=== PATIENT | female | born 1995 | race Caucasian/White ===

== ENCOUNTER 2019-06-22 11:53 | Emergency (ER) | payer SELFPAY ==
[2019-06-22 12:26] VITALS: BP 117/68; PULSE 111; RESP 16; TEMP 37.2; O2SAT 98
--- NOTE | 2019-06-22 12:37 | ED.URI ---
HPI - URI/Sore Throat General Chief Complaint: Upper Respiratory Infection Stated Complaint: Cough/Chills/Sore Throat/Headache Time Seen by Provider: 06/22/19 12:27 Source: patient and RN notes reviewed Mode of arrival: ambulatory Limitations: no limitations History of Present Illness HPI Narrative: 24-year-old female presents with concern for body aches, sore throat, chills, sweats, headache for 3 days. Reports she has been taking NyQuil and DayQuil with little relief MD elicited complaint: sore throat Related Data Allergies Allergy/AdvReac Type Severity Reaction Status Date / Time No Known Allergies Allergy Verified 06/22/19 12:17 Review of Systems Review of Systems: Narrative: CONSTITUTIONAL: Reports malaise, chills, sweats, fever. EYES: Denies visual changes, redness, or discharge. ENT: Reports rhinorrhea, congestion, sore throat. Denies sinus pain, otalgia. CARDIOVASCULAR: Denies chest pain, palpitations, or edema. RESPIRATORY: Reports cough. Denies dyspnea. GASTROINTESTINAL: Denies abdominal pain, nausea, vomiting, diarrhea SKIN: Denies rash or itching. MUSCULOSKELETAL: Reports myalgia. NEUROLOGIC: Reports headache. All systems reviewed & are unremarkable except as noted in HPI and below PMFSH Family History Family History (Updated 03/10/18 @ 15:32 by DOCTOR UNKNOWN) Mother Hypertension Family history of chronic obstructive pulmonary disease Sibling Hypertension Grandparent Family history of coronary artery disease Diabetes mellitus Social History Social History Smoking status: Never smoker Second hand tobacco smoke exposure: Yes Alcohol intake: never Gender identity (if verbalized by the patient): Female Comments At time of signature, agree with nursing past medical, surgical, social and family history. There is no relevant family history pertinent to the presenting complaint Exam Narrative: Exam Narrative: GENERAL: Well-appearing, well-nourished, and in no acute distress. HEAD: Normocephalic EYES: PERRLA, conjunctivae clear ENT: Nares clear, turbinates edematous and erythematous, clear discharge. Mucous membranes moist. TM pearly [place] with dull light reflex bilaterally; no tragal tenderness. Oropharynx erythematous without lesions. Tonsils enlarged and without exudate, no drooling, no hoarseness, no trismus. NECK: Supple. No lymphadenopathy CHEST: Clear to auscultation, breath sounds equal. No wheezing, rhonchi, rales, or stridor. No respiratory distress, speaks in full sentences. Cough noted HEART: Regular rate and rhythm. No murmur heard. Normal peripheral pulses. SKIN: Warm, dry, no rash. NEURO: Alert and oriented x3. PSYCH: Normal mood and affect Course Course Emergency Course: Patient is aware of diagnosis, understands and agrees to treatment plan. Anticipatory guidance given. Patient agrees to follow-up as directed and is aware of reasons to seek care at the emergency department. Portions of this record may have been created with voice recognition software Vital Signs Vital signs: Vital Signs Temperature 99.0 F 06/22/19 12:26 Pulse Rate 111 H 06/22/19 12:26 Respiratory Rate 16 06/22/19 12:26 Blood Pressure 117/68 06/22/19 12:26 Pulse Oximetry 98 06/22/19 12:26 Temperature 99.0 F 06/22/19 12:26 Pulse Rate 111 H 06/22/19 12:26 Respiratory Rate 16 06/22/19 12:26 Blood Pressure 117/68 06/22/19 12:26 Pulse Oximetry 98 06/22/19 12:26 Reviewed. MDM - URI/Sore Throat Lab Data Attestation: I reviewed the patient's lab results. Labs: Influenza A Screen Positive Reference Range: Negative Influenza B Screen Negative Reference Range: Negative Strep Screen Presumptive Negative *(Reference Range: Negative)* Critical Care Time Critical Care Time Critical Care Time: No Discharge Plan Discharge Clinical Impression: Influenza A, Medication refill Patient Disposition: [facility]
== END 2019-06-22 12:44 | disposition home or self-care (01) ==
PROVIDERS: Emergency Provider Nurse Practitioner; PCP Family Medicine
DX: J10.1 Influenza due to other identified influenza virus with other respiratory manifestations (principal); Z76.0 Encounter for issue of repeat prescription; J45.909 Unspecified asthma, uncomplicated
CPT/HCPCS: 87081; 87804; 87880; 99213; G0463

== ENCOUNTER 2020-03-20 10:11 | Outpatient (NON) | payer OTHER, SELFPAY ==
[2020-03-21 21:14] LABS: SARS-CoV-2 RNA PCR Negative
== END 2020-03-20 10:12 ==
LOC: ANHCOVIDDT 10:12
PROVIDERS: Visit Provider Nurse Practitioner Family
DX: Z20.828 Contact with and (suspected) exposure to other viral communicable diseases (principal)
CPT/HCPCS: 87635; C9803; U0003

== ENCOUNTER 2020-04-28 11:14 | Outpatient (CLI) | payer OTHER, SELFPAY ==
[2020-04-28 12:44] LABS: HIV 1/2 Ab P24 Ag Result Negative (Negative)
== END 2020-04-28 11:15 | disposition home or self-care (01) ==
PROVIDERS: PCP Family Medicine; Visit Provider Nurse Practitioner Family
DX: Z11.3 Encounter for screening for infections with a predominantly sexual mode of transmission (principal)
CPT/HCPCS: 36415; 86703; 87491; 87591; G0432

== ENCOUNTER 2020-04-29 12:08 | Emergency (ER) | payer OTHER, SELFPAY ==
[2020-04-29 12:15] VITALS: BP 135/56; PULSE 90; RESP 20; TEMP 36.6; O2SAT 100
--- NOTE | 2020-04-29 12:26 | ED.ABDPAIN ---
HPI - Abdominal Pain General Chief Complaint: Urogenital-Female Stated Complaint: abd pain Time Seen by Provider: 04/29/20 12:36 Source: patient and RN notes reviewed Mode of arrival: ambulatory Limitations: no limitations History of Present Illness HPI narrative: 25-year-old female presents with concern for right lower abdominal pain. Patient reports last menstrual period was in the middle of February, she has had a positive test. She denies any abnormal vaginal bleeding, discharge. Denies nausea, vomiting, diarrhea, constipation. Reports pain is waking her up out of her sleep. Denies any intervention. MD elicited complaint: abdominal pain Related Data Allergies Allergy/AdvReac Type Severity Reaction Status Date / Time No Known Allergies Allergy Verified 04/29/20 12:24 Review of Systems Review of Systems: Narrative: CONSTITUTIONAL: Denies malaise, chills, sweats, or fever. CARDIOVASCULAR: Denies chest pain, palpitations, or edema. RESPIRATORY: Denies cough or dyspnea. GASTROINTESTINAL: Reports right lower abdominal pain. Denies nausea, vomiting, diarrhea, bloody, or mucous stools. GENITOURINARY: Denies frequency, urgency, dysuria or hematuria. MUSCULOSKELETAL: Denies back pain or myalgia. All systems reviewed & are unremarkable except as noted in HPI and below PMFSH Family History Family History (Updated 03/10/18 @ 15:32 by DOCTOR UNKNOWN) Mother Hypertension Family history of chronic obstructive pulmonary disease Sibling Hypertension Grandparent Family history of coronary artery disease Diabetes mellitus Social History Social History Smoking status: Never smoker Second hand tobacco smoke exposure: Yes Alcohol intake: never Gender identity (if verbalized by the patient): Female Comments At time of signature, agree with nursing past medical, surgical, social and family history. There is no relevant family history pertinent to the presenting complaint Exam Narrative: Exam Narrative: GENERAL: Well-appearing, well-nourished, and in no acute distress. HEAD: Normocephalic, atraumatic. EYES: PERRLA, conjunctivae clear ENT: Mucous membranes moist. NECK: Supple. No lymphadenopathy CHEST: Speaks in full sentences. Clear to auscultation, breath sounds equal. No respiratory distress. HEART: Regular rate and rhythm. ABDOMEN: Soft, flat, nondistended. No guarding, rebound tenderness, or rigid. No pulsatilla masses. Bowel sounds present in all four quadrants. No organomegaly. Negative Crane?s sign. No periumbilical tenderness. No Supra public tenderness or distension. SKIN: Warm, dry, no rash. NEURO: Alert and oriented x3. PSYCH: Normal mood and affect Course Course Emergency Course: Patient is aware of, understands and agrees to be seen in the emergency department. Patient agrees to proceed directly to the emergency department. Portions of this record may have been created with voice recognition software Vital Signs Vital signs: Vital Signs Temperature 97.8 F 04/29/20 12:15 Pulse Rate 90 04/29/20 12:15 Respiratory Rate 20 04/29/20 12:15 Blood Pressure 135/56 L 04/29/20 12:15 Pulse Oximetry 100 04/29/20 12:15 Temperature 97.8 F 04/29/20 12:15 Pulse Rate 90 04/29/20 12:15 Respiratory Rate 20 04/29/20 12:15 Blood Pressure 135/56 L 04/29/20 12:15 Pulse Oximetry 100 04/29/20 12:15 Reviewed. Transfer Transfered to: [facility]: Other Transfer rationale: Abdominal pain during Accepting physician: Dale Hughes Transfer comments: Patient stable for transfer via private vehicle MDM - Abdominal Pain MDM Narrative Medical decision making narrative: Patient's history and exam warrant further evaluation in the emergency department. Patient is stable for transfer via private vehicle Lab Data Attestation: I reviewed the patient's lab results. Critical Care Time Critical Care Time Critical Care Time: No Discharge Plan Disch
== END 2020-04-29 12:51 | disposition short-term general hospital (02) ==
PROVIDERS: Emergency Provider Nurse Practitioner; PCP Family Medicine
DX: O26.891 Other specified pregnancy related conditions, first trimester (principal); Z3A.00 Weeks of gestation of pregnancy not specified
CPT/HCPCS: 81003; 81025; 99213; G0463

== ENCOUNTER 2020-04-29 13:07 | Emergency (ER) | payer OTHER, SELFPAY ==
--- NOTE | ~2020-04-29 | US_ITS ---
EXAMINATION: US OB <=14 wk fetus w TV DATE: 04/29/2020 14:19 INDICATION: Pelvic pain during first trimester TECHNIQUE: Real-time pelvic ultrasound utilizing both a transvaginal and transabdominal probe was pe rformed. The interpreting radiologist was not present for the study. COMPARISON: None. FINDINGS: The anteverted uterus measures 7.2 x 3.8 x 4.7 cm. There is an intrauterine gestational sac. A yolk sac and pole are identified. The crown rump length measures 3 mm, which correlates with an amadou mated gestational age of 5 weeks and 5 days. heart motion is identified measuring 85 beats per minute (bpm) by M-mode Doppler. The right ovary measures 3.6 x 2.6 x 2.2 cm. The left ovary measures 3.5 x 2.5 x 2.4 cm. 9 mm anechoi c cyst at the left ovary. Vascular flow is seen at both ovaries on color Doppler. The left ovary ther e is prominent vascular flow at the periphery of a 1.9 cm hypoechoic likely corpus luteum cyst. There is no free fluid in the pelvis. IMPRESSION: 1. Single living fetus with heart rate of 85 bpm. 2. Gestational age by ultrasound of 5 weeks 5 day(s) +/- 4 day(s) with ultrasound estimated date of delivery (SHARRI) of 12/24/2020. Reviewed, dictated and finalized at location A. [facility] IMPRESSION: 1. Single living fetus with heart rate of 85 bpm. 2. Gestational age by ultrasound of 5 weeks 5 day(s) +/- 4 day(s) with ultraso und estimated date of delivery (SHARRI) of 12/24/2020.
[2020-04-29 13:09] VITALS: BP 144/75; PULSE 97; RESP 14; TEMP 36.1; O2SAT 99
--- NOTE | 2020-04-29 13:49 | ED.ABDPAIN ---
HPI - Abdominal Pain General Chief Complaint: Abdominal Pain Stated Complaint: abdominal pain/ sent from urgent care Time Seen by Provider: 04/29/20 13:41 History of Present Illness HPI narrative: 25 yo female presents to the ED for abdominal pain. Intermittent RLQ pain for about the past week. worse with movment. No associated symptoms. Recent positive test. LMP 03/09/2020. She has not had any OB care yet this . Related Data Allergies Allergy/AdvReac Type Severity Reaction Status Date / Time No Known Allergies Allergy Verified 04/29/20 12:24 Review of Systems Review of Systems: All systems reviewed & are unremarkable except as noted in HPI and below Constitutional: Constitutional: Denies chills and Denies fever(s) Cardiovascular: Cardiovascular: Denies chest pain Respiratory: Respiratory: Denies dyspnea Gastrointestinal: Gastrointestinal: Reports abdominal pain, Denies constipation, Denies diarrhea, Denies nausea and Denies vomiting Genitourinary: Genitourinary: Denies abnormal vaginal bleeding, Denies hematuria, Denies dysuria, Denies flank pain and Denies vaginal discharge Neurologic: Denies weakness [facility] Past Medical History Medical History Healthy female adult Family History Family History Mother Hypertension Family history of chronic obstructive pulmonary disease Sibling Hypertension Grandparent Family history of coronary artery disease Diabetes mellitus Social History Social History Smoking status: Never smoker Second hand tobacco smoke exposure: Yes Alcohol intake: never Gender identity (if verbalized by the patient): Female Exam Const: General: healthy appearing, no acute distress and alert Orientation/consciousness: patient oriented x3 HENMT: Head: normal to inspection Neck: Neck: normal visual inspection Resp: Effort & Inspection: normal respiratory effort Auscultation: clear to auscultation bilaterally, no rales, no rhonchi and no wheezes Cardio: Jugular venous distension: no JVD Rate: regular rate Rhythm: regular rhythm Heart sounds: no murmurs GI: Inspection: non-distended GI Palp: Yes Soft to palpation and Yes Tenderness to palpation present (GI) (suprapubic) Skin: General skin exam: normal color Neuro: General: patient oriented x3 and moves all extremities Speech: normal speech Gait exam (Neuro): Normal gait present Extrem: General: normal to inspection and no edema Psych: Appearance: well kempt Affect: normal affect Course Vital Signs Vital signs: Vital Signs Temperature 36.1 C L 04/29/20 13:09 Pulse Rate 97 04/29/20 13:09 Respiratory Rate 14 04/29/20 13:09 Blood Pressure 144/75 H 04/29/20 13:09 Pulse Oximetry 99 04/29/20 13:09 Temperature 36.1 C L 04/29/20 13:09 Pulse Rate 97 04/29/20 13:09 Respiratory Rate 14 04/29/20 13:09 Blood Pressure 144/75 H 04/29/20 13:09 Pulse Oximetry 99 04/29/20 13:09 MDM - Abdominal Pain MDM Narrative Medical decision making narrative: US show IUP. Appendicitis ulikely based on H&P. I explained that I felt it was unlikely, but not entirely excluded. She will return if symptoms worsen. Differential Diagnosis Differential diagnosis: Likely acute appendicitis and other (UTI, ectopic , kidney ston) Medical Records Attestation: I reviewed the patient's medical records. Lab Data Attestation: I reviewed the patient's lab results. Result diagrams: 04/29/20 13:45 04/29/20 13:45 Labs: Lab Results 04/29/20 04/29/20 04/29/20 Range/Units 13:45 13:45 13:45 WBC 6.8 (4.5-10.0) K/mm3 RBC 4.50 (4.2-5.4) M/mm3 Hgb 13.2 (12.0-15.0) g/dL Hct 39.8 (37.0-47.0) % MCV 88.4 (80-100) fl MCH 29.3 (26-34) pg MCHC 33.2 (32-36) g/dl R
[2020-04-29 14:11] LABS: Basophils Percent Auto 0.3 % (0.2-1.2); Eosinophils Percent Auto 0.3 % (0-4.4); Hematocrit 39.8 % (37.0-47.0); Hemoglobin 13.2 g/dL (12.0-15.0); Immature Granulocyte Absolute 0.01 K/mm3 (0.00-0.031); Immature Granulocyte Percent A 0.1 % (0-0.5); Lymphocytes Absolute Auto 1.36 K/mm3 (0.9-3.2); Lymphocytes Percent Auto 19.9 % (18.3-44.2); Mean Corpuscular HGB Conc 33.2 g/dl (32-36); Mean Corpuscular Hemoglobin 29.3 pg (26-34); Mean Corpuscular Volume 88.4 fl (80-100); Mean Platelet Volume 10.1 fl (7.4-10.4); Monocytes Absolute Auto 0.3 K/mm3 (0.1-0.6); Monocytes Percent Auto 4.5 % (2.6-8.5); Neutrophils Absolute Auto 5.1 K/mm3 (1.3-6.7); Neutrophils Percent Auto 74.9 % (45.5-73.1); Platelet Count Result 245 k/mm3 (150-375); Red Cell Distribution Width 12.5 % (11.5-14.5); White Blood Count 6.8 K/mm3 (4.5-10.0)
[2020-04-29 14:23] LABS: Add Urine Microscopic? YES; Appearance Urine Clear (Clear); Bilirubin Urine Negative (Negative); Blood Urine Negative (Negative); Color Urine Straw (Yellow); Glucose Urine UA Negative (Negative); Ketones Urine Trace mg/dL (Negative); Leukocyte Esterase Ur 2+ LEU/UL (Negative); Mucus Urine Rare /lpf; Nitrate Urine Negative (Negative); Protein Urine Negative (Negative); RBC Urine 0-2 /hpf (0-2); Specific Grav Ur 1.012 (1.001-1.035); Squamous Epithelial Cell Urine Many /hpf (Few); Urobilinogen Urine Negative mg/dL (<2.0); WBC Urine 0-3 /hpf
[2020-04-29 14:24] LABS: Alanine Aminotransferase 13 U/L (4-35); Albumin Level 4.7 g/dL (3.5-5.1); Alkaline Phosphatase 56 U/L (38-126); Anion Gap 10 mmol/L (8-16); Aspartate Amino Transferase 25 U/L (14-36); Bilirubin,Total 0.5 mg/dL (0.2-1.3); Blood Urea Nitrogen 10 mg/dL (7-17); Calcium 9.3 mg/dL (8.4-10.2); Carbon Dioxide 24 mmol/L (22-30); Chloride 102 mmol/L (98-107); Estimated CRCL calculation 94 ml/min; Estimated Glomerular Filt Rate > 60; Glucose 94 mg/dL (65-105); Lipase 106 U/L (23-300); Potassium 3.7 mmol/L (3.4-5.0); Sodium 136 mmol/L (137-145)
== END 2020-04-29 15:00 | disposition home or self-care (01) ==
PROVIDERS: Emergency Provider Emergency Medicine; PCP Family Medicine
DX: O26.891 Other specified pregnancy related conditions, first trimester (principal); R10.31 Right lower quadrant pain; Z3A.01 Less than 8 weeks gestation of pregnancy
CPT/HCPCS: 36415; 76801; 76817; 80053; 81001; 81003; 81025; 83690; 84702; 85025; 99283

== ENCOUNTER 2020-09-27 10:43 | Observation (INO) | payer OTHER, SELFPAY ==
--- NOTE | ~2020-09-27 | US_ITS ---
EXAMINATION: US OB limited EXAM DATE: 09/27/2020 12:23 INDICATION: Lower abd pain rt side/ check placenta and ovaries. 3rd trimester. TECHNIQUE: Pelvic obstetrical transabdominal sonogram was performed by a technologist. There are mu ltiple grayscale and Doppler images available for interpretation. Comparison is made to prior examina tion from 04/29/2020. FINDINGS: There is a single fetus identified in vertex presentation with a heart rate of 154 beats pe r minute. The placenta is located in the posterior position. There is no sonographic evidence of ret roplacental hemorrhage identified. Both ovaries were identified and are morphologically normal with low resistance flow confirmed. IMPRESSION: 1. Single fetus in vertex presentation with heart rate 154 beats per minute. 2. Morphologically normal ovaries and placenta. Reviewed, dictated and finalized at location B.
[2020-09-27 11:06] VITALS: BP 128/86; PULSE 107
[2020-09-27 11:15] VITALS: BP 112/73; PULSE 101
[2020-09-27 11:30] VITALS: BP 118/74; PULSE 103
[2020-09-27 11:45] VITALS: BP 123/73; PULSE 101
[2020-09-27 12:00] VITALS: BP 114/66; PULSE 97
[2020-09-27 12:01] VITALS: TEMP 36.2
[2020-09-27 12:39] LABS: Add Urine Microscopic? YES; Appearance Urine Clear (Clear); Bilirubin Urine Negative (Negative); Blood Urine Negative (Negative); Color Urine Yellow (Yellow); Glucose Urine UA Negative (Negative); Ketones Urine Negative (Negative); Leukocyte Esterase Ur Trace LEU/UL (Negative); Nitrate Urine Negative (Negative); Protein Urine Negative (Negative); Specific Grav Ur 1.006 (1.001-1.035); Urobilinogen Urine Negative mg/dL (<2.0)
[2020-09-27 12:47] LABS: Bacteria Urine 1+ /hpf; Squamous Epithelial Cell Urine Occasional /hpf (Few)
[2020-09-27 13:14] VITALS: BMI 26.4
--- NOTE | 2020-09-27 13:14 | OBADM ---
This patient, Michelle Marrero, admitted to the OB room OB Post 116 for observation. Patient/family oriented to hospital policies and general routines including ID bracelet, bed and alarms, visiting hours, pain management, procedures, bathroom and other care routines, personal items, smoking policy, room service/diet, and visiting hours. Patient/Family are encouraged to report perceived risks to care and to ask questions if they do not understand what they are told or what they should do.
--- NOTE | 2020-09-27 13:35 | PC.NURSE ---
1205-Pt taken to US per wheelchair.
--- NOTE | 2020-09-27 13:36 | PC.NURSE ---
5360- called, informed that patient came in stating she was seen in the office yesterday and prescribed an antibiotic for an UTI and given flexeril for lower right sided abdominal pain. Pt states when she got up this morning walking the dog she had the same pain but it was 9/10. Pt states she has zero pain when she is sitting, and pain decreased to 3/10 when she walked into the office. Order received for U/A and US of placenta and ovaries.
--- NOTE | 2020-09-27 13:40 | PC.NURSE ---
1257- called with U/A results and US report. Order received to discharge pt home and have her f/u within the next week in the office.
--- NOTE | 2020-10-21 11:11 | P.PNOB_ITS ---
OB - Triage/Final Diagnosis Visit Information Comments/Additional reasons for admission: I have assessed the risk for this patient, Michelle Marrero, and determined that she would benefit from observation care. Evaluation Laboratory results: Laboratory Tests 09/27/20 12:04 Urine Color Yellow Urine Appearance Clear Urine pH 7.0 Ur Specific [place] 1.006 Urine Protein Negative Urine Glucose (UA) Negative Urine Ketones Negative Ur Blood (Man) Negative Urine Nitrate Negative Urine Bilirubin Negative Urine Urobilinogen Negative Leukocyte Esterase Rfl Trace H Ur Squamous Epith Cells Occasional Urine Bacteria 1+ H Final Diagnosis (1) Abdominal pain: Code(s): R10.9 - Unspecified abdominal pain Status: Acute
== END 2020-09-27 13:10 | disposition home or self-care (01) ==
PROVIDERS: Admitting Provider Obstetrics & Gynecology; PCP Family Medicine; Visit Provider Obstetrics & Gynecology
DX: O26.892 Other specified pregnancy related conditions, second trimester (principal); R10.9 Unspecified abdominal pain; Z3A.27 27 weeks gestation of pregnancy
CPT/HCPCS: 76815; 81001; G0378; G0379

== ENCOUNTER 2020-10-12 07:01 | Outpatient (RCR) | payer OTHER, SELFPAY ==
[2020-10-12] MEDS: RHO(D) IMMUNE GLOBULIN 300 MCG/2 ML SYRINGE IM (13:36)
== END 2021-01-09 23:59 | disposition home or self-care (01) ==
LOC: ANHLAB 07:01
PROVIDERS: PCP Family Medicine; Visit Provider Obstetrics & Gynecology
DX: Z29.13 Encounter for prophylactic Rho(D) immune globulin (principal); O36.0130 Maternal care for anti-D [Rh] antibodies, third trimester, not applicable or unspecified; Z3A.00 Weeks of gestation of pregnancy not specified
CPT/HCPCS: 36415; 85461; 90384; 96372; J2790

== ENCOUNTER 2020-11-22 15:32 | Observation (INO) | payer OTHER, SELFPAY ==
[2020-11-22 16:02] VITALS: BP 125/71; PULSE 101
[2020-11-22 16:21] VITALS: BMI 27.1
--- NOTE | 2020-11-22 16:22 | OBADM ---
This patient, Michelle Marrero, admitted to the OB room OB Post 117 for observation. Patient/family oriented to hospital policies and general routines including ID bracelet, bed and alarms, visiting hours, pain management, procedures, bathroom and other care routines, personal items, smoking policy, room service/diet, call light and visiting hours. Patient/Family are encouraged to report perceived risks to care and to ask questions if they do not understand what they are told or what they should do.
[2020-11-22 16:43] LABS: Add Urine Microscopic? YES; Appearance Urine Cloudy (Clear); Bacteria Urine Trace /hpf; Bilirubin Urine Negative (Negative); Blood Urine Negative (Negative); Color Urine Yellow (Yellow); Glucose Urine UA Negative (Negative); Ketones Urine Negative (Negative); Leukocyte Esterase Ur 1+ LEU/UL (Negative); Mucus Urine Rare /lpf; Nitrate Urine Negative (Negative); Protein Urine Negative (Negative); RBC Urine 0-2 /hpf (0-2); Specific Grav Ur 1.014 (1.001-1.035); Squamous Epithelial Cell Urine Few /hpf (Few); Urobilinogen Urine Negative mg/dL (<2.0); WBC Urine 0-3 /hpf
--- NOTE | 2020-12-15 10:01 | PM.OBTRLD ---
OB - Triage/Final Diagnosis Visit Information Comments/Additional reasons for admission: I have assessed the risk for this patient, Michelle Marrero, and determined that she would benefit from observation care. Evaluation Laboratory results: Laboratory Tests 11/22/20 16:32 Urine Color Yellow Urine Appearance Cloudy H Urine pH 6.0 Ur Specific [place] 1.014 Urine Protein Negative Urine Glucose (UA) Negative Urine Ketones Negative Ur Blood (Man) Negative Urine Nitrate Negative Urine Bilirubin Negative Urine Urobilinogen Negative Leukocyte Esterase Rfl 1+ H Urine RBC 0-2 Urine WBC 0-3 Ur Squamous Epith Cells Few Urine Bacteria Trace Urine Mucus Rare Final Diagnosis (1) False labor: Code(s): O47.9 - False labor, unspecified Status: Acute
== END 2020-11-22 18:07 | disposition home or self-care (01) ==
PROVIDERS: Admitting Provider Obstetrics & Gynecology; PCP Family Medicine; Visit Provider Obstetrics & Gynecology
DX: O47.03 False labor before 37 completed weeks of gestation, third trimester (principal); Z3A.35 35 weeks gestation of pregnancy
CPT/HCPCS: 81001; G0378; G0379

== ENCOUNTER 2020-11-30 22:23 | Outpatient (CLI) | payer OTHER, SELFPAY ==
[2020-11-30 23:00] VITALS: BP 119/69; PULSE 95; RESP 16; TEMP 36.8
== END 2020-11-30 23:35 | disposition home or self-care (01) ==
LOC: ANHOBOP 22:28
PROVIDERS: PCP Family Medicine; Visit Provider Obstetrics & Gynecology
DX: O41.8X90 Other specified disorders of amniotic fluid and membranes, unspecified trimester, not applicable or unspecified (principal); Z3A.00 Weeks of gestation of pregnancy not specified
CPT/HCPCS: 59025

== ENCOUNTER 2020-12-09 23:02 | Observation (INO) | payer OTHER, SELFPAY ==
[2020-12-09 23:20] VITALS: BP 105/64; PULSE 88; BMI 27.8
[2020-12-09 23:31] VITALS: BP 112/69; PULSE 94
[2020-12-09 23:46] VITALS: BP 111/62; PULSE 92
[2020-12-10 00:01] VITALS: BP 114/71; PULSE 95
[2020-12-10 00:16] VITALS: BP 111/68; PULSE 86
--- NOTE | 2020-12-10 00:55 | PC.NURSE ---
Pt here for contractions, cramping. No cervical change since arrival and pt states contractions have decreased. Pt comfortable with discharge to home and will return if contractions become regular or more intense.
--- NOTE | 2020-12-17 07:53 | PM.OBTRLD ---
OB - Triage/Final Diagnosis Visit Information Comments/Additional reasons for admission: I have assessed the risk for this patient, Michelle Marrero, and determined that she would benefit from observation care. Final Diagnosis (1) False labor: Code(s): O47.9 - False labor, unspecified Status: Acute (2) Abdominal pain: Code(s): R10.9 - Unspecified abdominal pain Status: Acute
== END 2020-12-10 00:55 | disposition home or self-care (01) ==
PROVIDERS: Admitting Provider Obstetrics & Gynecology; PCP Family Medicine; Visit Provider Obstetrics & Gynecology
DX: O47.9 False labor, unspecified (principal); R10.9 Unspecified abdominal pain; Z3A.00 Weeks of gestation of pregnancy not specified
CPT/HCPCS: G0378; G0379

== ENCOUNTER 2020-12-16 16:48 | Observation (INO) | payer OTHER, SELFPAY ==
[2020-12-16 17:16] VITALS: BP 130/83; PULSE 100
[2020-12-16 17:31] VITALS: BP 116/89; PULSE 105
[2020-12-16 17:46] VITALS: BP 132/88
[2020-12-16 18:01] VITALS: BP 123/64; PULSE 93
[2020-12-16 19:09] VITALS: BMI 28.3
--- NOTE | 2020-12-16 19:10 | OBADM ---
This patient, Michelle Marrero, admitted to the OB room Labor/Delivery/Recovery 106 for observation. Patient/family oriented to hospital policies and general routines including ID bracelet, bed and alarms, visiting hours, pain management, procedures, bathroom and other care routines, personal items, smoking policy, room service/diet, and visiting hours. Patient/Family are encouraged to report perceived risks to care and to ask questions if they do not understand what they are told or what they should do.
== END 2020-12-16 19:22 | disposition home or self-care (01) ==
PROVIDERS: Admitting Provider Obstetrics & Gynecology; PCP Family Medicine; Visit Provider Obstetrics & Gynecology
DX: O47.1 False labor at or after 37 completed weeks of gestation (principal); Z3A.38 38 weeks gestation of pregnancy
CPT/HCPCS: G0378; G0379

== ENCOUNTER 2020-12-18 15:28 | Observation (INO) | payer OTHER, SELFPAY ==
--- NOTE | 2020-12-21 07:52 | PM.OBTRLD ---
OB - Triage/Final Diagnosis Visit Information Comments/Additional reasons for admission: I have assessed the risk for this patient, Michelle Parvez Elida, and determined that she would benefit from observation care. Final Diagnosis (1) False labor: Code(s): O47.9 - False labor, unspecified Status: Acute
== END 2020-12-18 17:35 | disposition home or self-care (01) ==
PROVIDERS: Admitting Provider Obstetrics & Gynecology; PCP Family Medicine; Visit Provider Obstetrics & Gynecology
DX: O47.1 False labor at or after 37 completed weeks of gestation (principal); Z3A.39 39 weeks gestation of pregnancy
CPT/HCPCS: G0378; G0379

== ENCOUNTER 2020-12-20 14:27 | Observation (INO) | payer OTHER, SELFPAY ==
--- NOTE | 2020-12-20 14:27 | OBADM ---
This patient, Michelle Marrero, admitted to the OB room Labor/Delivery/Recovery 105 for observation. Patient/family oriented to hospital policies and general routines including ID bracelet, bed and alarms, visiting hours, pain management, procedures, bathroom and other care routines, personal items, smoking policy, room service/diet, and visiting hours. Patient/Family are encouraged to report perceived risks to care and to ask questions if they do not understand what they are told or what they should do.
[2020-12-20 14:45] VITALS: BMI 28.2
== END 2020-12-20 16:36 | disposition home or self-care (01) ==
PROVIDERS: Admitting Provider Obstetrics & Gynecology; PCP Family Medicine; Visit Provider Obstetrics & Gynecology
DX: O47.1 False labor at or after 37 completed weeks of gestation (principal); Z3A.39 39 weeks gestation of pregnancy
CPT/HCPCS: G0378; G0379

== ENCOUNTER 2020-12-21 20:21 | Observation (INO) | payer OTHER, SELFPAY ==
[2020-12-21 22:31] VITALS: RESP 18; TEMP 37
[2020-12-21 23:27] VITALS: BMI 28.3
== END 2020-12-21 23:34 | disposition home or self-care (01) ==
PROVIDERS: Admitting Provider Obstetrics & Gynecology; PCP Family Medicine; Visit Provider Obstetrics & Gynecology
DX: O47.1 False labor at or after 37 completed weeks of gestation (principal); Z3A.39 39 weeks gestation of pregnancy
CPT/HCPCS: 84112; G0378; G0379

== ENCOUNTER 2020-12-25 06:26 | Inpatient (IN) | payer OTHER, SELFPAY ==
[2020-12-25] VITALS (160 sets, daily range): BP systolic 79–217; BP diastolic 24–148; PULSE 39–192; RESP 16–20; TEMP 36.2–36.9; O2SAT 81–100; BMI 28.7
--- NOTE | 2020-12-25 06:26 | LDADM ---
This patient, Michelle Marrero, was admitted to Labor/Delivery/Recovery 105 on 12/25/20 at 06:26. Plans for labor, pain management and were discussed with patient. Patient/family oriented to hospital policies and general routines including ID bracelet, bed and alarms, visiting hours, pain management, procedures, bathroom and other care routines, personal items, smoking policy, room service/diet and guest tray routines, security routines, and visiting hours. Patient/Family are encouraged to report perceived risks to care and to ask questions if they do not understand what they are told or what they should do. See OBIX for further documentation.
[2020-12-25 07:21] LABS: Basophils Percent Auto 0.3 % (0.2-1.2); Eosinophils Absolute Auto 0.1 K/mm3 (0-0.3); Eosinophils Percent Auto 1.1 % (0-4.4); Hematocrit 36.7 % (37.0-47.0); Hemoglobin 12.2 g/dL (12.0-15.0); Immature Granulocyte Absolute 0.03 K/mm3 (0.00-0.031); Immature Granulocyte Percent A 0.4 % (0-0.5); Lymphocytes Absolute Auto 2.06 K/mm3 (0.9-3.2); Lymphocytes Percent Auto 28.1 % (18.3-44.2); Mean Corpuscular HGB Conc 33.2 g/dl (32-36); Mean Corpuscular Hemoglobin 28.1 pg (26-34); Mean Corpuscular Volume 84.6 fl (80-100); Monocytes Absolute Auto 0.4 K/mm3 (0.1-0.6); Monocytes Percent Auto 5.6 % (2.6-8.5); Neutrophils Absolute Auto 4.7 K/mm3 (1.3-6.7); Neutrophils Percent Auto 64.5 % (45.5-73.1); Platelet Count Result 150 k/mm3 (150-375); Red Blood Count 4.34 M/mm3 (4.2-5.4); Red Cell Distribution Width 13.7 % (11.5-14.5); White Blood Count 7.3 K/mm3 (4.5-10.0)
[2020-12-25] MEDS: LACTATED RINGERS 1,000 ML 125 ML IV CONT ×3 (07:22→13:29)
[2020-12-25] MEDS: AMPICILLIN 2 GM/NS 100 ML 2 GM/100 ML BAG IVPB (07:22)
[2020-12-25] MEDS: OXYTOCIN 30 UNITS/NS 500 ML 30 UNITS/500 ML BAG IV CONT (07:24)
--- NOTE | 2020-12-25 07:42 | PM.IMHP ---
H&P: HPI History of Present Illness Date/Time: 12/25/20 07:42 Chief Complaint: induction of labor Narrative: Michelle is a 25yo at 40.0 for induction. uncomplicated. GBS pos. Review of Systems Review of Systems: All systems reviewed & are unremarkable except as noted in HPI and below PMFSH Past Medical History Medical History Healthy female adult Family History Family History Mother Hypertension Family history of chronic obstructive pulmonary disease Sibling Hypertension Grandparent Family history of coronary artery disease Diabetes mellitus Social History Social History Smoking status: Former smoker Second hand tobacco smoke exposure: Yes Alcohol intake: never Substance use: never Gender identity (if verbalized by the patient): Female Spiritual care concerns: No Meds Home Medications and Allergies Home Medications Medication Instructions Recorded Confirmed Type albuterol sulfate 2 puff INHALATION QID PRN #8.5 gm 06/22/19 12/22/20 Rx PNV cmb#95-ferrous fumarate-FA 1 tablet PO DAILY 11/23/20 12/22/20 History [] ferrous sulfate [Iron (ferrous 325 mg PO DAILY 11/23/20 12/22/20 History sulfate)] Allergies Allergy/AdvReac Type Severity Reaction Status Date / Time No Known Allergies Allergy Verified 11/22/20 16:25 Vital Signs Vital Signs - 24 hr 12/25/20 06:49 12/25/20 07:01 12/25/20 07:16 Pulse Rate 93 93 88 Blood Pressure 121/82 113/75 116/57 L 12/25/20 07:31 Pulse Rate 90 Blood Pressure 123/50 L Exam Const: General: no acute distress Resp: Effort & Inspection: normal respiratory effort Auscultation: clear to auscultation bilaterally Cardio: Rate: regular rate Rhythm: regular rhythm GI: GI Palp: Yes Soft to palpation Extrem: General: normal to inspection H&P: Results Labs Labs: Short CBC 12/25/20 Range/Units 07:12 WBC 7.3 (4.5-10.0) K/mm3 Hgb 12.2 (12.0-15.0) g/dL Hct 36.7 L (37.0-47.0) % Plt Count 150 (150-375) k/mm3 Assessment and Plan Additional Plan Here for induction of labor- pitocin per protocol AROM CLear GBS pos FHT category 1
[2020-12-25] MEDS: fentaNYL CITRATE INJ (*CRX) 100 MCG/2 ML VIAL 50 MCG IV PUSH (08:28)
--- NOTE | 2020-12-25 08:57 | WPDANESEPP ---
Anes - Eval Pre Procedure Procedure: labor epidural Date/Time: 12/25/20 08:57 Surgeon: santos Preop Diagnosis: pain during labor Pre Op Diagnosis: induction of labor Patient Data Age: 25 Gender: F Height: 1.55 m Weight: 69 kg Last Vital Signs Pulse 114 H 12/25/20 08:46 BP 113/62 12/25/20 08:46 Allergies Allergy/AdvReac Type Severity Reaction Status Date / Time No Known Allergies Allergy Verified 11/22/20 16:25 Home Medications Medication Instructions Recorded Confirmed Type albuterol sulfate 2 puff INHALATION QID PRN #8.5 gm 06/22/19 12/22/20 Rx PNV cmb#95-ferrous fumarate-FA 1 tablet PO DAILY 11/23/20 12/22/20 History [] ferrous sulfate [Iron (ferrous 325 mg PO DAILY 11/23/20 12/22/20 History sulfate)] Laboratory Tests 12/25/20 12/25/20 12/25/20 07:12 07:12 07:12 WBC 7.3 K/mm3 K/mm3 (4.5-10.0) RBC 4.34 M/mm3 M/mm3 (4.2-5.4) Hgb 12.2 g/dL g/dL (12.0-15.0) Hct 36.7 % L % (37.0-47.0) MCV 84.6 fl fl (80-100) MCH 28.1 pg pg (26-34) MCHC 33.2 g/dl g/dl (32-36) RDW 13.7 % % (11.5-14.5) Plt Count 150 k/mm3 k/mm3 (150-375) MPV 10.0 fl fl (7.4-10.4) Immature Gran % (Auto) 0.4 % % (0-0.5) Neut % (Auto) 64.5 % % (45.5-73.1) Lymph % (Auto) 28.1 % % (18.3-44.2) [place] % (Auto) 5.6 % % (2.6-8.5) Eos % (Auto) 1.1 % % (0-4.4) Baso % (Auto) 0.3 % % (0.2-1.2) Lymph # (Auto) 2.06 K/mm3 K/mm3 (0.9-3.2) [place] # (Auto) 0.4 K/mm3 K/mm3 (0.1-0.6) Eos # (Auto) 0.1 K/mm3 K/mm3 (0-0.3) Baso # (Auto) 0.0 K/mm3 K/mm3 (0.0-0.1) Abs Immat Gran (auto) 0.03 K/mm3 K/mm3 (0.00-0.031) Absolute Neuts (auto) 4.7 K/mm3 K/mm3 (1.3-6.7) Absolute Nucleated RBC 0.0 K/mm3 K/mm3 (0.0-0.012) Nucleated RBC % 0.0 % % (0.0-0.2) RPR Pending Blood Type O Negative Antibody Screen Negative Patient hx anesthesia problems: none Family hx anesthesia problems: none PMFSH Past Medical History Medical History (Updated 12/25/20 @ 08:59 by Rebekah Swanson CRNA) Asthma Healthy female adult IUP (intrauterine ), incidental Family History Family History Mother Hypertension Family history of chronic obstructive pulmonary disease Sibling Hypertension Grandparent Family history of coronary artery disease Diabetes mellitus Social History Social History Smoking status: Former smoker Second hand tobacco smoke exposure: Yes Alcohol intake: never Substance use: never Gender identity (if verbalized by the patient): Female Spiritual care concerns: No Exam Day of Procedure 12/25/20 08:57
[2020-12-25] MEDS: ONDANSETRON INJ 4 MG/2 ML VIAL IV PUSH (10:13)
[2020-12-25] MEDS: AMPICILLIN 1 GM/NS 50 ML 1 GM/50 ML BAG IVPB ×2 (11:15→15:03)
[2020-12-25] MEDS: METHYLERGONOVINE MALEATE 0.2 MG/ML VIAL (16:06)
[2020-12-25] MEDS: miSOPROStol 200 MCG TABLET 800 MCG (16:10)
--- NOTE | 2020-12-25 16:23 | PM.OBPRVD ---
OB - Delivery Note Procedure Delivery date: 12/25/20 Procedure: Intrapartal events: None Induction method: AROM and per pitocin protocol Delivery monitor: external FHT and internal uterine Route of delivery: Laceration Description: Perineal - 1st Degree Delivery repair: vicryl Specimen: No Quantitative Blood Loss (ml): 550 Anesthesia type: Epidural Disposition: floor Narrative: With adequate expulsive efforts by the mother, the baby's head was delivered OA. The baby's anterior shoulder was delivered under the pubic symphysis without difficulty. The posterior shoulder and the rest of the baby delivered without difficulty. The infant was placed on the mothers chest and suctioned and stimulated. The cord was clamped and cut after 30 seconds. Mother and baby both stable. Following delivery of the placenta, atony was treated with methergine, pitocin, and cytotec. Atony improved markedly. Baby Date of : 12/25/20 Time of : 15:51 Weeks of gestation at delivery: 40 gender: Female Weight (pounds): 7 Weight (ounces): 3 presentation: vertex Placenta delivery description: Spontaneous cord vessel description: 3 Vessels, Nuchal Cord and Delayed Cord Clamping score one minute: 8 score five minutes: 9
[2020-12-25] MEDS: OXYTOCIN 30 UNITS/NS 500 ML 30 UNITS/500 ML BAG 125 UNITS IV CONT (16:31)
[2020-12-25] MEDS: BENZOCAINE 20% AER SPR (*SP) 56 GM CAN 1 SPRAY TOPICAL (18:01)
[2020-12-25] MEDS: WITCH HAZEL 40 PADS 1 PAD TOPICAL (18:01)
[2020-12-25] MEDS: IBUPROFEN 600 MG TABLET PO (18:41)
--- NOTE | 2020-12-25 18:48 | OBPPTRN ---
Patient transferred to post room #287 via wheelchair. Support person present. Oriented to unit, room, information board, rooming in, admission packet and security measures. Patient verbalizes understanding.
[2020-12-25] MEDS: ACETAMINOPHEN 325 MG TABLET 650 MG PO (20:11)
[2020-12-26] VITALS: BP 108/64; PULSE 80; RESP 16; TEMP 37.1; O2SAT 100
[2020-12-26] MEDS: IBUPROFEN 600 MG TABLET PO ×4 (00:29→22:32)
[2020-12-26] MEDS: ACETAMINOPHEN 325 MG TABLET 650 MG PO ×3 (02:02→19:21)
[2020-12-26 04:00] VITALS: BP 116/67; PULSE 71; RESP 16; TEMP 36.8; O2SAT 99
[2020-12-26 04:52] LABS: Hematocrit 30.6 % (37.0-47.0); Hemoglobin 10.1 g/dL (12.0-15.0)
--- NOTE | 2020-12-26 07:42 | P.PNOB_ITS ---
OB - PN: Subj Subjective Date/time seen: 12/26/20 07:42 Patient comments: no complaints baby status: doing well [place] feeding status: exclusively bottle feeding OB - PN: Obj Data Labs CBC & Chem 7: 12/26/20 04:06 Labs: Laboratory Results - last 24 hr 12/25/20 12/26/20 07:12 04:06 Hgb 10.1 L Hct 30.6 L Blood Type O Negative Antibody Screen Negative OB - PN A/P Plan day: 1 Plan: routine care Time Spent With Patient Time: Total time spent is greater than 50% in coordination of care (as documented) at patient's floor/unit and/or counseling patient: Time with patient: less than 15 minutes Exam Narrative: NAD abdomen soft, nontender, fundus firm below the umbilicus Extremities nontender, 1+ edema
[2020-12-26] MEDS: DOCUSATE SODIUM 100 MG CAPSULE PO (09:58)
[2020-12-26 10:00] LABS: Rapid Plasma Reagin Non-Reactive (NonReactive)
[2020-12-26 10:23] VITALS: BP 125/66; PULSE 80; RESP 18; TEMP 36.6; O2SAT 100
[2020-12-26 11:35] VITALS: BP 123/72; PULSE 80; RESP 18; TEMP 36.8; O2SAT 100
--- NOTE | 2020-12-26 12:34 | WPDANLDPN2 ---
Anes-Prog Note L&D Date/Time: 12/26/20 12:34 Comfortable throughout: labor and delivery Neuraxial method: epidural Epidural/Spinal procedure site: clean & non-tender Neuro status: Neuro function grossly intact. Cardiovascular status: normal Respiratory status: normal Airway patency: baseline Mental status: baseline Post-Op hydration status: normal Vital Signs: Last Vital Signs Temp 36.8 C 12/26/20 11:35 Pulse 80 12/26/20 11:35 Resp 18 12/26/20 11:35 BP 123/72 12/26/20 11:35 Pulse Ox 100 12/26/20 11:35 Pain score (VAS): 05/06 I/O: Intake & Output 12/25/20 12/26/20 12/26/20 23:59 07:59 15:59 Intake Total 1500 Output Total 107 Balance 1393 Post-procedural complaints: none Patient feedback: Patient satisfied with anesthetic care.
[2020-12-26 20:00] VITALS: BP 109/60; PULSE 80; RESP 16; TEMP 36.9; O2SAT 100
[2020-12-27] MEDS: ACETAMINOPHEN 325 MG TABLET 650 MG PO (01:21)
[2020-12-27] MEDS: IBUPROFEN 600 MG TABLET PO (04:22)
--- NOTE | 2020-12-27 07:39 | PM.OBPNVD ---
OB - PN: Subj Subjective Date/time seen: 12/27/20 07:39 Patient comments: no complaints baby status: doing well OB - PN: Obj Data Labs CBC & Chem 7: 12/26/20 04:06 Labs: Laboratory Results - last 24 hr 12/25/20 07:12 RPR Non-reactive OB - PN A/P Plan day: 2 Plan: routine care and discharge home (F/U in 4 weeks) Time Spent With Patient Time: Total time spent is greater than 50% in coordination of care (as documented) at patient's floor/unit and/or counseling patient: Time with patient: less than 15 minutes Review of Systems Review of Systems: All systems reviewed & are unremarkable except as noted in HPI and below Exam Narrative: Fundus firm and vaginal flow controlled. No lower ext redness, warmth, or edema. Negative homans. Const: General: comfortable Chest: Breast/axilla inspection: normal inspection of the breasts Resp: Effort & Inspection: normal respiratory effort Cardio: Rate: regular rate GI: GI Palp: Yes Soft to palpation Psych: Appearance: grossly normal Affect: normal affect Attitude: cooperative Thought content: Yes Normal thought content present Judgement: Good judgement present (Psych)
--- NOTE | 2020-12-27 07:40 | PM.OBDSVD ---
DS: Admitting Diagnosis Admitting Diagnosis Induction of labor OB - DS: Summary OB Procedures : None OB Procedures Intrapartum: Spontaneous Vag Delivery OB Procedures: : None Time Spent with Patient Time attestation: Total time spent providing and/or coordinating discharge services: DS: Data Data Completed and Pending Labs on day of discharge: Labs from last 24 hours 12/25/20 07:12 RPR Non-reactive Discharge Plan Discharge Attending physician on discharge: Maria Dolores Wright Discharging Clinician: Madalyn Santa Patient Disposition: Home, Self-Care Activity: pelvic rest Diet: as tolerated Patient Instructions: Antibiotic Form Stand Alone Forms: General Discharge Information Follow-up/Referrals: Maira Dolores Wright MD [Physician] - Discharge Medications: Continued albuterol sulfate 90 mcg/actuation HFA aerosol inhaler 2 puff INHALATION QID PRN (Reason: shortness of breath or wheezing) Qty: 8.5 RF: 0 ferrous sulfate [Iron (ferrous sulfate)] 325 mg (65 mg iron) Tablet 325 mg PO DAILY RF: 0 PNV cmb#95-ferrous fumarate-FA [] 28 mg iron- 800 mcg Tablet 1 tablet PO DAILY RF: 0 Date of admission: 12/25/20 06:26 Primary Care Provider: Bradley,Selena Le Admitting Provider: Maria Dolores Wright Attending physician on admission: Maria Dolores Wright Condition: Stable
[2020-12-27 08:40] VITALS: BP 103/58; PULSE 70; RESP 18; TEMP 36.6; O2SAT 99
[2020-12-27] MEDS: MULTIVIT/MIN/PREN/FOL AC/IRON TABLET 1 TAB PO (09:11)
[2020-12-27] MEDS: MEASLES,MUMPS,RUBELLA VACCINE 0.5 ML VIAL (09:16)
--- NOTE | 2020-12-27 10:37 | PC.NURSE ---
Patient viewed the discharge video Mother & Baby Care, The First Two Weeks . Patient was given the opportunity and encouraged to ask questions. Patient verbalized understanding of information shared and has been given the mother/baby guide for home reference.
[2020-12-29 08:36] VITALS: BP 136/87; PULSE 85; RESP 18; TEMP 37.1; O2SAT 100
== END 2020-12-27 12:27 | disposition home or self-care (01) | DRG 560 ==
LOC: ANHLDR 06:31 → ANHOB2 19:33
PROVIDERS: Admitting Provider Obstetrics & Gynecology; PCP Family Medicine; Visit Provider Obstetrics & Gynecology
DX: O99.824 Streptococcus B carrier state complicating childbirth (principal); O70.0 First degree perineal laceration during delivery; O77.0 Labor and delivery complicated by meconium in amniotic fluid; O69.81X0 Labor and delivery complicated by cord around neck, without compression, not applicable or unspecified; Z3A.40 40 weeks gestation of pregnancy; Z37.0 Single live birth
CPT/HCPCS: 36415; 85014; 85018; 85025; 86592; 86850; 86900; 86901; 90710; A9270; J0290; J2210; J2405; J2590; J3010; J7120

== ENCOUNTER 2021-07-02 10:45 | Emergency (ER) | payer OTHER, SELFPAY ==
[2021-07-02 11:01] VITALS: BP 120/81; PULSE 81; RESP 16; TEMP 36.3; O2SAT 100
--- NOTE | 2021-07-02 11:14 | ED.NAVMDI ---
HPI - Nausea/Vomiting/Diarrhea General Chief complaint: Nausea/Vomiting/Diarrhea Stated complaint: vomiting/diarrhea/abd pain Time Seen by Provider: 07/02/21 11:14 Source: patient Mode of arrival: ambulatory Limitations: no limitations History of Present Illness HPI Narrative: 26 yo F presents with c/o N/V/D that started yesterday afternoon. First had diarrhea after eating at [employer] and later had N/V, stomach cramps, fatigue. Still vomiting today. afebrile. All systems reviewed and negative except as noted above. Related Data Allergies Allergy/AdvReac Type Severity Reaction Status Date / Time No Known Allergies Allergy Verified 07/02/21 11:15 Review of Systems Review of Systems: CONSTITUTIONAL: Denies fever, chills, or sweats. Reports fatigue EYES: Denies visual changes, redness, or discharge. ENT: Denies rhinorrhea, congestion, sore throat, or otalgia. CARDIOVASCULAR: Denies chest pain, palpitations, or edema. RESPIRATORY: Denies cough or dyspnea. GASTROINTESTINAL: Reports abdominal pain, nausea, vomiting, or diarrhea. GENITOURINARY: Denies dysuria or hematuria. SKIN: Denies rash or itching. MUSCULOSKELETAL: Denies back pain, joint pain, or myalgia. NEUROLOGIC: Denies headache, numbness, or weakness. PSYCHIATRIC: Denies anxiety or depression. All other systems reviewed are negative, except as documented in HPI. [facility] Past Medical History Medical History (Updated 07/02/21 @ 11:44 by Kathy Powlel NP) Asthma Healthy female adult IUP (intrauterine ), incidental Family History Family History Mother Hypertension Family history of chronic obstructive pulmonary disease Sibling Hypertension Grandparent Family history of coronary artery disease Diabetes mellitus Social History Social History Smoking status: Former smoker Second hand tobacco smoke exposure: Yes Alcohol intake: never Substance use: never Gender identity (if verbalized by the patient): Female Spiritual care concerns: No Comments At time of signature, agree with nursing past medical, surgical, social and family history. There is no relevant family history pertinent to the presenting complaint. Exam Narrative: GENERAL: This is a well-nourished, well-developed patient. Patient holding abdomen, appears ill, but no distress. HEAD: normocephalic, atraumatic. EYES: PERRL. Sclera clear/white. Vision is grossly intact. EARS: External ears normal, auditory canals clear and without drainage, TMs normal without perforation. Hearing grossly intact. NOSE: External nose normal with no obvious nasal discharge, nares without redness, no rhinorrhea. THROAT: Mucous membranes moist, posterior pharynx clear. NECK: Neck supple, non-tender without lymphadenopathy, masses or thyromegaly. CARDIOVASCULAR: Regular rate and rhythm without murmurs, gallops, or rubs. RESPIRATORY: Clear to auscultation. Breath sounds equal bilaterally. No wheezes, rales, or rhonchi. GASTROINTESTINAL: Abdomen soft, non-tender, nondistended. Bowel sounds are active. No hepato-splenomegaly, or palpable masses. No guarding. SKIN: warm, Dry, intact with no suspicious lesions or rash, good texture and turgor. NEURO: awake, alert, and oriented to person, place and time. There were no obvious focal neurologic abnormalities. EXTREMITIES: No joint tenderness, effusion, or edema noted. No calf tenderness. Negative Homans sign bilaterally. BACK: Nontender without deformity. No CVA tenderness. Course Course Level of Care: Express Care Visit Vital Signs Vital signs: Vital Signs Temperature 36.3 C L 07/02/21 11:01 Pulse Rate 81 07/02/21 11:01 Respiratory Rate 16 07/02/21 11:01 Blood Pressure 120/81 07/02/21 11:01 Pulse Oximetry 100 07/02/21 11:01 Temperature 36.3 C L 07/02/21 11:01 Pulse Rate 81 07/02/21 11:01 Respiratory Rate 16 0
[2021-07-02] MEDS: ONDANSETRON HCL ODT 4 MG TABLET SUBLINGUAL (11:28)
== END 2021-07-02 11:55 | disposition home or self-care (01) ==
PROVIDERS: Emergency Provider Nurse Practitioner Family; PCP Family Medicine
DX: A08.4 Viral intestinal infection, unspecified (principal); J45.909 Unspecified asthma, uncomplicated
CPT/HCPCS: 99213; A9270; G0463

== ENCOUNTER 2022-01-14 14:57 | Emergency (ER) | payer OTHER, SELFPAY ==
--- NOTE | ~2022-01-14 | US_ITS ---
EXAMINATION: US OB <= 14 weeks fetus INDICATION: vaginal bleeding TECHNIQUE: Sonography of the pelvis was performed by transabdominal and transvaginal techniques. COMPARISON: None. RESULT: Uterus: Orientation: Anteverted. 8.2 x 5.0 x 6.3 cm. Myometrium: homogeneous echogenicity. The cervi x is long and closed. Gestation: - Intrauterine gestational sac: Single present. - Yolk sac: 0.2 cm. - Embryo: Single present. - [place] rump length: 0.51 cm, corresponding gestational age 6 weeks, 2 days. -Gestational heart rate: present 142 bpm. -Subgestational hematoma: Absent. Right ovary: 3.3 x 2.8 x 2.3 cm. Normal sonographic appearance with physiologic follicles. 2.3 cm thick-walled right ovarian cyst with a loculated inner margin and peripheral flow, likely representi ng a corpus luteal cyst. Left ovary: 3.1 x 1.8 x 1.8 cm. Normal sonographic appearance with physiologic follicles. . Pelvis free fluid: None. IMPRESSION: Single, live intrauterine gestation. Estimated Gestational Age: 6 weeks, 2 days by crown rump length. SHARRI by ultrasound 09/07/2022. Reviewed, dictated and finalized at location K. IMPRESSION: Single, live intrauterine gestation. Estimated Gestational Age: 6 weeks, 2 days by crown rump length. SHARRI by ultras ound 09/07/2022.
[2022-01-14 15:11] VITALS: BP 105/72; PULSE 79; RESP 16; TEMP 36.6; O2SAT 100
[2022-01-14 16:01] LABS: Basophils Percent Auto 0.4 % (0.2-1.2); Eosinophils Absolute Auto 0.1 K/mm3 (0-0.3); Eosinophils Percent Auto 1.6 % (0-4.4); Hematocrit 36.5 % (37.0-47.0); Hemoglobin 11.9 g/dL (12.0-15.0); Immature Granulocyte Absolute 0.01 K/mm3 (0.00-0.031); Immature Granulocyte Percent A 0.2 % (0-0.5); Lymphocytes Absolute Auto 2.17 K/mm3 (0.9-3.2); Mean Corpuscular HGB Conc 32.6 g/dl (32-36); Mean Corpuscular Volume 85.9 fl (80-100); Mean Platelet Volume 10.6 fl (7.4-10.4); Monocytes Absolute Auto 0.3 K/mm3 (0.1-0.6); Monocytes Percent Auto 5.4 % (2.6-8.5); Neutrophils Percent Auto 53.4 % (45.5-73.1); Platelet Count Result 201 k/mm3 (150-375); Red Blood Count 4.25 M/mm3 (4.2-5.4); Red Cell Distribution Width 12.8 % (11.5-14.5); White Blood Count 5.6 K/mm3 (4.5-10.0)
--- NOTE | 2022-01-14 17:55 | PC.NURSE ---
pt. to US
--- NOTE | 2022-01-14 18:14 | ED.PREGNANCY ---
HPI - General Chief complaint: Vaginal Bleeding Stated complaint: preg vag bleed Time Seen by Provider: 01/14/22 17:29 Source: patient Mode of arrival: ambulatory Limitations: no limitations History of Present Illness HPI Narrative: This is a 26 year old , about 6 weeks by LMP, presents to the emergency department for vaginal bleeding. Reports she has been having some light bleeding over the last 5 days. This is improving. She has had some mild cramping associated with it. She had a positive test about a week ago. She has not been evaluated yet this . Denies fever or vomiting. Related Data Allergies Allergy/AdvReac Type Severity Reaction Status Date / Time No Known Allergies Allergy Verified 01/14/22 18:19 Review of Systems Review of Systems: CONSTITUTIONAL: Denies fever GASTROINTESTINAL: Reports pelvic pain GENITOURINARY: Denies dysuria All systems reviewed & are unremarkable except as noted in HPI and below PMFSH Past Medical History Medical History (Updated 01/14/22 @ 18:47 by Rosanna Bernabe PA-C) Asthma Healthy female adult IUP (intrauterine ), incidental Family History Family History Mother Hypertension Family history of chronic obstructive pulmonary disease Sibling Hypertension Grandparent Family history of coronary artery disease Diabetes mellitus Social History Social History Smoking status: Former smoker Second hand tobacco smoke exposure: Yes Alcohol intake: never Substance use: never Gender identity (if verbalized by the patient): Female Spiritual care concerns: No Exam Narrative: GENERAL: Well-appearing, well-nourished, and in no acute distress. HEAD: Normocephalic, atraumatic. EYES: EOMI. CHEST: Clear to auscultation. No respiratory distress. No wheezes rales or rhonchi HEART: Regular rate and rhythm. No murmur heard. Normal peripheral pulses. ABDOMEN: Soft, nontender, nondistended, normal active bowel sounds. EXTREMITIES: Normal range of motion. No edema. SKIN: Warm, dry, no rash. NEURO: No focal deficits. Alert and oriented x3. PSYCH: Normal mood and affect PELVIC: Normal external genitalia. Normal-appearing cervix, closed. Small amount of dark red blood noted in the vaginal vault Course Vital Signs Vital signs: Vital Signs Temperature 97.8 F 01/14/22 15:11 Pulse Rate 79 01/14/22 15:11 Respiratory Rate 16 01/14/22 15:11 Blood Pressure 105/72 01/14/22 15:11 Pulse Oximetry 100 01/14/22 15:11 Oxygen Delivery Room Air 01/14/22 15:11 Temperature 97.8 F 01/14/22 15:11 Pulse Rate 69 01/14/22 18:19 Respiratory Rate 14 01/14/22 18:19 Blood Pressure 110/58 L 01/14/22 18:19 Pulse Oximetry 99 01/14/22 18:19 Oxygen Delivery Room Air 01/14/22 15:11 MDM - OB/Uterine Contractions MDM Narrative Medical decision making narrative: Patient presents to the emergency department for bleeding in early . Her vitals are stable. Hemoglobin is 11.9. Quantitative beta-hCG 25,684. Ultrasound shows a single live intrauterine gestation. 6 weeks and 2 days. Patient is O-. Given dose of RhoGAM. No concerning amount of bleeding noted on exam. Patient is to have close follow-up with her OB. She was given warnings to return to the ER Lab Data Attestation: I reviewed the patient's lab results. Result diagrams: 01/14/22 15:22 Labs: Lab Results 01/14/22 01/14/22 01/14/22 Range/Units 15:22 15:22 15:22 WBC 5.6 (4.5-10.0) K/mm3 RBC 4.25 (4.2-5.4) M/mm3 Hgb 11.9 L (12.0-15.0) g/dL Hct 36.5 L (37.0-47.0) % MCV 85.9 (80-100) fl MCH 28.0 (26-34) pg MCHC 32.6 (32-36) g/dl RDW 12.8 (11.5-14.5) % Plt Count 201 (150-375) k/mm3 MPV 10.6 H (7.4-10.4) fl Immature Gran % (Auto) 0.2 (0-0.5) % Neut % (Auto) 53.
[2022-01-14 18:19] VITALS: BP 110/58; PULSE 69; RESP 14; O2SAT 99
[2022-01-14] MEDS: RHO(D) IMMUNE GLOBULIN 300 MCG/2 ML SYRINGE IM (18:57)
[2022-01-14 19:00] VITALS: BP 100/66; PULSE 100; RESP 12; O2SAT 97
== END 2022-01-14 19:00 | disposition home or self-care (01) ==
PROVIDERS: Emergency Medicine; Emergency Provider Emergency Medicine; PCP Family Medicine
DX: O20.0 Threatened abortion (principal); Z3A.01 Less than 8 weeks gestation of pregnancy
CPT/HCPCS: 36415; 76801; 81025; 84702; 85025; 85461; 90384; 96372; 99284; J2790

== ENCOUNTER 2022-01-26 13:30 | Emergency (ER) | payer OTHER, SELFPAY ==
--- NOTE | ~2022-01-26 | US_ITS ---
EXAMINATION: US OB <= 14 weeks fetus INDICATION: vag bleeding, 8 weeks TECHNIQUE: Sonography of the pelvis was performed by transabdominal and transvaginal techniques. COMPARISON: 01/14/2022. RESULT: Uterus: Orientation: Anteverted. 7.0 x 4.6 x 6.8 cm. Myometrium: homogeneous echogenicity . The cerv ix is long and closed. Gestation: - Intrauterine gestational sac: Single present. - Yolk sac: 0.38 cm. - Embryo: Single present. - [place] rump length: 1.82 cm, corresponding gestational age 8 weeks, 2 days. -Gestational heart rate: present 169 bpm. -Subgestational hematoma: Absent. Right ovary: 3.0 x 2.7 x 2.5 cm. Normal sonographic appearance with physiologic follicles. Corpus luteal cyst. Left ovary: 2.6 x 1.5 x 1.8 cm. Normal sonographic appearance with physiologic follicles. Pelvis free fluid: None. IMPRESSION: Single, live intrauterine gestation. Estimated Gestational Age: 8 weeks, 3 days by crown rump length. SHARRI by ultrasound 09/05/2022. Reviewed, dictated and finalized at location [facility]. IMPRESSION: Single, live intrauterine gestation. Estimated Gestational Age: 8 weeks, 3 days by crown rump length. SHARRI by ultras ound 09/05/2022.
[2022-01-26 13:32] VITALS: BP 138/85; PULSE 107; RESP 20; TEMP 36.5; O2SAT 100
--- NOTE | 2022-01-26 13:44 | ED.PREGNANCY ---
HPI - General Chief complaint: Vaginal Bleeding Stated complaint: vag bleed Time Seen by Provider: 01/26/22 13:34 History of Present Illness HPI Narrative: 26-year-old female who is 7weeks and G3, P1 presents the emergency room for evaluation of vaginal bleeding. Patient states that she had been experiencing some mild abdominal cramping this morning, and then went to work and felt a warm sensation down the left side of her leg. Patient states that she looked down and saw bright red blood with a few small clots. Patient is denying any abdominal pain or dysuria at this time. Patient has recently been seen in the emergency room for similar symptoms. Related Data Allergies Allergy/AdvReac Type Severity Reaction Status Date / Time No Known Allergies Allergy Verified 01/26/22 13:33 Review of Systems Review of Systems: CONSTITUTIONAL: Denies fever, chills, or sweats. EYES: Denies visual changes, redness, or discharge. ENT: Denies rhinorrhea, congestion, sore throat, or otalgia. CARDIOVASCULAR: Denies chest pain, palpitations, or edema. RESPIRATORY: Denies cough or dyspnea. GASTROINTESTINAL: Denies abdominal pain, nausea, vomiting, or diarrhea. GENITOURINARY: Reports vaginal bleeding SKIN: Denies rash or itching. MUSCULOSKELETAL: Denies back pain, joint pain, or myalgia. NEUROLOGIC: Denies headache, numbness, dizziness, or weakness. PSYCHIATRIC: Denies anxiety or depression. PMFSH Past Medical History Medical History Asthma Healthy female adult IUP (intrauterine ), incidental Family History Family History Mother Hypertension Family history of chronic obstructive pulmonary disease Sibling Hypertension Grandparent Family history of coronary artery disease Diabetes mellitus Social History Social History Smoking status: Former smoker Second hand tobacco smoke exposure: Yes Alcohol intake: never Substance use: never Gender identity (if verbalized by the patient): Female Spiritual care concerns: No Exam Narrative: GENERAL: Well-appearing, well-nourished, no physical limitations, and in no acute distress. HEAD: Normocephalic, atraumatic. EYES: Conjunctivae normal, PERRLA and EOMI. CHEST: Clear to auscultation. No respiratory distress. No wheezes rales or rhonchi. HEART: Regular rate and rhythm. No murmur heard. Normal peripheral pulses. ABDOMEN: Soft, nontender, nondistended, normal active bowel sounds. : BACK: No CVA tenderness EXTREMITIES: Normal range of motion. No edema. No clubbing or cyanosis SKIN: Warm, dry, no rash. No noted wounds NEURO: No focal deficits. Alert and oriented x3. MAEW. CN's II-XI intact bilaterally, normal gait PSYCH: Cooperative. Normal mood and affect. Course Vital Signs Vital signs: Vital Signs Temperature 36.5 C 01/26/22 13:32 Pulse Rate 107 H 01/26/22 13:32 Respiratory Rate 20 01/26/22 13:32 Blood Pressure 138/85 01/26/22 13:32 Pulse Oximetry 100 01/26/22 13:32 Oxygen Delivery Room Air 01/26/22 13:32 Temperature 36.5 C 01/26/22 13:32 Pulse Rate 107 H 01/26/22 13:32 Respiratory Rate 20 01/26/22 13:32 Blood Pressure 138/85 01/26/22 13:32 Pulse Oximetry 100 01/26/22 13:32 Oxygen Delivery Room Air 01/26/22 13:32 MDM - OB/Uterine Contractions Lab Data Result diagrams: 01/26/22 13:46 Labs: Lab Results 01/26/22 01/26/22 01/26/22 Range/Units 13:46 13:46 13:47 WBC 7.3 (4.5-10.0) K/mm3 RBC 4.43 (4.2-5.4) M/mm3 Hgb 12.5 (12.0-15.0) g/dL Hct 37.7 (37.0-47.0) % MCV 85.1 (80-100) fl MCH 28.2 (26-34) pg MCHC 33.2 (32-36) g/dl RDW 12.9 (11.5-14.5) % Plt Count 198 (150-375) k/mm3 MPV 9.9 (7.4-10.4) fl Immature Gran % (Auto) 0.1 (0-0.5) % Neut % (
[2022-01-26 13:53] LABS: Basophils Percent Auto 0.3 % (0.2-1.2); Eosinophils Percent Auto 0.1 % (0-4.4); Hematocrit 37.7 % (37.0-47.0); Hemoglobin 12.5 g/dL (12.0-15.0); Immature Granulocyte Absolute 0.01 K/mm3 (0.00-0.031); Immature Granulocyte Percent A 0.1 % (0-0.5); Lymphocytes Absolute Auto 1.57 K/mm3 (0.9-3.2); Lymphocytes Percent Auto 21.7 % (18.3-44.2); Mean Corpuscular HGB Conc 33.2 g/dl (32-36); Mean Corpuscular Hemoglobin 28.2 pg (26-34); Mean Corpuscular Volume 85.1 fl (80-100); Mean Platelet Volume 9.9 fl (7.4-10.4); Monocytes Absolute Auto 0.3 K/mm3 (0.1-0.6); Monocytes Percent Auto 4.3 % (2.6-8.5); Neutrophils Absolute Auto 5.3 K/mm3 (1.3-6.7); Neutrophils Percent Auto 73.5 % (45.5-73.1); Platelet Count Result 198 k/mm3 (150-375); Red Blood Count 4.43 M/mm3 (4.2-5.4); Red Cell Distribution Width 12.9 % (11.5-14.5); White Blood Count 7.3 K/mm3 (4.5-10.0)
[2022-01-26 13:54] LABS: Appearance Urine Clear (Clear); Bilirubin Urine Negative (Negative); Blood Urine 2+ (Negative); Color Urine Yellow (Yellow); Glucose Urine UA Negative (Negative); Ketones Urine Negative (Negative); Leukocyte Esterase Ur 1+ LEU/UL (Negative); Nitrate Urine Negative (Negative); Protein Urine Negative (Negative); Specific Grav Ur <= 1.005 (1.001-1.035); Urobilinogen Urine 0.2 mg/dL (<2.0); pH Urine 6.5 (5.0-9.0)
[2022-01-26 14:03] LABS: Bacteria Urine Trace /hpf; Mucus Urine Rare /lpf; Squamous Epithelial Cell Urine Occasional /hpf (Few); WBC Urine 0-3 /hpf
[2022-01-26 14:04] LABS: Add Urine Microscopic? YES
[2022-01-26 15:39] VITALS: BP 138/86; PULSE 99; RESP 18; O2SAT 98
== END 2022-01-26 15:40 | disposition home or self-care (01) ==
PROVIDERS: Emergency Medicine; Emergency Provider Nurse Practitioner Family; PCP Family Medicine
DX: O20.0 Threatened abortion (principal); Z3A.01 Less than 8 weeks gestation of pregnancy
CPT/HCPCS: 36415; 76801; 81001; 84702; 85025; 85461; 86880; 99284

== ENCOUNTER 2023-05-31 09:32 | Emergency (ER) | payer OTHER, SELFPAY ==
[2023-05-31] VITALS (24 sets, daily range): BP systolic 121–137; BP diastolic 77–105; PULSE 81–104; RESP 11–24; TEMP 36.4–36.9; O2SAT 98–100
--- NOTE | ~2023-05-31 | XR_ITS ---
EXAMINATION: XR chest 2V DATE: 05/31/2023 10:25 INDICATION: Chest pain TECHNIQUE: PA and lateral views of the chest are obtained. COMPARISON: None available FINDINGS: The lungs are free of acute opacities. No pleural effusion or pneumothorax. The cardiomedia stinal silhouette is normal. The visualized bones and soft tissues are unremarkable. IMPRESSION: 1. No acute cardiopulmonary abnormality. Reviewed, dictated and finalized at location [facility]. S BREAKER
--- NOTE | 2023-05-31 09:35 | ECG_ITS ---
Measurements Intervals [place] Rate: 93 P: 68 DC: 177 QRS: 88 QRSD: 82 T: 32 QT: 356 QTc: 444 Interpretive Statements SINUS RHYTHM NO PREVIOUS ECG AVAILABLE FOR COMPARISON Electronically Signed On 05-31-2023 11:41:34 REJECT OPENER by Charles Jacob M.D.
--- NOTE | 2023-05-31 09:45 | ED.CHESTPAIN ---
HPI - Chest Pain General Chief Complaint: Chest Pain Stated Complaint: heart racing Time Seen by Provider: 05/31/23 09:35 History of Present Illness HPI narrative: 28-year-old female presented emergency department for evaluation of heart palpitations. Patient states he has had a sensation racing heart over the course of the last month. Patient reports that is worsened in the morning. Patient denies any prior history of cardiac disease. Patient denies any history of PE or DVT is not on any form of control. Patient states this morning she did develop some chest pain with this and does describe a substernal chest pain that radiates to her left arm. Patient states this morning she had a sensation increased generalized weakness and was having trouble getting ready for work this morning. Patient did ultimately make it to work because she felt so bad she did present to the emergency department for evaluation. Related Data Allergies Allergy/AdvReac Type Severity Reaction Status Date / Time No Known Allergies Allergy Verified 05/31/23 09:48 Review of Systems Review of Systems: All systems reviewed & are unremarkable except as noted in HPI and below PMFSH Past Medical History Medical History Asthma Healthy female adult IUP (intrauterine ), incidental Family History Family History Mother Hypertension Family history of chronic obstructive pulmonary disease Sibling Hypertension Grandparent Family history of coronary artery disease Diabetes mellitus Social History Social History Smoking status: Former smoker Second hand tobacco smoke exposure: Yes Alcohol intake: never Substance use: never Gender identity (if verbalized by the patient): Female Spiritual care concerns: No Exam Narrative: APPEARANCE: Well appearing, no pain, no distress, well-nourished. HEAD: normocephalic, atraumatic. EYES: PERRLA/EOMI, conjunctivae clear. NOSE: Normal no drainage EARS:TMS clear with good light reflex. THROAT: Pharynx clear, no exudate. NECK: Supple. No adenopathy, no masses. RESPIRATORY: Airway patent, respirations nonlabored. Clear to auscultation bilaterally, no rales, rhonchi, wheezing. CARDIOVASCULAR: Regular rate and rhythm without murmurs rubs or gallops. ABDOMINAL: Soft, nontender, nondistended, normal bowel sounds MUSCULOSKELETAL: Moves all extremities. Strength/ROM intact, No edema, No calf tenderness. NEURO: Alert. Cranial nerves II through XII intact. Good gait. Good coordination SKIN: Warm, dry. Normal Color Course Course Emergency Course: 28-year-old female presents to the emergency department for evaluation heart palpitations. EKG shows normal sinus rhythm with no evidence acute STEMI. Patient is afebrile with no leukocytosis and a stable hemoglobin patient's INR is 1.0 and patient has a negative D-dimer, no acute abnormalities on her CMP patient has negative serial troponins and a normal TSH. Drug screen was negative and patient was negative for influenza RSV and for COVID. Chest x-ray showed no acute cardiopulmonary abnormality. Patient has been normal sinus rhythm the entire time in the emergency department. Patient and family were updated on the results of the workup patient was encouraged to have close follow-up with her primary care physician for additional outpatient cardiac testing and potential heart monitor. Vital Signs Vital signs: Vital Signs Temperature 98.4 F 05/31/23 09:43 Pulse Rate 86 05/31/23 09:43 Respiratory Rate 18 05/31/23 09:43 Blood Pressure 130/97 H 05/31/23 09:43 Pulse Oximetry 100 05/31/23 09:43 Oxygen Delivery Room Air 05/31/23 09:43 Temperature 97.6 F 05/31/23 13:47 Pulse Rate 84 05/31/23 13:47 Respiratory Rate 19 05/31/23 13:47 Blood Pressure 123/85 02
[2023-05-31 10:01] LABS: Basophils Percent Auto 0.4 % (0.2-1.2); Eosinophils Absolute Auto 0.1 K/mm3 (0-0.3); Eosinophils Percent Auto 0.9 % (0-4.4); Hematocrit 39.7 % (37.0-47.0); Hemoglobin 12.7 g/dL (12.0-15.0); Immature Granulocyte Absolute 0.02 K/mm3 (0.00-0.031); Immature Granulocyte Percent A 0.2 % (0-0.5); Lymphocytes Absolute Auto 1.65 K/mm3 (0.9-3.2); Lymphocytes Percent Auto 20.6 % (18.3-44.2); Mean Corpuscular Hemoglobin 29.2 pg (26-34); Mean Corpuscular Volume 91.3 fl (80-100); Mean Platelet Volume 9.6 fl (7.4-10.4); Monocytes Absolute Auto 0.3 K/mm3 (0.1-0.6); Neutrophils Absolute Auto 5.9 K/mm3 (1.3-6.7); Neutrophils Percent Auto 73.9 % (45.5-73.1); Platelet Count Result 225 k/mm3 (150-375); Red Blood Count 4.35 M/mm3 (4.2-5.4); Red Cell Distribution Width 12.7 % (11.5-14.5)
[2023-05-31] MEDS: ASPIRIN 81 MG CHEWABLE TABLET 324 MG PO (10:11)
[2023-05-31] MEDS: SODIUM CHLORIDE 0.9% IV 1,000 ML 999 ML IV CONT (10:12)
[2023-05-31 10:13] LABS: Prothrombin Time 13.4 Seconds (11.1-14.7)
[2023-05-31 10:14] LABS: Partial Thromboplastin Time 30.9 SECONDS (22.3-36.8)
[2023-05-31 10:15] LABS: Magnesium 1.7 mg/dL (1.6-2.3)
[2023-05-31 10:16] LABS: Alanine Aminotransferase 11 U/L (6-35); Albumin Level 4.4 g/dL (3.5-5.1); Alkaline Phosphatase 67 U/L (38-126); Anion Gap 5 mmol/L (8-16); Aspartate Amino Transferase 22 U/L (14-36); Bilirubin,Total 0.6 mg/dL (0.2-1.3); Blood Urea Nitrogen 12 mg/dL (7-17); Calcium 8.8 mg/dL (8.4-10.2); Carbon Dioxide 27 mmol/L (22-30); Chloride 103 mmol/L (98-107); Estimated CRCL calculation 102 ml/min; Estimated Glomerular Filt Rate > 60; Glucose 93 mg/dL (65-110); Lipase 119 U/L (23-300); Potassium 4.1 mmol/L (3.4-5.0); Sodium 135 mmol/L (137-145)
[2023-05-31 10:26] LABS: Troponin I < 0.012 ng/mL (0.000-0.034)
[2023-05-31 10:27] LABS: D Dimer < 0.27 ug/mL (<0.48)
[2023-05-31 10:27] LABS: Influenza A QL RT-PCR Negative (Negative); Influenza B QL RT-PCR Negative (Negative); RSV RNA, RT-PCR Negative (Negative); SARS-CoV-2 RNA PCR Negative (Negative)
[2023-05-31 10:29] LABS: Amphetamine Screen Urine Negative (Negative); Barbiturate Screen Urine Negative (Negative); Benzodiazepines Screen Urine Negative (Negative); Cannabinoid Screen Urine Negative (Negative); Cocaine Screen Urine Negative (Negative); Methadone Screen Urine Negative (Negative); Opiate Screen Urine Negative (Negative); Phencyclidine Screen Urine Negative (Negative)
[2023-05-31 11:05] LABS: Thyroid Stimulating Hormone Reflex 0.624 uIU/mL (0.465-4.68)
--- NOTE | 2023-05-31 12:46 | ECG_ITS ---
Measurements Intervals [place] Rate: 82 P: 69 HI: 178 QRS: 78 QRSD: 82 T: 30 QT: 392 QTc: 460 Interpretive Statements SINUS RHYTHM NORMAL ELECTROCARDIOGRAM COMPARED TO ECG 05/31/2023 09:42:23 NO SIGNIFICANT CHANGES Electronically Signed On 06-01-2023 7:27:57 [employer] by Jorje Treviño M.D.
[2023-05-31 13:04] LABS: Troponin I < 0.012 ng/mL (0.000-0.034)
== END 2023-05-31 13:49 | disposition home or self-care (01) ==
PROVIDERS: Emergency Provider Emergency Medicine; PCP Family Medicine
DX: R00.2 Palpitations (principal); Z87.891 Personal history of nicotine dependence; Z20.822 Contact with and (suspected) exposure to COVID-19
CPT/HCPCS: 36415; 71046; 80053; 80307; 83690; 83735; 84443; 84484; 85025; 85380; 85610; 85730; 87637; 93005; 96360; 99284; A9270; J7030

== ENCOUNTER 2023-06-03 14:15 | Outpatient (CLI) | payer OTHER, SELFPAY ==
--- NOTE | ~2023-06-03 | US_ITS ---
US breast BI complete DATE: 06/03/2023 14:53 INDICATION: Bilateral breast tenderness TECHNIQUE: Real-time imaging of both complete breasts including all 4 quadrants and subareolar areas COMPARISON: None FINDINGS: Right breast 12:00 3 cm from nipple: Parallel circumscribed hypoechoic lesion measuring 6 x 3 x 5.2 mm, with through transmission, benign in appearance. No suspicious mass or shadowing or other significant sonographic abnormality of either breast is dete cted. IMPRESSION: BI-RADS Category 2: Benign Recommendation: Routine mammographic screening at age 40 unless there are earlier symptoms or clinica l findings Reviewed, dictated and finalized at [facility]. Reviewed, dictated and finalized at location A. ESS TECHNICIAN IMPRESSION: BI-RADS Category 2: Benign Recommendation: Routine mammographic screening at age 40 unless there are earli er symptoms or clinical findings
== END 2023-06-03 14:16 | disposition home or self-care (01) ==
LOC: ANHIMG 14:20
PROVIDERS: PCP Family Medicine; Visit Provider Nurse Practitioner
DX: N64.4 Mastodynia (principal)
CPT/HCPCS: 76641

== ENCOUNTER 2023-10-06 01:26 | Day surgery (SDC) | payer OTHER, SELFPAY ==
[2023-09-23 14:14] VITALS: BMI 25.4
--- NOTE | 2023-09-23 14:34 | SUR.PREOP ---
Report to the Outpatient Waiting Room, entrance under the green pavilion located off [facility], at time 1000 on date 10/06/23. Planned Procedure Time: 1200. Time changes happen often and if your time is changed the preop area will call you the afternoon before. - You and your visitor will be asked to self-screen and do not enter if you have any COVID symptoms. - A mask is optional within the hospital at this time. Patients may have clear liquids (water, carbonated beverages, clear teas, apple juice) until 3 hours prior to surgery with a maximum of 20 ounces. - No food from midnight until time of surgery Take the following medications with a SIP of water the morning of surgery: METOPROLOL DO NOT STOP ANY OF YOUR OTHER PRESCRIPTION MEDICATIONS PRIOR TO SURGERY ?EXCEPT THE FOLLOWING Medications to discontinue per physician STOP ALL VITAMINS AND SUPPLIMENTS 3 DAYS PRIOR TO PROCEDURE Date to take last dose 10/02/23 Please no make-up, nail dutch, hairspray, perfume, deodorant, or body powder the day of surgery. No jewelry (including any body piercings) or valuables the day of surgery, leave them at home. Please take a shower or bath the night before, or the morning of, surgery with an antibacterial soap. Wear comfortable, loose fitting clothing. Children are encouraged to wear pajamas. - Jewelry must be removed prior to entering the operating room. Rings and piercings that are not removed may be cut off. - The hospital will not accept responsibility for valuables. - Please leave all valuables, including medications, at home the day of surgery. If you are going home after surgery, a licensed funeral limousine driver must drive you home. - NO public transportation without another adult if you receive anesthesia. - We recommend that an adult stay with you for 24 hours following discharge. - We also recommend that you do not drive, make important decision, drink alcoholic beverages, or take any drugs that were not prescribed by your health care provider for at least 24 hours after your discharge time. Follow any additional instructions given to you from your surgeon. If you or anyone in your household have experienced Covid symptoms in the past week, please notify your surgeon or the nurse liaison at the phone number below for possible testing. Telephone instructions given to TERESA LANDRY and asked if any additional questions and then verbalized understanding. Patient advised to call surgeon office or pre surgery nurse liaison [phone] if any additional questions.
--- NOTE | ~2023-10-06 | XR_ITS ---
EXAMINATION: XR fluoroscopy no charge DATE: 10/06/2023 12:20 CDT INDICATION: HSG in OR, 8cc [id number] . TECHNIQUE: 77 fluoroscopic cine images of the pelvis were obtained during HSG, performed by Brandt mirza MD. I was not present during the procedure. Fluoroscopy exposure time was 16.9 seconds. Air Ker ma 4.82 mGy. DAP [id number] mGym2. COMPARISON: None FINDINGS/IMPRESSION: Fluoroscopic documentation of HSG. Please refer to the operative note for complete procedural details . Reviewed, dictated and finalized at location [facility].
[2023-10-06 10:30] VITALS: BP 139/86; PULSE 97; RESP 14; TEMP 36.8; O2SAT 97
[2023-10-06] MEDS: LACTATED RINGERS 1,000 ML 30 ML IV CONT ×2 (10:30→12:52)
[2023-10-06] MEDS: ACETAMINOPHEN 500 MG TABLET 1000 MG PO (10:30)
--- NOTE | 2023-10-06 11:31 | WPDANESEPPF ---
Anes - Initial Pre Proc Eval Procedure: Operation Date: 10/06/23 12:00 Proposed Procedures p Hysteroscopy Surgical Removal of Leiomyoma, Hysterosalpingograph - Brandt Fine MD Date/Time: 10/06/23 11:31 Surgeon: Brandt Fine MD Pre Op Diagnosis: Uterine Leiomyoma Patient Data Age: 28 Gender: F Height: 1.55 m Weight: 63 kg Last Vital Signs Temp 98.3 F 10/06/23 10:30 Pulse 97 10/06/23 10:30 Resp 14 10/06/23 10:30 BP 139/86 10/06/23 10:30 Pulse Ox 97 10/06/23 10:30 O2 Del Method Room Air 10/06/23 10:30 Allergies Allergy/AdvReac Type Severity Reaction Status Date / Time No Known Allergies Allergy Verified 10/06/23 10:45 Home Medications Medication Instructions Recorded Confirmed Type metoprolol succinate 25 mg 25 mg PO POST-TRANSFUSION 09/23/23 09/23/23 History tablet,extended release 24 hr Patient hx anesthesia problems: none Family hx anesthesia problems: none Results Review: All pre-operative results and documents have been reviewed as part of the pre-operative evaluation. [facility] Past Medical History Medical History Asthma Healthy female adult IUP (intrauterine ), incidental Family History Family History Mother Hypertension Family history of chronic obstructive pulmonary disease Alcoholism Asthma Depression Heart disease Sibling Hypertension Asthma Diabetes mellitus Depression Grandparent Family history of coronary artery disease Diabetes mellitus Father Alcoholism Hypertension Cerebrovascular accident Social History Social History Years smoked: 10 Smoking status: Current every day smoker Tobacco type: cigarettes Second hand tobacco smoke exposure: Yes Alcohol intake: current Substance use: never Substance use type: does not use Do You Feel Safe in your Home?: Yes Lack of Transportation: No Lack of Food: Never True Current Housing: I Have Housing Concerned About Future Housing: No Difficulty Paying Gas/Electric Bills: No Difficulty Paying for Meds: No Currently Unemployed: No Education: High School Diploma/GED Difficulty w/ Childcare or Family Care: No Living arrangements: alone Gender identity (if verbalized by the patient): Female Spiritual care concerns: No Anes - Eval Final PreProcedure Day of Procedure 10/06/23 11:31 Patient weight: overweight Heart: regular rate and rhythm Lungs: clear to auscultation Airway: Mallampati scale and special considerations (Overbite noted. ) Neurological: alert and oriented Last oral intake: >/= 8 hours ASA classification: II Emergent: no Anesthetic plan: proceed Anesthesia type and monitoring: general GIVS and standard monitoring Results Review: All pre-operative results and documents have been reviewed as part of the pre-operative evaluation. Pt w baseline palpitations, on chronic b betty taken last night. Asthma, smoker (2-3 cigs/day). Informed Consent: The patient's anesthetic plan and its attendant risks and benefits were discussed with the patient/family/POA. Questions were solicited and answers provided to the satisfaction of the patient/family/POA.
--- NOTE | 2023-10-06 11:47 | PM.IMHP ---
H&P: HPI History of Present Illness Date/Time: 10/06/23 11:47 Chief Complaint: infertility, uterine fibroid Narrative: Patient is a 28 year old who presents for hysteroscopy, myomectomy and HSG indicated for intracavitary fibroid and infertility. She has been trying to conceive for over 1 year. Pelvis US demonstrated intracavitary fibroid, 1x0.9cm. She also has a history of chlamydial infection. Other workup for infertility has been normal. We discussed removal of the fibroid as this may be the cause of her infertility. r/b/a of the surgery discussed. She elects to proceed with hysteroscopy and myomectomy. Given her STI history, also recommend HSG to evaluate tubal patency. Review of Systems Review of Systems: All systems reviewed & are unremarkable except as noted in HPI and below PMFSH Past Medical History Medical History Asthma Healthy female adult IUP (intrauterine ), incidental Family History Family History Mother Hypertension Family history of chronic obstructive pulmonary disease Alcoholism Asthma Depression Heart disease Sibling Hypertension Asthma Diabetes mellitus Depression Grandparent Family history of coronary artery disease Diabetes mellitus Father Alcoholism Hypertension Cerebrovascular accident Social History Social History Years smoked: 10 Smoking status: Current every day smoker Tobacco type: cigarettes Second hand tobacco smoke exposure: Yes Alcohol intake: current Substance use: never Substance use type: does not use Do You Feel Safe in your Home?: Yes Lack of Transportation: No Lack of Food: Never True Current Housing: I Have Housing Concerned About Future Housing: No Difficulty Paying Gas/Electric Bills: No Difficulty Paying for Meds: No Currently Unemployed: No Education: High School Diploma/GED Difficulty w/ Childcare or Family Care: No Living arrangements: alone Gender identity (if verbalized by the patient): Female Spiritual care concerns: No Meds Home Medications and Allergies Home Medications Medication Instructions Recorded Confirmed Type metoprolol succinate 25 mg 25 mg PO POST-TRANSFUSION 09/23/23 09/23/23 History tablet,extended release 24 hr Allergies Allergy/AdvReac Type Severity Reaction Status Date / Time No Known Allergies Allergy Verified 10/06/23 10:45 Vital Signs Vital Signs - 24 hr 10/06/23 10:30 Temperature 98.3 F Pulse Rate 97 Respiratory Rate 14 Blood Pressure 139/86 Pulse Oximetry 97 Oxygen Delivery Room Air Exam Const: General: comfortable and no acute distress HENMT: Mouth: Yes moist mucous membranes Eyes: General: appearance normal, both eyes and all related structures Resp: Effort & Inspection: normal respiratory effort Cardio: Rate: regular rate Rhythm: regular rhythm Skin: General skin exam: normal color Extrem: General: normal to inspection Psych: Mental Status: mental status grossly normal Assessment and Plan Assessment and plan (1) Fibroids, submucosal: Code(s): D25.0 - Submucous leiomyoma of uterus Status: Acute Assessment and Plan: - possible cause of infertility - 1cm fibroid found on pelvic US - r/b/a of hysteroscopic removal discussed with patient who elects to proceed with hysteroscopy and myomectomy (2) Hx of chlamydia infection: Code(s): Z86.19 - Personal history of other infectious and parasitic diseases Status: Acute Assessment and Plan: - remote hx during prior - recommend HSG to evaluate tubal patency; r/b/a discussed and patient elects to proceed
--- NOTE | 2023-10-06 11:53 | WPDHPUPDATE1 ---
History and Physical Update Update Date/Time: 10/06/23 11:53 History and Physical has been reviewed, including an updated exam of the patient. There are NO changes in the patient's condition. Risks, benefits, and alternatives have been discussed and questions answered. Patient agrees to proceed with procedure.
[2023-10-06] MEDS: LIDO 1%/EPINEPHRINE 1:100,000 20 ML VIAL 10 ML INFILTRATE (12:40)
[2023-10-06 12:52] VITALS: BP 125/67; PULSE 114; RESP 16; TEMP 36.3; O2SAT 100
--- NOTE | 2023-10-06 12:54 | W.PM.PROC2 ---
Procedure Note - Detailed Date of Procedure 10/06/23 Pre-op Diagnosis Uterine Leiomyoma Post-op Diagnosis Same Procedure Performed hysteroscopy, myomectomy, and hysterosalpingograph Surgeon Brandt Fine MD Anesthesia MAC Indications uterine fibroid, infertility, hx of chlamydia Findings submucosal fibroid vs scar tissue in upper right endometrial cavity; both tubal ostia visualized, normal appearing uterine cavity following procedure; bilaterally patent fallopian tubes on HSG Description of Procedure The patient was taken to the operating room with IVFs running. She was placed into the dorsal supine position where she received MAC without any difficulty. The patient was placed in the dorsal lithotomy position using Surjit stirrups. EUA revealed findings as above. She was then prepped and draped in a normal sterile fashion. A time-out procedure was performed and all members of the OR team agreed on the patient and plan. A bivalve speculum was then inserted into the patient's vagina. The anterior lip of the cervix was grasped with a single tooth tenaculum. The uterus was gently sounded to 8 cm. The hysteroscope was then inserted into the uterine cavity using saline as the distension media and revealed the above findings. Both ostia were identified and pictures were taken. The morcellator was then introduced into the hysteroscope and calibrated. The tip of the morcellator was then applied to the myoma and activated. The myoma was removed to its base. At the end of the procedure, the uterine cavity was clear of all pathology. The fluid deficit was 120 cc. The specimen was sent for pathology. The hysteroscope was removed. The HSG catheter was then inserted into the cervix and the balloon was inflated. The tenaculum and speculum were removed. Under fluoroscopic guidance, contrast was injected through the catheter and intraabdominal spillage was seen through both ostia, confirming patency bilaterally. The balloon was deflated and the catheter was removed. The speculum was then reintroduced into the vagina and the anterior lip of the cervix was hemostatic. The speculum was then removed. The patient tolerated the procedure well. Sponge, lap, and instrument counts were correct X2. The patient was taken out of the dorsal lithotomy position and was awakened from anesthesia. She was taken to the recovery room in stable condition. Estimated Blood Loss 10 Pathology Yes Complications No immediate complications Condition Stable Disposition Same day
[2023-10-06 13:22] VITALS: BP 130/80; PULSE 98; RESP 16; O2SAT 100
[2023-10-06 13:50] VITALS: BP 130/80; PULSE 85; RESP 16; O2SAT 100
[2023-10-06] MEDS: oxyCODONE HCL (*CRX) 5 MG TAB IR PO (13:50)
[2023-10-06 14:20] VITALS: BP 128/76; PULSE 81; RESP 16
== END 2023-10-06 14:35 | disposition home or self-care (01) ==
PROVIDERS: PCP Family Medicine; Visit Provider Obstetrics & Gynecology
PROC: 0U5B8ZZ Destruction of Endometrium, Via Natural or Artificial Opening Endoscopic (ICD-10-PCS; CPT 58563; principal; 2023-10-06 12:00)
DX: N85.8 Other specified noninflammatory disorders of uterus (principal); N97.9 Female infertility, unspecified; F17.210 Nicotine dependence, cigarettes, uncomplicated; Z86.19 Personal history of other infectious and parasitic diseases
CPT/HCPCS: 58558; 58340; 88305; 99199; A9270; J1100; J2250; J2704; J3010; J7120

== ENCOUNTER 2024-02-01 08:54 | Emergency (ER) | payer OTHER, SELFPAY ==
--- NOTE | ~2024-02-01 | US_ITS ---
EXAMINATION: US OB <=14 wk fetus w TV DATE: 02/01/2024 11:25 INDICATION: . Cramping and spotting. TECHNIQUE: Real-time transabdominal and transvaginal pelvic ultrasound was performed. COMPARISON: None. FINDINGS: TRANSABDOMINAL ULTRASOUND: The uterus measures 10.8 x 5.9 x 8.1 cm. TRANSVAGINAL ULTRASOUND: There is an intrauterine gestational sac with mean diameter of 4.1 cm. The f etal crown rump length measures 4.6 cm. This measurement correlates with an estimated gestational age of 11 weeks and 3 day(s) (+/-) 1 week(s) and 0 day(s). heart motion is identified measuring 16 2 beats per minute (bpm) by M-mode Doppler. The right ovary measures 2.3 x 1.8 x 2.1 cm. The left ova ry measures 2.5 x 1.2 x 2.4 cm. There is no free fluid in the pelvis. IMPRESSION: 1. Single living intrauterine gestation with estimated date of delivery of 08/19/2024. Reviewed, dictated and finalized at location A. IMPRESSION: 1. Single living intrauterine gestation with estimated date of delivery of 07/27.
[2024-02-01 09:07] VITALS: BP 122/81; PULSE 74; RESP 15; TEMP 36.6; O2SAT 100
[2024-02-01 09:27] LABS: Basophils Percent Auto 0.2 % (0.2-1.2); Eosinophils Percent Auto 0.9 % (0-4.4); Hematocrit 34.6 % (37.0-47.0); Hemoglobin 11.6 g/dL (12.0-15.0); Immature Granulocyte Absolute 0.02 K/mm3 (0.00-0.031); Immature Granulocyte Percent A 0.4 % (0-0.5); Lymphocytes Absolute Auto 1.19 K/mm3 (0.9-3.2); Lymphocytes Percent Auto 25.8 % (18.3-44.2); Mean Corpuscular HGB Conc 33.5 g/dl (32-36); Mean Corpuscular Hemoglobin 29.3 pg (26-34); Mean Corpuscular Volume 87.4 fl (80-100); Mean Platelet Volume 9.8 fl (7.4-10.4); Monocytes Absolute Auto 0.3 K/mm3 (0.1-0.6); Monocytes Percent Auto 5.4 % (2.6-8.5); Neutrophils Absolute Auto 3.1 K/mm3 (1.3-6.7); Neutrophils Percent Auto 67.3 % (45.5-73.1); Platelet Count Result 180 k/mm3 (150-375); Red Blood Count 3.96 M/mm3 (4.2-5.4); Red Cell Distribution Width 12.1 % (11.5-14.5); White Blood Count 4.6 K/mm3 (4.5-10.0)
[2024-02-01 09:38] LABS: Partial Thromboplastin Time 31.3 Seconds (22.3-36.8); Prothrombin Time 13.7 Seconds (11.1-14.7)
[2024-02-01 09:44] LABS: Alanine Aminotransferase 11 U/L (6-35); Albumin Level 4.3 g/dL (3.5-5.1); Alkaline Phosphatase 52 U/L (38-126); Anion Gap 10 mmol/L (4-12); Aspartate Amino Transferase 23 U/L (14-36); Bilirubin,Total 0.3 mg/dL (0.2-1.3); Blood Urea Nitrogen 7 mg/dL (7-17); Carbon Dioxide 23 mmol/L (22-30); Chloride 104 mmol/L (98-107); Estimated CRCL calculation 121 ml/min; Estimated Glomerular Filt Rate > 60; Glucose 91 mg/dL (65-110); Potassium 3.8 mmol/L (3.4-5.0); Sodium 137 mmol/L (137-145)
[2024-02-01 09:56] LABS: BEDSIDEPREGUCG Positive (Negative)
[2024-02-01 10:08] VITALS: BP 108/67; PULSE 78; RESP 16; O2SAT 100
[2024-02-01] MEDS: ACETAMINOPHEN 500 MG TABLET 1000 MG PO (10:09)
--- NOTE | 2024-02-01 10:16 | ED.PREGNANCY ---
HPI - General Chief complaint: Vaginal Bleeding Stated complaint: 11 wks preg, vag bleed Time Seen by Provider: 02/01/24 09:05 Source: patient Mode of arrival: ambulatory Limitations: no limitations History of Present Illness HPI Narrative: Patient is a 28-year-old female who presents the ED with report of vaginal bleeding. Patient is Hx of 2 previous abortions, currently 11 weeks gestation, confirmed IUP via US at 8 weeks, sees Dr. Fine. Reports she developed some lower abdominal cramping, worse throughout her left lower abdomen last night. Cramping persisted into this morning. She then noticed some dark red blood in the toilet after urinating and with wiping. States bleeding has been very mild. Presented here for further evaluation. Patient has not taken anything for pain. Denies significant nausea, vomiting, fevers, dysuria, hematuria. Related Data Home Medications Medication Instructions Recorded Confirmed metoprolol succinate 25 mg 25 mg PO POST-TRANSFUSION 09/23/23 09/23/23 tablet,extended release 24 hr Allergies Allergy/AdvReac Type Severity Reaction Status Date / Time No Known Allergies Allergy Verified 02/01/24 09:07 Review of Systems Review of Systems: All systems reviewed & are unremarkable except as noted in HPI. All systems reviewed & are unremarkable except as noted in HPI and below PMFSH Past Medical History Medical History Asthma Healthy female adult IUP (intrauterine ), incidental Family History Family History Mother Hypertension Family history of chronic obstructive pulmonary disease Alcoholism Asthma Depression Heart disease Sibling Hypertension Asthma Diabetes mellitus Depression Grandparent Family history of coronary artery disease Diabetes mellitus Father Alcoholism Hypertension Cerebrovascular accident Social History Social History Years smoked: 10 Smoking status: Current every day smoker Tobacco type: cigarettes Second hand tobacco smoke exposure: Yes Alcohol intake: current Substance use: never Substance use type: does not use Do You Feel Safe in your Home?: Yes Lack of Transportation: No Lack of Food: Never True Current Housing: I Have Housing Concerned About Future Housing: No Difficulty Paying Gas/Electric Bills: No Difficulty Paying for Meds: No Currently Unemployed: No Education: High School Diploma/GED Difficulty w/ Childcare or Family Care: No Living arrangements: alone Gender identity (if verbalized by the patient): Female Spiritual care concerns: No Exam Narrative: GENERAL: Well appearing, well-nourished, non-toxic, in no acute distress. HEAD: Normocephalic, atraumatic. RESPIRATORY: Airway patent, respirations nonlabored. Clear to auscultation bilaterally, no rales, rhonchi, wheezing. CARDIOVASCULAR: Regular rate and rhythm without murmurs, rubs, or gallops. ABDOMINAL: Soft, diffuse mild tenderness throughout lower abdomen, nondistended. Normoactive BS. MUSCULOSKELETAL: Moves all extremities. No gross deformities. SKIN: Warm, dry, normal color. NEURO: A&O X3. Speech clear. No ataxic movements. PSYCHIATRIC: Appropriate mood and affect. Normal interaction. Course Vital Signs Vital signs: Vital Signs Temperature 98 F 02/01/24 09:07 Pulse Rate 74 02/01/24 09:07 Respiratory Rate 15 02/01/24 09:07 Blood Pressure 122/81 02/01/24 09:07 Pulse Oximetry 100 02/01/24 09:07 Oxygen Delivery Room Air 02/01/24 09:07 Temperature 98 F 02/01/24 09:07 Pulse Rate 75 02/01/24 11:45 Respiratory Rate 16 02/01/24 11:45 Blood Pressure 113/77 02/01/24 11:45 Pulse Oximetry 100 02/01/24 11:45 Oxygen Delivery Room Air 02/01/24 09:07 MDM - OB
--- NOTE | 2024-02-01 10:32 | PC.NURSE ---
Pt to ultrasound via wheelchair at this time
[2024-02-01 10:44] LABS: Add Urine Microscopic? YES; Appearance Urine Clear (Clear); Bacteria Urine Rare /hpf; Bilirubin Urine Negative (Negative); Blood Urine Negative (Negative); Color Urine Yellow (Yellow); Glucose Urine UA Negative (Negative); Ketones Urine 1+ mg/dL (Negative); Leukocyte Esterase Ur 1+ LEU/UL (Negative); Need Manual Microscopic Reviewed; Nitrate Urine Negative (Negative); Non Pathogenic Casts 0-2; Protein Urine Negative (Negative); RBC Urine 0-2 /hpf (0-2); Specific Grav Ur 1.011 (1.001-1.035); Squamous Epithelial Cell Urine Few /hpf (Few); Urobilinogen Urine 0.2 mg/dL (<2.0); WBC Urine 0-5 /hpf (0-3)
[2024-02-01] MEDS: RHO(D) IMMUNE GLOBULIN 300 MCG/2 ML SYRINGE IM (11:43)
[2024-02-01 11:45] VITALS: BP 113/77; PULSE 75; RESP 16; O2SAT 100
== END 2024-02-01 12:12 | disposition home or self-care (01) ==
PROVIDERS: Emergency Provider Physician Assistant; PCP Obstetrics & Gynecology
DX: O20.9 Hemorrhage in early pregnancy, unspecified (principal); O99.511 Diseases of the respiratory system complicating pregnancy, first trimester; J45.909 Unspecified asthma, uncomplicated; O99.331 Smoking (tobacco) complicating pregnancy, first trimester; F17.210 Nicotine dependence, cigarettes, uncomplicated; Z3A.11 11 weeks gestation of pregnancy
CPT/HCPCS: 36415; 76801; 76817; 80053; 81001; 81025; 84702; 85025; 85461; 85610; 85730; 86850; 86900; 86901; 87086; 90384; 96372; 99284; A9270; J2790

== ENCOUNTER 2024-02-03 10:45 | Outpatient (CLI) | payer OTHER, SELFPAY | END 2024-02-03 10:46 | disposition home or self-care (01) | PROVIDERS: PCP Obstetrics & Gynecology; Visit Provider Physician Assistant | DX: O46.90 Antepartum hemorrhage, unspecified, unspecified trimester (principal); Z3A.00 Weeks of gestation of pregnancy not specified | CPT/HCPCS: 36415; 84702 ==

== ENCOUNTER 2024-03-21 09:14 | Emergency (ER) | payer MEDICAID, SELFPAY ==
[2024-03-21 09:49] VITALS: BP 122/66; PULSE 88; RESP 16; TEMP 36.7; O2SAT 99
--- NOTE | 2024-03-21 09:50 | PC.NURSE ---
Pt reports put Q-tip in ear yesterday to clean and had blood on it. No dried blood noted to external ear presently or active bleeding.
[2024-03-21] MEDS: ACETAMINOPHEN 500 MG TABLET 1000 MG PO (10:55)
--- NOTE | 2024-03-21 11:14 | ED.EAR ---
HPI - Ear Problem General Chief complaint: Ear Stated complaint: right ear pain/bleeding Time Seen by Provider: 03/21/24 10:35 Source: patient Mode of arrival: ambulatory Limitations: no limitations History of Present Illness HPI Narrative: Patient is a 28-year-old female who presents the ED with report of right ear pain and bleeding. Patient reports she noticed a small amount of dried blood to her right ear 1 week ago. She then noticed a increased amount of blood from her right ear after cleaning her ears with Q-tips after shower last night. She complains of pain to her right ear. denies pus-like drainage. Denies fevers. Denies cough. Patient is currently 18 weeks gestation. Denies significant abdominal pain. Has had some cramping throughout her . Denies vaginal bleeding. OBGYN is Dr. Fine. Related Data Home Medications Medication Instructions Recorded Confirmed metoprolol succinate 25 mg 25 mg PO POST-TRANSFUSION 09/23/23 09/23/23 tablet,extended release 24 hr Allergies Allergy/AdvReac Type Severity Reaction Status Date / Time No Known Allergies Allergy Verified 02/01/24 09:07 Review of Systems Review of Systems: All systems reviewed & are unremarkable except as noted in HPI. All systems reviewed & are unremarkable except as noted in HPI and below PMFSH Past Medical History Medical History Asthma Healthy female adult IUP (intrauterine ), incidental Family History Family History Mother Hypertension Family history of chronic obstructive pulmonary disease Alcoholism Asthma Depression Heart disease Sibling Hypertension Asthma Diabetes mellitus Depression Grandparent Family history of coronary artery disease Diabetes mellitus Father Alcoholism Hypertension Cerebrovascular accident Social History Social History Years smoked: 10 Smoking status: Current every day smoker Tobacco type: cigarettes Second hand tobacco smoke exposure: Yes Alcohol intake: current Substance use: never Substance use type: does not use Do You Feel Safe in your Home?: Yes Lack of Transportation: No Lack of Food: Never True Current Housing: I Have Housing Concerned About Future Housing: No Difficulty Paying Gas/Electric Bills: No Difficulty Paying for Meds: No Currently Unemployed: No Education: High School Diploma/GED Difficulty w/ Childcare or Family Care: No Living arrangements: alone Gender identity (if verbalized by the patient): Female Spiritual care concerns: No Exam Narrative: GENERAL: Well appearing, well-nourished, non-toxic, in no acute distress. HEAD: Normocephalic, atraumatic. ENT: L TM/EAC clear. No evidence of infection. R ear with some discomfort with manipulation of pinna. Small abrasion with scabbing along right inner ear canal. TM appears normal without erythema or bulging. No active bleeding. No tenderness over mastoid or erythema/ swelling/ fluctuance over mastoid region. RESPIRATORY: Airway patent, respirations nonlabored CARDIOVASCULAR: Regular rate and rhythm MUSCULOSKELETAL: Moves all extremities. No gross deformities. SKIN: Warm, dry, normal color. NEURO: A&O X3. Speech clear. PSYCHIATRIC: Appropriate mood and affect. Normal interaction. Course Vital Signs Vital signs: Vital Signs Temperature 98.1 F 03/21/24 09:49 Pulse Rate 88 03/21/24 09:49 Respiratory Rate 16 03/21/24 09:49 Blood Pressure 122/66 03/21/24 09:49 Pulse Oximetry 99 03/21/24 09:49 Temperature 98.3 F 03/21/24 11:51 Pulse Rate 77 03/21/24 11:51 Respiratory Rate 17 03/21/24 11:51 Blood Pressure 117/75 03/21/24 11:51 Pulse Oximetry 100 03/21/24 11:51 Medical Decision Making MDM Narrative Medical decision making narrative: Will cover for otitis externa/superimposed bacterial process from abrasions sustained in ear canal. Will be started on ofloxacin ear drops. No evidence of AOM. Advised patient to avoid further Q-tips/placing anything into his ear. recommended close follow-up with OB/PCP for further evaluation. heart tones were evaluated in the ED and appropriate. Patient is denying abdominal pain or vaginal bleeding at this time. Given return precautions. Discharged in stable condition. Medical Records Medical records reviewed: Yes I reviewed the external patient's medical records. Vital Signs Vital Signs: Vital Signs Temperature 98.1 F 03/21/24 09:49 Pulse Rate 88 03/21/24 09:49 Respiratory Rate 16 03/21/24 09:49 Blood Pressure 122/66 03/21/24 09:49 Pulse Oximetry 99 03/21/24 09:49 Temperature 98.3 F 03/21/24 11:51 Pulse Rate 77 03/21/24 11:51 Respiratory Rate 17 03/21/24 11:51 Blood Pressure 117/75 03/21/24 11:51 Pulse Oximetry 100 03/21/24 11:51 Discharge Plan Discharge Clinical Impression: 18 weeks gestation of Otitis externa Qualifiers: Otitis externa type: diffuse Chronicity: acute Laterality: right Qualified Code(s): H60.311 - Diffuse otitis externa, right ear Patient Disposition: Home, Self-Care Condition: Stable Instructions: Antibiotic Form, Swimmer's Ear (ED), Earache (ED) Additional Instructions: Utilize ear drops as prescribed. Follow-up with primary care doctor for further evaluation to ensure improvement of symptoms. Avoid placing anything into ear. Continue Tylenol as needed for pain. Return for any new or worsening symptoms. Prescriptions: New ofloxacin 0.3 % drops 10 drp EACH EAR DAILY 7 Days Qty: 5 0RF No Action metoprolol succinate 25 mg tablet extended release 24 hr 25 mg PO POST-TRANSFUSION Follow-up/Referrals: Brandt Fine MD [Primary Care Provider] - Time of Disposition: 11:17
[2024-03-21 11:51] VITALS: BP 117/75; PULSE 77; RESP 17; TEMP 36.8; O2SAT 100
== END 2024-03-21 11:52 | disposition home or self-care (01) ==
PROVIDERS: Emergency Provider Physician Assistant; PCP Obstetrics & Gynecology
DX: O99.891 Other specified diseases and conditions complicating pregnancy (principal); H60.311 Diffuse otitis externa, right ear; Z3A.18 18 weeks gestation of pregnancy; O99.331 Smoking (tobacco) complicating pregnancy, first trimester; F17.210 Nicotine dependence, cigarettes, uncomplicated
CPT/HCPCS: 99283; A9270

== ENCOUNTER 2024-05-20 10:13 | Outpatient (RCR) | payer OTHER, SELFPAY ==
[2024-05-20 10:37] VITALS: BP 116/69; PULSE 104
== END 2024-08-17 17:03 | disposition home or self-care (01) ==
LOC: ANHOBOP 10:13
PROVIDERS: Visit Provider Obstetrics & Gynecology
DX: O36.8190 Decreased fetal movements, unspecified trimester, not applicable or unspecified (principal)
CPT/HCPCS: 59025

== ENCOUNTER 2024-05-28 11:13 | Outpatient (RCR) | payer OTHER, SELFPAY ==
--- OUTSIDE RECORDS SUMMARY | 2024-05-27 10:47 | XMS_ITS | Patient Health Summary ---
Author Organization [facility] Address [address] [place] [address] Care Team Providers Care Steaming Cabinet Tender Name Role Phone Selena Huerta MD Primary Care Provider [phone] Note from [facility],non-owned Affiliates and Associated Physician Practices is amultiple site organization consisting of ambulatory clinics and hospital sitesin [place], [place], [place] and [place]. This disclosure is being madepursuant to the Care Everywhere program and may not contain all information available regarding this patient. Last updated 18.[facility] [employer] Allergies No known active allergies Medications * Be aware that medications may not be up to date on this document. Alwaysverify current medications with the patient. * albuterol HFA (PROVENTIL;VENTOLIN;PROAIR) 108 (90 BASE) MCG/ACT inhaler Inhale 2 Puffs by mouth every 6 hours as needed. Indications: Asthma * etonogestrel (NEXPLANON) 68 MG implant 68 mg by Subdermal route once. * valACYclovir (VALTREX) 1 GM tablet Take 1,000 mg by mouth every 12 hours. * cephALEXin (KEFLEX) 500 MG capsule Take 500 mg by mouth 2 times daily. * polyethylene glycol 3350 (MIRALAX) powder(Started 05/12/2014) Take 8.5 g by mouth once daily. 5 refills left Active Problems Problem Noted Date Diagnosed Date Nausea without vomiting 08/19/2013 Abdominal pain 07/11/2013 DUB (dysfunctional uterine bleeding) 07/11/2013 Social History Tobacco Use Types Packs/Day Years Used Date Smoking Tobacco: Never Alcohol Use Standard Drinks/Week Comments No 0 (1 standard drink = 0.6 oz pur e alcohol) Sex and Gender Information Value Date Recorded Sex Assigned at Not on file Gender Identity Not on file Sexual Orientation Not on file Last Filed Vital Signs Vital Sign Reading Time Taken Comments Blood Pressure 112/78 03/02/2014 9:19 AM OCEANIC SCIENCES PROFESSOR Pulse 88 02/13/2014 12:00 AM CDT Temperature 36.4 ??C (97.6 ??F) 06/17/2013 3:36 PM CS T Respiratory Rate 22 06/17/2013 3:36 PM OCEANIC SCIENCES PROFESSOR Oxygen Saturation - - Inhaled Oxygen Concentration - - Weight 52.4 kg (115 lb 9.6 oz) 05/12/2014 9:34 A M OCEANIC SCIENCES PROFESSOR Height 159 cm (5' 2.6 ) 05/12/2014 9:34 AM OCEANIC SCIENCES PROFESSOR Body Mass Index 20.74 05/12/2014 9:34 AM OCEANIC SCIENCES PROFESSOR Procedures * CBC W AUTO DIFFERENTIAL(Performed 02/13/2014) Performed for DUB (dysfunctional uterine bleeding) * TRICHOMONAS RAPID TEST - POCT (IP) BEAKER(Performed 02/13/2014) Performed for Screen for STD (sexually transmitted disease) * HCG URINE QUALITATIVE - POCT (IP) BEAKER(Performed 02/13/2014) Performed for DUB (dysfunctional uterine bleeding) * CHLAMYDIA + GC AMPLIFIED PROBE(Performed 02/13/2014) Performed for Screen for STD (sexually transmitted disease) * TISSUE TRANSGLUTAMINASE AB IGA(Performed 08/19/2013) Performed for Abdominal pain, unspecified site, Nausea alone * LIPASE BLOOD(Performed 08/19/2013) Performed for Abdominal pain, unspecified site, Nausea alone * IGA BLOOD(Performed 08/19/2013) Performed for Abdominal pain, unspecified site, Nausea alone * C-REACTIVE PROTEIN(Performed 08/19/2013) Performed for Abdominal pain, unspecified site, Nausea alone * AMYLASE BLOOD(Performed 08/19/2013) Performed for Abdominal pain, unspecified site, Nausea alone * LAB RESULTS ORDER(Performed 06/21/2013) * CHLAMYDIA + GC AMPLIFIED PROBE(Performed 06/17/2013) * TYPE + SCREEN PANEL(Performed 06/17/2013) * COMPREHENSIVE METABOLIC PANEL(Performed 06/17/2013) * RETIC COUNT(Performed 06/17/2013) * PT PTT PANEL(Performed 06/17/2013) * CBC W AUTO DIFFERENTIAL(Performed 06/17/2013) * URINALYSIS REFLEX TO MICROSCOPIC NO CULTURE(Performed 06/17/2013) * URINE MICROSCOPIC ONLY(Performed 06/17/2013) * US PELVIS W TRANSVAG W DOP NON OB(Performed 06/17/2013) Performed for Vaginal bleeding * HCG URINE QUALITATIVE - POCT (IP) BEAKER(Performed 06/17/2013) Results * (ABNORMAL) CBC W AUTO DIFFERENTIAL (02/13/2014 12:08 PM CDT) Only the most recent of2 resultswithin the time period is included. WBC 6.5 4.5 - 14.5 x10^9/L 02/13/2014 1:43 PM [facility] RBC 4.53 4.10 - 5.10 x10^12/L 02/13/2014 1:43 PM [facility] Hemoglobin 12.7 12.0 - 16.0 gm/dL 02/13/2014 1:43 PM [facility] Hematocrit 38.2 36.0 - 47.0 % 02/13/2014 1:43 PM [facility] MCV 84.3 78.0 - 98.0 fl 02/13/2014 1:43 PM [facility] MCH 28.0 25.0 - 35.0 pg 02/13/2014 1:43 PM [facility] MCHC 33.2 31.0 - 37.0 gm/dL 02/13/2014 1:43 PM [facility] Platelet Count 191 100 - 400 x10^9/L 02/13/2014 1:43 PM [facility] RDW-CV 12.8 11.5 - 14.0 % 02/13/2014 1:43 PM [facility] MPV 11.3(H) 6.0 - 9.5 fl 02/13/2014 1:43 PM [facility] Neutrophils % 65.9 24.0 - 66.0 % 02/13/2014 1:43 PM [facility] Lymphocytes % 23.6 22.0 - 61.0 % 02/13/2014 1:43 PM [facility] Monocytes % 8.0 3.0 - 15.0 % 02/13/2014 1:43 PM [facility] Eosinophils % 1.9 0.0 - 10.0 % 02/13/2014 1:43 PM [facility] Basophils % 0.3 % 02/13/2014 1:43 PM [facility] Immature Granulocytes 0.3 % 02/13/2014 1:43 PM CDT [facility] Neutrophil Absolute 4.27 x10^9/L 02/13/2014 1:43 PM CDT [facility] Lymphocytes Absolute 1.53 x10^9/L 02/13/2014 1:43 PM CDT [facility] Monocytes Absolute 0.52 x10^9/L 02/13/2014 1:43 PM CDT [facility] Eosinophils Absolute 0.12 x10^9/L 02/13/2014 1:43 PM CDT [facility] Basophils Absolute 0.02 x10^9/L 02/13/2014 1:43 PM CDT [facility] Immature Granulocytes Absolute 0.02 x10^9/L 02/13/2014 1:43 PM CDT [facility] Blood BLOOD SPECIMEN / Unknown Lab Venipuncture / Unknown 02/13/2014 12:08 PM CDT 02/13/2014 12:26 PM CDT Rita Cortes MD LAB - HEMATOLOGY OR DERABLES Performing Organization Address City/[facility]/ZIP Co de Phone Number [facility] [address] [place] [address] * TRICHOMONAS RAPID TEST - POCT (IP) BEAKER (02/13/2014 12:05 PM CDT) Trichomonas Rapid Test Negative Negative [facility] POCT TESTING Lot # [id number] [facility] POCT TESTING Expiration Date Trich Rapid 02/07 [facility] POCT TESTING Negative control Negative Negative [facility] POCT TESTING Positive Control Positive Positive [facility] POCT TESTING Pos Control Lot Number [id number] [facility] POCT TESTING Positive Control Expiration Date 02/07 [facility] POCT TESTING Vaginal swab (specimen) ENTIRE VAGINA / Unknown 02/13/2014 12:05 PM CDT Romy Delgado MD LAB - POINT OF CARE ORDERABLES Performing Organization Address City/[facility] Co de Phone Number [facility] POCT TESTING [address] * HCG URINE QUALITATIVE - POCT (IP) BEAKER (02/13/2014 11:19 AM CDT) Only the most recent of2 resultswithin the time period is included. HCG Qual Urine Negative Negative [facility] POCT TESTING QC Verified Yes Yes [facility] PO CT TESTING Urine specimen (specimen) URINE / Unknown 02/13/2014 11:19 AM CDT Romy Delgado MD LAB - POINT OF CARE ORDERABLES Performing Organization Address City/[facility]/ZIP Co de Phone Number [facility] POCT TESTING [address] [place] [address], [facility] * CHLAMYDIA + GC AMPLIFIED PROBE (02/13/2014 11:19 AM CDT) Only the most recent of2 resultswithin the time period is included. Chlamydia Amplified Probe Negative Negative 02/14/2014 12:48 PM CDT [facility] GC Amplified Probe Negative Negative 02/14/2014 12:48 PM CDT [facility] Urine URINE / Unknown 02/13/2014 1 1:19 AM CDT 02/13/2014 11:29 AM CDT Narrative [facility] - 02/14/2014 12:48 PM CDT This test was developed and its performance characteristics determined by the [facility], [facility]. Female urine specimens tested by the [facility] have not been cleared or approved by the FDA. The laboratory is regulated under CLIA as qualified to perform high-complexity testing. This test is used for clinical purposes. It should not be regarded as investigational or for research. Results based on detection/no detection of ribosomal RNA by amplified method. Romy Delgado MD LAB - MICROBIO LOGY ORDERABLES [facility] [address] [place] [address], [facility] * TISSUE TRANSGLUTAMINASE AB IGA (08/19/2013 10:17 AM CDT) Tissue Transglutaminase (tTG) Ab, IgA 4 0 - 19 Units 08/20/2013 11:51 PM CDT [facility] Comment: INTERPRETIVE INFORMATION: Tissue Transglutaminase (tTG) Antibody, IgA 19 Units or less: Negative 20-30 Units: Weak Positive 31 Units or greater: Moderate to Strong Positive Presence of the tissue transglutaminase (tTG) IgA antibody is associated with gluten-sensitive enteropathies such as celiac disease and dermatitis herpetiformis. tTG IgA antibody concentrations greater than or equal to 100 Units usually correlate with results of duodenal biopsies consistent with a diagnosis of celiac disease. For antibody concentrations greater than 20 Units but less than 100 Units, additional testing for endomysial (PORTIA) IgA concentrations may improve the positive predictive value for disease. Blood specimen (specimen) BLOOD SPECIMEN / Unknown Lab Venipuncture / Unknown 08/19/2013 10:17 AM CDT 08/19/2013 10:43 AM CDT [facility] - SEROLOGY OR DERABLES Performing Organization Address [facility] Co de Phone Number [employer] [address] [place] [address] * C-REACTIVE PROTEIN (08/19/2013 10:17 AM CDT) C-Reactive Protein <0.20 <=0.50 mg/dL 08/19/2013 11:10 AM CDT [facility] Blood BLOOD SPECIMEN / Unknown Lab Venipuncture / Unknown 08/19/2013 10:17 AM CDT 08/19/2013 10:43 AM CDT [facility] - CHEMISTRY O RDERABLES Performing Organization Address [facility] Co de Phone Number [facility] [address] [place] [address] * LIPASE BLOOD (08/19/2013 10:17 AM CDT) Lipase 20 10 - 220 U/L 08/19/2013 11:15 AM CDT [facility] Blood BLOOD SPECIMEN / Unknown Lab Venipuncture / Unknown 08/19/2013 10:17 AM CDT 08/19/2013 10:43 AM CDT [facility] - CHEMISTRY O RDERABLES Performing Organization Address City/[facility] Co de Phone Number [facility] [address] [place] [address] * (ABNORMAL) AMYLASE BLOOD (08/19/2013 10:17 AM CDT) Amylase 88(H) 5 - 65 U/L 08/19/2013 11:15 AM CDT [facility] Blood BLOOD SPECIMEN / Unknown Lab Venipuncture / Unknown 08/19/2013 10:17 AM CDT 08/19/2013 10:43 AM CDT Jessica Clark LEAD INJECTION MOLD TECHNICIAN-NETWORK PROGRAMMER LAB - CHEMISTRY O RDERABLES Performing Organization Address [facility]/ZIP Co de Phone Number [facility] [address] [place] [address] * IGA BLOOD (08/19/2013 10:17 AM CDT) IgA 183 65 - 421 mg/dL 08/19/2013 11:15 AM CDT [facility] Blood BLOOD SPECIMEN / Unknown Lab Venipuncture / Unknown 08/19/2013 10:17 AM CDT 08/19/2013 10:43 AM CDT Jessica Clark LEAD INJECTION MOLD TECHNICIAN-NETWORK PROGRAMMER LAB - CHEMISTRY O RDERABLES Performing Organization Address [facility]/ZIP Co de Phone Number [facility] [address] [place] [address] * LAB RESULTS ORDER (06/21/2013 10:06 PM OCEANIC SCIENCES PROFESSOR) Narrative 06/21/2013 10:06 PM OCEANIC SCIENCES PROFESSOR Ordered by an unspecified provider. Transcriptions Document, Scanned - 06/21/2013 10:06 PM CST Document, Scanned - 06/21/2013 10:06 PM CST Scanned Document LAB - THERAPEUTIC DR PACHECO MONITORING ORDERABLES * TYPE + SCREEN PANEL (06/17/2013 12:16 PM OCEANIC SCIENCES PROFESSOR) ABO O 06/17/2013 1:52 PM OCEANIC SCIENCES PROFESSOR [facility] Rh Type Negative 06/17/2013 1:52 PM OCEANIC SCIENCES PROFESSOR [facility] Antibody Screen Negative 06/17/2013 1:52 PM [facility] Blood Bank BLOOD SPECIMEN / Unknown 06/17/2013 12:16 PM OCEANIC SCIENCES PROFESSOR 06/17/2013 1:03 PM OCEANIC SCIENCES PROFESSOR Guadalupe Padilla MD LAB - BLOOD BANK O RDERABLES [facility] * (ABNORMAL) PT PTT PANEL (06/17/2013 12:16 PM OCEANIC SCIENCES PROFESSOR) PT 13.8 12.2 - 14.5 sec 06/17/2013 1:39 PM [facility] INR 1.07 0.8 - 1.2 06/17/2013 1:39 PM [facility] PTT 37.1(H) 23.0 - 36.0 sec 06/17/2013 1:39 PM [facility] Blood BLOOD SPECIMEN / Unknown 06/17/2013 12:16 PM OCEANIC SCIENCES PROFESSOR 06/17/2013 1:03 PM OCEANIC SCIENCES PROFESSOR Guadalupe Padilla MD LAB - COAGULATION ORDERABLES Performing Organization Address City/[facility] Co de Phone Number [facility] [address] [place] [address] * (ABNORMAL) RETIC COUNT (06/17/2013 12:16 PM OCEANIC SCIENCES PROFESSOR) Reticulocyte Count 0.85 0.3 - 4.2 % 06/17/2013 1:12 PM [facility] Reticulocyte Absolute 0.0416 0.0416 - 0.0651 x10^6/uL 06/17/2013 1:12 PM [facility] Reticulocyte Immature Fractionated 2.9(L) 9.0 - 18.7 % 06/17/2013 1:12 PM [facility] Hemoglobin Retic 31.9 29.9 - 38.4 pg 06/17/2013 1:12 PM [facility] Blood BLOOD SPECIMEN / Unknown 06/17/2013 12:16 PM OCEANIC SCIENCES PROFESSOR 06/17/2013 1:03 PM OCEANIC SCIENCES PROFESSOR Guadalupe Padilla MD LAB - HEMATOLOGY O RDERABLES [facility] [address] [facility] [place] [address] * (ABNORMAL) COMPREHENSIVE METABOLIC PANEL (06/17/2013 12:16 PM [facility]) Glucose 80 70 - 105 mg/dL 06/17/2013 1:35 PM [facility] Sodium 140 136 - 145 mmol/L 06/17/2013 1:35 PM [facility] Potassium 3.5 3.5 - 5.1 mmol/L 06/17/2013 1:35 PM [facility] Chloride 107 98 - 107 mmol/L 06/17/2013 1:35 PM [facility] CO2 24 20 - 28 mmol/L 06/17/2013 1:35 PM [facility] Calcium 9.39 9.08 - 10.48 mg/dL 06/17/2013 1:35 PM [facility] Anion Gap 9 5 - 20 mmol/L 06/17/2013 1:35 PM [facility] BUN 9.6 5.3 - 18.7 mg/dL 06/17/2013 1:35 PM [facility] Creatinine 0.65 0.61 - 1.07 mg/dL 06/17/2013 1:35 PM [facility] eGFR by MDRD mL/min/1.7 3m2 06/17/2013 1:35 PM [facility] Comment:eGFR calculations ar e not performed for children under 18 years old. eGFR by MDRD mL/min/1.7 3m2 06/17/2013 1:35 PM [facility] Comment:eGFR calculations ar e not performed for children under 18 years old. Alkaline Phosphatase 74(L) 100 - 390 U/L 06/17/2013 1:35 PM [facility] ALT 6(L) 8 - 65 U/L 06/17/2013 1:35 PM [facility] AST 15 3 - 35 U/L 06/17/2013 1:35 PM [facility] Protein Total 8.1 6.3 - 8.2 gm/dL 06/17/2013 1:35 PM [facility] Albumin 4.5 3.3 - 4.9 gm/dL 06/17/2013 1:35 PM [facility] Bilirubin Total 0.4 0.3 - 1.2 mg/dL 06/17/2013 1:35 PM [facility] Blood BLOOD SPECIMEN / Unknown 06/17/2013 12:16 PM [facility] 06/17/2013 1:13 PM [facility] Guadalupe Padilla MD LAB - CHEMISTRY OR DERABLES Performing Organization Address City/[facility]/ZIP Co de Phone Number [facility] [address] [place] [address] * (ABNORMAL) URINALYSIS ROUTINE AUTO (06/17/2013 11:36 AM [facility]) Color UA Yellow Straw, Yellow, Dark Yellow 06/17/2013 12:01 PM [facility] Clarity UA Clear 06/17/2013 12:01 PM [facility] Specific [place] UA 1.010 1.005 - 1.030 06/17/2013 12:01 PM [facility] pH UA 5.5 5.0 - 8.0 pH 06/17/2013 12:01 PM [facility] Protein UA Negative Negative 06/17/2013 12:01 PM [facility] Blood UA 1+(A) Negative 06/17/2013 12:01 PM [facility] Leukocyte UA 1+(A) Negative 06/17/2013 12:01 PM [facility] Nitrite UA Negative Negative 06/17/2013 12:01 PM [facility] Glucose UA Negative Negative 06/17/2013 12:01 PM [facility] Ketone UA Negative Negative 06/17/2013 12:01 PM [facility] Bilirubin UA Negative Negative 06/17/2013 12:01 PM [facility] Urobilinogen UA 0.2 0.1 - 1.0 EU/dL 06/17/2013 12:01 PM [facility] Urine URINE SPECIMEN OBTAINED BY CLEAN CATCH PROCEDURE / Unknown 06/17/2013 11:36 AM [facility] 06/17/2013 11:47 AM [facility] Guadalupe Padilla MD LAB - URINALYSIS O RDERABLES Performing Organization Address City/[facility]/ZIP Co de Phone Number [facility] [address] [place] [address] * (ABNORMAL) URINALYSIS MICROSCOPIC ONLY (06/17/2013 11:36 AM OCEANIC SCIENCES PROFESSOR) RBC UA 0-2 0-2, 2-5 # /hpf 06/17/2013 12:17 PM [facility] WBC UA 2-5 0-2, 2-5 # /hpf 06/17/2013 12:17 PM [facility] Bacteria UA 1+(A) None Seen, Trace 06/17/2013 12:17 PM [facility] Epithelial Cell UA 2-5 0-2, 2-5 06/17/2013 12:17 PM [facility] Urine URINE SPECIMEN OBTAINED BY CLEAN CATCH PROCEDURE / Unknown 06/17/2013 11:36 AM OCEANIC SCIENCES PROFESSOR 06/17/2013 11:47 AM OCEANIC SCIENCES PROFESSOR Guadalupe Padilla MD LAB - URINALYSIS O RDERABLES [facility] [address] [place] [address] * US PELVIS W/TRANSVAG AND DOPPLER (06/17/2013 11:31 AM OCEANIC SCIENCES PROFESSOR) Anatomical Region Laterality Modality Pelvis Ultrasound 06/17/2013 11:3 8 AM OCEANIC SCIENCES PROFESSOR Impressions 06/17/2013 11:43 AM OCEANIC SCIENCES PROFESSOR Trace amount of free intraperitoneal fluid in the cul-de-sac which may be physiologic. The uterus and ovaries are sonographically normal in appearance. Narrative 06/17/2013 11:43 AM OCEANIC SCIENCES PROFESSOR Pelvic ultrasound performed June 17, 2013. History: Abnormal vaginal bleeding. Transabdominal and transvaginal scanning were performed. No prior pelvic ultrasounds are available for comparison. The uterus measures 6.2 x 3.1 x 3.4 cm in size. The endometrium is 2 mm in thickness and has a normal trilaminar appearance. There is no evidence of fluid in the endometrial canal. There is a trace amount of free intraperitoneal fluid in the cul-de-sac. The right ovary measures 3.3 x 1.8 x 2.8 cm in size for a calculated volume of 9.1 cc. The left ovary measures 3.5 x 1.8 x 2.0 cm in size for a calculated volume of 6.6 cc. Multiple follicles are present in both ovaries. No abnormal solid or cystic masses are identified. Blood flow is intact in both ovaries. Procedure Note Keke Zapata MD - 06/17/2013 Pelvic ultrasound performed June 17, 2013. History: Abnormal vaginal bleeding. Transabdominal and transvaginal scanning were performed. No prior pelvic ultrasounds are available for comparison. The uterus measures 6.2 x 3.1 x 3.4 cm in size. The endometrium is 2 mm in thickness and has a normal trilaminar appearance. There is no evidence of fluid in the endometrial canal. There is a trace amount of free intraperitoneal fluid in the cul-de-sac. The right ovary measures 3.3 x 1.8 x 2.8 cm in size for a calculated volume of 9.1 cc. The left ovary measures 3.5 x 1.8 x 2.0 cm in size for a calculated volume of 6.6 cc. Multiple follicles are present in both ovaries. No abnormal solid or cystic masses are identified. Blood flow is intact in both ovaries. IMPRESSION Trace amount of free intraperitoneal fluid in the cul-de-sac which may be physiologic. The uterus and ovaries are sonographically normal in appearance. Guadalupe Padilla MD ORDERABLES Care Teams Steaming Cabinet Tender Relationship Specialty Start Date End Date Selena Huerta MD [address] [place] [address] PCP - General Family Medicine 06/17/13
--- OUTSIDE RECORDS SUMMARY | 2024-05-27 10:47 | XMS_ITS | Data Portability ---
Author Organization [place] - [facility] [employer], Main Office Address [address] [place] [address] Assessment No assessment recorded. Plan of Treatment Reminders Order Date Submit Date Provider Last Modified By Organization Details Last Modified Time Details Appointments Follow Up 15 2024 04:30P M OUSMANE Velasquez Not available Not available Not available Lab None recorded. Referral None recorded. Procedures None recorded. Surgeries None recorded. Imaging None recorded. Medication Orders escitalop fei 5 mg tablet 2022 023 [id number] 77 [facility], [address] [place] [address], [address], 11/19/2023 11:25:44 nystatin- triamcino lone 100,000 unit/g-0. 1 % topical cream 2023 024 [email or web address] [facility], [address] [place], [address], 11/19/2023 17:27:54 Patient TargetsNo targets recorded. Patient InstructionsNo instructions recorded. Reason for Referral None Reported. Results Created Date Observation Date Name Description Value Unit Range Abnormal Flag Note LastModifiedBy Organization Detail LastModifiedTime 10/16/19 22 10/19/2021 RPR SCREE N RPR non-re active nonrea ctive Not Available [facility] (Lab) [address] [place], [address], 10/19/2021 09:25:53 10/16/19 22 10/16/2021 HIV COMBO : HIV 1/2 AB,P2 4 AG HIV combo assay non-re active nonrea ctive The HIV combo test scree ns for HIV-1 , HIV-2 , HIV p24 Ag, and HIV group O. Any react heath scree n resul t will be sent for PCR confi rmato ry testi ng. Not Available [facility] (Lab) [facility] [address], [place], [address], 10/16/2021 22:21:39 10/16/19 22 10/16/2021 HIV COMBO : HIV 1/2 AB,P2 4 AG S/C 0.13 0.00-0 .99 Not Available [facility] (Lab) [address] [facility] [address], [place], [address], 10/16/2021 22:21:39 10/16/19 22 10/16/2021 TRICH OMONA S VAGIN EDITA DNA, PCR trichomonas vaginalis DNA not detect ed Not Available [facility] (Lab) [address] [place], [address], 10/16/2021 01:00:36 10/16/19 22 10/15/2021 CT/NG (CHLA MYDIA /NEIS SERIA ) DNA chlamydia trachomatis DNA not detect ed Not Available [facility] (Lab) [address] [place], [address], 10/16/2021 00:59:52 10/16/19 22 10/15/2021 CT/NG (CHLA MYDIA /NEIS SERIA ) DNA neisseria gonorrhea DNA not detect ed Not Available [facility] (Lab) [address] [place], [address], 10/16/2021 00:59:52 10/16/19 22 10/15/2021 HEPAT ITIS C/HCV ANTIB CLIFF hepatitis C antibody non-re active non-re active Not Available [facility] (Lab) [address] [place], [address], 10/15/2021 21:22:35 10/16/19 22 10/15/2021 HEPAT ITIS C/HCV ANTIB CLIFF S/C 0.01 0.00-0 .99 Not Available [facility] ([facility]) [address], [place], [address], 10/15/2021 21:22:35 01/15/20 22 01/14/2022 US, obste tric No observ ation record ed. [id number], [address], 06/25/2022 08:49:43 01/27/20 22 01/26/2022 US, obste tric No observ ation record ed. [id number] [address], [place], [address], 06/25/2022 08:49:43 03/01/20 22 03/01/2022 US, obste tric No observ ation record ed. [id number] [facility] [address] [facility], [place], [address], 06/25/2022 08:49:43 05/31/19 24 05/31/2023 XR, chest No observ ation record ed. [address] [address], [place], [address], 06/04/2023 15:05:58 06/04/19 24 06/03/2023 US, moises tlorneat eral No observ ation record ed. [email or web address] [address], [address], 06/04/2023 15:06:22 06/15/19 24 06/15/2023 imagi ng/di drew hernandez t No observ ation record ed. [facility] [address], [place], [address], 06/26/2023 14:11:52 06/18/19 24 06/17/2023 US, echoc ardio gram No observ ation record ed. [email or web address] [facility] [address], [place], [address], 06/26/2023 14:10:46 06/29/19 24 06/20/2023 home sleep study No observ ation record ed. [email or web address] [facility] [address], [place], [address], 09/06/2023 13:47:04 10/06/19 24 10/06/2023 imagi ng inter preta tion No observ ation record ed. [email or web address] [facility] [address], [place], [address], 10/14/2023 17:43:06 Result Notes None recorded. Problems Name Problem SNOMED Code Status Onset Date Resolution Date Notes Provider Name and Address Organization Details Recorded Time Irritable bowel syndrome 41742420 Active 2016 Not Available [facility] 3 08:46:13 Tobacco user 927189540 Active Not Available [facility] 3 08:46:13 Pain in throat 550007129 Active Not Available [facility] 3 08:46:13 Abdominal pain 57780665 Active Not Available [facility] 3 08:46:13 Headache 94272362 Active Not Available [facility] 3 08:46:13 Abnormal weight loss 353022050 Active Not Available [facility] 3 08:46:13 Insect bite - wound 461973151 Active Not Available [facility] 3 08:46:13 Low back pain 028208446 Active Not Available [facility] 3 08:46:13 Proteinuria 82921876 Active Not Available [facility] 3 08:46:14 Pain in pelvis 48316702 Active Not Available [facility] 3 08:46:14 Vaginitis 47764227 Active Not Available [facility] 3 08:46:14 Vaginal ulcer 40790095 Active Not Available [facility] 3 08:46:14 Exercise-héctor isidoro asthma 62064886 Active Not Available [facility] 3 08:46:14 Iron deficiency 94175786 Active Not Available [facility] 3 08:46:14 Depressive disorder 82280329 Active Not Available [facility] 3 08:46:14 Fever 521186794 Active Not Available [facility] 3 08:46:14 Sensory disturbance in limb 460956434 Active Not Available [facility] 3 08:46:14 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 Active Not Available [facility] 3 08:46:14 Anxiety 36858622 Active Not Available [facility] 3 08:46:14 Dysuria 76017945 Active Not Available [facility] 3 08:46:14 Otitis media 41426526 Active Not Available [facility] 3 08:46:14 Urinary tract infectious disease 21420243 Active Not Available [facility] 3 08:46:14 Disturbance of attention 88673077 Active Not Available [facility] 3 08:46:15 Fatigue 62031847 Active Not Available [facility] 3 08:46:15 Conjunctiviti s 5596366 Active Not Available [facility] 3 08:46:15 Mixed anxiety and depressive disorder 792644377 Active 2022 MARY Iniguez [address], [address] [address], [place], [address] , [employer] [facility] [employer] [facility] 3 13:56:27 Palpitations 07841375 Active 2023 Selena Huerta MD [address], [address], [place], [address] , [employer] [facility] [employer] [facility] 4 18:11:52 Tinea corporis 87648824 Active 2023 LEYDA Page [address], [facility] [address], [place], [address] , [facility] [employer] [facility] 4 11:36:16 Eczema 00628105 Active 2023 LEYDA Page [address] [facility], [facility] [address], [place], [address] , [place] [facility] 15:03:27 Problem Notes None recorded. Procedures Surgical History None recorded. Imaging Results Imaging Date Name Status LastModified by Organization Details LastModified Time 01/14/2022 US, obstetric completed [id number], [address], 06/25/2022 08:49:43 03/01/2022 US, obstetric completed [id number] 19 0026 [facility] [address] [facility], [place], [address], 06/25/2022 08:49:43 01/26/2022 US, obstetric completed [id number] [address] [address], [place], [address], 06/25/2022 08:49:43 05/31/2023 XR, chest completed [address], [address], 06/04/2023 15:05:58 06/03/2023 US, breast, bilateral completed [address], [address], 06/04/2023 15:06:22 06/15/2023 imaging/diagnostic result completed [facility] [address], [place], [address], 06/26/2023 14:11:52 06/17/2023 US, echocardiogram [facility] [address], [place], [address], 06/26/2023 14:10:46 06/20/2023 home sleep study completed [address] [facility] [address], [place], [address], 09/06/2023 13:47:04 10/06/2023 imaging interpretation completed [address], [place], [address], 10/14/2023 17:43:06 Procedure Notes None recorded. Medical Equipment None Reported. Allergies Allergen ID Allergen Name Allergen Category Reaction Reaction Severity Criticality Documentation Date Start Date Code Code System Note Provider Name and Address Organization Details Recorded Time bupropion Not available Not available Not available Not available 06/25/2022 70381 RxNorm rash Not Available [facility] 08:49:34 Medications Name Sig Start Date Stop Date Status Note LastModified by Organization Details LastModified Time cyclobenzap rine 10 mg tablet 1/2 to 1 tab po tid prn active Not Available Not Available No t Available amoxicillin 500 mg capsule 07/06 completed Not Available Not Available Not Available promethazin e-DM 6.25 mg-15 mg/5 mL oral syrup TAKE 5 ML BY MOUTH EVERY 4 TO 6 HOURS NEEDED FOR COUGH 11/18 completed Not Available Not Available Not Available azithromyci n 250 mg tablet 2 tabs po qd x 1 day then 1 tab po qd x 4 days 05/08 completed Not Available Not Available Not Available ibuprofen 800 mg tablet Take 1 tablet every 8 hours by oral route as needed. active Not Available Not Available No t Available nystatin 100,000 unit/gram topical ointment APPLY SMALL AMOUNT (1GM) TO THE AFFECTED AREA(S) BY TOPICAL ROUTE 2 TIMES PER DAY x 7 days active Not Available Not Available No t Available fluconazole 150 mg tablet Take 1 tablet by oral route for 1 day. 11/18 completed Not Available Not Available Not Available valacyclovi r 1 gram tablet Take 1 tablet every 12 hours by oral route for 7 days. 03/06 completed Not Available Not Available Not Available phenazopyri dine 200 mg tablet Take 1 tablet 3 times a day by oral route for 2 days. 02/19 completed Not Available Not Available Not Available prednisone 20 mg tablet Take 2 tablets every day by oral route for 5 days. 11/18 completed Not Available Not Available Not Available clobetasol 0.05 % topical cream apply bid x 3 days prn rash active Not Available Not Available No t Available venlafaxine ER 150 mg capsule,ext ended release 24 hr Take 1 capsule every day by oral route. active Not Available Not Available No t Available hydroxyzine HCl 50 mg tablet 11/18 completed Not Available Not Available Not Available sulfamethox azole 800 mg-trimetho prim 160 mg tablet Take 1 tablet every 12 hours by oral route for 3 days. active Not Available Not Available No t Available triamcinolo ne acetonide 0.1 % topical cream APPLY A THIN LAYER TO THE AFFECTED AREA(S) BY TOPICAL ROUTE 2 TIMES PER DAY active Not Available Not Available No t Available amoxicillin 500 mg tablet Take 1 tablet every 12 hours by oral route for 7 days. 12/11 completed Not Available Not Available Not Available ondansetron 8 mg disintegrat ing tablet DISSOLVE 1 TABLET IN MOUTH EVERY 6 TO 8 HOURS NEEDED active Not Available Not Available No t Available meloxicam 7.5 mg tablet Take 1 tablet twice a day by oral route as needed. 03/13 completed Not Available Not Available Not Available amoxicillin 875 mg tablet Take 1 tablet every 12 hours by oral route for 10 days. 11/18 completed Not Available Not Available Not Available dicyclomine 20 mg tablet 11/18 completed Not Available Not Available Not Available meclizine 25 mg tablet Take 1 tablet 4 times a day by oral route as needed. 03/13 completed Not Available Not Available Not Available cephalexin 500 mg capsule Take 1 capsule every 6 hours by oral route for 7 days. active Not Available Not Available No t Available ferrous sulfate 325 mg (65 mg iron) tablet Take 1 tablet twice a day by oral route for 30 days. 11/18 completed Not Available Not Available Not Available triamcinolo ne acetonide 0.1 % topical ointment Apply small amount (1GM) to the affected area twice a day for 7 days. active Not Available Not Available No t Available ranitidine 150 mg tablet Take 1 tablet twice a day by oral route as directed. 11/18 completed Not Available Not Available Not Available buspirone 10 mg tablet TAKE 1 TABLET BY MOUTH TWICE DAILY active Not Available Not Available No t Available promethazin e 25 mg tablet Take 1 tablet 4 times a day by oral route as needed. 03/13 completed Not Available Not Available Not Available polymyxin B sulfate 10,000 unit-trimet hoprim 1 mg/mL eye drops 2 drops TID x 7 days 10/31 completed Not Available Not Available Not Available nystatin-tr iamcinolone 100,000 unit/g-0.1 % topical cream APPLY 1/2-1 GM EXTERNALL Y TO ARMPITS AND ABDOMEN TWICE DAILY IN THE MORNING AND IN THE EVENING active Not Available Not Available No t Available sertraline 25 mg tablet Take 1 tablet every day by oral route. 07/06 completed Not Available Not Available Not Available diclofenac sodium 75 mg tablet,sam yed release Take 1 tablet twice a day by oral route as needed. 05/25 completed Not Available Not Available Not Available cephalexin 500 mg tablet Take 1 tablet twice a day by oral route for 7 days. 03/06 completed Not Available Not Available Not Available metoprolol succinate ER 25 mg tablet,exte nded release 24 hr TAKE 1 TABLET BY MOUTH ONCE DAILY 11/18 completed Not Available Not Available Not Available ergocalcife rol (vitamin D2) 1,250 mcg (50,000 unit) capsule Take 1 capsule every week by oral route for 28 days. 11/18 completed Not Available Not Available Not Available ibuprofen 600 mg tablet 11/18 completed Not Available Not Available Not Available Pepcid 20 mg tablet Take 1 tablet twice a day by oral route for 7 days. 02/19 completed Not Available Not Available Not Available methylpredn isolone 4 mg tablets in a dose pack Take as directed active Not Available Not Available No t Available ferrous sulfate 325 mg (65 mg iron) tablet,sam yed release Take 1 tablet twice a day by oral route for 30 days. 11/18 completed Not Available Not Available Not Available hydroxyzine HCl 10 mg tablet Take 1 tablet every day by oral route for 7 days. active Not Available Not Available No t Available ondansetron 4 mg disintegrat ing tablet DISSOLVE 1 TABLET IN MOUTH EVERY 6 HOURS NEEDED active Not Available Not Available No t Available fluticasone propionate 50 mcg/actuati on nasal spray,suspe nsion Inhale 2 sprays every day by intranasa l route. 04/02 completed Not Available Not Available Not Available dicyclomine 10 mg capsule Take 1 capsule 3 times a day by oral route with meals for 14 days. 06/16 completed Not Available Not Available Not Available loratadine 10 mg tablet Take 1 tablet every day by oral route. 04/02 completed Not Available Not Available Not Available naproxen 500 mg tablet 11/18 completed Not Available Not Available Not Available metoclopram aj 10 mg tablet active Not Available Not Available Not Available Ventolin HFA 90 mcg/actuati on aerosol inhaler Inhale 2 puffs every 4 hours by inhalatio n route. 04/02 completed Not Available Not Available Not Available azithromyci n 500 mg tablet Take 2 tablets every day by oral route for 1 day. 11/18 completed Not Available Not Available Not Available escitalopra m 10 mg tablet TAKE 1 TABLET BY MOUTH ONCE DAILY 11/18 completed Not Available Not Available Not Available bupropion HCl XL 300 mg 24 hr tablet, extended release Take 1 tablet every day by oral route. active Not Available Not Available No t Available bupropion HCl XL 150 mg 24 hr tablet, extended release Take 1 tablet every day by oral route. active Not Available Not Available No t Available Tri-Sprinte c (28) 0.18 mg(7)/0.215 mg(7)/0.25 mg(7)-35 mcg tablet Take 1 tablet every day by oral route. 04/02 completed Not Available Not Available Not Available escitalopra m 5 mg tablet TAKE 1 TABLET BY MOUTH ONCE DAILY 11/18 completed Not Available Not Available Not Available nitrofurant oin monohydrate /macrocryst als 100 mg capsule TAKE 1 CAPSULE BY MOUTH EVERY 12 HOURS FOR 7 DAYS 11/18 completed Not Available Not Available Not Available duloxetine 20 mg capsule,del ayed release TAKE 1 CAPSULE BY MOUTH TWICE DAILY 11/18 completed Not Available Not Available Not Available lurasidone 40 mg tablet TAKE 1 TABLET BY MOUTH ONCE DAILY active Not Available Not Available No t Available Nexplanon 68 mg subdermal implant Inject by subcutane ous route. 04/02 completed 04/16 Not Available Not Available Not Available lurasidone 20 mg tablet TAKE 1 TABLET BY MOUTH ONCE DAILY WITH MEALS active Not Available Not Available No t Available lurasidone 60 mg tablet active Not Available Not Available Not Available Xulane 150 mcg-35 mcg/24 hr transdermal patch APPLY 1 PATCH TOPICALLY ONCE A WEEK 11/18 completed Not Available Not Available Not Available Vitals Date Recorded Oxygen saturation Oxygen saturation in Arterial blood by Pulse oximetry Provider Name and Address Organization Details Last Updated DateTime 06/25/2022 98 % 98 % Not Available [facility] 08:43:37 Date Recorded Heart rate Provider Name an d Address Organization Details Last Updated DateTime 06/25/2022 78 /min Not Available [facility] 08:43:39 Date Recorded Body temperature Provider Name a nd Address Organization Details Last Updated DateTime 06/25/2022 96.4 [degF] Not Available [facility] 06/26/19 08:43:41 Date Recorded Body weight Provider Name an d Address Organization Details Last Updated DateTime 06/25/2022 77781.27 g Not Available [facility] 08:43:43 Date Recorded Body height Provider Name an d Address Organization Details Last Updated DateTime 06/27/2022 154.94 cm Sadie Frazier MA [facility] [employer] 06/27/2022 14:39:24 Date Recorded Body mass index (BMI) Body weight Provider Name and Address Organization Details Last Updated DateTime 06/27/2022 23.2 kg/m2 99493.86 g Saide Frazier MA [place] [facility] [employer] 06/27/2022 14:39:29 Date Recorded Body temperature Provider Name a nd Address Organization Details Last Updated DateTime 06/27/2022 98.2 [degF] Sadie Frazier MA [place] [facility] [employer] 06/27/2022 14:39:54 Date Recorded Heart rate Provider Name an d Address Organization Details Last Updated DateTime 06/27/2022 83 /min Sadie Frazier MA [place] [employer] 06/27/2022 14:40:03 Date Recorded Oxygen saturation Oxygen saturation in Arterial blood by Pulse oximetry Provider Name and Address Organization Details Last Updated DateTime 06/27/2022 97 % 97 % Sadie Frazier MA [place] [facility] [employer] 06/27/2022 14:40:08 Date Recorded Body weight Provider Name an d Address Organization Details Last Updated DateTime 11/19/2023 16846.34 g Arnaud Sandoval RN [place] [facility] [employer] 11/19/2023 11:23:48 Date Recorded Body temperature Provider Name a nd Address Organization Details Last Updated DateTime 11/19/2023 97.7 [degF] Arnaud Sandoval RN [facility] [employer] [facility] 11/19/2023 11:24:47 Date Recorded Heart rate Provider Name an d Address Organization Details Last Updated DateTime 11/19/2023 105 /min Arnaud Sandoval RN [facility] [employer] [facility] 11/19/2023 11:24:51 Date Recorded Oxygen saturation Oxygen saturation in Arterial blood by Pulse oximetry Provider Name and Address Organization Details Last Updated DateTime 11/19/2023 98 % 98 % Arnaud Sandoval RN [facility] [employer] [facility] 11/19/2023 11:24:53 Date Recorded Systolic blood pressure Diastolic blood pressure Provider Name and Address Organization Details Last Updated DateTime 06/25/2022 122 mm[Hg] 68 mm[Hg] Not Available [employer] 06/25/2022 08:43:34 Date Recorded Systolic blood pressure Diastolic blood pressure Provider Name and Address Organization Details Last Updated DateTime 06/27/2022 116 mm[Hg] 80 mm[Hg] Sadie Frazier MA [facility] [employer] [facility] 06/27/2022 14:41:54 Date Recorded Systolic blood pressure Diastolic blood pressure Provider Name and Address Organization Details Last Updated DateTime 11/19/2023 118 mm[Hg] 70 mm[Hg] Arnaud Sandoval RN [facility] [employer] [facility] 11/19/2023 11:24:49 Social History Question Answer Notes LastModified by Organizat ion Details LastModified Time Tobacco Smoking Status Former Smoker Sadie Frazier MA null, [facility] [employer] [facility] 06/27/2022 14:42:55 What Is Your Level Of Alcohol Consumption? Occasional [email or web address] Information not available 06/27/2022 What Is Your Level Of Caffeine Consumption? Moderate [email or web address] Information not available 06/27/2022 In The 14 Days Before Symptom Onset, Have You Had Close Contact With A Laboratory-confir med COVID-19 While That Case Was Ill? No [id number] Information not available 06/25/2022 In The 14 Days Before Symptom Onset, Have You Had Close Contact With A Person Who Is Under Investigation For COVID-19 While That Person Was Ill? No [id number] Information not available 06/25/2022 What Type Of Diet Are You Following? REGULAR [id number] Information not available 06/25/2022 Have You Ever Been Counseled For Unhealthy Alcohol Use? No [email or web address] Information not available 06/27/2022 Do You Use Any Illicit Or Recreational Drugs? No [email or web address] Information not available 06/27/2022 Has Tobacco Cessation Counseling Been Provided? No Information not available 06/27/2022 Do You Have Any Dietary Restrictions? No [id number] Information not available 06/25/2022 Sex: Unknown Functional Status Question Answer Note LastModified by Organizat ion Details LastModified Time What is your exercise level? Moderate [id number] Information not available 06/25/2022 Mental Status None recorded. Family History Nothing Reported. Medical History No medical history recorded. Gynecological History Statement/Question Response Sexually Active? Y Menses Monthly Y STIs/STDs N Current Control Method None Breast Problems no Discharge no Obstetrics History GPAL:G 0 P 0 0 0 0 Past Encounters Encounter ID Performer Location Encounter Start Date Encounter Closed Date Diagnosis/Indication Diagnosis SNOMED-CT Code Diagnosis ICD10 Code Diagnosis Note [id number] [facility] [address] [place] [address] 10/15/2021 00:00:00 10/16/2021 10:00:51 [id number] [facility] Primary Care [address] [facility] [address] 12/18/2021 00:00:00 12/18/2021 09:18:58 [id number] GINA Miller [facility] Primary Care [address] [facility] [address] 06/27/2022 14:34:02 06/27/2022 15:06:16 Anxiety 58627062 F41.9 Increasing recently. States it has been a problem her whole life. She has been on zoloft a long time ago when she was younger. Has not been on anything in recent years. 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 Will do trial of lexapro.F/ u in 3-4 weeks. [id number] Jessica Jennings, MARY-C [facility] [address] [facility] [address] [place] [address] 11/19/2023 11:16:28 11/19/2023 11:36:42 Tinea corporis 04634462 B35.4 rash on abdomen and armpits for one monthrash is itchy Adult heal th examination [id number] Z00.00 Patient is doing well overall and has no complaints Discussed with patient yearly eye and dental examsPatie nt refuses bloodwork and vaccines Anxiety [id number] F41.9 OPAL-7 ()Pat ient stopped taking all medication s and does not wish to start medication sDenies SI/HI Depressive disorder [id number] F32.A OPAL-7 ()Pat ient stopped taking all medication s and does not wish to start medication sDenies SI/HI [id number] Debby Bustillo [facility] [address] [address] 01/21/2024 14:16:24 01/21/2024 16:03:10 [id number] Debby Bustillo [facility] [address] [address] 02/25/2024 14:18:38 02/25/2024 14:54:18 [id number] Debby Bustillo [facility] [address] [address] 03/23/2024 15:21:11 03/23/2024 15:57:39 [id number] Debby Bustillo [facility] [address] [address] 04/13/2024 17:11:15 04/13/2024 19:31:47 [id number] Debby Bustillo HNP [facility]_Beh [facility] [address] [place] [address] 05/25/2024 17:23:56 05/25/2024 17:56:16 Health Concerns Section Related Observation LastModified by Organization Detai ls LastModified Time None Recorded Concern Status LastModified by Organization Details LastModified Time None Recorded Advance Directives Directive None Recorded Payers Encounter Date Sequence Insurance Name Policy Number Policy Davis Covered Member ID Davis Member ID Guarantor Name 06/27/2022 1 [facility] [employer] ON OR AFTER 10/25/20 (MEDICAID REPLACEMENT - HMO) Michelle Marrero [id number] Michelle Marrero 11/19/2023 1 [facility] [employer] ON OR AFTER 10/25/20 (MEDICAID REPLACEMENT - HMO) Michelle Marrero [id number] Michelle Marrero Notes Date Note Type Note Provider Name and Address Organization Details Recorded Time 06/27/2022 text/html Pt. states latel y she has felt really tired and overwhelmed with everything. She thinks she is having increased anxiety. She states she has struggled with anxiety her whole life but has never addressed it. She has a daughter so she states she knows how to turn it off quickly because she does not want her daughter to see her that way. She states she does not think she is depressed, more overwhelmed/anxious. GINA Miller [address], [place], [address], [facility] 06/27/2022 15:22:06 11/19/2023 text/html Patient is a 28 year old female that presents to the office for annual wellness. Patient denies all major medical concerns at this time including chest pain and shortness of breath.Patient reports she stopped taking all medications.Patient reports rash to abdomen and armpits for one month. Patient reports the rash is itchy, does not spread. Patient reports she has been applying hydrocortisone cream which helps with the itchiness but does not clear up the rash. Patient reports she recently changed dryer sheets and believes it could be from that. Patient denies any recent contact with teran/tyonek/river water. no labsWWE-sees GYNflu-declinescovid -declinestdap-UTD 2021 Jessica Jennings, HANDICAPPER [employer] [address] [facility] [facility] [address], [place], [address], [facility] 11/19/2023 11:47:13 OBGyn Episode No OBEpisode recorded.
--- OUTSIDE RECORDS SUMMARY | 2024-05-27 10:47 | XMS_ITS | Clinical Summary ---
Author Organization [facility] Address [address] [facility] [place], [place] [address] [place] [address] Care Team Providers Care Blade Filer Name Role Phone Selena Huerta MD Primary Care Provider [phone] Allergies No known active allergies Medications acetaminophen (TYLENOL) 500 MG tablet Take 500-1,000 mg by mouth every 6 (six) hours as needed for Pain. Active Social History Tobacco Use Types Packs/Day Years Used Date Smoking Tobacco: Former Smokeless Tobacco: Current Alcohol Use Standard Drinks/Week Comments Yes 0 (1 standard drink = 0.6 oz pur e alcohol) AUDIT-C Answer Date Recorded Frequency of Alcohol Consumption Never 12/27/2018 Average Number of Drinks Not on file 019 Frequency of Binge Drinking Not on file 05/2018 Comments No Sex and Gender Information Value Date Recorded Sex Assigned at Not on file Legal Sex Female 11:21 PM SALES PROMOTION REPRESENTATIVE Gender Identity Not on file Sexual Orientation Not on file Last Filed Vital Signs Vital Sign Reading Time Taken Comments Blood Pressure 114/80 03/01/2022 10:29 AM CDT Pulse 88 03/01/2022 5:03 AM CDT Temperature 37.1 ??C (98.8 ??F) 03/01/2022 4:34 AM CD T Respiratory Rate 16 03/01/2022 5:03 AM CDT Oxygen Saturation 97% 03/01/2022 10:29 AM CDT Inhaled Oxygen Concentration - - Weight 53.5 kg (118 lb) 03/01/2022 4:34 AM CDT Height 154.9 cm (5' 1 ) 03/01/2022 4:34 AM CDT Body Mass Index 22.3 03/01/2022 4:34 AM CDT Plan of Treatment Health Maintenance Due Date Last Done Comments Hepatitis B Vaccines (3 of 3 - 3-dose series) 1997 1997, 1997 Annual Physical 2000 HPV Vaccines (2 - 2-dose series) 04/12/2010 10/11/2009 Hepatitis C 2015 DTaP, Tdap and Td Vaccines ( 3 - Td or Tdap) 12/12/2018 12/12/2008, 12/12/2008, 1997 COVID-19 Vaccine (2023-2 5 season) 2023 Influenza Adult (#1) 2024 03/12/2012 Cervical Cancer Screening Pa p Smear (Age 21 to 29) Every 3 Years 01/24/2025 01/24/2022, 01/24/2022, 01/24/2022 Cervical Cancer Screening 01/24/2025 Meningococcal Vaccine Aged Out 12/12/2008 No betsy aretha eligible based on patient's age to complete this topic Chlamydia Screening Females ages 16-24 Discontinued 01/24/2022 Meningococcal B Vaccine Aged Out No l onger eligible based on patient's age to complete this topic Pneumococcal Vaccine: Pediatrics (0 to 5 Years) and At-Risk Patients (6 to 64 Years) Aged Out No longer eligible based on patient's age to complete this topic RSV Immunizations Under 20 Months Aged Out No longer eligible based on patient's age to complete this topic Insurance [employer] Care Teams Blade Filer Relationship Specialty Start Date End Date Selena Huerta MD [address] [place] [address] [place] [address] PCP - General FAMILY PRACTICE 12/27/18
--- OUTSIDE RECORDS SUMMARY | 2024-05-27 10:47 | XMS_ITS | CONTINUITY OF CARE DOCUMENT ---
Author Name ashley ramirez Address Unknown Organization [facility] Address [address] [facility] [address] [place] [address] Phone [phone] Care Team Providers Care Principal Research Economist Name Role Phone Hunter MATHEW, Alistair Alba Unavailable JAZMIN CONTEH MD Unavailable JAZMIN CONTEH MD Unavailable PROBLEMS Condition Status Date Provider Notes Cardiology examination completed 9 - Jacky Ahsivakumarzaanders Asthma active Alistair Harrison MD (Hist ory of) Palpitations active Alistair Harrison MD Tobacco abuse active Alistair Harrison MD Mitral regurgitation, mild active Jacky Luong Sinus tachycardia active Jacky Ahangy Syncope active Jacky Milleri ENCOUNTERS Date Type Provider Location Encounter Diag nosis - In-person encounter Office Visit Camila Amaya MD [facility] Cardiology examinationMitral regurgitation, mildSinus tachycardiaSyncope - In-person encounter Office Visit Alistair Harrison MD [facility] AsthmaPalpitationsTobacco abuse VITAL SIGNS Date Observation Value Provider blood pressure, diastolic 81 mm[Hg] Julieth nkLogic blood pressure, systolic 121 mm[Hg] Cate kLogic Body Mass Index (Ratio) 26.07 kg/m2 Jacky blood pressure, cuff size regular Ja rr blood pressure, diastolic 81 mm[Hg] Ja rret blood pressure, systolic 121 mm[Hg] Jar ret pulse rate 83 /min Feliberto y oxygen saturation, oximetry 99 % respiratory rate E&M 16 /min Feliberto weight E&M 138 [lb_av] Feliberto y height E&M 61 [in_i] Feliberto y Body Mass Index (Ratio) 26.07 kg/m2 Asim as Susannah blood pressure, diastolic 75 mm[Hg] Li nkLogic blood pressure, systolic 117 mm[Hg] Cate kLogic blood pressure, cuff size regular rr blood pressure, diastolic 75 mm[Hg] Ja rret blood pressure, systolic 117 mm[Hg] Jar ret pulse rate 98 /min Feliberto y height E&M 61 [in_i] Feliberto y oxygen saturation, oximetry 99 % Feliberto respiratory rate E&M 12 /min Feliberto weight E&M 138 [lb_av] Feliberto y ALLERGIES No Known Drug Allergies HISTORY OF MEDICATION USE Medication Status Instructions Dates Provider Indications Com ments Toprol XL 25 mg tablet extended release 24 hr active Take 1 tablet by mouth once a day Alistair Harrison MD SOCIAL HISTORY Date Observation Value Provider drug use no Jacky Luong alcohol use, type wine Jacky crow alcohol use yes Jacky Luong cigarette use yes Jacky Luong smoking status Current some day smoker Casey Leemignon alcohol use, type wine Alistair Harrison MD drug use no Alistair douglas MD alcohol use yes Alistair douglas MD cigarette use yes Feliberto Kelley ay smoking status Current some day smoker Evan grant FAMILY HISTORY Family Member Condition Other Family Member Hypertension Mother Hypertension INSURANCE PROVIDERS Payer name Policy type / Coverage type [place] red constitution party ID URI MEDICAID (2) Medicaid [id number] ADVANCE DIRECTIVES Name Date DISCUSSED - NO DECISION MADE TREATMENT PLAN Date Name Performer Electrophysiology:dmitri christianson two short episodes where she had LOC 06/10 and 06/08, unclear if she became hypotensive as she woke up from sleep and stood up, no arrythmias seen on holter. Advised her to hydrate adequately Jacky Luong Electrophysiology:I advised her to start the Metoprolol and see how she feels, if she does not see benefit from this I would start Propranolol. She did not have significant arrythmias seen on holter, she is tachycardic which was what she may be feeling. Jacky Luong Electrophysiology:Ca rdiac monitor showed sinus rhythm with The average 98bpm with a maximum rate of 185bpm and a minimum rate of 52bpm. Jacky Luong Electrophysiology:seen on echo, eccentric Jacky Luong Electrophysiology:Ulises estrada continues to smoke, cessation was advised. Jacky Luong Cardiology:check ech o, home sleep, and holter Syed Davalos Cardiology:use inhalers as neede d Syed Davalos Cardiology:most liek ly has some component of mitral valve prolapse based on exam only, needs echo. suspect she will need toprol XL 25mg once daily. Check tele first T SH negative aat 0.624 Alistair Harrison MD Cardiology:She smoke s less than 1 ppd for last 10 years Alistair Harrison MD Date Name Sleep Study Home Complete Echo Monitor - Telemetry (Mobile Cardiac) HISTORY OF PROCEDURES Procedure Date Procedure Name Provider Procedure Notes S tatus EKG Camila Amaya MD comp leted EKG Alistair Harrison MD compl eted
--- OUTSIDE RECORDS SUMMARY | 2024-05-27 10:47 | XMS_ITS | Referral Summary ---
Author Organization [facility] [employer] Address [address] [place] [address] Care Team Providers Care Supervisor Shipfitters Name Role Phone Selena Huerta MD Primary Care Provider [phone] Source Comments [facility] [employer],non-owned Affiliates and Associated Physician Practices is amultiple site organization consisting of ambulatory clinics and hospital sitesin [place], [place], [place] and [place]. This disclosure is being madepursuant to the Care Everywhere program and may not contain all information available regarding this patient. Last updated 18.[employer]otky Allergies No known active allergies Medications * Be aware that medications may not be up to date on this document. Alwaysverify current medications with the patient. Medication Sig Dispensed Refills Start Date End Date Status albuterol HFA (PROVENTIL;VENTOLIN;P ROAIR) 108 (90 BASE) MCG/ACT inhalerIndications:As thma Inhale 2 Puffs by mouth every 6 hours as needed. Indications: Asthma Active etonogestrel (NEXPLANON) 68 MG implant 68 mg by Subdermal route once. Active valACYclovir (VALTREX) 1 GM tablet Take 1,000 mg by mouth every 12 hours. Active cephALEXin (KEFLEX) 500 MG capsule Take 500 mg by mouth 2 times daily. Active polyethylene glycol 3350 (MIRALAX) powder Take 8.5 g by mouth once daily. 527 g 5 05/12/2014 Active Active Problems Problem Noted Date Diagnosed Date Nausea without vomiting 08/19/2013 Overview (01/25/2015): Abdominal pain 07/11/2013 Overview (01/25/2015): DUB (dysfunctional uterine bleeding) 07/11/2013 Social History [...] Comments Blood Pressure 112/78 03/02/2014 9:19 AM REPLENISHMENT MERCHANDISING ASSOCIATE Pulse 88 02/13/2014 12:00 AM CDT Temperature 36.4 ??C (97.6 ??F) 06/17/2013 3:36 PM CS T Respiratory Rate 22 06/17/2013 3:36 PM REPLENISHMENT MERCHANDISING ASSOCIATE Oxygen Saturation - - Inhaled Oxygen Concentration - - Weight 52.4 kg (115 lb 9.6 oz) 05/12/2014 9:34 A M REPLENISHMENT MERCHANDISING ASSOCIATE Height 159 cm (5' 2.6 ) 05/12/2014 9:34 AM REPLENISHMENT MERCHANDISING ASSOCIATE Body Mass Index 20.74 05/12/2014 9:34 AM REPLENISHMENT MERCHANDISING ASSOCIATE Plan of Treatment Not on file Care Teams Supervisor Shipfitters Relationship Specialty Start Date End Date Selena Huerta MD [address] [place] [address] [place] [address] PCP - General Family Medicine 06/17/13
--- OUTSIDE RECORDS SUMMARY | 2024-05-27 10:47 | XMS_ITS | Clinical Summary ---
Author Organization [facility] Address [address] [place] [address] Care Team Providers Care Nutrition Manager Name Role Phone Selena Huerta MD Primary Care Provider [phone] Source Comments [facility],non-owned Affiliates and Associated Physician Practices is amultiple site organization consisting of ambulatory clinics and hospital sitesin [place], [place], [place] and [place]. This disclosure is being madepursuant to the Care Everywhere program and may not contain all information available regarding this patient. Last updated 18.[employer] Allergies No known active allergies Medications * [...] Overview (01/25/2015): DUB (dysfunctional uterine bleeding) 07/11/2013 Family History Medical History Relation Name Comments Asthma Mother COPD - Chronic Obstructive Pulmonary Disease Mother Hypertension Mother Polycystic Ovary Syndrome Mother Relation Name Status Comments Mother Social History Tobacco Use Types Packs/Day Years [...] Comments Blood Pressure 112/78 03/02/2014 9:19 AM SHIPMASTER Pulse 88 02/13/2014 12:00 AM CDT Temperature 36.4 ??C (97.6 ??F) 06/17/2013 3:36 PM CS T Respiratory Rate 22 06/17/2013 3:36 PM SHIPMASTER Oxygen Saturation - - Inhaled Oxygen Concentration - - Weight 52.4 kg (115 lb 9.6 oz) 05/12/2014 9:34 A M SHIPMASTER Height 159 cm (5' 2.6 ) 05/12/2014 9:34 AM SHIPMASTER Body Mass Index 20.74 05/12/2014 9:34 AM SHIPMASTER Plan of Treatment Health Maintenance Due Date Last Done Comments PAP SMEAR 1997 HIV SCREENING 2012 HEPATITIS C SCREENING 04/22/2015 DTAP/TDAP/TD VACCINES (1 - Tdap) 2016 HEPATITIS B VACCINE (1 of 3 - 19+ 3-dose series) 2016 COVID-19 VACCINE (1 - 2023-2 5 season) 2023 INFLUENZA VACCINE (#1) 2023 DEPRESSION SCREENING 04/27/2024 ZOSTER VACCINE (1 of 2) 2047 HIB VACCINE Aged Out No longer eligi ble based on patient's age to complete this topic HPV VACCINE Aged Out No longer eligi ble based on patient's age to complete this topic MENINGOCOCCAL (Group B) VACCINE Aged Out No longer eligible based on patient's age to complete this topic MENINGOCOCCAL VACCINE Aged Out No betsy aretha eligible based on patient's age to complete this topic PNEUMOCOCCAL VACCINE Aged Out No long er eligible based on patient's age to complete this topic Care Teams Nutrition Manager Relationship Specialty Start Date End Date Selena Huerta MD [address] [place] [address] [place] [id number] PCP - General Family Medicine 06/17/13
[2024-05-27 12:17] LABS: Hematocrit 34.8 % (37.0-47.0)
[2024-05-27 12:41] LABS: Glucose 1 Hour PP 50gm Dose 86 mg/dL
[2024-05-27 13:18] LABS: HIV 1/2 Ab P24 Ag Result Negative (Negative)
[2024-05-28] MEDS: RHO(D) IMMUNE GLOBULIN 300 MCG/2 ML SYRINGE IM (11:30)
[2024-05-28 15:43] LABS: Rapid Plasma Reagin Non-Reactive (NonReactive)
== END 2024-08-25 23:59 | disposition home or self-care (01) ==
LOC: ANHLAB 11:13
PROVIDERS: Visit Provider Obstetrics & Gynecology
DX: O36.0130 Maternal care for anti-D [Rh] antibodies, third trimester, not applicable or unspecified (principal); Z36.89 Encounter for other specified antenatal screening; Z29.13 Encounter for prophylactic Rho(D) immune globulin
CPT/HCPCS: 36415; 82947; 85014; 85018; 85461; 86592; 86703; 86850; 86900; 86901; 90384; 96372; G0432; J2790

== ENCOUNTER 2024-06-09 17:14 | Observation (INO) | payer OTHER, SELFPAY ==
--- NOTE | 2024-06-09 17:14 | OBADM ---
This patient, Michelle Marrero, admitted to the OB room Labor/Delivery/Recovery 118 for observation. Patient/family oriented to hospital policies and general routines including ID bracelet, bed and alarms, visiting hours, pain management, procedures, bathroom and other care routines, personal items, smoking policy, room service/diet, and visiting hours. Patient/Family are encouraged to report perceived risks to care and to ask questions if they do not understand what they are told or what they should do.
--- OUTSIDE RECORDS SUMMARY | 2024-06-09 17:23 | XMS_ITS | Patient Health Summary ---
Author Organization [facility] Address [address] [facility] [place] [address] Care Team Providers Care Radioactivity Technician Name Role Phone Selena Huerta MD Primary Care Provider [phone] Note from [facility],non-owned Affiliates and Associated Physician Practices is amultiple site organization consisting of ambulatory clinics and hospital sitesin [place], [place], [place] and [place]. This disclosure is being madepursuant to the Care Everywhere program and may not contain all information available regarding this patient. Last updated 18.[facility] [employer] Allergies No known active allergies Medications * [...] Comments Blood Pressure 112/78 03/02/2014 9:19 AM [facility] Pulse 88 02/13/2014 12:00 AM CDT Temperature 36.4 C (97.6 F) 06/17/2013 3:36 PM [facility] Respiratory Rate 22 06/17/2013 3:36 PM [facility] Oxygen Saturation - - Inhaled Oxygen Concentration - - Weight 52.4 kg (115 lb 9.6 oz) 05/12/2014 9:34 A M [facility] Height 159 cm (5' 2.6 ) 05/12/2014 9:34 AM [facility] Body Mass Index 20.74 05/12/2014 9:34 AM [facility] Procedures * CBC W AUTO DIFFERENTIAL(Performed 02/13/2014) [...] * HCG URINE QUALITATIVE - POCT (IP) FRANC(Performed 06/17/2013) Results * (ABNORMAL) CBC W AUTO DIFFERENTIAL (02/13/2014 12:08 PM T) Only the most recent of2 resultswithin the time period is included. WBC 6.5 4.5 - 14.5 x10^9/L 02/13/2014 1:43 PM [facility] RBC 4.53 4.10 - 5.10 x10^12/L 02/13/2014 1:43 PM [facility] Hemoglobin 12.7 12.0 - 16.0 gm/dL 02/13/2014 1:43 PM [facility] Hematocrit 38.2 36.0 - 47.0 % 02/13/2014 1:43 PM [facility] MCV 84.3 78.0 - 98.0 fl 02/13/2014 1:43 PM [facility] MCH 28.0 25.0 - 35.0 pg 02/13/2014 1:43 PM [facility] MCHC 33.2 31.0 - 37.0 gm/dL 02/13/2014 1:43 PM [facility] Platelet Count 191 100 - 400 x10^9/L 02/13/2014 1:43 PM [facility] RDW-CV 12.8 11.5 - 14.0 % 02/13/2014 1:43 PM [facility] MPV 11.3(H) 6.0 - 9.5 fl 02/13/2014 1:43 PM [facility] Neutrophils % 65.9 24.0 - 66.0 % 02/13/2014 1:43 PM [facility] Lymphocytes % 23.6 22.0 - 61.0 % 02/13/2014 1:43 PM [facility] Monocytes % 8.0 3.0 - 15.0 % 02/13/2014 1:43 PM [facility] Eosinophils % 1.9 0.0 - 10.0 % 02/13/2014 1:43 PM [facility] Basophils % 0.3 % 02/13/2014 1:43 PM [facility] Immature Granulocytes 0.3 % 02/13/2014 1:43 PM CDT [facility] Neutrophil Absolute 4.27 x10^9/L 02/13/2014 1:43 PM CDT [facility] Lymphocytes Absolute 1.53 x10^9/L 02/13/2014 1:43 PM CDT [facility] Monocytes Absolute 0.52 x10^9/L 02/13/2014 1:43 PM CDT [facility] Eosinophils Absolute 0.12 x10^9/L 02/13/2014 1:43 PM CDT [facility] Basophils Absolute 0.02 x10^9/L 02/13/2014 1:43 PM CDT [facility] Immature Granulocytes Absolute 0.02 x10^9/L 02/13/2014 1:43 PM CDT [facility] Blood BLOOD SPECIMEN / Unknown Lab Venipuncture / Unknown 02/13/2014 12:08 PM CDT 02/13/2014 12:26 PM CDT Rita Cortes MD LAB - HEMATOLOGY OR DERABLES Performing Organization Address City/[facility] Co de Phone Number [facility] [address] [place] [address] * TRICHOMONAS RAPID TEST - POCT (IP) BEAKER (02/13/2014 12:05 PM CDT) Trichomonas Rapid Test Negative Negative [facility] Lot # [id number] [facility] Expiration Date Trich Rapid 02/07 [facility] Negative control Negative Negative [facility] Positive Control Positive Positive [facility] Pos Control Lot Number [id number] [facility] Positive Control Expiration Date 02/07 [facility] Vaginal swab (specimen) ENTIRE VAGINA / Unknown 02/13/2014 12:05 PM CDT Romy Delgado MD LAB - POINT OF CARE ORDERABLES Performing Organization Address City/[facility] Co de Phone Number [facility] [address] [place] [address], [facility] * HCG URINE QUALITATIVE - POCT (IP) BEAKER (02/13/2014 11:19 AM CDT) Only the most recent of2 resultswithin the time period is included. HCG Qual Urine Negative Negative [facility] QC Verified Yes Yes [facility] Urine specimen (specimen) URINE / Unknown 02/13/2014 11:19 AM CDT Romy Delgado MD LAB - POINT OF CARE ORDERABLES [facility] [address] [place] [address], [facility] * CHLAMYDIA + GC AMPLIFIED PROBE (02/13/2014 11:19 AM CDT) Only the most recent of2 resultswithin the time period is included. Pathologist [facility] Chlamydia Amplified Probe Negative Negative 02/14/2014 12:48 PM CDT [facility] GC Amplified Probe Negative Negative 02/14/2014 12:48 PM CDT [facility] Urine URINE / Unknown 02/13/2014 1 1:19 AM CDT 02/13/2014 11:29 AM CDT Narrative [facility] - 02/14/2014 12:48 PM CDT This test was developed and its performance characteristics determined by the [facility], [facility]. Female urine specimens tested by the [facility] have not been cleared or approved by the FDA. The laboratory is regulated under CLIA as qualified to perform high-complexity testing. This test is used for clinical purposes. It should not be regarded as investigational or for research. Results based on detection/no detection of ribosomal RNA by amplified method. Romy Delgado MD LAB - MICROBIO LOGY ORDERABLES [facility] [address] [place] [address], [facility] * TISSUE TRANSGLUTAMINASE AB IGA (08/19/2013 10:17 AM CDT) Pathologist [facility] Tissue Transglutaminase (tTG) Ab, IgA 4 0 - 19 Units 08/20/2013 11:51 PM CDT [facility] Comment: INTERPRETIVE INFORMATION: Tissue Transglutaminase (tTG) [...] CDT 08/19/2013 10:43 AM CDT Jessica Clark [facility] LAB - SEROLOGY OR DERABLES Performing Organization Address [facility] de Phone Number [employer] [address] [place] [address] * C-REACTIVE PROTEIN (08/19/2013 10:17 AM CDT) C-Reactive Protein <0.20 <=0.50 mg/dL 08/19/2013 11:10 AM CDT [facility] Blood BLOOD SPECIMEN / Unknown Lab Venipuncture / Unknown 08/19/2013 10:17 AM CDT 08/19/2013 10:43 AM CDT Jessica Clark [facility] LAB - CHEMISTRY O RDERABLES Performing Organization Address [facility] de Phone Number [facility] [address] [place] [address] * LIPASE BLOOD (08/19/2013 10:17 AM CDT) Lipase 20 10 - 220 U/L 08/19/2013 11:15 AM CDT [facility] Blood BLOOD SPECIMEN / Unknown Lab Venipuncture / Unknown 08/19/2013 10:17 AM CDT 08/19/2013 10:43 AM CDT Jessica Clark [facility] LAB - CHEMISTRY O RDERABLES Performing Organization Address [facility] Co de Phone Number [facility] [address] [place] [address] * (ABNORMAL) AMYLASE BLOOD (08/19/2013 10:17 AM CDT) Amylase 88(H) 5 - 65 U/L 08/19/2013 11:15 AM CDT [facility] Blood BLOOD SPECIMEN / Unknown Lab Venipuncture / Unknown 08/19/2013 10:17 AM CDT 08/19/2013 10:43 AM CDT Jessica Clark SUPER[employer]OR [employer]ING WORKER LAB - CHEMISTRY O RDERABLES Performing Organization Address [facility]/ZIP Co de Phone Number [facility] [address] [place] [phone] * IGA BLOOD (08/19/2013 10:17 AM CDT) Pathologist [facility] IgA 183 65 - 421 mg/dL 08/19/2013 11:15 AM CDT [facility] Blood BLOOD SPECIMEN / Unknown Lab Venipuncture / Unknown 08/19/2013 10:17 AM CDT 08/19/2013 10:43 AM CDT Jessica Clark SUPERVISOR [employer]ESSING WORKER LAB - CHEMISTRY O RDERABLES Performing Organization Address [facility]/ZIP Co de Phone Number [facility] [address] [place] [id number] * LAB RESULTS ORDER (06/21/2013 10:06 PM [facility]) Narrative 06/21/2013 10:06 PM [facility] Ordered by an unspecified provider. Transcriptions Document, Scanned - 06/21/2013 10:06 PM CST Document, Scanned - 06/21/2013 10:06 PM CST Scanned Document LAB - THERAPEUTIC DR PACHECO MONITORING ORDERABLES * TYPE + SCREEN PANEL (06/17/2013 12:16 PM [facility]) ABO O 06/17/2013 1:52 PM [facility] Rh Type Negative 06/17/2013 1:52 PM [facility] Antibody Screen Negative 06/17/2013 1:52 PM [facility] Blood Bank BLOOD SPECIMEN / Unknown 06/17/2013 12:16 PM [facility] 06/17/2013 1:03 PM [facility] Guadalupe Padilla MD LAB - BLOOD BANK O RDERABLES [facility] * (ABNORMAL) PT PTT PANEL (06/17/2013 12:16 PM [facility]) PT 13.8 12.2 - 14.5 sec 06/17/2013 1:39 PM [facility] INR 1.07 0.8 - 1.2 06/17/2013 1:39 PM [facility] PTT 37.1(H) 23.0 - 36.0 sec 06/17/2013 1:39 PM [facility] Blood BLOOD SPECIMEN / Unknown 06/17/2013 12:16 PM [facility] 06/17/2013 1:03 PM [facility] Guadalupe Padilla MD LAB - COAGULATION ORDERABLES Performing Organization Address [facility] Co de Phone Number [facility] [address] [place] [phone] * (ABNORMAL) RETIC COUNT (06/17/2013 12:16 PM [facility]) Reticulocyte Count 0.85 0.3 - 4.2 % 06/17/2013 1:12 PM [facility] Reticulocyte Absolute 0.0416 0.0416 - 0.0651 x10^6/uL 06/17/2013 1:12 PM [facility] Reticulocyte Immature Fractionated 2.9(L) 9.0 - 18.7 % 06/17/2013 1:12 PM [facility] Hemoglobin Retic 31.9 29.9 - 38.4 pg 06/17/2013 1:12 PM [facility] Blood BLOOD SPECIMEN / Unknown 06/17/2013 12:16 PM [facility] 06/17/2013 1:03 PM [facility] Guadalupe Padilla MD LAB - HEMATOLOGY O RDERABLES [facility] [address] [facility] [place] [address] * (ABNORMAL) COMPREHENSIVE METABOLIC PANEL (06/17/2013 12:16 PM [facility]) Glucose 80 70 - 105 mg/dL 06/17/2013 1:35 PM [facility] Sodium 140 136 - 145 mmol/L 06/17/2013 1:35 PM [facility] Potassium 3.5 3.5 - 5.1 mmol/L 06/17/2013 1:35 PM [facility] Chloride 107 98 - 107 mmol/L 06/17/2013 1:35 PM [facility] CO2 24 20 - 28 mmol/L 06/17/2013 1:35 PM [facility] Calcium 9.39 9.08 - 10.48 mg/dL 06/17/2013 1:35 PM [facility] Anion Gap 9 5 - 20 mmol/L 06/17/2013 1:35 PM [facility] BUN 9.6 5.3 - 18.7 mg/dL 06/17/2013 1:35 PM [facility] Creatinine 0.65 0.61 - 1.07 mg/dL 06/17/2013 1:35 PM [facility] eGFR by MDRD mL/min/1.7 3m2 06/17/2013 1:35 PM [facility] Comment:eGFR calculations ar e not performed for children under 18 years old. eGFR by MDRD mL/min/1.7 3m2 06/17/2013 1:35 PM [facility] Comment:eGFR calculations ar e not performed for children under 18 years old. Alkaline Phosphatase 74(L) 100 - 390 U/L 06/17/2013 1:35 PM [facility] ALT 6(L) 8 - 65 U/L 06/17/2013 1:35 PM [facility] AST 15 3 - 35 U/L 06/17/2013 1:35 PM [facility] Protein Total 8.1 6.3 - 8.2 gm/dL 06/17/2013 1:35 PM [facility] Albumin 4.5 3.3 - 4.9 gm/dL 06/17/2013 1:35 PM [facility] Bilirubin Total 0.4 0.3 - 1.2 mg/dL 06/17/2013 1:35 PM [facility] Blood BLOOD SPECIMEN / Unknown 06/17/2013 12:16 PM [facility] 06/17/2013 1:13 PM [facility] Guadalupe Padilla MD LAB - CHEMISTRY OR DERABLES Performing Organization Address [facility]/ZIP Co de Phone Number [facility] [address] [place] [address] * (ABNORMAL) URINALYSIS ROUTINE AUTO (06/17/2013 11:36 AM [facility]) Color UA Yellow Straw, Yellow, Dark Yellow 06/17/2013 12:01 PM [facility] Clarity UA Clear 06/17/2013 12:01 PM [facility] Specific Stanton UA 1.010 1.005 - 1.030 06/17/2013 12:01 PM [facility] pH UA 5.5 5.0 - 8.0 pH 06/17/2013 12:01 PM [facility] Protein UA Negative Negative 06/17/2013 12:01 PM [facility] Blood UA 1+(A) Negative 06/17/2013 12:01 PM [facility] Leukocyte UA 1+(A) Negative 06/17/2013 12:01 PM [facility] Nitrite UA Negative Negative 06/17/2013 12:01 PM [facility] Glucose UA Negative Negative 06/17/2013 12:01 PM [facility] Ketone UA Negative Negative 06/17/2013 12:01 PM [facility] Bilirubin UA Negative Negative 06/17/2013 12:01 PM [facility] Urobilinogen UA 0.2 0.1 - 1.0 EU/dL 06/17/2013 12:01 PM [facility] Urine URINE SPECIMEN OBTAINED BY CLEAN CATCH PROCEDURE / Unknown 06/17/2013 11:36 AM [facility] 06/17/2013 11:47 AM [facility] Guadalupe Padilla MD LAB - URINALYSIS O RDERABLES Performing Organization Address City/[facility]/ZIP Co de Phone Number [facility] [address] [place] [address] * (ABNORMAL) URINALYSIS MICROSCOPIC ONLY (06/17/2013 11:36 AM [facility]) RBC UA 0-2 0-2, 2-5 # /hpf 06/17/2013 12:17 PM [facility] WBC UA 2-5 0-2, 2-5 # /hpf 06/17/2013 12:17 PM [facility] Bacteria UA 1+(A) None Seen, Trace 06/17/2013 12:17 PM [facility] Epithelial Cell UA 2-5 0-2, 2-5 06/17/2013 12:17 PM [facility] Urine URINE SPECIMEN OBTAINED BY CLEAN CATCH PROCEDURE / Unknown 06/17/2013 11:36 AM [facility] 06/17/2013 11:47 AM [facility] Guadalupe Padilla MD LAB - URINALYSIS O RDERABLES Performing Organization Address City/State/[facility] Co de Phone Number [facility] [address] [place] [address] * US PELVIS W/TRANSVAG AND DOPPLER (06/17/2013 11:31 AM [facility]) Anatomical Region Laterality Modality Pelvis Ultrasound 06/17/2013 11:3 8 AM [facility] Impressions 06/17/2013 11:43 AM [facility] Trace amount of free intraperitoneal fluid in the cul-de-sac which may be physiologic. The uterus and ovaries are sonographically normal in appearance. Narrative 06/17/2013 11:43 AM [facility] Pelvic ultrasound performed June 17, 2013. History: [...] appearance. Guadalupe Padilla MD ORDERABLES Care Teams Radioactivity Technician Relationship Specialty Start Date End Date Selena Huerta MD [address] [place] [address] PCP - General Family Medicine 06/17/13
--- OUTSIDE RECORDS SUMMARY | 2024-06-09 17:23 | XMS_ITS | Data Portability ---
Author Organization [facility] Address [address] [place] [address] [place] [address] Assessment No assessment recorded. Plan of Treatment Reminders Order Date Submit Date Provider Last Modified By Organization Details Last Modified Time Details Appointments OB ROUTINE 2024 11:45A M URIAH MORALES MD Not available Not available Not available U/S OB GROWTH 2024 01:00P M ULTRASOUND Not available Not available Not available OB ROUTINE 2024 01:30P M URIAH MORALES MD Not available Not available Not available Lab None recorde d. Referral None recorde d. Procedures None recorde d. Surgeries None recorde d. Imaging US, obstetr ic, follow- up 2024 [address], [address], [place], [address], 05/09/2024 18:54:09 US, obstetr ic, 2nd or 3rd trimest er 2023 [address], [address], [place], [address], 04/11/2024 21:38:43 Medication Orders None recorde d. Patient TargetsNo targets recorded. Patient InstructionsNo instructions recorded. Reason for Referral None Reported. Results Created Date Observation Date Name Description Value Unit Range Abnormal Flag Note LastModifiedBy Organization Detail LastModifiedTime 04/11/20 24 04/11/2024 US, obste tric, 2nd or 3rd trime ster No observ ation record ed. [email or web address] [facility] [address], [place], [address], 04/11/2024 18:40:59 04/11/20 24 04/11/2024 US, obste tric, follo w-up No observ ation record ed. [address], [place], [address], 04/12/2024 07:38:28 05/09/19 25 05/09/2024 US, obste tric, follo w-up No observ ation record ed. [email or web address] [facility] [address], [place], [address], 05/09/2024 18:03:26 05/09/19 25 05/09/2024 US, obste tric, follo w-up No observ ation record ed. [email or web address] [address], [place], [address], 05/10/2024 09:40:52 Result Notes None recorded. Problems Name Problem SNOMED Code Status Onset Date Resolution Date Notes Provider Name and Address Organization Details Recorded Time Pregnanc y 89306934 Completed 202001/10/2021 Linda zuniga [facility] 4 14:54:08 Asthma 406519554 Completed 2020 albutero l prn Kathy zuniga [facility] 1 15:54:45 Mixed anxiety and depressi ve disorder 561857351 Completed 2020 stable off meds for years Kathy zuniga [facility] 1 15:54:45 Atypical squamous cells of undeterm ined signific ance on cervical Papanico laou smear 026635516 Completed 2020 HPV pos. repeat pap post Kathy Bohnenstieh l [facility] 15:54:45 Maternal tobacco use in pregnanc y 1490613666 34779 Completed 2020 quit Kathy kaur [facility] 15:54:45 Asthma 561402481 Completed 202009/26/2020 albutero natasha prn Zohra Gill [facility] 18:16:31 Mixed anxiety and depressi ve disorder 226702799 Completed 202009/26/2020 stable off meds for years Zohradennise Gill [facility] 18:16:45 Maternal tobacco use in pregnanc y 5708198953 91666 Completed 202009/26/2020 trying to quit Zohra Gill [facility] 18:16:34 Atypical squamous cells of undeterm ined signific ance on cervical Papanico laou smear 654492421 Completed 202009/26/2020 HPV pos. repeat pap post Zohra Gill [facility] 18:16:29 Rubella non-immu ne 515606719 Completed MMR PP Kathy Olveragayesofía kaur [facility] 15:54:45 Chlamydi al infectio n 204593223 Com[address] Huerta office tx pt Rocephin & Zpack / has f/u appt - DARIN 11/26 negative Kathy Koromajimjohnathanliseth natasha [facility] 15:54:45 Low lying placenta 595553747 Completed 202010/05/2020 resolved 10/05/20 Kathy Koromavance kaur [facility] 1 15:54:45 Group B Streptoc occus carrier 2291782323 103 Completed 2020 Kathy Shantelle zuniga, [facility] 1 15:54:45 Cervical intraepi thelial neoplasi a grade 2 991849181 Active 2022 Maria Dolores Wright MD [address], [place], [address], [facility] 3 09:52:39 History of loop electros urgical excision procedur e 2192499229 9102 Active 2022 Maria Dolores Wright MD [address], [place], [address], [facility] 3 09:52:41 Pregnanc y 59437571 Active 2023 Linda zuniga, [facility] 4 14:54:08 Bipolar disorder 92028690 Active on busarthur and uvaldo MORALES MD [address], [place], [address], [facility] 4 16:00:32 Problem Notes None recorded. Procedures Surgical History Date Name Laterality Status Provider Name and Address Organization Details Recorded Time 08/03/19 24 SIS completed URIAH MORALES MD [address], [place], [address], [facility] 08/03/2023 14:15:49 07/06/19 24 Colposcopy completed URIAH MORALES MD [address], [place], [address], [facility] 07/06/2023 22:19:43 02/11/20 23 Date of Last Pap Smear completed Zohra Gill [facility] 02/10/2023 14:57:55 10/14/19 23 LEEP completed Maria Dolores Wright MD [address], [place], [address], [facility] 10/13/2022 10:35:40 10/14/19 23 LEEP completed Leanna Ware [facility] 10/13/2022 15:07:02 09/16/19 Colposcopy completed Maria Dolores Wright MD [address], [place], [address], [facility] 09/16/2022 09:59:59 09/16/19 Colposcopy completed Zohra Gill [facility] 02/10/2023 10:52:12 09/16/19 Colposcopy completed Zohra Gill [facility] 02/10/2023 10:53:53 03/19/20 Colposcopy completed Maria Dolores Wright MD [address], [place], [address], [facility] 03/19/2022 16:57:57 03/09/20 Colposcopy completed Zohra Gill [facility] 02/10/2023 15:06:08 04/27/19 12 termination of completed Zohra Gill [facility] 01/23/2022 15:56:15 Imaging Results Imaging Date Name Status LastModified by Organiz ation Details LastModified Time 04/11/2024 US, obstetric, 2nd or 3rd trimester completed [email or web address] [facility] [address], [place], [address], 04/11/2024 18:40:59 04/11/2024 US, obstetric, follow-up completed [email or web address] [address], [place], [address], 04/12/2024 07:38:28 05/09/2024 US, obstetric, follow-up completed [facility] [address], [place], [address], 05/09/2024 18:03:26 05/09/2024 US, obstetric, follow-up completed [email or web address] [address], [facility], [place], [address], 05/10/2024 09:40:52 Procedure Notes None recorded. Medical Equipment None Reported. Allergies No known drug allergies Medications Name Sig Start Date Stop Date Status Note LastModified by Organization Details LastModified Time promethazin e-DM 6.25 mg-15 mg/5 mL oral syrup TAKE 5 ML BY MOUTH EVERY 4 TO 6 HOURS NEEDED FOR COUGH 05/02 completed Not Available Not Available Not Available ibuprofen 800 mg tablet TAKE 1 TABLET 2 HOURS BEFORE THE PROCEDURE 10/27 completed Not Available Not Available Not Available nystatin 100,000 unit/gram topical ointment 02/14 completed Not Available Not Available Not Available fluconazole 150 mg tablet TAKE 1 TABLET BY MOUTH FOR ONE DAY 05/02 completed Not Available Not Available Not Available ondansetron HCl 8 mg tablet TAKE 1 TABLET 2 HOURS BEFORE THE PROCEDURE 10/27 completed Not Available Not Available Not Available prednisone 20 mg tablet 01/23 completed Not Available Not Available Not Available metronidazo le 500 mg tablet TAKE 1 TABLET BY MOUTH TWICE DAILY FOR 7 DAYS 08/31 completed Not Available Not Available Not Available hydrocodone 10 mg-acetamin ophen 325 mg tablet TAKE 1 TABLET BY MOUTH 2 HOURS BEFORE THE PROCEDURE 10/27 completed Not Available Not Available Not Available ondansetron 8 mg disintegrat ing tablet DISSOLVE 1 TABLET IN MOUTH EVERY 6 TO 8 HOURS NEEDED active Not Available Not Available No t Available alprazolam 0.5 mg tablet TAKE 1 TABLET 2 HOURS BEFORE THE PROCEDURE 10/27 completed Not Available Not Available Not Available amoxicillin 875 mg tablet 01/23 completed Not Available Not Available Not Available dicyclomine 20 mg tablet 01/23 completed Not Available Not Available Not Available triamcinolo ne acetonide 0.1 % topical ointment 01/17 completed Not Available Not Available Not Available buspirone 10 mg tablet TAKE 1 TABLET BY MOUTH TWICE DAILY active Not Available Not Available No t Available metoprolol succinate ER 25 mg tablet,exte nded release 24 hr TAKE 1 TABLET BY MOUTH ONCE DAILY 07/05 completed Not Available Not Available Not Available methylpredn isolone 4 mg tablets in a dose pack TAKE BY MOUTH DIRECTED ON INSIDE OF PACKAGE 02/14 completed Not Available Not Available Not Available ondansetron 4 mg disintegrat ing tablet DISSOLVE 1 TABLET IN MOUTH EVERY 6 HOURS NEEDED 02/14 completed Not Available Not Available Not Available metoclopram aj 10 mg tablet TAKE 1 TABLET BY MOUTH 4 TIMES DAILY NEEDED active Not Available Not Available No t Available azithromyci n 500 mg tablet TAKE 2 TABLETS BY MOUTH ONCE DAILY FOR 1 DAY 05/29 completed Not Available Not Available Not Available escitalopra m 10 mg tablet TAKE 1 TABLET BY MOUTH ONCE DAILY 08/18 completed Not Available Not Available Not Available cyclobenzap rine 5 mg tablet TAKE 1 TABLET BY MOUTH THREE TIMES DAILY 10/05 completed Not Available Not Available Not Available escitalopra m 5 mg tablet TAKE 1 TABLET BY MOUTH ONCE DAILY 08/18 completed Not Available Not Available Not Available nitrofurant oin monohydrate /macrocryst als 100 mg capsule TAKE 1 CAPSULE BY MOUTH EVERY 12 HOURS FOR 7 DAYS 01/23 completed Not Available Not Available Not Available duloxetine 20 mg capsule,del ayed release TAKE 1 CAPSULE BY MOUTH TWICE DAILY 02/10 completed Not Available Not Available Not Available active Not Available Not Avai lable Not Available lurasidone 40 mg tablet TAKE 1 TABLET BY MOUTH ONCE DAILY 05/30 completed Not Available Not Available Not Available + DHA 08/18 completed Not Available Not Available Not Available lurasidone 20 mg tablet TAKE 1 TABLET BY MOUTH ONCE DAILY WITH MEALS 05/09 completed Not Available Not Available Not Available lurasidone 60 mg tablet active Not Available Not Available Not Available Xulane 150 mcg-35 mcg/24 hr transdermal patch APPLY 1 PATCH TOPICALLY ONCE A WEEK 01/23 completed Not Available Not Available Not Available Vitals Date Recorded Body height Body mass index (BMI) Body weight Systolic blood pressure Diastolic blood pressure Provider Name and Address Organization Details Last Updated DateTime 04/11/2024 154.94 cm 26.3 kg/m2 89736.33 943 g 113 mm[Hg] 79 mm[Hg] [facility] 4 17:15:35 Date Recorded Body height Body mass index (BMI) Body weight Systolic blood pressure Diastolic blood pressure Provider Name and Address Organization Details Last Updated DateTime 05/09/2024 154.94 cm 27.6 kg/m2 25454.48 602 g 108 mm[Hg] 72 mm[Hg] [facility] 5 11:56:48 Date Recorded Body height Body mass index (BMI) Body weight Systolic blood pressure Diastolic blood pressure Provider Name and Address Organization Details Last Updated DateTime 05/30/2024 154.94 cm 28.3 kg/m2 04127.86 g 107 mm[Hg] 69 mm[Hg] [facility] 5 11:50:33 Social History Question Answer Notes LastModified by Organizat ion Details LastModified Time Tobacco Smoking Status Current Every Day [email or web address]2020 12:29:55 What Is Your Level Of Alcohol Consumption? None [email or web address] Information not available 02/15/2024 If You Are , What Was Your Level Of Alcohol Consumption Prior To ? Occasional [email or web address] Information not available 05/29/2020 Are You Blind Or Do You Have Difficulty Seeing? No [email or web address] Information not available 06/27/2020 What Is Your Level Of Caffeine Consumption? Occasional [email or web address] Information not available 06/27/2020 How Much Tobacco Do You Chew? None [email or web address] Information not available 02/15/2024 In The 14 Days Before Symptom Onset, Have You Had Close Contact With A Laboratory-confir med COVID-19 While That Case Was Ill? No Information not available 06/27/2020 In The 14 Days Before Symptom Onset, Have You Had Close Contact With A Person Who Is Under Investigation For COVID-19 While That Person Was Ill? No [email or web address] Information not available 06/27/2020 Have You Been To An Area Known To Be High Risk For COVID-19? No [email or web address] Information not available 06/27/2020 Are You Deaf Or Do You Have Serious Difficulty Hearing? No [email or web address] Information not available 06/27/2020 What Type Of Diet Are You Following? REGULAR [email or web address] Information not available 06/27/2020 What Is The Highest Grade Or Level Of School You Have Completed Or The Highest Degree You Have Received? 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 Yes [email or web address] Information not available 02/15/2024 Have You Ever Been Counseled For Unhealthy Alcohol Use? No [email or web address] Information not available 05/29/2020 Do You Use Protection During Sex? No [email or web address] Information not available 02/15/2024 Do You Use Your Seat Belt Or Car Seat Routinely? Yes [email or web address] Information not available 06/27/2020 Do You Have Smoke And Carbon Monoxide Detectors In Your Home? Yes [email or web address] Information not available 06/27/2020 How Much Tobacco Do You Smoke? No Information not available 02/15/2024 Do You Feel Stressed (tense, Restless, Nervous, Or Anxious, Or Unable To Sleep At Night)? [id number] [email or web address] Information not available 02/15/2024 Do You Use Any Illicit Or Recreational Drugs? No [email or web address] Information not available 05/29/2020 Do You Use Sunscreen Routinely? No [email or web address] Information not available 02/15/2024 Has Tobacco Cessation Counseling Been Provided? No [email or web address] Information not available 05/29/2020 Have You Used IV Drugs? No [email or web address] Information not available 02/15/2024 Do You Or Have You Ever Used Any Other Forms Of Tobacco Or Nicotine? No [email or web address] Information not available 05/29/2020 Sex: Unknown Functional Status Question Answer Note LastModified by Organizat ion Details LastModified Time Do you have difficulty walking or climbing stairs? No [email or web address] Information not available 01/23/2022 Are you able to walk? YESWOREST [email or web address] Information not available 06/27/2020 Are you able to care for yourself? Yes [email or web address] Information not available 01/23/2022 Do you have difficulty dressing or bathing? No Information not available 01/23/2022 What is your exercise level? Occasional [email or web address] Information not available 05/29/2020 Mental Status None recorded. Family History Relationship Description Onset Age of this Age Resolved Age Notes LastModified by Organization Details LastModified Time Mother Asthma [email or web address] Not available 12:37:20 Mother Heart disease [email or web address] Not available 2020 12:41:22 Mother Cyst of ovary [email or web address] Not available 2023 14:48:18 Father Hypertensive disorder [email or web address] Not available 2020 12:41:56 Paternal Grandmother Diabetes mellitus [email or web address] Not available 2020 12:46:04 Sister Diabetes mellitus [email or web address] Not available 2020 12:46:13 Sister Hypertensive disorder smcaley Not available 2020 12:46:43 Maternal Aunt Carcinoma in situ of breast [email or web address] Not available 2023 14:48:18 Medical History Condition Response Allergies (Food, seasonal, environmental ) N Other N Breast Cancer N Drug/Latex Allergies/Reactions N Blood Transfusion N Dermatologic Disorders N Lung Disease N Defects or Inherited Disease N Breast Problem N Gestational Diabetes N Hematologic disorders N Anesthesia Complications N History of STI Y Deep Vein Thrombosis N Polycystic ovary syndrome N Anxiety Disorder Y Autoimmune disease N Arthritis N Infertility N Polyps N Acid Reflux (GERD) N History of abnormal pap Y Cancer N Stroke N Varicosities N Neurologic/Epilepsy N Endometriosis N High Cholesterol N Headaches N Fibromyalgia N Kidney Disease N Heart Problems N Kidney or Bladder Problems N Thyroid Problems N GI Problems N Eating Disorder N Anemia N Art (IVF or FET) N Psychiatric Illness N Ovarian Cancer N Diabetes N Pulmonary (TB, Asthma) N Hepatitis/Liver Disease N No Past Medical History N Eczema N Urinary Tract Infection N Abuse/Domestic Violence N Asthma N Trauma/Violence N Depression/ depression Y Heart Disease N Pre-Eclampsia N Hypertension N Osteoporosis N Thrombophilias N Gynecological History Statement/Question Response Abnormal Pap Y Date of Last Mammogram Date of LMP 11/15/2023 STIs/STDs Y Was last menstrual period normal Y Colposcopy 09/15/2022 Current Control Method Sexually Active? Y None Date of DEXA bone scan Age of first menstrual cycle 15 Date of Last Pap Smear 02/10/2023 Desired Control Method None LMP Definite 05/02/2020 Obstetrics History GPAL:G 3 P 1 0 1 1 Type Value Full Term 1 Induced 1 Living 1 Total 3 Past Encounters Encounter ID Performer Location Encounter Start Date Encounter Closed Date Diagnosis/Indication Diagnosis SNOMED-CT Code Diagnosis ICD10 Code Diagnosis Note [id number] Ann Hunt [facility] [address],[place] [address] 05/02/2020 12:19:20 05/02/2020 17:29:12 screening 504110878 Z36.87 [id number] Maria Dolores Wright MD [facility] [address],[place] [address] 05/02/2020 12:19:20 05/02/2020 17:29:12 Urine test positive 447164101 Z32.01 test positive 423142148 Z32.01 Maternal t obacco use in 5338656646 94850 O99.331 with uncertain dates 158785101 Z34.01 Venereal d isease screening 652123225 Z11.3 Screening for malignant neoplasm of cervix 886770613 Z12.4 [id number] Maria Dolores Wright MD [facility] [address],[facility] [place] [address] 05/29/2020 12:08:03 05/29/2020 14:50:02 Routine care 247837942 Z34.90 Atypical s quamous cells of undetermined significance on cervical Papanicolaou smear 367590942 R87.610 Maternal t obacco use in 6618321044 55679 O99.331 Mixed anxi ety and depressive disorder 297708277 F41.8 Asthma 716082144 J45.90 9 [id number] Heather Ansari CNM [facility] [address],[facility] [place] [address] 06/27/2020 16:25:00 06/27/2020 17:45:45 Routine care 172134433 Z34.92 [id number] [facility] [address],[place] [address] 06/27/2020 16:24:45 06/28/2020 08:36:17 [id number] Lukas Aaron [facility] [address],[place] [address] 07/10/2020 15:40:31 07/11/2020 08:46:41 [id number] Madalyn [facility] [address],[place] [address] 08/02/2020 14:48:23 08/02/2020 16:38:04 Routine care 505370176 Z34.92 [id number] [facility] [address],[place] [address] 08/02/2020 14:47:58 08/02/2020 15:43:34 screening 003837280 Z36.3 [id number] [facility] [address] [address] 08/07/2020 14:38:22 08/07/2020 23:42:21 Vaginitis 29240659 N76.0 Discussed use of mild soap like dove or ivory, cotton underwear w/out dye, hypoallerg enic detergent, wipe from front to back, avoid tub baths, keep perineum clean and dry, d/c use of baby wipes. Encouraged daily intake of yogurt or womens health probiotic. Internal and external affirm collected. [id number] [facility] [address],[place] [address] 08/31/2020 14:06:19 08/31/2020 14:51:43 Low lying placenta 459907912 O44.40 Z3A.23 [id number] Maria Dolores Wright MD [facility] [address],[place] [address] 08/31/2020 14:06:36 08/31/2020 15:29:24 Low lying placenta 863391366 O44.40 Z3A.23 Routine an tenatal care 616447853 Z34.90 [id number] Heather Ansari [facility] [address],[place] [address] 09/26/2020 17:21:59 09/26/2020 22:24:19 Urinary symptoms 755307910 R39.9 Pain in ro und ligament in 6094341260 3790363 O26.899 [id number] Clarisa Smith [facility] [address],[place] [address] 10/05/2020 12:30:40 10/05/2020 13:16:00 Low lying placenta 547339345 O44.40 Z3A.28 [id number] Maria Dolores Wright MD [facility] [address],[place] [address] 10/05/2020 15:56:25 10/05/2020 16:49:08 Routine care 444894968 Z34.90 [id number] Maria Dolores Wright MD [facility] [address],[place] [address] 10/19/2020 14:57:33 10/19/2020 16:26:16 Routine care 586880473 Z34.90 [id number] Jose Guadalupe Murphy MD [facility] [address],[place] [address] 11/01/2020 15:48:57 11/01/2020 16:27:57 Routine care 588586302 Z34.83 Uterine si ze for dates discrepancy 307928727 O26.849 [id number] Ann Hunt [facility] [address],[place] [address] 11/05/2020 10:18:46 11/05/2020 10:52:03 Uterine size for dates discrepancy 919782122 O26.843 Z3A.32 [id number] Maria Dolores Wright MD [facility] [address],[place] [address] 11/12/2020 11:21:38 11/12/2020 14:41:13 Routine care 058713724 Z34.90 [id number] Maria Dolores Wright MD [facility] [address],[place] [address] 11/26/2020 15:34:13 11/27/2020 15:21:02 Routine care 274875912 Z34.90 Uterine si ze for dates discrepancy 077639258 O26.843 Z3A.32 [id number] Ann Hunt [facility] [address],[place] [address] 12/03/2020 11:55:14 12/03/2020 12:37:07 Uterine size for dates discrepancy 702074946 O26.843 Z3A.36 [id number] Maria Dolores Wright MD [facility] [address],[place] [address] 12/03/2020 11:55:41 12/03/2020 12:51:12 Routine care 457365679 Z34.[address] reptococcus carrier 7262696717 103 Z22.330 [id number] Maria Dolores Wright MD [facility] [address],[place] [address] 12/10/2020 11:53:19 12/10/2020 12:12:37 Routine care 615929990 Z34.90 [id number] Maria Dolores Wright MD [facility] [address],[place] [address] 12/17/2020 11:53:27 12/17/2020 12:49:15 Routine care 247145836 Z34.[address] reptococcus carrier 2002783442 103 Z22.330 [id number] Maria Dolores Wright MD [facility] [address],[place] [address] 12/24/2020 11:49:31 12/24/2020 13:18:33 Group B Streptococcus carrier 7826121398 103 Z22.330 Routine an tenatal care 878597010 Z34.90 [id number] Maria Dolores Wright MD [facility] [address],[place] [address] 01/22/2021 12:36:44 01/22/2021 13:13:29 care 269624661 Z39.2 Contracept ion care management 445521396 Z30.9 [id number] Clara Auguste [facility] [address],[place] [address] 01/23/2022 15:16:53 01/23/2022 15:44:58 [id number] Madalyn Santa [facility] [address],[place] [address] 01/23/2022 15:17:58 01/24/2022 16:59:29 test positive 970534947 Z32.01 Risk factors addressed: Tobacco Cessation, Safe Sexual Practices, environmen marivel, work hazards, travel restrictio ns, seat belt use.Eat a health well balanced diet, avoid alcohol, tobacco, and street drugs.Enga ge in daily low impact exercise, avoid temperatur e extremes, and cat, rodent, and bird feces.Avoi d travel to areas where zika virus is a concern.Of fered cf/sma/nip t. Handouts given and discussed with patient.Ch ildbirth classes recommende d.New OB sheet given.If previous , counseling .Pt verbalizes that she understand s the importance of above instructio ns.All questions were answered.P atient reminded to have annual well woman examinatio n and address preventati ve healthcare . [id number] Anngermán Hunt [facility] [address],[place] [address] 01/28/2022 11:06:10 01/28/2022 12:36:22 Threatened miscarriage 44054483 O20.0 Z3A.08 [id number] Maria Dolores Wright MD [facility] [address],[place] [address] 03/19/2022 15:12:30 03/22/2022 20:53:03 [id number] Maria Dolores Wright MD [facility] [address],[place] [address] 03/19/2022 16:23:32 03/19/2022 17:09:38 Screening procedure 08405456 Z13.9 Atypical s quamous cells on cervical Papanicolaou smear cannot exclude high grade squamous intraepithelial lesion 222520968 R87.611 [id number] Maria Dolores Wright MD [facility] [address],[place] [address] 08/18/2022 17:10:03 08/18/2022 18:10:15 Atypical squamous cells on cervical Papanicolaou smear cannot exclude high grade squamous intraepithelial lesion 790190999 R87.611 [id number] Maria Dolores Wright MD [facility] [address],[place] [address] 09/15/2022 14:51:50 09/16/2022 11:17:09 Screening procedure 65551712 Z13.9 High grade squamous intraepithelial lesion on cervical Papanicolaou smear 3454895380 9107 R87.613 [id number] Maria Dolores Wright MD [facility] [address],[place] [address] 10/06/2022 16:22:48 10/07/2022 09:50:54 Cervical intraepithelial neoplasia grade 2 548243978 N87.1 Preoperative state 84919 002 Z78.9 [id number] Maria Dolores Wright MD [facility] [address],[place] [address] 10/13/2022 09:11:00 10/14/2022 10:44:06 Cervical intraepithelial neoplasia grade 2 647458317 N87.1 [id number] Maria Dolores Wright MD [facility] [address],[place] [address] 11/10/2022 17:08:02 11/11/2022 11:12:24 Cervical intraepithelial neoplasia grade 2 999438242 N87.1 History of loop electrosurgical excision procedure 6844042335 9102 Z98.890 [id number] LEONARDO Centeno [facility] [address],[place] [address] 02/10/2023 14:40:21 02/10/2023 15:21:43 History of loop electrosurgical excision procedure [id number] 9102 Z98.890 repeat pap updated todaysafe sexual practices discussed and encouraged will update pt with results when available and notify pt of follow-up instructio ns Time spent in visit is a total of 25 mins with at least 50% of visit consisting of counseling and review of plan of care. History of abnormal cervical Papanicolaou smear 774301343 Z87.42 Screening for malignant neoplasm of cervix 252675884 Z12.4 [id number] LEONARDO [facility] [address],[place] [address] 05/21/2023 17:01:24 05/22/2023 09:28:55 Breast tenderness 54216594 N64.4 we agreed to update bilateral breast u/s - order givenlabs ordereddis cussed recent pap result and encouraged to schedule colposcopy Time spent in visit is a total of 18 mins with at least 50% of visit consisting of counseling and review of plan of care. Discharge from nipple 54 825617 N64.52 History of abnormal cervical Papanicolaou smear 284663858 Z87.42 [id number] URIAH MORALES MD [facility] [address],[place] [address] 07/06/2023 15:33:48 07/07/2023 07:39:52 Low grade squamous intraepithelial lesion on cervical Papanicolaou smear 2949189278 9105 R87.612 - colposcopy completed today, patient tolerated well- follow up on results as available [id number] URIAH MORALES MD [facility] [address],[place] [address] 07/15/2023 16:49:14 07/16/2023 10:57:38 Infertile 8988781 N97.9 - Differenti al diagnosis of cause of infertilit y includes: structural , anovulator y, tubal- We discussed the potential causes of infertilit y and rationale behind testing.- The patient is asked to complete the following diagnostic work up to include:-- FSH, estradiol, TSH, A1C, Vitamin D, PRL, LH, 17OHP, AMH-- Pending SIS results, HSG which is to be scheduled on 10-04-- Transvagin al ultrasound with SIS for endometria l cavity assessment - If other workup negative, will pursue complete semen analysis for her partner- Following the return of these test results she is asked to return to the office for further discussion of reproducti ve planning and treatment options Cervical intraepithelial neoplasia grade 2 626931900 N87.1 - 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, completely excised however SCARLET-1 extending to ectocervic al margins- Colposcopy 06/2023 with CIN2- given patient desires future pregnancie s, per ASCCP guidelines , ok for active surveillan ce while attempting - recommend LEEP if dysplasia worsens or when childbeari ng is completed History of chlamydial infection 177010137 Z86.19 [id number] [facility] [address],[place] [address] 08/03/2023 11:49:30 08/03/2023 13:34:08 Female infertility 1533776 N97.9 [id number] [facility] [address],[place] [address] 08/03/2023 11:49:47 08/03/2023 13:33:53 [id number] URIAH MORALES MD [facility] [address],[place] [address] 08/03/2023 11:50:00 08/03/2023 14:22:29 Trying to conceive 946391470 Z31.9 Uterine leiomyoma 662424 05 D25.9 - SIS demonstrat es uterine fibroid impinging on uterine cavity; implicatio ns to fertility discussed with patient- recommend [facility] D&C with myomectomy ; r/b/a discussed with patient- patient agrees to proceed with procedure- will try to schedule HSG with [facility] due to hx of chlamydial infection to r/o tubal factor History of chlamydial infection 414518175 Z86.19 [id number] URIAH MORALES MD [facility] [address],[place] [address] 10/27/2023 16:19:16 10/27/2023 17:08:41 Postoperative visit 341150394 Z48.89 - s/p hysterosco py, polypectom y and HSG on 10/05- benign pathology, HSG demonstrat es bilaterall y patent fallopian tubes- pain possibly 2/2 positionin g during surgery, patient reports it is improving Secondary infertility 29 5246873 N97.9 - workup unremarkab le aside from polyp vs scar tissue, now resected with normal appearing uterine cavity at the end of the procedure- HSG bilaterall y patent- discussed semen analysis for partner, informatio n given and order sent- discussed OPKs, if consistent ly positive, would allow for 1 year of TTC- if not getting positive OPKs, patient to schedule visit to discuss ovulation induction [id number] Ann Hunt [facility] [address],[place] [address] 01/11/2024 14:23:24 01/11/2024 15:01:59 [id number] URIAH MORALES MD [facility] [address],[place] [address] 01/18/2024 16:32:42 01/18/2024 17:11:32 Nausea and vomiting 32773319 R11.2 test positive 949913757 Z32.01 1. Exam today within normal limits.2. Ultrasound today confirms GA and viability. EDC . GC/Clamydi a testing done: will f/u as indicated. 4. ACOG guidelines and plan of care for reviewed with patient. All questions answered.5 . Return to office at 12 weeks for new OB visit6. Will need new OB labs at next visit.7. Genetic screening: desires at 10 weeks, papers given today. Cervical intraepithelial neoplasia grade 2 452720097 N87.1 - 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, completely excised however SCARLET-1 extending to ectocervic al margins- Colposcopy 06/2023 with CIN2- given patient desires future pregnancie s, per ASCCP guidelines , ok for active surveillan ce while attempting - recommend LEEP if dysplasia worsens or when childbeari ng is completed- will repeat pap at new OB visit Palpitations 07164982 R0 0.2 - previously on metoprolol , d/c'd with - workup including echo negative from cardiology - having more palpitatio ns during since d/c of metoprolol - ok to restart, discussed safety in Clarisa Smith [facility] [address],[place] [address] 02/15/2024 14:48:12 02/15/2024 15:22:34 screening 511924030 Z36.82 Z3A.13 [id number] URIAH MORALES MD [facility] [address],[place] [address] 02/15/2024 14:48:37 02/15/2024 16:01:34 Routine care 098704942 Z34.91 Nausea and vomiting 1693 2000 R11.2 Cervical intraepithelial neoplasia grade 2 414986263 N87.1 - 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, completely excised however SCARLET-1 extending to ectocervic al margins- Colposcopy 06/2023 with CIN2- repeat pap obtained today Bipolar disorder 2312763 4 F31.9 - continue buspar and latuda [id number] URIAH MORALES MD [facility] [address],[facility] [place] [address] 03/15/2024 11:25:37 03/15/2024 12:32:24 Nausea and vomiting 29759209 R11.2 Cervical intraepithelial neoplasia grade 2 829617569 N87.1 - 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, completely excised however SCARLET-1 extending to ectocervic al margins- Colposcopy 06/2023 with CIN2- repeat pap wnl 01/2024, repeat Bipolar disorder 6269688 4 F31.9 - continue buspar and latuda Gestation period, 17 weeks 39890098 Z3A.17 [id number] [facility] [address],[place] [address] 04/11/2024 15:53:44 04/11/2024 17:18:55 screening for malformation 706513638 Z36.3 Z3A.21 [id number] URIAH MORALES MD [facility] [address],[place] [address] 04/11/2024 15:58:43 04/11/2024 17:33:03 Cervical intraepithelial neoplasia grade 2 163136941 N87.1 - 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, completely excised however SCARLET-1 extending to ectocervic al margins- Colposcopy 06/2023 with CIN2- repeat pap wnl 01/2024, repeat History of loop electrosurgical excision procedure 6945028889 9102 Z98.890 - CL wnl 04/11 Bipolar disorder 7035895 4 F31.9 - continue buspar and latuda Gestation period, 21 weeks 76400345 Z3A.21 - continue PNV [id number] Clarisa Smith [facility] [address],[facility] [place] [address] 05/09/2024 11:01:31 05/09/2024 11:46:03 screening 325528757 Z36.2 Z3A.25 [id number] URIAH MORALES MD [facility] [address],[place] [address] 05/09/2024 11:04:07 05/09/2024 12:58:38 History of loop electrosurgical excision procedure 9815063547 9102 Z98.890 - CL wnl 04/11 Bipolar disorder 8159819 4 F31.9 - continue buspar and latuda Gestation period, 25 weeks 23394541 Z3A.25 - continue pNV [id number] URIAH MORALES MD [facility] [address],[place] [address] 05/30/2024 11:38:25 05/30/2024 12:20:54 Bipolar disorder 95235903 F31.9 - continue buspar and latuda Gestation period, 28 weeks 18326039 Z3A.28 - continue PNV- travel precaution s discussed Health Concerns Section Related Observation LastModified by Organization Detai ls LastModified Time None Recorded Concern Status LastModified by Organization Details LastModified Time None Recorded Advance Directives Directive None Recorded Payers Encounter Date Sequence Insurance Name Policy Number Policy Davis Covered Member ID Davis Member ID Guarantor Name 04/11/2024 1 [place] [facility] Michelle Loveiola [id number] Michelle Elida 04/11/2024 1 [place] [employer] [facility] [employer] Michelle Elida [id number] Michelle Elida 05/09/2024 1 [facility] - DOS ON OR AFTER 20 (MEDICAID REPLACEMENT - HMO) Michelle Elida [id number] Michelle Elida 05/09/2024 1 [facility] - DOS ON OR AFTER 20 (MEDICAID REPLACEMENT - HMO) Michellera LoveElida [id number] Michelle Elida 05/30/2024 1 [facility] - DOS ON OR AFTER 20 (MEDICAID REPLACEMENT - HMO) Michelle Marrero [id number] Michelle Marrero OBGyn Episode Ob Episode Information Episode Created Date Number of Fetuses Patient Bloodtype Patient rh Status Prepregnancy Weight lbs Domestic Partner Domestic Partner Phone Father Name Data Management Analyst Status 05/02/19 21 1 CLOSED Fetus Data First Name Last Name Admitted to NICU Weight (g) Sex Living Outcome Pediatric Complications Fetus ID Race Codes Race Delivery Type , Induced 6870 Gaurav Calculation Initial Gaurav Date Initial Exam Date Initial Exam Provider Initial Ultrasound Date Last Menstrual Period Date Ultra Sound Weeks Gestation 0 Eighteen To Twenty Week Gaurav Update Ultra Sound Date Fundal Height At Umbil Quickening Date Ultra Sound Latest Weeks Gestation Final Gaurav Confirmed By Final Gaurav Confirmed Date Final Gaurav Date Ultra Sound Latest Days Gestation 0 0 Menstrual History Last Menstrual Date Menses Monthly On Bcp Conception Prior Menses Frequency Hcg Plus Date Menarche Onset Age Delivery Information Delivery Date Delivery Type Labor Anesthesia Weeks Gestation Incision Type Labor Labor Length Hrs Delivered By Post Complications Tubal Sterilization Discharge Date Comments 2 Discharge Information Feeding Method Contraceptive Method Maternal HG B and HCT Levels Ob Episode Information Episode Created Date Number of Fetuses Patient Bloodtype Patient rh Status Prepregnancy Weight lbs Domestic Partner Domestic Partner Phone Father Name Data Management Analyst Status 05/29/19 21 1 O Negative 133 CLOSED Fetus Data First Name Last Name Admitted to NICU Weight (g) Sex Living Outcome Pediatric Complications Fetus ID Race Codes Race Delivery Type Jazmin 3260.19 25 F true Full Term Meconium 7632 Vaginal Delivery Problems Problem Notes Kyle pt Problem Name Start Date End Date Resolution Snomed Code Not e Group B Streptococcus carrier 12/03/2020 [id number] Rubella non-immune 339602043 M MR PP Low lying placenta 08/02/2020 10/05/2020 SELFRESOLVED 302890 007 resolved 10/05/20 Asthma 05/29/2020 197545661 albuterol prn Mixed anxiety and depressive disorder 05/29/2020 500748399 stable o ff meds for years Atypical squamous cells of undetermined significance on cervical Papanicolaou smear 05/29/2020 451290756 HPV pos. repeat pap post Maternal tobacco use in 05/29/2020 SELFRESOLVED [id number] quit Chlamydial infection TREATMENT 753259782 Dr Huerta office tx pt Rocephin & Zpack / has f/u appt - DARIN 11/26 negative Gaurav Calculation Initial Gaurav Date Initial Exam Date Initial Exam Provider Initial Ultrasound Date Last Menstrual Period Date Ultra Sound Weeks Gestation 12/25/2020 05/29/2020 05/02/2020 03/10/2020 6 Eighteen To Twenty Week Gaurav Update Ultra Sound Date Fundal Height At Umbil Quickening Date Ultra Sound Latest Weeks Gestation Final Gaurav Confirmed By Final Gaurav Confirmed Date Final Gaurav Date Ultra Sound Latest Days Gestation 0 [id number] 05/29/2020 12/26/19 21 0 Pre- Flowsheet Flowsheet Date 05/29/2020 Noguera Score Blood Edema Fundus Height Fundus Units Glucose Ketones Leukocytes Nitrite Labor Signs Protein Cervic Dilation Cervic Effacement Cervic Station neg none trace Type Weight in lbs Pre/Post Dialysis Refused Weight 131.188765816169 BP Diastolic BP Location Tested BP Systolic BP Type 79 122 Fetus Heart Rate Present A 170 Fetus Movement A No Comments Doing well except a lot of n ausea still. Has only vomited a few times. Unisom made too sleepy, doing B6. discussed small frequent snacks.. Still smoking 0-3 cigs per day, encouraged to pick a quit date. Discussed ASCUS pos HPV pap- repeat pp. Declines NIPT. History of asthma, mild, and anxiety and depression- no meds in years. Precautions given.OB SCREENINGPt is a 25yo G1 who presents for missed menses and possible . LMP unknown, maybe mid nov. pos preg test 04/21, menses regular. was unplanned. Taking PNV. Has not had flu shot yet. Smoker- down to 0-2 per day. Feeling ok except mild nausea and decreased appetite.Last annual exam uncertainShe denies domestic violence and she denies depression.ROSPatient reports no fatigue, no fever, no significant weight gain, and no significant weight loss. She reports no abnormal moles and no rashes. She reports no irritation and no vision changes. She reports no hearing loss, no ear pain, no nose/sinus problems, no sore throat, no snoring, no dry mouth, and no mouth ulcers. She reports no dyspnea / shortness of breath, no cough, no sputum production, no hemoptysis, and no wheezing. She reports no chest pain, no palpitations, and no orthopnea. She reports no heartburn, no dysphagia, no nausea, no vomiting, no abdominal pain, no bowel movement changes, no diarrhea, no constipation, and no rectal bleeding. She reports no hematuria, no abnormal bleeding, no flank pain, no trouble urinating, no incontinence, no rash, no lesion, no discharge, no vaginal odor, and no vaginal itching. She reports no menstrual problems and no PMDD symptoms. She reports no menopausal symptoms. She reports no sexual problems. She reports no muscle aches, no muscle weakness, no arthralgias/joint pain, and no back pain. She reports no headaches, no dizziness, no LOC, no weakness, no numbness, and no seizures. She reports no depression, no alcoholism, and no sleep disturbances. She reports no swollen glands and no bruising. She reports no runny nose, no itching, no hives, and no frequent sneezing.Physical ExamPatient is a 25-year-old female.see vital signsGeneral: NAD, well developed, well nourishedHead: NCATNeck: no thyromegaly, no LADBack: no CVA tendernessLungs: CTA BHeart: RRR without M/R/GAbdomen: soft, nontender, nondistended, no masses or organomegalyPelvic: External genitalia normal, BUS normal, Vagina normal without significant discharge, cervix normal in appearance and no CMT, uterus enlarged to 8 weeks no adnexal masses or tendernessExtremities: nontender, no edemaSkin: no lesions notedLymph nodes: no axillary, cervical, or inguinal lymphadenopathyAssessment / PlanFirst trimester at uncertain dating, US todayOb education done and all questions answered.Discussed safe sexual practices, environmental, work hazards, travel restrictions, seat belt use. Encouraged flu shot. Encouraged a healthy well balanced diet, avoid alcohol, tobacco, and street drugs, and engage in daily low impact exercise. Avoid cat feces. Avoid travel to areas where zika virus is a concern.OB labs today. Discussed CF/SMA- desires.Encouraged vitamins. Prescription sent if needed.Discussed screening for aneuploidy- pt declines due to low riskpap with GC CT trichencouraged tobacco cessation, discussed risks in and for general medical healthFollow up in 4 weeks for first ob appointment1. Urine test hriczxuyN29.01: Encounter for test, result positivePREGNANCY TEST, URINE - Specimen source: Urine2. test ddaobewzF51.01: Encounter for test, result positive3. Maternal tobacco use in [id number]: Smoking (tobacco) complicating , first trimester4. with uncertain qjzcoH67.01: Encounter for supervision of normal first , first trimester5. Venereal disease rhtmvpaagQ71.3: Encounter for screening for infections with a Flowsheet Date 06/27/2020 Noguera Score Blood Edema Fundus Height Fundus Units Glucose Ketones Leukocytes Nitrite Labor Signs Protein Cervic Dilation Cervic Effacement Cervic Station Type Weight in lbs Pre/Post Dialysis Refused BP Diastolic BP Location Tested BP Systolic BP Type Fetus Heart Rate Present Fetus Movement Comments Flowsheet Date 06/27/2020 Noguera Score Blood Edema Fundus Height Fundus Units Glucose Ketones Leukocytes Nitrite Labor Signs Protein Cervic Dilation Cervic Effacement Cervic Station neg none trace Type Weight in lbs Pre/Post Dialysis Refused Weight 128.996139117281 BP Diastolic BP Location Tested BP Systolic BP Type 70 106 Fetus Heart Rate Present Fetus Movement A No Comments patient states that having n ausea and is having itching on face, arms and stomach, labs drawn, cbc and bile acids, suspect normal changes in , reviewed precautions , plan anatomy and visit in 5 weeks Flowsheet Date 07/10/2020 Noguera Score Blood Edema Fundus Height Fundus Units Glucose Ketones Leukocytes Nitrite Labor Signs Protein Cervic Dilation Cervic Effacement Cervic Station Type Weight in lbs Pre/Post Dialysis Refused BP Diastolic BP Location Tested BP Systolic BP Type Fetus Heart Rate Present Fetus Movement Comments Flowsheet Date 08/02/2020 Noguera Score Blood Edema Fundus Height Fundus Units Glucose Ketones Leukocytes Nitrite Labor Signs Protein Cervic Dilation Cervic Effacement Cervic Station Type Weight in lbs Pre/Post Dialysis Refused BP Diastolic BP Location Tested BP Systolic BP Type Fetus Heart Rate Present Fetus Movement Comments Flowsheet Date 08/02/2020 Noguera Score Blood Edema Fundus Height Fundus Units Glucose Ketones Leukocytes Nitrite Labor Signs Protein Cervic Dilation Cervic Effacement Cervic Station none 20 trace Type Weight in lbs Pre/Post Dialysis Refused Weight 131.700496368505 BP Diastolic BP Location Tested BP Systolic BP Type 62 107 Fetus Heart Rate Present A 137 Fetus Movement A Yes Comments Doing well. Baseline anatomy . LLP discussed and instructed on pelvic rest. Some hip and back discomfort. Discussed stretches, positioning, and comfort measures. If no improvement could consider pt. Flowsheet Date 08/07/2020 Noguera Score Blood Edema Fundus Height Fundus Units Glucose Ketones Leukocytes Nitrite Labor Signs Protein Cervic Dilation Cervic Effacement Cervic Station trace Type Weight in lbs Pre/Post Dialysis Refused Weight 131.707230490880 BP Diastolic BP Location Tested BP Systolic BP Type 72 108 Fetus Heart Rate Present Fetus Movement A Yes Comments Pt c/o increased thick mucou s like discharge. She does have some cramping but this is not uncommon for her. On exam their is a thick white/yellow discharge. Does not have a typical yeast like cheesy discharge and also no watery discharge. Cervix closed on speculum exam. Vaginitis swab collected. Urine will be sent for culture and std screen. Flowsheet Date 08/31/2020 Noguera Score Blood Edema Fundus Height Fundus Units Glucose Ketones Leukocytes Nitrite Labor Signs Protein Cervic Dilation Cervic Effacement Cervic Station Type Weight in lbs Pre/Post Dialysis Refused BP Diastolic BP Location Tested BP Systolic BP Type Fetus Heart Rate Present Fetus Movement Comments Flowsheet Date 08/31/2020 Noguera Score Blood Edema Fundus Height Fundus Units Glucose Ketones Leukocytes Nitrite Labor Signs Protein Cervic Dilation Cervic Effacement Cervic Station neg trace trace Type Weight in lbs Pre/Post Dialysis Refused Weight 134.676830614851 BP Diastolic BP Location Tested BP Systolic BP Type 55 104 Fetus Heart Rate Present A 150 Fetus Movement A Yes Comments Doing well. Mood good except some anxiety related to work. Quit smoking months ago! US today EFW 28%, placenta remains low lying at 1.8cm. Will repeat 4 weeks. GCT next visit. Flowsheet Date 09/26/2020 Noguera Score Blood Edema Fundus Height Fundus Units Glucose Ketones Leukocytes Nitrite Labor Signs Protein Cervic Dilation Cervic Effacement Cervic Station neg none trace Type Weight in lbs Pre/Post Dialysis Refused Weight 141.769433623483 BP Diastolic BP Location Tested BP Systolic BP Type 68 118 Fetus Heart Rate Present A 155 Fetus Movement A Yes Comments patient is having some right side pelvic pain since last night and has gotten worse today has had some nausea and vomiting last night see note in chart Flowsheet Date 10/05/2020 Noguera Score Blood Edema Fundus Height Fundus Units Glucose Ketones Leukocytes Nitrite Labor Signs Protein Cervic Dilation Cervic Effacement Cervic Station Type Weight in lbs Pre/Post Dialysis Refused BP Diastolic BP Location Tested BP Systolic BP Type Fetus Heart Rate Present Fetus Movement Comments Flowsheet Date 10/05/2020 Noguera Score Blood Edema Fundus Height Fundus Units Glucose Ketones Leukocytes Nitrite Labor Signs Protein Cervic Dilation Cervic Effacement Cervic Station neg trace trace Type Weight in lbs Pre/Post Dialysis Refused Weight 142.558897567667 BP Diastolic BP Location Tested BP Systolic BP Type 72 108 Fetus Heart Rate Present A 145 Fetus Movement A Yes Comments Doing well. Doing GCT and Rh ogam at [facility] next week. US today LLP resolved. NOrmal growth and lfuid. Asthma stable, rarely uses inhaler. Mood good overall. Discuss Tdap next visit. Flowsheet Date 10/19/2020 Noguera Score Blood Edema Fundus Height Fundus Units Glucose Ketones Leukocytes Nitrite Labor Signs Protein Cervic Dilation Cervic Effacement Cervic Station neg trace 28 trace Type Weight in lbs Pre/Post Dialysis Refused Weight 145.2904485930 BP Diastolic BP Location Tested BP Systolic BP Type 66 110 Fetus Heart Rate Present A 130 Fetus Movement A Yes Comments Doing well. Got Rhogam. GCT today. Discussed and encouraged Tdap. borderline S<D- monitor and consider growth US. Flowsheet Date 11/01/2020 Noguera Score Blood Edema Fundus Height Fundus Units Glucose Ketones Leukocytes Nitrite Labor Signs Protein Cervic Dilation Cervic Effacement Cervic Station 30 trace Type Weight in lbs Pre/Post Dialysis Refused Weight 143.288449698673 BP Diastolic BP Location Tested BP Systolic BP Type 72 R arm 111 sitting Fetus Heart Rate Present A 145 Fetus Movement A Yes Comments Measures small for gestation al age, to follow-up on growth, growth was in the 23rd percentile on last u/s about a month ago. Flowsheet Date 11/05/2020 Noguera Score Blood Edema Fundus Height Fundus Units Glucose Ketones Leukocytes Nitrite Labor Signs Protein Cervic Dilation Cervic Effacement Cervic Station Type Weight in lbs Pre/Post Dialysis Refused BP Diastolic BP Location Tested BP Systolic BP Type Fetus Heart Rate Present Fetus Movement Comments Flowsheet Date 11/12/2020 Noguera Score Blood Edema Fundus Height Fundus Units Glucose Ketones Leukocytes Nitrite Labor Signs Protein Cervic Dilation Cervic Effacement Cervic Station neg trace 31 trace Type Weight in lbs Pre/Post Dialysis Refused Weight 143.451512445624 BP Diastolic BP Location Tested BP Systolic BP Type 73 110 Fetus Heart Rate Present A 140 Fetus Movement A Yes Comments Doing well. US last week S<D 19%. Repeat US 2 more week.s Repeat GC CT with GBS. Precautions given. Flowsheet Date 11/26/2020 Noguera Score Blood Edema Fundus Height Fundus Units Glucose Ketones Leukocytes Nitrite Labor Signs Protein Cervic Dilation Cervic Effacement Cervic Station neg trace 33 trace 1cm 20% Type Weight in lbs Pre/Post Dialysis Refused Weight 148.767455277540 BP Diastolic BP Location Tested BP Systolic BP Type 75 115 Fetus Heart Rate Present A 140 Fetus Movement A Yes Comments Doing well. Had CT in Apr, etest today. Growth next week for S<D. Good FM. GBS done and discussed. Precautions. Flowsheet Date 12/03/2020 Noguera Score Blood Edema Fundus Height Fundus Units Glucose Ketones Leukocytes Nitrite Labor Signs Protein Cervic Dilation Cervic Effacement Cervic Station Type Weight in lbs Pre/Post Dialysis Refused BP Diastolic BP Location Tested BP Systolic BP Type Fetus Heart Rate Present Fetus Movement Comments Flowsheet Date 12/03/2020 Noguera Score Blood Edema Fundus Height Fundus Units Glucose Ketones Leukocytes Nitrite Labor Signs Protein Cervic Dilation Cervic Effacement Cervic Station neg trace 34 trace 1cm 40% -3 Type Weight in lbs Pre/Post Dialysis Refused Weight 147.653230570274 BP Diastolic BP Location Tested BP Systolic BP Type 72 110 Fetus Heart Rate Present A 140 Fetus Movement A Yes Comments Doing well. Pressure and los ing mucus. US today 29%, AFP 11. Chlamydia neg, GBS pos, discussed. Flowsheet Date 12/10/2020 Noguera Score Blood Edema Fundus Height Fundus Units Glucose Ketones Leukocytes Nitrite Labor Signs Protein Cervic Dilation Cervic Effacement Cervic Station neg trace 36 trace Type Weight in lbs Pre/Post Dialysis Refused Weight 149.450166479574 BP Diastolic BP Location Tested BP Systolic BP Type 70 108 Fetus Heart Rate Present A 140 Fetus Movement A Yes Comments Doing ok. In triage last nig ht for ctx, still 1cm, today about 3x per hour. GERD and nausea- will try pepcid. GBS pos. Precautions given. FU weekly. Flowsheet Date 12/17/2020 Noguera Score Blood Edema Fundus Height Fundus Units Glucose Ketones Leukocytes Nitrite Labor Signs Protein Cervic Dilation Cervic Effacement Cervic Station neg none 35 trace 3cm 70% -2 Type Weight in lbs Pre/Post Dialysis Refused Weight 149.543062014411 BP Diastolic BP Location Tested BP Systolic BP Type 78 119 Fetus Heart Rate Present A 155 Fetus Movement A Yes Comments Feeling miserable. Ctx a lot last 2 days, nausea back, last night vomiting with painful contractions. Was in triage 3 hours, didn't change cervix from 1.5cm. Currently every 10 min. Suspect early labor. Precautions given. GBS pos. Will schedule IOL next week in case needed. Flowsheet Date 12/24/2020 Noguera Score Blood Edema Fundus Height Fundus Units Glucose Ketones Leukocytes Nitrite Labor Signs Protein Cervic Dilation Cervic Effacement Cervic Station neg trace 36 trace 3cm 80% -3 Type Weight in lbs Pre/Post Dialysis Refused Weight 152.171665994304 BP Diastolic BP Location Tested BP Systolic BP Type 80 117 Fetus Heart Rate Present A 140 Fetus Movement A Yes Comments Tons of contractions this pa st week, in triage a couple times, IOL scheduled tomorrow. GBS pos. precautions given. Menstrual History Last Menstrual Date Menses Monthly On Bcp Conception Prior Menses Frequency Hcg Plus Date Menarche Onset Age 1103/10/2020 Genetic Screening And Infection History Question Response Note Mental Retardation/Autism false Patient's Age Will Be 35 Years Or Older At Estim ated Date of Delivery false Thalassemia (Moroccan, Ghanaian, Mediterranean, Or Background): MCV < 80 false Neural Tube Defect (Meningomyelocele, Spina Bifi da, Or Anencephaly) false Congenital Heart Defect false Down Syndrome false Nish-Sachs (eg, Christian, Cajun, Turkmen-Crisp) f alse Felisha Disease false Sickle Cell Disease Or Trait () false Hemophilia Or Other Blood Disorders false Muscular Dystrophy false Cystic Fibrosis false Kershaw's Chorea false Intellectual Disability/Autism false If Yes, Was Person Tested For Fragile X? false Other Inherited Genetic Or Chromosomal Disorder false Maternal Metabolic Disorder (eg, Type 1 Diabetes , PKU) false Patient Or Baby's Father Had A Child With Defects Not Listed Above false Recurrent Loss, Or A Stillbirth false Medications (including Suppl ements, Vitamins, Herbs, OTC Drugs), Illicit/Recreational Drugs, Alcohol false If Yes, Agent(s) And Strength/Dosage false Any Other Genetic History false Live With Someone With TB Or Exposed To TB false Patient Or Partner Has History Of Genital Herpes false Rash Or Viral Illness Since Last Menstrual Perio d false History Of STD, Gonorrhea, Chlamydia, HPV, Syphi lis false Other Infection History false History of HIV false History of Hepatitis false Prior GBS-infected child false Hemoglobinopathy Or Carrier false Other Structural Defect false Recent Travel History Outside of Country false Delivery Information Delivery Date Delivery Type Labor Anesthesia Weeks Gestation Incision Type Labor Labor Length Hrs Delivered By Post Complications Tubal Sterilization Discharge Date Comments 1 Induce d Regional-Ep idural 40 false Maria Dolores Wright MD Gbs+ EBL [id number] ccs Discharge Information Feeding Method Contraceptive Method Maternal HG B and HCT Levels Ob Episode Information Episode Created Date Number of Fetuses Patient Bloodtype Patient rh Status Prepregnancy Weight lbs Domestic Partner Domestic Partner Phone Father Name Data Management Analyst Status 02/15/20 24 1 O Negative Miranda Toussaint an OPEN Fetus Data First Name Last Name Admitted to NICU Weight (g) Sex Living Outcome Pediatric Complications Fetus ID Race Codes Race Delivery Type [id number] Problems Problem Notes 32wk growth us Problem Name Start Date End Date Resolution Snomed Code Not e Bipolar disorder [id number] on buspar and [place]uda Gaurav Calculation Initial Gaurav Date Initial Exam Date Initial Exam Provider Initial Ultrasound Date Last Menstrual Period Date Ultra Sound Weeks Gestation 08/21/2024 02/15/2024 01/11/2024 11/15/2023 8 Eighteen To Twenty Week Gaurav Update Ultra Sound Date Fundal Height At Umbil Quickening Date Ultra Sound Latest Weeks Gestation Final Gaurav Confirmed By Final Gaurav Confirmed Date Final Gaurav Date Ultra Sound Latest Days Gestation 0 [email or web address] 03/15/2024 08/22/19 25 0 Pre- Flowsheet Flowsheet Date 02/15/2024 Noguera Score Blood Edema Fundus Height Fundus Units Glucose Ketones Leukocytes Nitrite Labor Signs Protein Cervic Dilation Cervic Effacement Cervic Station Type Weight in lbs Pre/Post Dialysis Refused BP Diastolic BP Location Tested BP Systolic BP Type Fetus Heart Rate Present Fetus Movement Comments Flowsheet Date 02/15/2024 Noguera Score Blood Edema Fundus Height Fundus Units Glucose Ketones Leukocytes Nitrite Labor Signs Protein Cervic Dilation Cervic Effacement Cervic Station neg none none trace Type Weight in lbs Pre/Post Dialysis Refused Weight 140.299566621701 BP Diastolic BP Location Tested BP Systolic BP Type 72 L arm 108 sitting Fetus Heart Rate Present A 150 Fetus Movement Comments Patient presents to [facility] care. complicated by hx of SCARLET- 2. Repeat pap smear obtained today. Patient c/o of nausea, discharge, cramping, bad headaches. Discussed reglan for antiemetics and headache. Also discussed B2 supplementation. Hx of uncomplicated term . NT/NB wnl today, LR male NIPT. other OB labs wnl. RTC 4 weeks for routine care. Flowsheet Date 03/15/2024 Noguera Score Blood Edema Fundus Height Fundus Units Glucose Ketones Leukocytes Nitrite Labor Signs Protein Cervic Dilation Cervic Effacement Cervic Station neg none none trace Type Weight in lbs Pre/Post Dialysis Refused 137.686487851017 BP Diastolic BP Location Tested BP Systolic BP Type 70 L arm 107 sitting Fetus Heart Rate Present A 150 Fetus Movement A Yes Comments Patient c/o of nausea and cr amping. Feeling some movement. Headaches improved, has been going to chiro. Nausea still present, will try zofran. Discussed anatomy US for next visit. Pap smear NILM at last visit, will repeat . RTC 4 weeks. Flowsheet Date 04/11/2024 Noguera Score Blood Edema Fundus Height Fundus Units Glucose Ketones Leukocytes Nitrite Labor Signs Protein Cervic Dilation Cervic Effacement Cervic Station Type Weight in lbs Pre/Post Dialysis Refused BP Diastolic BP Location Tested BP Systolic BP Type Fetus Heart Rate Present Fetus Movement Comments Flowsheet Date 04/11/2024 Noguera Score Blood Edema Fundus Height Fundus Units Glucose Ketones Leukocytes Nitrite Labor Signs Protein Cervic Dilation Cervic Effacement Cervic Station neg none Type Weight in lbs Pre/Post Dialysis Refused 139.282221420970 BP Diastolic BP Location Tested BP Systolic BP Type 79 L arm 113 sitting Fetus Heart Rate Present A Present Fetus Movement A Yes Comments Patient c/o of slight nausea and lower pains. Good movement. No cramping or bleeding. Nausea improving. Anatomy incomplete today, needs RVOT, DA, and profile. EFW 41%. Will repeat in 4 weeks. Normal cervical length. Otherwise no issues. RTC 4 weeks. Flowsheet Date 05/09/2024 Noguera Score Blood Edema Fundus Height Fundus Units Glucose Ketones Leukocytes Nitrite Labor Signs Protein Cervic Dilation Cervic Effacement Cervic Station Type Weight in lbs Pre/Post Dialysis Refused BP Diastolic BP Location Tested BP Systolic BP Type Fetus Heart Rate Present Fetus Movement Comments Flowsheet Date 05/09/2024 Noguera Score Blood Edema Fundus Height Fundus Units Glucose Ketones Leukocytes Nitrite Labor Signs Protein Cervic Dilation Cervic Effacement Cervic Station neg trace Type Weight in lbs Pre/Post Dialysis Refused 146.739629914935 BP Diastolic BP Location Tested BP Systolic BP Type 72 L arm 108 sitting Fetus Heart Rate Present A 141 Fetus Movement A Yes Comments Patient c/o of acid reflux a nd some nausea. Along with lower pains and pressure. Discussed belly band and pelvic floor PT. Good movement. Discussed GCT, labs and Rhogam at [place], labs given. Anatomy complete and normal, EFW 25%, will plan for 32 week growth US. RTC 3-4 weeks. Flowsheet Date 05/30/2024 Noguera Score Blood Edema Fundus Height Fundus Units Glucose Ketones Leukocytes Nitrite Labor Signs Protein Cervic Dilation Cervic Effacement Cervic Station neg trace Type Weight in lbs Pre/Post Dialysis Refused Weight 150.414084457734 BP Diastolic BP Location Tested BP Systolic BP Type 69 L arm 107 sitting Fetus Heart Rate Present A 150 Fetus Movement A Yes Comments Patient c/o Emmet Foster, s welling in feet. Good movement. No bleeding. Passed GCT, no anemia on labs. Received Tdap. Discussed repeat growth US at 32 weeks. Traveling to [place] at beginning of June, travel precautions discussed. RTC 2 weeks. Menstrual History Last Menstrual Date Menses Monthly On Bcp Conception Prior Menses Frequency Hcg Plus Date Menarche Onset Age 0711/15/2023 Delivery Information Delivery Date Delivery Type Labor Anesthesia Weeks Gestation Incision Type Labor Labor Length Hrs Delivered By Post Complications Tubal Sterilization Discharge Date Comments Discharge Information Feeding Method Contraceptive Method Maternal HG B and HCT Levels
--- OUTSIDE RECORDS SUMMARY | 2024-06-09 17:23 | XMS_ITS | Clinical Summary ---
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
--- OUTSIDE RECORDS SUMMARY | 2024-06-09 17:23 | XMS_ITS | Data Portability ---
Author Organization [place] - [facility] General Assembly, Main Office Address [address] [place] [address] Assessment No assessment recorded. Plan of Treatment Reminders Order Date Submit Date Provider Last Modified By Organization Details Last Modified Time Details Appointments Follow Up 15 2024 04:30P M OUSMANE Velasquez Not available Not available Not available Lab None recorded. Referral None recorded. Procedures None recorded. Surgeries None recorded. Imaging None recorded. Medication Orders nystatin- triamcino lone 100,000 unit/g-0. 1 % topical cream 2023 024 [email or web address] [facility] [place], [address], 11/19/2023 17:27:54 escitalop fei 5 mg tablet 2022 023 77 [facility] [address], [address] [place], [address], 11/19/2023 11:25:44 Patient TargetsNo targets recorded. Patient InstructionsNo instructions recorded. Reason for Referral None Reported. Results Created Date Observation Date Name Description Value Unit Range Abnormal Flag Note LastModifiedBy Organization Detail LastModifiedTime 10/16/19 22 10/19/2021 RPR SCREE N RPR non-re active nonrea ctive Not Available [facility] (Lab) [address] [place], [address], 10/19/2021 09:25:53 10/16/19 22 10/16/2021 HIV COMBO : HIV 1/2 AB,P2 4 AG HIV combo assay non-re active nonrea ctive The HIV combo test scree ns for HIV-1 , HIV-2 , HIV p24 Ag, and HIV group O. Any react heath scree n resul t will be sent for PCR confi rmato ry testi ng. Not Available [facility] (Lab) [facility] [address], [place], [address], 10/16/2021 22:21:39 10/16/19 22 10/16/2021 HIV COMBO : HIV 1/2 AB,P2 4 AG S/C 0.13 0.00-0 .99 Not Available [facility] (Lab) [address] [facility] [address], [place], [address], 10/16/2021 22:21:39 10/16/19 22 10/16/2021 TRICH OMONA S VAGIN EDITA DNA, PCR trichomonas vaginalis DNA not detect ed Not Available [facility] (Lab) [address] [place], [address], 10/16/2021 01:00:36 10/16/19 22 10/15/2021 CT/NG (CHLA MYDIA /NEIS SERIA ) DNA chlamydia trachomatis DNA not detect ed Not Available [facility] (Lab) [address] [place], [address], 10/16/2021 00:59:52 10/16/19 22 10/15/2021 CT/NG (CHLA MYDIA /NEIS SERIA ) DNA neisseria gonorrhea DNA not detect ed Not Available [facility] (Lab) [address] [place], [address], 10/16/2021 00:59:52 10/16/19 22 10/15/2021 HEPAT ITIS C/HCV ANTIB CLIFF hepatitis C antibody non-re active non-re active Not Available [facility] (Lab) [address] [place], [address], 10/15/2021 21:22:35 10/16/19 22 10/15/2021 HEPAT ITIS C/HCV ANTIB CLIFF S/C 0.01 0.00-0 .99 Not Available [facility] ([facility]) [address] [place], [address], 10/15/2021 21:22:35 01/15/20 22 01/14/2022 [place], obste tric No observ ation record ed. [id number], [address], 06/25/2022 08:49:43 01/27/20 22 01/26/2022 US, obste tric No observ ation record ed. [id number] [address], [place], [address], 06/25/2022 08:49:43 03/01/20 22 03/01/2022 US, obste tric No observ ation record ed. [id number] [facility], [place], [address], 06/25/2022 08:49:43 05/31/19 24 05/31/2023 XR, chest No observ ation record ed. [email or web address] [address] [address], [place], [address], 06/04/2023 15:05:58 06/04/19 24 06/03/2023 US, moises tdanay eral No observ ation record ed. [email or web address] [address], [address], 06/04/2023 15:06:22 06/15/19 24 06/15/2023 imagi ng/di agnos chanda resul t No observ ation record ed. [facility] [address], [place], [address], 06/26/2023 14:11:52 06/18/19 24 06/17/2023 , echoc ardio gram No observ ation record ed. [email or web address] [facility] [address], [place], [address], 06/26/2023 14:10:46 06/29/19 24 06/20/2023 home sleep study No observ ation record ed. [email or web address] [facility] [address], [place], [address], 09/06/2023 13:47:04 10/06/19 24 10/06/2023 imagi ng inter preta tion No observ ation record ed. [email or web address] [facility] [address], [place], [address], 10/14/2023 17:43:06 Result Notes None recorded. Problems Name Problem SNOMED Code Status Onset Date Resolution Date Notes Provider Name and Address Organization Details Recorded Time Irritable bowel syndrome 07164205 Active 2016 Not Available [facility] 3 08:46:13 Tobacco user 076821469 Active Not Available [facility] 3 08:46:13 Pain in throat 549923397 Active Not Available [facility] 3 08:46:13 Abdominal pain 21294452 Active Not Available [facility] 3 08:46:13 Headache 54359900 Active Not Available [facility] 3 08:46:13 Abnormal weight loss 679066959 Active Not Available [facility] 3 08:46:13 Insect bite - wound 403975570 Active Not Available [facility] 3 08:46:13 Low back pain 213052831 Active Not Available [facility] 3 08:46:13 Proteinuria 52358055 Active Not Available [facility] 3 08:46:14 Pain in pelvis 68485120 Active Not Available [facility] 3 08:46:14 Vaginitis 76757139 Active Not Available [facility] 3 08:46:14 Vaginal ulcer 36346452 Active Not Available [facility] 3 08:46:14 Exercise-héctor isidoro asthma 80823921 Active Not Available [facility] 3 08:46:14 Iron deficiency 67540628 Active Not Available [facility] 3 08:46:14 Depressive disorder 61527872 Active Not Available [facility] 3 08:46:14 Fever 073417725 Active Not Available [facility] 3 08:46:14 Sensory disturbance in limb 172856709 Active Not Available [facility] 3 08:46:14 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 Active Not Available [facility] 3 08:46:14 Anxiety 34757660 Active Not Available [facility] 3 08:46:14 Dysuria 12860239 Active Not Available [facility] 3 08:46:14 Otitis media 53957728 Active Not Available [facility] 3 08:46:14 Urinary tract infectious disease 22647303 Active Not Available [facility] 3 08:46:14 Disturbance of attention 49508988 Active Not Available [facility] 3 08:46:15 Fatigue 49293362 Active Not Available [facility] 3 08:46:15 Conjunctiviti s 6626582 Active Not Available [facility] 3 08:46:15 Mixed anxiety and depressive disorder 438894833 Active 2022 MARY Iniguez [address], [address] [address], [place], [address] , [facility] [employer] [facility] [employer] 3 13:56:27 Palpitations 45695578 Active 2023 Selena Huerta MD [address], [address], [place], [address] , [employer] [facility] [employer] [facility] 4 18:11:52 Tinea corporis 77953758 Active 2023 LEYDA Page [address], [address], [place], [address] , [facility] [employer] [facility] [employer] [facility] 4 11:36:16 Eczema 30506737 Active 2023 LEYDA Page [address], [address], [place], [address] , [place] [facility] 15:03:27 Problem Notes None recorded. Procedures Surgical History None recorded. Imaging Results Imaging Date Name Status LastModified by Organization Details LastModified Time 01/14/2022 US, obstetric completed [id number], [address], 06/25/2022 08:49:43 03/01/2022 US, obstetric completed [id number] [facility], [place], [address], 06/25/2022 08:49:43 01/26/2022 US, obstetric completed [id number], [address], 06/25/2022 08:49:43 05/31/2023 XR, chest completed [address], [address], 06/04/2023 15:05:58 06/03/2023 US, breast, bilateral completed [address], [address], 06/04/2023 15:06:22 06/15/2023 imaging/diagnostic result completed [facility] [address], [place], [address], 06/26/2023 14:11:52 06/17/2023 US, echocardiogram completed llalor [facility] [address], [place], [address], 06/26/2023 14:10:46 06/20/2023 home sleep study completed [email or web address] [facility] [address], [place], [address], 09/06/2023 13:47:04 10/06/2023 imaging interpretation completed [address], [place], [address], 10/14/2023 17:43:06 Procedure Notes None recorded. Medical Equipment None Reported. Allergies Allergen ID Allergen Name Allergen Category Reaction Reaction Severity Criticality Documentation Date Start Date Code Code System Note Provider Name and Address Organization Details Recorded Time bupropion Not available Not available Not available Not available 06/25/2022 84697 RxNorm rash Not Available [facility] 08:49:34 Medications Name Sig Start Date Stop [...] saturation in Arterial blood by Pulse oximetry Heart rate Body temperature Body weight Systolic blood pressure Diastolic blood pressure Provider Name and Address Organization Details Last Updated DateTime 3 98 % 98 % 78 /min 96.4 [degF] 67221.2 7 g 122 mm[Hg] 68 mm[Hg] Not Available [facility] 3 08:43:34 Date Recorded Body height Body mass index (BMI) Body weight Body temperature Heart rate Oxygen saturation Oxygen saturation in Arterial blood by Pulse oximetry Systolic blood pressure Diastolic blood pressure Provider Name and Address Organization Details Last Updated DateTime 3 154.94 cm 23.2 kg/m2 16893.8 6 g 98.2 [degF] 83 /min 97 % 97 % 116 mm[Hg] 80 mm[Hg] Sadie Frazier MA [facility] 3 14:41:54 Date Recorded Body weight Body temperature Heart rate Oxygen saturation Oxygen saturation in Arterial blood by Pulse oximetry Systolic blood pressure Diastolic blood pressure Provider Name and Address Organization Details Last Updated DateTime 4 40414.3 4 g 97.7 [degF] 105 /min 98 % 98 % 118 mm[Hg] 70 mm[Hg] Arnaud Sandoval RN [facility] 4 11:24:49 Social History Question Answer Notes LastModified by Organizat ion Details LastModified Time Tobacco Smoking Status Former Smoker Sadie Frazier MA [facility], [facility] 06/27/2022 14:42:55 What Is Your Level Of Alcohol Consumption? Occasional [email or web address] Information not available 06/27/2022 What Is Your Level Of Caffeine Consumption? Moderate [email or web address] Information not available 06/27/2022 In The 14 Days Before Symptom Onset, Have You Had Close Contact With A Laboratory-confir med COVID-19 While That Case Was Ill? No [id number] Information not available 06/25/2022 In The 14 Days Before Symptom Onset, Have You Had Close Contact With A Person Who Is Under Investigation For COVID-19 While That Person Was Ill? No [id number] Information not available 06/25/2022 What Type Of Diet Are You Following? REGULAR [id number] Information not available 06/25/2022 Have You Ever Been Counseled For Unhealthy Alcohol Use? No [email or web address] Information not available 06/27/2022 Do You Use Any Illicit Or Recreational Drugs? No [email or web address] Information not available 06/27/2022 Has Tobacco Cessation Counseling Been Provided? No [email or web address] Information not available 06/27/2022 Do You Have Any Dietary Restrictions? No [id number] Information not available 06/25/2022 Sex: Unknown Functional Status Question Answer Note LastModified by Organizat ion Details LastModified Time What is your exercise level? Moderate [id number] Information not available 06/25/2022 Mental Status [...] SNOMED-CT Code Diagnosis ICD10 Code Diagnosis Note [id number] [facility] [address] [place] [address] 10/15/2021 00:00:00 10/16/2021 10:00:51 [id number] [facility] [address] [place] [address] 12/18/2021 00:00:00 12/18/2021 09:18:58 [id number] GINA Miller [facility] [address] [address] 06/27/2022 14:34:02 06/27/2022 15:06:16 Anxiety 75349850 F41.9 Increasing recently. States it has been a problem her whole life. She has been on zoloft a long time ago when she was younger. Has not been on anything in recent years. She is a single mom so many days she just feels overwhelme d and like she does not have a lot of support.Sh kendell will be started counseling weekly, already has appointmen t set up.She is interested in starting medication . Will do trial of lexapro.F/ u in 3-4 weeks. [id number] Jessica Jennings, MARY-C [facility] [address] [facility] [address] [place] [address] 11/19/2023 11:16:28 11/19/2023 11:36:42 Tinea corporis 21686585 B35.4 rash on abdomen and armpits for one monthrash is itchy Adult heal th examination 904482461 Z00.00 Patient is doing well overall and has no complaints Discussed with patient yearly eye and dental examsPatie nt refuses bloodwork and vaccines Anxiety 32057937 F41.9 OPAL-7 ()Pat ient stopped taking all medication s and does not wish to start medication sDenies SI/HI Depressive disorder 3548 9007 F32.A OPAL-7 ()Pat ient stopped taking all medication s and does not wish to start medication sDenies SI/HI [id number] Debby Bustillo [facility] [address] [address] 01/21/2024 14:16:24 01/21/2024 16:03:10 [id number] Debby Bustillo [facility] [address] [address] 02/25/2024 14:18:38 02/25/2024 14:54:18 [id number] Debby Bustillo [facility] [address] [address] 03/23/2024 15:21:11 03/23/2024 15:57:39 [id number] Debby Bustillo [facility] [address] [address] 04/13/2024 17:11:15 04/13/2024 19:31:47 [id number] Debby Bustillo [facility] [address] [place] [address] [address] 05/25/2024 17:23:56 05/25/2024 17:56:16 Health Concerns Section Related Observation LastModified by Organization Detai ls LastModified Time None Recorded Concern Status LastModified by Organization Details LastModified Time None Recorded Advance Directives Directive None Recorded Payers Encounter Date Sequence Insurance Name Policy Number Policy Davis Covered Member ID Davis Member ID Guarantor Name 06/27/2022 1 [facility] ON OR AFTER 10/25/20 (MEDICAID REPLACEMENT - HMO) Michelle Marrero [id number] Michelle Marrero 11/19/2023 1 [facility] - DOS ON OR AFTER 20 (MEDICAID REPLACEMENT - HMO) Michelle Marrero [id number] Michelle Marrero Notes Date Note Type Note [...] depressed, more overwhelmed/anxious. GINA Miller [address], [facility] [address], [place], [address], [facility] [employer] 06/27/2022 15:22:06 11/19/2023 text/html Patient is a [...] that. Patient denies any recent contact with teran/stebbins/river [place]. no labsWWE-sees GYNflu-declinescovid -declinestdap-UTD 2021 LEYDA [address], [place], [address], [facility] [employer] [facility] 11/19/2023 11:47:13 OBGyn Episode No OBEpisode recorded.
--- OUTSIDE RECORDS SUMMARY | 2024-06-09 17:23 | XMS_ITS | Referral Summary ---
Author Organization [facility] [employer] Address [address] [facility] [place] [address] Care Team Providers Care Quality Assurance Supervisor Body Name Role Phone Selena Huerta MD Primary Care Provider [phone] Source Comments [facility] [employer],non-owned Affiliates and Associated Physician Practices is amultiple site organization consisting of ambulatory clinics and hospital sitesin [place], [place], [place] and [place]. This disclosure is being madepursuant to the Care Everywhere program and may not contain all information available regarding this patient. Last updated 18.[employer] Allergies No known active allergies Medications * [...] Comments Blood Pressure 112/78 03/02/2014 9:19 AM AUGER SUPERVISOR Pulse 88 02/13/2014 12:00 AM CDT Temperature 36.4 C (97.6 F) 06/17/2013 3:36 PM AUGER SUPERVISOR Respiratory Rate 22 06/17/2013 3:36 PM AUGER SUPERVISOR Oxygen Saturation - - Inhaled Oxygen Concentration - - Weight 52.4 kg (115 lb 9.6 oz) 05/12/2014 9:34 A M AUGER SUPERVISOR Height 159 cm (5' 2.6 ) 05/12/2014 9:34 AM AUGER SUPERVISOR Body Mass Index 20.74 05/12/2014 9:34 AM AUGER SUPERVISOR Plan of Treatment Not on file Care Teams Quality Assurance Supervisor Body Relationship Specialty Start Date End Date Selena Huerta MD [address] [place] [address] [place] [address] PCP - General Family Medicine 06/17/13
--- OUTSIDE RECORDS SUMMARY | 2024-06-09 17:23 | XMS_ITS | Clinical Summary ---
Author Organization [facility] [employer] Address [address] [facility] [place] [address] Care Team Providers Care Psychology Physician Name Role Phone Selena Huerta MD Primary Care Provider [phone] Source Comments [facility] [employer],non-owned Affiliates and Associated Physician Practices is amultiple site organization consisting of ambulatory clinics and hospital sitesin [place], [place], [place] and [place]. This disclosure is being madepursuant to the Care Everywhere program and may not contain all information available regarding this patient. Last updated 18.[employer] Allergies No known active allergies Medications * [...] Comments Blood Pressure 112/78 03/02/2014 9:19 AM CNC SET UP OPERATOR Pulse 88 02/13/2014 12:00 AM CDT Temperature 36.4 C (97.6 F) 06/17/2013 3:36 PM CNC SET UP OPERATOR Respiratory Rate 22 06/17/2013 3:36 PM CNC SET UP OPERATOR Oxygen Saturation - - Inhaled Oxygen Concentration - - Weight 52.4 kg (115 lb 9.6 oz) 05/12/2014 9:34 A M CNC SET UP OPERATOR Height 159 cm (5' 2.6 ) 05/12/2014 9:34 AM CNC SET UP OPERATOR Body Mass Index 20.74 05/12/2014 9:34 AM CNC SET UP OPERATOR Plan of Treatment Health Maintenance Due Date Last Done Comments PAP SMEAR 1997 HIV SCREENING 2012 HEPATITIS C SCREENING 04/22/2015 DTAP/TDAP/TD VACCINES (1 - Tdap) 2016 HEPATITIS B VACCINE (1 of 3 - 19+ 3-dose series) 2016 COVID-19 VACCINE ( - 2023-2 5 season) 2023 INFLUENZA VACCINE [...] age to complete this topic Care Teams Psychology Physician Relationship Specialty Start Date End Date Selena Huerta MD [address] [place] [address] [place] [address] PCP - General Family Medicine 06/17/13
--- NOTE | 2024-06-09 17:28 | PC.NURSE ---
pt has complaints of ctx 7-8 min apart prior to arrival. Pt also states that she is feeling pressure and has been pt. Pt states that the pressure feels worse when she is up walking around but feels the need to be up walking around.
[2024-06-09 17:31] VITALS: BP 111/58; PULSE 96
[2024-06-09 17:45] VITALS: BP 106/62; PULSE 91
--- NOTE | 2024-06-09 17:57 | PC.NURSE ---
Dr. Murphy called with [facility]. Discharge order obtained.
== END 2024-06-09 18:05 | disposition home or self-care (01) ==
LOC: ANHLDR 06-10 07:11
PROVIDERS: Admitting Provider Obstetrics & Gynecology; Visit Provider Obstetrics & Gynecology
DX: O47.03 False labor before 37 completed weeks of gestation, third trimester (principal); Z3A.29 29 weeks gestation of pregnancy
CPT/HCPCS: G0378; G0379

== ENCOUNTER 2024-07-24 10:13 | Outpatient (CLI) | payer OTHER, SELFPAY ==
--- OUTSIDE RECORDS SUMMARY | 2024-07-24 10:51 | XMS_ITS | CONTINUITY OF CARE DOCUMENT ---
Author Name ashley ramirez Address Unknown Organization [facility] Address [address] [facility] [address] [place] [address] Phone [phone] Care Team Providers Care Ship'S Carpenter Name Role Phone Hunter MATHEW, Alistair Alba Unavailable [phone] JAZMIN CONTEH MD Unavailable JAZMIN CONTEH MD Unavailable [phone] PROBLEMS Condition Status Date Provider Notes Cardiology examination completed 9 - Jacky Ahsivakumarzaanders Asthma active Alistair Harrison MD (Hist ory of) Palpitations active Alistair Harrison MD Tobacco abuse active Alistair Harrison MD Mitral regurgitation, mild active Jacky Luong Sinus tachycardia active Jacky Ahangy Syncope active Jacky Milleri ENCOUNTERS Date Type Provider Location Encounter Diag nosis - In-person encounter Office Visit Camila Amaya MD [facility] Cardiology examinationMitral regurgitation, mildSinus tachycardiaSyncope - In-person encounter Office Visit Alistair Harrison MD [facility] AsthmaPalpitationsTobacco abuse VITAL SIGNS Date Observation [...] [lb_av] Feliberto y height E&M 61 [in_i] Felbierto y Body Mass Index (Ratio) 26.07 kg/m2 Asim as [place] blood pressure, diastolic 75 mm[Hg] Li [employer] [...] Payer name Policy type / Coverage type Slaughter red democrat [place] MEDICAID (2) Medicaid [id number] ADVANCE DIRECTIVES Name Date DISCUSSED - NO [...]
--- OUTSIDE RECORDS SUMMARY | 2024-07-24 10:51 | XMS_ITS | Clinical Summary ---
Author Organization [facility] [employer] Address [address] [place] [address] Care Team Providers Care Sheep Herder Name Role Phone Selena Huerta MD Primary Care Provider [phone] Source Comments [facility] [employer],non-owned Affiliates and Associated Physician Practices is amultiple site organization consisting of ambulatory clinics and hospital sitesin [place], [place], [place] and [place]. This disclosure is being madepursuant to the Care Everywhere program and may not contain all information available regarding this patient. Last updated 18.[employer] Allergies No known active allergies Medications * [...] Comments Blood Pressure 112/78 03/02/2014 9:19 AM MASTER YACHT Pulse 88 02/13/2014 12:00 AM CDT Temperature 36.4 C (97.6 F) 06/17/2013 3:36 PM MASTER YACHT Respiratory Rate 22 06/17/2013 3:36 PM MASTER YACHT Oxygen Saturation - - Inhaled Oxygen Concentration - - Weight 52.4 kg (115 lb 9.6 oz) 05/12/2014 9:34 A M MASTER YACHT Height 159 cm (5' 2.6 ) 05/12/2014 9:34 AM MASTER YACHT Body Mass Index 20.74 05/12/2014 9:34 AM MASTER YACHT Plan of Treatment Health Maintenance Due Date [...] to complete this topic MENINGOCOCCAL (Group B) VACC INE SHARED DECISION-MAKING Aged Out No longer eligibl e based on patient's age to complete this topic MENINGOCOCCAL GROUPS A/C/Y/W VACCINE Aged Out No longer eligible b ased on patient's age to complete this topic PNEUMOCOCCAL VACCINE Aged Out No long er eligible based on patient's age to complete this topic Care Teams Sheep Herder Relationship Specialty Start Date End Date Selena Huerta MD [address] [place] [address] [place] [address] PCP - General Family Medicine 06/17/13
--- OUTSIDE RECORDS SUMMARY | 2024-07-24 10:52 | XMS_ITS | Clinical Summary ---
Author Organization [facility] Address [address] [place] [address] Care Team Providers Care Shale Miner Name Role Phone Selena Huerta MD Primary Care Provider [phone] Allergies No known active allergies Medications acetaminophen [...] on file Legal Sex Female 11:21 PM SPORTS INSTRUCTOR Gender Identity Not on file Sexual Orientation [...] 1997 COVID-19 Vaccine (2023-2 5 season) 2023 Cervical Cancer Screening Pa p Smear (Age [...] patient's age to complete this topic Insurance Care Teams Shale Miner Relationship Specialty Start Date End Date Selena Huerta MD [address] [place] [address] [place] [address] PCP - General FAMILY PRACTICE 12/27/18
--- OUTSIDE RECORDS SUMMARY | 2024-07-24 10:52 | XMS_ITS | Data Portability ---
Author Organization [place] - [facility] [employer], Main Office Address [address] [place] [address] Assessment No assessment recorded. Plan of Treatment [...] unit/g-0. 1 % topical cream 2023 024 [email or web address] [facility] [place], [address], 11/19/2023 17:27:54 escitalop fei 5 mg tablet 2022 023 [email or web address] 77 [facility], [address] [place], [address], 11/19/2023 11:25:44 Patient TargetsNo targets recorded. Patient InstructionsNo instructions recorded. Reason for Referral None Reported. Results Created Date Observation Date Name Description Value Unit Range Abnormal Flag Note LastModifiedBy Organization Detail LastModifiedTime 10/16/19 22 10/19/2021 RPR SCREE N RPR non-re active nonrea ctive Not Available [facility] (Lab) [address] [place], [address], 10/19/2021 09:25:53 10/16/19 22 10/16/2021 HIV COMBO : HIV 1/2 AB,P2 4 AG HIV combo assay non-re active nonrea ctive The HIV combo test scree ns for HIV-1 , HIV-2 , HIV p24 Ag, and HIV group O. Any react heath scree n resul t will be sent for PCR confi rmato ry testi ng. Not Available [facility] (Lab) [facility] [facility] [address], [place], [address], 10/16/2021 22:21:39 10/16/19 22 10/16/2021 HIV COMBO : HIV 1/2 AB,P2 4 AG S/C 0.13 0.00-0 .99 Not Available [facility] (Lab) [address] [facility] [address], [place], [address], 10/16/2021 22:21:39 10/16/19 22 10/16/2021 TRICH OMONA S VAGIN EDITA DNA, PCR trichomonas vaginalis DNA not detect ed Not Available [facility] (Lab) [address] [place], [address], 10/16/2021 01:00:36 10/16/19 22 10/15/2021 CT/NG (CHLA MYDIA /NEIS SERIA ) DNA chlamydia trachomatis DNA not detect ed Not Available [facility] (Lab) [address] [place], [address], 10/16/2021 00:59:52 10/16/19 22 10/15/2021 CT/NG (CHLA MYDIA /NEIS SERIA ) DNA neisseria gonorrhea DNA not detect ed Not Available [facility] (Lab) [address] [place], [address], 10/16/2021 00:59:52 10/16/19 22 10/15/2021 HEPAT ITIS C/HCV ANTIB CLIFF hepatitis C antibody non-re active non-re active Not Available [facility] (Lab) [address] [place], [address], 10/15/2021 21:22:35 10/16/19 22 10/15/2021 HEPAT ITIS C/HCV ANTIB CLIFF S/C 0.01 0.00-0 .99 Not Available [facility] ([facility]) [address] [place], [address], 10/15/2021 21:22:35 01/15/20 22 01/14/2022 US, obste tric No observ ation record ed. [id number], [address], 06/25/2022 08:49:43 01/27/20 22 01/26/2022 US, obste tric No observ ation record ed. [id number] [address], [place], [address], 06/25/2022 08:49:43 03/01/20 22 03/01/2022 US, obste tric No observ ation record ed. [id number] [facility], [place], [address], 06/25/2022 08:49:43 05/31/19 24 05/31/2023 XR, chest No observ ation record ed. [address] [address], [place], [address], 06/04/2023 15:05:58 06/04/19 24 06/03/2023 US, moises tdanay eral No observ ation record ed. [email or web address] [address], [address], 06/04/2023 15:06:22 06/15/19 24 06/15/2023 imagi ng/di agnos chanda resul t No observ ation record ed. [facility] [address], [place], [address], 06/26/2023 14:11:52 06/18/19 24 06/17/2023 , echoc ardio gram No observ ation record ed. [email or web address] [facility] [address], [place], [address], 06/26/2023 14:10:46 06/29/19 24 06/20/2023 home sleep study No observ ation record ed. [email or web address] [facility] [address], [place], [address], 09/06/2023 13:47:04 10/06/19 24 10/06/2023 imagi ng inter preta tion No observ ation record ed. [email or web address] [facility] [address], [place], [address], 10/14/2023 17:43:06 Result Notes None recorded. Problems Name Problem SNOMED Code Status Onset Date Resolution Date Notes Provider Name and Address Organization Details Recorded Time Irritable bowel syndrome 24115907 Active 2016 Not Available [employer] 3 08:46:13 Tobacco user 355972985 Active Not Available [employer] 3 08:46:13 Pain in throat 551868001 Active Not Available [employer] 3 08:46:13 Abdominal pain 33254344 Active Not Available [employer] 3 08:46:13 Headache 40200912 Active Not Available [facility] 3 08:46:13 Abnormal weight loss 075719665 Active Not Available [employer] 3 08:46:13 Insect bite - wound 394670446 Active Not Available [employer] 3 08:46:13 Low back pain 624360058 Active Not Available [facility] 3 08:46:13 Proteinuria 14990745 Active Not Available [facility] 3 08:46:14 Pain in pelvis 14563677 Active Not Available [facility] 3 08:46:14 Vaginitis 97941354 Active Not Available [facility] 3 08:46:14 Vaginal ulcer 32281470 Active Not Available [facility] 3 08:46:14 Exercise-héctor isidoro asthma 39192524 Active Not Available [facility] 3 08:46:14 Iron deficiency 44468428 Active Not Available [facility] 3 08:46:14 Depressive disorder 48905670 Active Not Available [facility] 3 08:46:14 Fever 403752791 Active Not Available [facility] 3 08:46:14 Sensory disturbance in limb 532481151 Active Not Available [facility] 3 08:46:14 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 Not Available [facility] 3 08:46:14 Anxiety 57002935 Active Not Available [facility] 3 08:46:14 Dysuria 47852389 Active Not Available [facility] 3 08:46:14 Otitis media 57763803 Active Not Available [facility] 3 08:46:14 Urinary tract infectious disease 11817251 Active Not Available [facility] 3 08:46:14 Disturbance of attention 90115875 Active Not Available [facility] 3 08:46:15 Fatigue 60459293 Active Not Available [facility] 3 08:46:15 Conjunctiviti s 2064353 Active Not Available [facility] 3 08:46:15 Mixed anxiety and depressive disorder 763274908 Active 2022 MARY Iniguez [address], [address] [address], [place], [address] , [facility] [employer] [facility] [employer] 3 13:56:27 Palpitations 94922822 Active 2023 Selena Huerta MD [address], [address], [place], [address] , [employer] [facility] [employer] [facility] 4 18:11:52 Tinea corporis 16806597 Active 2023 LEYDA Page [address], [address], [place], [address] , [facility] [employer] [facility] [employer] [facility] 4 11:36:16 Eczema 64199122 Active 2023 LEYDA Page [address], [address], [place], [address] , [place] [facility] 15:03:27 Problem Notes None recorded. Procedures Surgical History None recorded. Imaging Results Imaging Date Name Status LastModified by Organization Details LastModified Time 01/14/2022 US, obstetric completed [id number], [address], 06/25/2022 08:49:43 03/01/2022 US, obstetric completed [id number] [facility], [place], [address], 06/25/2022 08:49:43 01/26/2022 US, obstetric completed [id number], [address], 06/25/2022 08:49:43 05/31/2023 XR, chest completed [address], [address], 06/04/2023 15:05:58 06/03/2023 US, breast, bilateral completed [address], [address], 06/04/2023 15:06:22 06/15/2023 imaging/diagnostic result completed [facility] [address], [place], [address], 06/26/2023 14:11:52 06/17/2023 US, echocardiogram completed llalor [facility] [address], [place], [address], 06/26/2023 14:10:46 06/20/2023 home sleep study completed [email or web address] [facility] [address], [place], [address], 09/06/2023 13:47:04 10/06/2023 imaging interpretation completed [address], [place], [address], 10/14/2023 17:43:06 Procedure Notes None recorded. Medical Equipment None Reported. Allergies Allergen ID Allergen Name Allergen Category Reaction Reaction Severity Criticality Documentation Date Start Date Code Code System Note Provider Name and Address Organization Details Recorded Time bupropion Not available Not available Not available Not available 06/25/2022 96653 RxNorm rash [facility] Available [facility] 08:[facility]34 Medications Name Sig Start Date [...] Available Tri-Sprinte c (28) 0.18 mg(7)/0.215 mg(7)/0.25 mg(7)-0.035 mg tablet Take 1 tablet every day [...] and Address Organization Details Last Updated DateTime 2 98 % 98 % 78 /min 96.4 [degF] 43511.2 7 g 122 mm[Hg] 68 mm[Hg] Not Available [employer] 3 08:43:34 Date Recorded Body height Body mass index (BMI) Body weight Body temperature Heart rate Oxygen saturation Oxygen saturation in Arterial blood by Pulse oximetry Systolic blood pressure Diastolic blood pressure Provider Name and Address Organization Details Last Updated DateTime 3 154.94 cm 23.2 kg/m2 63680.8 6 g 98.2 [degF] 83 /min 97 % 97 % 116 mm[Hg] 80 mm[Hg] Sadie Frazier MA [employer] 3 14:41:54 Date Recorded Body weight Body temperature Heart rate Oxygen saturation Oxygen saturation in Arterial blood by Pulse oximetry Systolic blood pressure Diastolic blood pressure Provider Name and Address Organization Details Last Updated DateTime 4 69649.3 4 g 97.7 [degF] 105 /min 98 % 98 % 118 mm[Hg] 70 mm[Hg] Arnaud Sandoval RN [employer] 4 11:24:49 Social History Question Answer Notes LastModified by Organizat ion Details LastModified Time Tobacco Smoking Status Former Smoker Sadie Frazier MA [facility], [employer] 06/27/2022 14:42:55 What Is Your Level Of Alcohol Consumption? Occasional Information not available 06/27/2022 What Is Your Level Of Caffeine Consumption? Moderate [email or web address] Information not available 06/27/2022 In The 14 Days Before Symptom Onset, Have You Had Close Contact With A Laboratory-confir med COVID-19 While That Case Was Ill? No [id number] Information not available 06/25/2022 In The 14 Days Before Symptom Onset, Have You Had Close Contact With A Person Who Is Under Investigation For COVID-19 While That Person Was Ill? No [id number] Information not available 06/25/2022 What Type Of Diet Are You Following? REGULAR [id number] Information not available 06/25/2022 Have You Ever Been Counseled For Unhealthy Alcohol Use? No Information not available 06/27/2022 Do You Use Any Illicit Or Recreational Drugs? No [email or web address] Information not available 06/27/2022 Has Tobacco Cessation Counseling Been Provided? No [email or web address] Information not available 06/27/2022 Do You Have Any Dietary Restrictions? No [id number] Information not available 06/25/2022 Sex: Unknown Functional Status Question Answer Note LastModified by Organizat ion Details LastModified Time What is your exercise level? Moderate [id number] Information not available 06/25/2022 Mental Status [...] SNOMED-CT Code Diagnosis ICD10 Code Diagnosis Note [id number] [facility] [address] [place] [address] 10/15/2021 00:00:00 10/16/2021 10:00:51 [id number] [facility] Primary [facility] [address] [place] [address] 12/18/2021 00:00:00 12/18/2021 09:18:58 [id number] GINA Miller [facility] Primary [facility] [address] [place] [address] 06/27/2022 14:34:02 06/27/2022 15:06:16 Anxiety 50138690 F41.9 Increasing recently. States it has been [...] trial of lexapro.F/ u in 3-4 weeks. [id number] Jessica Jennings, MARY-Jo Ann [facility] [address] [facility] [address] [place] [address] 11/19/2023 11:16:28 11/19/2023 11:36:42 Tinea corporis 95831695 B35.4 rash on abdomen and armpits for one monthrash is itchy Adult heal th examination 490218571 Z00.00 Patient is doing well overall and has no complaints Discussed with patient yearly eye and dental examsPatie nt refuses bloodwork and vaccines Anxiety 79934449 F41.9 OPAL-7 ()Pat ient stopped taking all medication s and does not wish to start medication sDenies SI/HI Depressive disorder 3548 9007 F32.A OPAL-7 ()Pat ient stopped taking all medication s and does not wish to start medication sDenies SI/HI [id number] Debby Bustillo [facility] [address] [address] 01/21/2024 14:16:24 01/21/2024 16:03:10 [id number] Debby Bustillo [facility] [address] [address] 02/25/2024 14:18:38 02/25/2024 14:54:18 [id number] Debby Bsutillo [facility] [address] [address] 03/23/2024 15:21:11 03/23/2024 15:57:39 [id number] Debby Bustillo [facility] [address] [address] 04/13/2024 17:11:15 04/13/2024 19:31:47 [id number] Debby Bustillo [facility] [address] [place] [address] [address] 05/25/2024 17:23:56 05/25/2024 17:56:16 Health Concerns Section Related Observation LastModified by Organization Detai ls LastModified Time None Recorded Concern Status LastModified by Organization Details LastModified Time None Recorded Advance Directives Directive None Recorded Payers Encounter Date Sequence Insurance Name Policy Number Policy Dvais Covered Member ID Davis Member ID Guarantor Name 06/27/2022 1 [facility] - DOS ON OR AFTER 20 (MEDICAID REPLACEMENT - HMO) Michelle Marrero [id number] Michelle Marrero 11/19/2023 1 [facility] - DOS ON OR AFTER 20 (MEDICAID REPLACEMENT - HMO) Michelle Marrero [id number] Michelle Marrero Notes Date Note Type Note [...] is depressed, more overwhelmed/anxious. GINA Miller [address], [facility] [address], [place], [address], [facility] [employer] [facility] 06/27/2022 15:22:06 11/19/2023 text/html Patient [...] that. Patient denies any recent contact with teran/[place]. no labsWWE-sees GYNflu-declinescovid -declinestdap-UTD 2021 LEYDA Page [address], [address], [place], [address], [place] [facility] 11/19/2023 11:47:13 OBGyn Episode No OBEpisode recorded.
--- OUTSIDE RECORDS SUMMARY | 2024-07-24 10:52 | XMS_ITS | Data Portability ---
Author Organization [facility] Address [address] [place] [place] [address] Assessment Encounter Date Assessment Date Assessment LastModified by Organization Details LastModified Time 07/01/2024 07/01/2024 Patient is ___weeks . Discussed plan. [email or web address] Not available 07/01/2024 14:45:30 Plan of Treatment Reminders Order Date Submit Date Provider Last Modified By Organization Details Last Modified Time Details Appointments OB ROUTINE 2024 01:00P Edgardo MORALES MD Not available Not available Not available OB ROUTINE 2024 08:45A Edgardo MORALES MD Not available Not available Not available OB ROUTINE 2024 11:00A Edgardo MORALES MD Not available Not available Not available INDUCTION 2024 12:01A Edgardo MORALES MD Not available Not available Not available Lab None recorded. Referral None recorded. Procedures None recorded. Surgeries None recorded. Imaging US, obstetric , follow-up 2024 025 [email or web address] [place] [facility] [address], [place], [address], 07/01/2024 17:52:58 Medication Orders ondansetr on 8 mg disintegr ating tablet [address] [facility], [address] [facility], [place], [address], 07/15/2024 10:36:09 Patient TargetsNo targets recorded. Patient InstructionsNo instructions recorded. Reason for Referral None Reported. Results Created Date Observation Date Name Description Value Unit Range Abnormal Flag Note LastModifiedBy Organization Detail LastModifiedTime 05/09/19 25 05/09/2024 US, obste tric, follo w-up No observ ation record ed. [facility] [address], [place], [address], 05/09/2024 18:03:26 05/09/19 25 05/09/2024 US, obste tric, follo w-up No observ ation record ed. [facility] [address], [place], [address], 05/10/2024 09:40:52 07/02/19 25 07/01/2024 US, obste tric, follo w-up No observ ation record ed. [facility] [address], [place], [address], 07/01/2024 17:36:23 07/02/19 25 07/01/2024 US, obste tric, follo w-up No observ ation record ed. [email or web address] [address] [address], [place], [address], 07/04/2024 23:22:37 Result Notes None recorded. Problems Name Problem SNOMED Code Status Onset Date Resolution Date Notes Provider Name and Address Organization Details Recorded Time Pregnanc y 53389009 Completed 202001/10/2021 Linda zuniga [facility] 4 14:54:08 Asthma 473914596 Completed 2020 albutero l prn Kathy zuniga [facility] 1 15:54:45 Mixed anxiety and depressi ve disorder 621168514 Completed 2020 stable off meds for years Kathy zuniga [facility] 1 15:54:45 Atypical squamous cells of undeterm ined signific ance on cervical Papanico laou smear 322692283 Completed 2020 HPV pos. repeat pap post Kathy Olveragayesofía kaur [facility] 1 15:54:45 Maternal tobacco use in pregnanc y 6903947729 Completed 2020 quit Kathy Olveragayesofía kaur [facility] 15:54:45 Asthma 940025091 Completed 202009/26/2020 albutero natasha prn Zohra Gill [facility] 18:16:31 Mixed anxiety and depressi ve disorder 328927989 Completed 202009/26/2020 stable off meds for years Zohra Gill [facility] 1 18:16:45 Maternal tobacco use in pregnanc y 7369886497 83390 Completed 202009/26/2020 trying to quit Zohra Gill [facility] 18:16:34 Atypical squamous cells of undeterm ined signific ance on cervical Papanico laou smear 681939703 Completed 202009/26/2020 HPV pos. repeat pap post Zohra Gill [facility] 1 18:16:29 Rubella non-immu ne 005487965 Completed MMR PP Kathy Olveragayesofía kaur [facility] 1 15:54:45 Chlamydi al infectio n 705164615 Completed [address] Huerta office tx pt Rocephin & Zpack / has f/u appt - DARIN 8/2 negative Kathy Koromajimjohnathanliseth kaur [facility] 1 15:54:45 Low lying placenta 249906105 Completed 202010/05/2020 resolved 10/05/20 Kathy Shantelle zuniga, [facility] 1 15:54:45 Group B Streptoc occus carrier 3767833895 103 Completed 2020 Kathy Shantelle zuniga, [facility] 1 15:54:45 Cervical intraepi thelial neoplasi a grade 2 628768513 Active 2022 Maria Dolores rWight MD [address], [place], [address], , P.C. 3 09:52:39 History of loop electros urgical excision procedur e 6025901779 9102 Active 2022 Maria Dolores Wright MD [address], [place], [address], , P.C. 3 09:52:41 Pregnanc y 23350712 Active 2023 Linda zuniga, [facility] 4 14:54:08 Bipolar disorder 02826610 Active latuda, mood stable, meeting with fer toussaint in July prior to delivery URIAH MORALES MD [address], [place], [address], , P[facility] 5 15:00:52 Problem Notes None recorded. Procedures Surgical History Date Name Laterality Status Provider Name and Address Organization Details Recorded Time 08/03/19 24 SIS completed URIAH MORALES MD [address], [place], [address], , [facility] 08/03/2023 14:15:49 07/06/19 24 Colposcopy completed URIAH MORALES MD [address], [place], [address], , P[facility] 07/06/2023 22:19:43 10/17/20 23 Date of Last Pap Smear completed Zohra Gill [facility] 02/10/2023 14:57:55 10/14/19 23 LEEP completed Maria Dolores Wright MD [address], [place], [address], , P[facility] 10/13/2022 10:35:40 10/14/19 23 LEEP completed Leanna Ware [facility] 10/13/2022 15:07:02 09/16/19 23 Colposcopy completed Maria Dolores Wright MD [address], [place], [address], , P[facility] 09/16/2022 09:59:59 09/16/19 23 Colposcopy completed Zohra Gill [facility] 02/10/2023 10:52:12 09/16/19 23 Colposcopy completed Zohra Gill [facility] 02/10/2023 10:53:53 03/19/20 Colposcopy completed Maria Dolores Wright MD [address], [place], [address], , P[facility] 03/19/2022 16:57:57 03/09/20 22 Colposcopy completed Zohra Gill [facility] 02/10/2023 15:06:08 04/27/19 12 termination of completed Zohra Gill [facility] 01/23/2022 15:56:15 Imaging Results Imaging Date Name Status LastModified by Organiz ation Details LastModified Time 05/09/2024 US, obstetric, follow-up completed [email or web address] [place] [address], [place], [address], 05/09/2024 18:03:26 05/09/2024 US, obstetric, follow-up completed [email or web address] [address], [place], [address], 05/10/2024 09:40:52 07/01/2024 US, obstetric, follow-up completed [facility] [address], [place], [address], 07/01/2024 17:36:23 07/01/2024 US, obstetric, follow-up completed [email or web address] [address], [place], [address], 07/04/2024 23:22:37 Procedure Notes None recorded. Medical Equipment None [...] Updated DateTime 05/30/2024 154.94 cm 28.3 kg/m2 36232.86 g 107 mm[Hg] 69 mm[Hg] Linda [facility] 5 11:50:33 Date Recorded Body weight Systolic blood pressure Diastolic blood pressure Provider Name and Address Organization Details Last Updated DateTime 06/14/2024 37894.0402 4 g 117 mm[Hg] 80 mm[Hg] Rosemary Abdias [facility] 06/14/2024 13:03:02 Date Recorded Body height Body mass index (BMI) Body weight Systolic blood pressure Diastolic blood pressure Provider Name and Address Organization Details Last Updated DateTime 07/01/2024 154.94 cm 29.3 kg/m2 27421.82 g 129 mm[Hg] 72 mm[Hg] [facility] 5 14:46:05 Date Recorded Body height Body mass index (BMI) Body weight Systolic blood pressure Diastolic blood pressure Provider Name and Address Organization Details Last Updated DateTime 07/15/2024 154.94 cm 30 kg/m2 07937.19 g 112 mm[Hg] 74 mm[Hg] [facility] 5 10:07:35 Social History Question Answer Notes LastModified by Organizat ion Details LastModified Time Tobacco Smoking Status Current Every [facility] 05/[facility]2020 12:29:55 What Is Your Level Of Alcohol Consumption? None [email or web address] Information not available 02/15/2024 If You Are , What Was Your Level Of Alcohol Consumption Prior To ? Occasional [email or web address] Information not available 05/29/2020 Are You Blind Or Do You Have Difficulty Seeing? No [email or web address] Information not available 06/27/2020 What Is Your Level Of Caffeine Consumption? Occasional [email or web address] Information not available 06/27/2020 How Much Tobacco Do You Chew? None [email or web address] Information not available 02/15/2024 In The 14 Days Before Symptom Onset, Have You Had Close Contact With A Laboratory-confir med COVID-19 While That Case Was Ill? No [email or web address] Information not available 06/27/2020 In The 14 Days Before Symptom Onset, Have You Had Close Contact With A Person Who Is Under Investigation For COVID-19 While That Person Was Ill? No [email or web address] Information not available 06/27/2020 Have You Been To An Area Known To Be High Risk For COVID-19? No [email or web address] Information not available 06/27/2020 Are You Currently Employed? Yes [email or web address] Information not available 07/15/2024 Are You Deaf Or Do You Have Serious Difficulty Hearing? No [email or web address] Information not available 06/27/2020 What Type Of Diet Are You Following? REGULAR [email or web address] Information not available 06/27/2020 What Is The Highest Grade Or Level Of School You Have Completed Or The Highest Degree You Have Received? NH40286-3 [email or web address] Information not available 02/15/2024 What Is Your Occupation? [employer] [email or web address] Information not available 02/15/2024 Are There Any Guns Present In Your Home? Yes [email or web address] Information not available 02/15/2024 Have You Ever Been Counseled For Unhealthy Alcohol Use? No [email or web address] Information not available 05/29/2020 Do You Use Protection During Sex? No [email or web address] Information not available 02/15/2024 Do You Use Your Seat Belt Or Car Seat Routinely? Yes [email or web address] Information not available 06/27/2020 Are You Sexually Active? Yes Information not available 07/15/2024 Do You Have Smoke And Carbon Monoxide Detectors In Your Home? Yes [email or web address] Information not available 06/27/2020 How Much Tobacco Do You Smoke? No [email or web address] Information not available 02/15/2024 Do You Feel Stressed (tense, Restless, Nervous, Or Anxious, Or Unable To Sleep At Night)? [id number] [email or web address] Information not available 02/15/2024 Do You Use Any Illicit Or Recreational Drugs? No [email or web address] Information not available 05/29/2020 Do You Use Sunscreen Routinely? No [email or web address] Information not available 02/15/2024 Has Tobacco Cessation Counseling Been Provided? No [email or web address] Information not available 05/29/2020 Have You Used IV Drugs? No [email or web address] Information not available 02/15/2024 Do You Or Have You Ever Used Any Other Forms Of Tobacco Or Nicotine? No [email or web address] Information not available 05/29/2020 Sex: Unknown Functional Status Question Answer Note LastModified by Organizat ion Details LastModified Time Do you have difficulty walking or climbing stairs? No [email or web address] Information not available 01/23/2022 Are you able to walk? YESWOREST [email or web address] Information not available 06/27/2020 Are you able to care for yourself? Yes [email or web address] Information not available 01/23/2022 Do you have difficulty dressing or bathing? No Information not available 01/23/2022 What is your exercise level? Occasional [email or web address] Information not available 05/29/2020 Mental Status None recorded. Family History Relationship Description Onset Age of this Age Resolved Age Notes LastModified by Organization Details LastModified Time Mother Asthma [email or web address] Not available 12:37:20 Mother Heart disease [email or web address] Not available 2020 12:41:22 Mother Cyst of ovary [email or web address] Not available 2023 14:48:18 Father Hypertensive disorder [email or web address] Not available 2020 12:41:56 Paternal Grandmother Diabetes mellitus [email or web address] Not available 2020 12:46:04 Sister Diabetes mellitus [email or web address] Not available 2020 12:46:13 Sister Hypertensive disorder smcaley Not available 2020 12:46:43 Maternal Aunt Carcinoma in situ of breast [email or web address] Not available 2023 14:48:18 Medical History Condition Response Allergies (Food, seasonal, environmental ) N Other N Drug/Latex Allergies/Reactions N Blood Transfusion N Breast Cancer N Dermatologic Disorders N Lung Disease N Defects or Inherited Disease N Breast Problem N Gestational Diabetes N Hematologic disorders N Anesthesia Complications N History of STI Y Deep Vein Thrombosis N Polycystic ovary syndrome N Anxiety Disorder Y Autoimmune disease N Arthritis N Polyps N Infertility N Acid Reflux (GERD) N History of abnormal pap Y Cancer N Varicosities N Stroke N Neurologic/Epilepsy N Endometriosis N High Cholesterol N Fibromyalgia N Headaches N Kidney Disease N Heart Problems N Thyroid Problems N Kidney or Bladder Problems N GI Problems N Eating Disorder [...] Abnormal Pap Y Date of Last Mammogram Flow Moderate Date of LMP 11/15/2023 Was last menstrual period normal Y STIs/STDs Y Colposcopy 09/15/2022 Current Control Method Are cycles usually normal Y Sexually Active? Y None Date of DEXA bone scan Age of first menstrual cycle 15 Date of Last Pap Smear 02/10/2023 Sexual Problems? N Desired Control Method None LMP Definite 05/02/2020 Obstetrics History GPAL:G 3 P 1 0 1 1 Type Value Full Term 1 Induced 1 Living 1 Total 3 Past Encounters Encounter ID Performer Location Encounter Start Date Encounter Closed Date Diagnosis/Indication Diagnosis SNOMED-CT Code Diagnosis ICD10 Code Diagnosis Note [id number] Ann Hunt [place] [address],[facility] [place] [address] 05/02/2020 12:19:20 05/02/2020 17:29:12 screening 027560736 Z36.87 [id number] Maria Dolores Wright MD [place] [address],[facility] [place] [address] 05/02/2020 12:19:20 05/02/2020 17:29:12 Urine test positive 498806322 Z32.01 test positive 914181706 Z32.01 Maternal t obacco use in 2420926628 05099 O99.331 with uncertain dates 642585146 Z34.01 Venereal d isease screening 365072592 Z11.3 Screening for malignant neoplasm of cervix 093668349 Z12.4 [id number] Maria Dolores Wright MD [place] [address],[facility] [place] [address] 05/29/2020 12:08:03 05/29/2020 14:50:02 Routine care 507035802 Z34.90 Atypical s quamous cells of undetermined significance on cervical Papanicolaou smear 262561553 R87.610 Maternal t obacco use in 7518132552 43908 O99.331 Mixed anxi ety and depressive disorder 412803059 F41.8 Asthma 435615945 J45.90 9 [id number] Heather Ansari [facility] [address],[place] [address] 06/27/2020 16:25:00 06/27/2020 17:45:45 Routine care 781652971 Z34.92 [id number] [facility] [address],[place] [address] 06/27/2020 16:24:45 06/28/2020 08:36:17 [id number] Lukas Aaron [place] [address],[place] [address] 07/10/2020 15:40:31 07/11/2020 08:46:41 [id number] [facility] [address],[place] [address] 08/02/2020 14:48:23 08/02/2020 16:38:04 Routine care 662982978 Z34.92 [id number] [facility] [address],[place] [address] 08/02/2020 14:47:58 08/02/2020 15:43:34 screening 498249034 Z36.3 [id number] [facility] [address],[place] [address] 08/07/2020 14:38:22 08/07/2020 23:42:21 Vaginitis 44104161 N76.0 Discussed use of mild soap like dove or ivory, cotton underwear w/out dye, hypoallerg enic detergent, wipe from front to back, avoid tub baths, keep perineum clean and dry, d/c use of baby wipes. Encouraged daily intake of yogurt or womens health probiotic. Internal and external affirm collected. [id number] [facility] [address],[place] [address] 08/31/2020 14:06:19 08/31/2020 14:51:43 Low lying placenta 546961377 O44.40 Z3A.23 [id number] Maria Dolores Wright MD [place] [address],[place] [address] 08/31/2020 14:06:36 08/31/2020 15:29:24 Low lying placenta 294187245 O44.40 Z3A.23 Routine an tenatal care 722934176 Z34.90 [id number] Heather Ansari [facility] [address],[place] [address] 09/26/2020 17:21:59 09/26/2020 22:24:19 Urinary symptoms 198964531 R39.9 Pain in ro und ligament in 2762990610 4335110 O26.899 [id number] [facility] [address],[place] [address] 10/05/2020 12:30:40 10/05/2020 13:16:00 Low lying placenta 132097970 O44.40 Z3A.28 [id number] Maria Dolores Wright MD [place] [address],[place] [address] 10/05/2020 15:56:25 10/05/2020 16:49:08 Routine care 377179708 Z34.90 [id number] Maria Dolores Wright MD [place] [address],[place] [address] 10/19/2020 14:57:33 10/19/2020 16:26:16 Routine care 555249344 Z34.90 [id number] Jose Guadalupe Murphy MD [place] [address],[place] [address] 11/01/2020 15:48:57 11/01/2020 16:27:57 Routine care 453840037 Z34.83 Uterine si ze for dates discrepancy 757334523 O26.849 [id number] [facility] [address],[place] [address] 11/05/2020 10:18:46 11/05/2020 10:52:03 Uterine size for dates discrepancy 801403865 O26.843 Z3A.32 [id number] Maria Dolores Wright MD [place] [address],[place] [address] 11/12/2020 11:21:38 11/12/2020 14:41:13 Routine care 505974342 Z34.90 [id number] Maria Dolores Wright MD [place] [address],[place] [address] 11/26/2020 15:34:13 11/27/2020 15:21:02 Routine care 217847291 Z34.90 Uterine si ze for dates discrepancy 464338692 O26.843 Z3A.32 [id number] [facility] [address],[place] [address] 12/03/2020 11:55:14 12/03/2020 12:37:07 Uterine size for dates discrepancy 808187058 O26.843 Z3A.36 [id number] Maria Dolores Wright MD [place] [address],[place] [address] 12/03/2020 11:55:41 12/03/2020 12:51:12 Routine care 631314759 Z34.[address] reptococcus carrier 7484701259 103 Z22.330 [id number] Maria Dolores Wright MD [place] [address],[place] [address] 12/10/2020 11:53:19 12/10/2020 12:12:37 Routine care 259070810 Z34.90 [id number] Maria Dolores Wright MD [place] [address],[place] [address] 12/17/2020 11:53:27 12/17/2020 12:49:15 Routine care 746268569 Z34.[address] reptococcus carrier 9218834196 103 Z22.330 [id number] Maria Dolores Wright MD [place] [address],[place] [address] 12/24/2020 11:49:31 12/24/2020 13:18:33 Group B Streptococcus carrier 5524101241 103 Z22.330 Routine an tenatal care 315747100 Z34.90 [id number] Maria Dolores Wright MD [place] [address],[place] [address] 01/22/2021 12:36:44 01/22/2021 13:13:29 care 712532115 Z39.2 Contracept ion care management 718723160 Z30.9 [id number] Clara Molina [place] [address],[place] [address] 01/23/2022 15:16:53 01/23/2022 15:44:58 [id number] Madalyn Oliveramandiebarber [place] [address],[place] [address] 01/23/2022 15:17:58 01/24/2022 16:59:29 test positive 620046074 Z32.01 Risk factors addressed: Tobacco Cessation, Safe [...] cf/sma/nip t. Handouts given and discussed with patient. ildbirth classes recommende d.New OB sheet given.If previous , counseling .Pt verbalizes that she understand s the importance of above instructio ns.All questions were answered.P atient reminded to have annual well woman examinatio n and address preventati ve healthcare . [id number] Ann Hunt [place] [address],[place] [address] 01/28/2022 11:06:10 01/28/2022 12:36:22 Threatened miscarriage 44197288 O20.0 Z3A.08 [id number] MD Papa [facility] [address],[place] [address] 03/19/2022 15:12:30 03/22/2022 20:53:03 [id number] MD Papa Black [address],[place] [address] 03/19/2022 16:23:32 03/19/2022 17:09:38 Screening procedure 75464293 Z13.9 Atypical s quamous cells on cervical Papanicolaou smear cannot exclude high grade squamous intraepithelial lesion 934537928 R87.611 [id number] Maria Dolores Wright MD [place] [address],[place] [address] 08/18/2022 17:10:03 08/18/2022 18:10:15 Atypical squamous cells on cervical Papanicolaou smear cannot exclude high grade squamous intraepithelial lesion 982371568 R87.611 [id number] Maria Dolores Wright MD [place] [address],[place] [address] 09/15/2022 14:51:50 09/16/2022 11:17:09 Screening procedure 02625061 Z13.9 High grade squamous intraepithelial lesion on cervical Papanicolaou smear 7143349738 9107 R87.613 [id number] MD Massiel [place] [address],[place] [address] 10/06/2022 16:22:48 10/07/2022 09:50:54 Cervical intraepithelial neoplasia grade 2 163403930 N87.1 Preoperative state 69243 002 Z78.9 [id number] MD Papa Black [address],[place] [address] 10/13/2022 09:11:00 10/14/2022 10:44:06 Cervical intraepithelial neoplasia grade 2 485504673 N87.1 [id number] MD Papa Black [address],[place] [address] 11/10/2022 17:08:02 11/11/2022 11:12:24 Cervical intraepithelial neoplasia grade 2 604335880 N87.1 History of loop electrosurgical excision procedure 0206871814 9102 Z98.890 [id number] Morelia Godinez ROSALIND [place] [address],[place] [address] 02/10/2023 14:40:21 02/10/2023 15:21:43 History of loop electrosurgical excision procedure 0231514758 9102 Z98.890 repeat pap updated todaysafe sexual practices discussed and encouraged will update pt with results when available and notify pt of follow-up instructio ns Time spent in visit is a total of 25 mins with at least 50% of visit consisting of counseling and review of plan of care. History of abnormal cervical Papanicolaou smear 234047226 Z87.42 Screening for malignant neoplasm of cervix 916669866 Z12.4 [id number] Morelia Godinez ROSALIND [place] [address],[place] [address] 05/21/2023 17:01:24 05/22/2023 09:28:55 Breast tenderness 18074642 N64.4 we agreed to update bilateral breast u/s - order givenlabs ordereddis cussed recent pap result and encouraged to schedule colposcopy Time spent in visit is a total of 18 mins with at least 50% of visit consisting of counseling and review of plan of care. Discharge from nipple 54 895089 N64.52 History of abnormal cervical Papanicolaou smear 094837882 Z87.42 [id number] URIAH MORALES MD [place] [address],[place] [address] 07/06/2023 15:33:48 07/07/2023 07:39:52 Low grade squamous intraepithelial lesion on cervical Papanicolaou smear 9361248937 9105 R87.612 - colposcopy completed today, patient tolerated well- follow up on results as available [id number] URIAH MORALES MD [place] [address],[place] [address] 07/15/2023 16:49:14 07/16/2023 10:57:38 Infertile 0594337 N97.9 - Differenti al diagnosis of cause [...] treatment options Cervical intraepithelial neoplasia grade 2 783674638 N87.1 - 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, completely excised however SCARLET-1 extending to ectocervic al margins- Colposcopy 06/2023 with CIN2- given patient desires future pregnancie s, per ASCCP guidelines , ok for active surveillan ce while attempting - recommend LEEP if dysplasia worsens or when childbeari ng is completed History of chlamydial infection 447568818 Z86.19 [id number] [facility] [address],[place] [address] 08/03/2023 11:49:30 08/03/2023 13:34:08 Female infertility 2565063 N97.9 [id number] [facility] [address],[place] [address] 08/03/2023 11:49:47 08/03/2023 13:33:53 [id number] URIAH MORALES MD [place] [address],[place] [address] 08/03/2023 11:50:00 08/03/2023 14:22:29 Trying to conceive 518648786 Z31.9 Uterine leiomyoma 250822 05 D25.9 - SIS demonstrat es uterine fibroid impinging on uterine cavity; implicatio ns to fertility discussed with patient- recommend MARY HURLEY [facility] with myomectomy ; r/b/a discussed with patient- patient agrees to proceed with procedure- will try to schedule HSG with [facility] due to hx of chlamydial infection to r/o tubal factor History of chlamydial infection 167197950 Z86.19 [id number] URIAH MORALES MD [place] [address] [address] 10/27/2023 16:19:16 10/27/2023 17:08:41 Postoperative visit 261659933 Z48.89 - s/p hysterosco py, polypectom y and HSG on 10/05- benign pathology, HSG demonstrat es bilaterall y patent fallopian tubes- pain possibly 2/2 positionin g during surgery, patient reports it is improving Secondary infertility 29 8854964 N97.9 - workup unremarkab le aside from [...] to schedule visit to discuss ovulation induction [id number] Ann Hunt [place] [address] [address] 01/11/2024 14:23:24 01/11/2024 15:01:59 [id number] URIAH MORALES MD [place] [address],[place] [address] 01/18/2024 16:32:42 01/18/2024 17:11:32 Nausea and vomiting 52831247 R11.2 test positive 337028593 Z32.01 1. Exam today within normal limits.2. [...] given today. 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, completely excised however SCARLET-1 extending to ectocervic al margins- Colposcopy 06/2023 with CIN2- given patient desires future pregnancie s, per ASCCP guidelines , ok for active surveillan ce while attempting - recommend LEEP if dysplasia worsens or when childbeari ng is completed- will repeat pap at new OB visit Palpitations 09528192 R0 0.2 - previously on metoprolol , d/c'd with - workup including echo negative from cardiology - having more palpitatio ns during since d/c of metoprolol - ok to restart, discussed safety in [id number] Clarisa Clarkalie [place] [address],[place] [address] 02/15/2024 14:48:12 02/15/2024 15:22:34 screening 524167877 Z36.82 Z3A.13 [id number] URIAH MORALES MD [place] [address],[place] [address] 02/15/2024 14:48:37 02/15/2024 16:01:34 Routine care 381962196 Z34.91 Nausea and vomiting 1693 2000 R11.2 Cervical intraepithelial neoplasia grade 2 274679727 N87.1 - 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, completely excised however SCARLET-1 extending to ectocervic al margins- Colposcopy 06/2023 with CIN2- repeat pap obtained today Bipolar disorder 6089482 4 F31.9 - continue buspar and latuda [id number] URIAH MORALES MD [place] [address],[place] [address] 03/15/2024 11:25:37 03/15/2024 12:32:24 Nausea and vomiting 90109920 R11.2 Cervical intraepithelial neoplasia grade 2 330226691 N87.1 - 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, completely excised however SCARLET-1 extending to ectocervic al margins- Colposcopy 06/2023 with CIN2- repeat pap wnl 01/2024, repeat Bipolar disorder 8352022 4 F31.9 - continue buspar and latuda Gestation period, 17 weeks 14520836 Z3A.17 [id number] Ann Hunt [place] [address],[place] [address] 04/11/2024 15:53:44 04/11/2024 17:18:55 screening for malformation 041337959 Z36.3 Z3A.21 [id number] URIAH MORALES MD [place] [address],[place] [address] 04/11/2024 15:58:43 04/11/2024 17:33:03 Cervical intraepithelial neoplasia grade 2 075511861 N87.1 - 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, completely excised however SCARLET-1 extending to ectocervic al margins- Colposcopy 06/2023 with CIN2- repeat pap wnl 01/2024, repeat History of loop electrosurgical excision procedure 4578291291 9102 Z98.890 - CL wnl 04/11 Bipolar disorder 0499025 4 F31.9 - continue buspar and latuda Gestation period, 21 weeks 96344891 Z3A.21 - continue PNV [id number] [facility] [address],[place] [address] 05/09/2024 11:01:31 05/09/2024 11:46:03 screening 138192992 Z36.2 Z3A.25 [id number] URIAH MORALES MD [place] [address],[place] [address] 05/09/2024 11:04:07 05/09/2024 12:58:38 History of loop electrosurgical excision procedure 9397002565 9102 Z98.890 - CL wnl 04/11 Bipolar disorder 1826735 4 F31.9 - continue buspar and latuda Gestation period, 25 weeks 84095239 Z3A.25 - continue pNV [id number] URIAH MORALES MD [place] [address],[place] [address] 05/30/2024 11:38:25 05/30/2024 12:20:54 Bipolar disorder 65416736 F31.9 - continue buspar and latuda Gestation period, 28 weeks 01194202 Z3A.28 - continue PNV- travel precaution s discussed [id number] URIAH MORALES MD [place] [address],[place] [address] 06/14/2024 12:40:57 06/14/2024 13:28:51 Bipolar disorder 92540075 F31.9 - continue buspar and latuda Gestation period, 30 weeks 69525683 Z3A.30 - continue PNV [id number] Clarisa Sarah [place] [address],[place] [address] 07/01/2024 13:54:05 07/01/2024 14:41:21 Medical examination for suspected condition 006852769 Z03.74 Z3A.32 [id number] URIAH MORALES MD [place] [address],[facility] [address] 07/01/2024 13:54:53 07/01/2024 15:02:22 Bipolar disorder 98862080 F31.9 - continue latuda- meeting with psychiatri st prior to delivery- plan for 1 week PP mood check Gestation period, 32 weeks 7013665 Z3A.32 - continue PNV- discussed preadmissi on [id number] URIAH MORALES MD [place] [address],[place] [address] 07/15/2024 09:57:43 07/15/2024 10:37:41 Nausea and vomiting 77500504 R11.2 Bipolar disorder 1026096 4 F31.9 - continue latuda- meeting with psychiatri st prior to delivery- plan for 1 week PP mood check Gestation period, 34 weeks 71535692 Z3A.34 - continue PNV Health Concerns Section Related Observation LastModified by Organization Detai ls LastModified Time None Recorded Concern Status LastModified by Organization Details LastModified Time None Recorded Advance Directives Directive None Recorded Payers Encounter Date Sequence Insurance Name Policy Number Policy Davis Covered Member ID Davis Member ID Guarantor Name 05/30/2024 1 [facility] ON OR AFTER 10/25/20 (MEDICAID REPLACEMENT - HMO) Michelle Marrero [id number] Michelle Elida 06/14/2024 1 [facility] ON OR AFTER 10/25/20 (MEDICAID REPLACEMENT - HMO) Michelle Elida [id number] Michelle Elida 07/01/2024 1 [facility] ON OR AFTER 10/25/20 (MEDICAID REPLACEMENT - HMO) Michellera Marrero [id number] Michelle Elida 07/01/2024 1 [facility] ON OR AFTER 10/25/20 (MEDICAID REPLACEMENT - HMO) Michelle Marrero [id number] Michelle Marrero 07/15/2024 1 [facility] ON OR AFTER 10/25/20 (MEDICAID REPLACEMENT - HMO) Michelle Marrero [id number] Michelle Marrero OBGyn Episode Ob Episode Information Episode Created Date Number of Fetuses Patient Bloodtype Patient rh Status Prepregnancy Weight lbs Domestic Partner Domestic Partner Phone Father Name Tear Down Man Status 05/02/19 21 1 CLOSED Fetus Data [...] Domestic Partner Domestic Partner Phone Father Name Tear Down Man Status 05/29/19 21 1 O Negative 133 CLOSED Fetus Data First Name Last Name Admitted to NICU Weight (g) Sex Living Outcome Pediatric Complications Fetus ID Race Codes Race Delivery Type Jazmin 3260.19 25 F true Full Term Meconium 7632 Vaginal Delivery Problems Problem Notes [facility] pt Problem Name Start Date End Date Resolution Snomed Code Not e Group B Streptococcus carrier 12/03/2020 [id number] Rubella non-immune 193107401 M MR PP Low lying placenta 08/02/2020 10/05/2020 SELFRESOLVED 521796 007 resolved 10/05/20 Asthma 05/29/2020 921284740 albuterol prn Mixed anxiety and depressive disorder 05/29/2020 888329470 stable o ff meds for years Atypical squamous cells of undetermined significance on cervical Papanicolaou smear 05/29/2020 926802406 HPV pos. repeat pap post Maternal tobacco use in 05/29/2020 SELFRESOLVED [id number] quit Chlamydial infection TREATMENT 594870897 Dr [facility] office [place] pt Rocephin & [...] Date Ultra Sound Latest Days Gestation 0 [id number] 05/29/2020 12/26/19 21 0 Pre- Flowsheet Flowsheet Date 05/29/2020 Noguera Score Blood Edema Fundus Height Fundus Units Glucose Ketones Leukocytes Nitrite Labor Signs Protein Cervic Dilation Cervic Effacement Cervic Station neg none trace Type Weight in lbs Pre/Post Dialysis Refused Weight 131.756347223532 BP Diastolic BP Location Tested BP Systolic [...] weeks for first ob appointment1. Urine test akjkxvxeU59.01: Encounter for test, result positivePREGNANCY TEST, URINE - Specimen source: Urine2. test usrjdrrwZ07.01: Encounter for test, result positive3. Maternal tobacco use in xczohtymeO82.331: Smoking (tobacco) complicating , first trimester4. with uncertain iswiaA89.01: Encounter for supervision of normal first , first trimester5. Venereal disease lxtzfslizJ97.3: Encounter for screening for infections with a [...] Weight in lbs Pre/Post Dialysis Refused Weight 128.593566684011 BP Diastolic BP Location Tested BP Systolic [...] Weight in lbs Pre/Post Dialysis Refused Weight 131.348890234857 BP Diastolic BP Location Tested BP Systolic [...] Weight in lbs Pre/Post Dialysis Refused Weight 131.682106071105 BP Diastolic BP Location Tested BP Systolic [...] Weight in lbs Pre/Post Dialysis Refused Weight 134.930751993039 BP Diastolic BP Location Tested BP Systolic [...] Weight in lbs Pre/Post Dialysis Refused Weight 141.410096139003 BP Diastolic BP Location Tested BP Systolic [...] Weight in lbs Pre/Post Dialysis Refused Weight 142.198346404083 BP Diastolic BP Location Tested BP Systolic [...] Weight in lbs Pre/Post Dialysis Refused Weight 145.1829917762 BP Diastolic BP Location Tested BP Systolic [...] Weight in lbs Pre/Post Dialysis Refused Weight 143.520538888864 BP Diastolic BP Location Tested BP Systolic [...] Weight in lbs Pre/Post Dialysis Refused Weight 143.895361484255 BP Diastolic BP Location Tested BP Systolic [...] Weight in lbs Pre/Post Dialysis Refused Weight 148.020834345398 BP Diastolic BP Location Tested BP Systolic [...] Weight in lbs Pre/Post Dialysis Refused Weight 147.702339139206 BP Diastolic BP Location Tested BP Systolic [...] Weight in lbs Pre/Post Dialysis Refused Weight 149.184014890428 BP Diastolic BP Location Tested BP Systolic [...] Weight in lbs Pre/Post Dialysis Refused Weight 149.972836388159 BP Diastolic BP Location Tested BP Systolic [...] Weight in lbs Pre/Post Dialysis Refused Weight 152.598803944489 BP Diastolic BP Location Tested BP Systolic [...] Estim ated Date of Delivery false Thalassemia (Turkmen, Yoruba, Mediterranean, Or Background): MCV < 80 false Neural Tube Defect (Meningomyelocele, Spina Bifi da, Or Anencephaly) false Congenital Heart Defect false Down Syndrome false Nish-Sachs (eg, Roman Catholic, Cajun, Prydeinig-Gooding) f alse Felisha Disease false Sickle Cell Disease Or Trait () false Hemophilia Or Other Blood Disorders false Muscular Dystrophy false Cystic Fibrosis false Attala's Chorea false Intellectual Disability/Autism false If Yes, [...] Domestic Partner Domestic Partner Phone Father Name Tear Down Man Status 02/15/20 24 1 O Negative Miranda france OPEN Fetus Data First Name Last Name Admitted to NICU Weight (g) Sex Living Outcome Pediatric Complications Fetus ID Race Codes Race Delivery Type [id number] Problems Problem Notes 32wk growth us Problem Name Start Date End Date Resolution Snomed Code Not e Bipolar disorder 42684905 lat uda, mood stable, meeting with psychiatrist in July prior to delivery Gaurav Calculation Initial Gaurav Date Initial Exam [...] Date Ultra Sound Latest Days Gestation 0 [id number] 03/15/2024 08/22/19 25 0 Pre-cait Flowsheet Flowsheet Date 02/15/2024 Noguera Score Blood [...] Weight in lbs Pre/Post Dialysis Refused Weight 140.374916973829 BP Diastolic BP Location Tested BP Systolic BP Type 72 L arm 108 sitting Fetus Heart Rate Present A 150 Fetus Movement Comments Patient presents to [facility] care. complicated by hx of SCARLET- 2. [...] Type Weight in lbs Pre/Post Dialysis Refused 137.249748168741 BP Diastolic BP Location Tested BP Systolic [...] Type Weight in lbs Pre/Post Dialysis Refused 139.771288166280 BP Diastolic BP Location Tested BP Systolic [...] Type Weight in lbs Pre/Post Dialysis Refused 146.258382351981 BP Diastolic BP Location Tested BP Systolic BP Type 72 L arm 108 sitting Fetus Heart Rate Present A 141 Fetus Movement A Yes Comments Patient c/o of acid reflux a nd some nausea. Along with lower pains and pressure. Discussed belly band and pelvic floor PT. Good movement. Discussed GCT, labs and Rhogam at [facility], labs given. Anatomy complete and normal, EFW 25%, will plan for 32 week growth US. RTC 3-4 weeks. Flowsheet Date 05/30/2024 Noguera Score Blood Edema Fundus Height Fundus Units Glucose Ketones Leukocytes Nitrite Labor Signs Protein Cervic Dilation Cervic Effacement Cervic Station neg trace Type Weight in lbs Pre/Post Dialysis Refused Weight 150.705528530211 BP Diastolic BP Location Tested BP Systolic BP Type 69 L arm 107 sitting Fetus Heart Rate Present A 150 Fetus Movement A Yes Comments Patient c/o Riley Jacobs, s welling in feet. Good movement. No bleeding. Passed GCT, no anemia on labs. Received Tdap. Discussed repeat growth US at 32 weeks. Traveling to [place] at beginning of June, travel precautions discussed. RTC 2 weeks. Flowsheet Date 06/14/2024 Noguera Score Blood Edema Fundus Height Fundus Units Glucose Ketones Leukocytes Nitrite Labor Signs Protein Cervic Dilation Cervic Effacement Cervic Station Type Weight in lbs Pre/Post Dialysis Refused 152.668804301439 BP Diastolic BP Location Tested BP Systolic BP Type 80 L arm 117 sitting Fetus Heart Rate Present A 1140 Fetus Movement A Yes Comments Good movement. Was see n in triage for contractions, was fingertip dilated. Having increased pelvic pressure. No bleeding or LOF. Not planning on going to [place] with due to contractions. Repeat growth US for next visit. RTC 2 weeks. Flowsheet Date 07/01/2024 Noguera Score Blood Edema Fundus Height Fundus Units Glucose Ketones Leukocytes Nitrite Labor Signs Protein Cervic Dilation Cervic Effacement Cervic Station Type Weight in lbs Pre/Post Dialysis Refused BP Diastolic BP Location Tested BP Systolic BP Type Fetus Heart Rate Present Fetus Movement Comments Flowsheet Date 07/01/2024 Noguera Score Blood Edema Fundus Height Fundus Units Glucose Ketones Leukocytes Nitrite Labor Signs Protein Cervic Dilation Cervic Effacement Cervic Station neg trace Type Weight in lbs Pre/Post Dialysis Refused Weight 155.444622774043 BP Diastolic BP Location Tested BP Systolic BP Type 72 L arm 129 sitting Fetus Heart Rate Present A 142 Fetus Movement A Yes Comments Patient c/o nausea and swell ing in feet. Good movement. No cramping or bleeding. Still having BH contractions. EFW 46%, normal fluid. Discussed preadmission. RTC 2 weeks. Flowsheet Date 07/15/2024 Noguera Score Blood Edema Fundus Height Fundus Units Glucose Ketones Leukocytes Nitrite Labor Signs Protein Cervic Dilation Cervic Effacement Cervic Station neg trace Type Weight in lbs Pre/Post Dialysis Refused Weight 159.628870882124 BP Diastolic BP Location Tested BP Systolic BP Type 74 L arm 112 sitting Fetus Heart Rate Present A 145 Fetus Movement A Yes Comments Patient c/o slight nausea, B raxton jacobs, back and pelvic pain. Good movement. Considering EIL 08/15 or 08/16. No LOF or bleeding. Having some nausea, will refill zofran. Discussed GBS for next visit. RTC 2 weeks. Menstrual History Last Menstrual [...]
[2024-07-24 11:08] VITALS: BP 120/78; PULSE 113
[2024-07-24 11:14] LABS: OBXCEM ROM Plus Negative (Negative)
== END 2024-07-24 11:00 | disposition home or self-care (01) ==
LOC: ANHOBOP 10:50 → ANHLDR 10:53
PROVIDERS: Visit Provider Obstetrics & Gynecology
DX: O42.90 Premature rupture of membranes, unspecified as to length of time between rupture and onset of labor, unspecified weeks of gestation (principal); Z3A.00 Weeks of gestation of pregnancy not specified
CPT/HCPCS: 59025; 84112; 99199

== ENCOUNTER 2024-08-04 01:54 | Inpatient (IN) | payer OTHER, SELFPAY ==
[2024-08-04] VITALS (191 sets, daily range): BP systolic 52–140; BP diastolic 18–115; PULSE 25–233; RESP 16–18; TEMP 36.4–37.7; O2SAT 87–100; BMI 30.2
[2024-08-04] MEDS: LACTATED RINGERS 1,000 ML 125 ML IV CONT ×3 (04:05→10:32)
--- OUTSIDE RECORDS SUMMARY | 2024-08-04 04:05 | XMS_ITS | Data Portability ---
Author Organization [facility] [place] Address [address] [place] [address] [place] [address] Assessment Encounter Date Assessment Date Assessment LastModified by Organization Details LastModified Time 07/01/2024 07/01/2024 Patient is ___weeks . Discussed plan. [email or web address] Not available 07/01/2024 14:45:30 08/02/2024 08/02/2024 Patient is _37__weeks . Discussed plan. Not available 08/02/2024 10:26:39 Plan of Treatment Reminders Order Date Submit Date Provider Last Modified By Organization Details Last Modified Time Details Appointments NST 2024 01:00P M NST SCHEDULE Not available Not available Not available INDUCTION 2024 06:30A M Heather Ansari CNM Not available Not available Not available Lab None recorded. Referral None recorded. Procedures None recorded. Surgeries None recorded. Imaging US, obstetric , follow-up 2024 025 [email or web address] [place] [facility] [address], [place], [address], 07/01/2024 17:52:58 Medication Orders ondansetr on 8 mg disintegr ating tablet 2024 025 [facility], [address] [facility], [place], [address], 07/15/2024 10:36:09 Patient TargetsNo targets recorded. Patient InstructionsNo instructions recorded. Reason for Referral None Reported. Results Created Date Observation Date Name Description Value Unit Range Abnormal Flag Note LastModifiedBy Organization Detail LastModifiedTime 07/02/19 25 07/01/2024 US, obste tric, follo w-up No observ ation record ed. [email or web address] [place] [address], [place], [address], 07/01/2024 17:36:23 07/02/19 25 07/01/2024 US, obste tric, follo w-up No observ ation record ed. [email or web address] [address], [place], [address], 07/04/2024 23:22:37 07/25/19 25 07/24/2024 non-s tress test No observ ation record ed. [email or web address] Not Available 2024 13:44:54 Result Notes None recorded. Problems Name Problem SNOMED Code Status Onset Date Resolution Date Notes Provider Name and Address Organization Details Recorded Time Pregnanc y 48123624 Completed 202001/10/2021 Linda zuniga, [facility] 4 14:54:08 Asthma 932755993 Completed 2020 albutero natasha prn Kathy kaur [facility] 1 15:54:45 Mixed anxiety and depressi ve disorder 130138872 Completed 2020 stable off meds for years Kathy kaur [facility] 1 15:54:45 Atypical squamous cells of undeterm ined signific ance on cervical Papanico laou smear 788273541 Completed 2020 HPV pos. repeat pap post Kathy kaur [facility] 1 15:54:45 Maternal tobacco use in pregnanc y 1844558399 70788 Completed 2020 quit Kathy Bohnenstieh l [facility] 15:54:45 Asthma 149229725 Completed 202009/26/2020 irasema baker Zohra Gill [facility] 18:16:31 Mixed anxiety and depressi ve disorder 549204952 Completed 202009/26/2020 stable off meds for years Zohra Gill [facility] 1 18:16:45 Maternal tobacco use in pregnanc y 9346419132 25888 Completed 202009/26/2020 trying to quit Zohra Gill [facility] 18:16:34 Atypical squamous cells of undeterm ined signific ance on cervical Papanico laou smear 950455062 Completed 202009/26/2020 HPV pos. repeat pap post Zohra Gill [facility] 18:16:29 Rubella non-immu ne 540894400 Completed MMR PP Kathy Koromajimjohnathanliseth natasha [facility] 15:54:45 Chlamydi al infectio n 833816520 Completed [address] Huerta office tx pt Rocephin & Lorelei / has f/u appt - DARIN 11/26 negative Kathy Koromavance kaur [facility] 15:54:45 Low lying placenta 711157737 Completed 202010/05/2020 resolved 10/05/20 Kathy Shantelle kaur [facility] 1 15:54:45 Group B Streptoc occus carrier 9683284064 103 Completed 2020 Kathy kaur [facility] 09/16/202 1 15:54:45 Cervical intraepi thelial neoplasi a grade 2 744599768 Active 2022 Maria Dolores Wright MD [address], [place], [address], [facility] 3 09:52:39 History of loop electros urgical excision procedur e 7125392034 9102 Active 2022 Maria Dolores Wright MD [address], [place], [address], [facility] 3 09:52:41 Pregnanc y 30381571 Active 2023 Linda zuniga, [facility] 4 14:54:08 Bipolar disorder 42907216 Active latuda, mood stable, meeting with fer toussaint in July prior to delivery URIAH MORALES MD [address], [place], [address], [facility] 5 15:00:52 Problem Notes None recorded. Procedures Surgical History Date Name Laterality Status Provider Name and Address Organization Details Recorded Time 08/03/19 24 SIS completed URIAH MORALES MD [address], [place], [address], [facility] 08/03/2023 14:15:49 07/06/19 24 Colposcopy completed URIAH MORALES MD [address], [place], [address], [facility] 07/06/2023 22:19:43 07/06/19 24 Colposcopy completed Zohra Gill [facility] 08/02/2024 09:59:33 07/06/19 24 Hysteroscopy completed Zohra Gill [facility] 08/02/2024 10:00:17 02/11/20 23 Date of Last Pap Smear completed Zohra Gill [facility] 02/10/2023 14:57:55 10/14/19 23 LEEP completed Maria Dolores Wright MD [address], [place], [address], [facility] 10/13/2022 10:35:40 10/14/19 LEEP completed Leanna Ware [facility] 10/13/2022 15:07:02 09/16/19 Colposcopy completed Maria Dolores Wright MD [address], [place], [address], [facility] 09/16/2022 09:59:59 09/16/19 Colposcopy completed Zohra Gill [facility] 02/10/2023 10:52:12 09/16/19 Colposcopy completed Zohra Gill [facility] 02/10/2023 10:53:53 03/19/20 Colposcopy completed Maria Dolores Wright MD [address], [place], [address], [facility] 03/19/2022 16:57:57 03/09/20 Colposcopy completed Zohra Gill [facility] 02/10/2023 15:06:08 04/27/19 12 termination of completed Zohra Gill [facility] 01/23/2022 15:56:15 Imaging Results Imaging Date Name Status LastModified by Organiz ation Details LastModified Time 07/01/2024 US, obstetric, follow-up completed [email or web address] Elam [address], [place], [address], 07/01/2024 17:36:23 07/01/2024 US, obstetric, follow-up completed Tiff [address], [place], [address], 07/04/2024 23:22:37 07/24/2024 non-stress test completed Information not available 07/25/2024 13:44:54 Procedure Notes None recorded. Medical Equipment None [...] TAKE 1 TABLET BY MOUTH TWICE DAILY 08/02 completed Not Available Not Available Not Available [...] TABLET BY MOUTH 4 TIMES DAILY NEEDED 08/02 completed Not Available Not Available Not Available azithromyci n 500 mg tablet TAKE [...] Available Not Available lurasidone 60 mg tablet TAKE 1 TABLET BY MOUTH ONCE DAILY active Not Available Not Available No t Available Xulane 150 mcg-35 mcg/24 hr transdermal patch APPLY 1 PATCH TOPICALLY ONCE A WEEK 01/23 completed Not Available Not Available Not Available Vitals Date Recorded Body height Body mass index (BMI) Body weight Systolic blood pressure Diastolic blood pressure Provider Name and Address Organization Details Last Updated DateTime 07/01/2024 154.94 cm 29.3 kg/m2 50122.82 g 129 mm[Hg] 72 mm[Hg] Linda Saavedra [facility] 03/07/202 5 14:46:05 Date Recorded Body height Body mass index (BMI) Body weight Systolic blood pressure Diastolic blood pressure Provider Name and Address Organization Details Last Updated DateTime 07/15/2024 154.94 cm 30 kg/m2 36177.19 g 112 mm[Hg] 74 mm[Hg] Linda Macdonalden [facility] 5 10:07:35 Date Recorded Body weight Body mass index (BMI) Body height Systolic blood pressure Diastolic blood pressure Provider Name and Address Organization Details Last Updated DateTime 07/27/2024 14320.18 683 g 30 kg/m2 154.94 cm 120 mm[Hg] 76 mm[Hg] NENITA Thacker [facility] 5 14:13:28 Date Recorded Body height Body mass index (BMI) Body weight Systolic blood pressure Diastolic blood pressure Provider Name and Address Organization Details Last Updated DateTime 08/02/2024 154.94 cm 30.2 kg/m2 53817.78 g 116 mm[Hg] 82 mm[Hg] Zohra Gill [facility] 5 09:54:32 Social History Question Answer Notes LastModified by Organizat ion Details LastModified Time Tobacco Smoking Status Current Every Day Smoker Samia zuniga, [facility] 05/02/2020 12:29:55 What Is Your Level Of Alcohol Consumption? None [email or web address] Information not available 02/15/2024 If You Are , What Was Your Level Of Alcohol Consumption Prior To ? Occasional [email or web address] Information not available 05/29/2020 Are You Blind Or Do You Have Difficulty Seeing? No Information not available 06/27/2020 What Is Your Level Of Caffeine Consumption? Occasional Information not available 06/27/2020 How Much Tobacco Do You Chew? None [email or web address] Information not available 02/15/2024 In The 14 Days Before Symptom Onset, Have You Had Close Contact With A Laboratory-confir [facility] COVID-19 While That Case Was Ill? No [email or web address] Information not available 06/27/2020 In The 14 Days Before Symptom Onset, Have You Had Close Contact With A Person Who Is Under Investigation For COVID-19 While That Person Was Ill? No [email or web address] Information not available 06/27/2020 Have You Been To An Area Known To Be High Risk For COVID-19? No [email or web address] Information not available 06/27/2020 Are You Currently Employed? Yes [email or web address] Information not available 07/15/2024 Are You Deaf Or Do You Have Serious Difficulty Hearing? No [email or web address] Information not available 06/27/2020 What Type Of Diet Are You Following? REGULAR Information not available 06/27/2020 What Is The Highest Grade Or Level Of School You Have Completed Or The Highest Degree You Have Received? 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 Yes [email or web address] Information not available 02/15/2024 Have You Ever Been Counseled For Unhealthy Alcohol Use? No [email or web address] Information not available 05/29/2020 Do You Use Protection During Sex? No [email or web address] Information not available 02/15/2024 Do You Use Your Seat Belt Or Car Seat Routinely? Yes [email or web address] Information not available 06/27/2020 Are You Sexually Active? Yes [email or web address] Information not available 07/15/2024 Do You Have Smoke And Carbon Monoxide Detectors In Your Home? Yes [email or web address] Information not available 06/27/2020 How Much Tobacco Do You Smoke? No [email or web address] Information not available 02/15/2024 Do You Feel Stressed (tense, Restless, Nervous, Or Anxious, Or Unable To Sleep At Night)? [id number] [email or web address] Information not available 02/15/2024 Do You Use Any Illicit Or Recreational Drugs? No [email or web address] Information not available 05/29/2020 Do You Use Sunscreen Routinely? No [email or web address] Information not available 02/15/2024 Has Tobacco Cessation Counseling Been Provided? No [email or web address] Information not available 05/29/2020 Have You Used IV Drugs? No [email or web address] Information not available 02/15/2024 Do You Or Have You Ever Used Any Other Forms Of Tobacco Or Nicotine? No [email or web address] Information not available 05/29/2020 Sex: Unknown Functional Status Question Answer Note LastModified by Organizat ion Details LastModified Time Do you have difficulty walking or climbing stairs? No Information not available 01/23/2022 Are you able to walk? [email or web address] Information not available 06/27/2020 Are you able to care for yourself? Yes [email or web address] Information not available 01/23/2022 Do you have difficulty dressing or bathing? No [email or web address] Information not available 01/23/2022 What is your exercise level? Occasional [email or web address] Information not available 05/29/2020 Mental Status None recorded. Family History Relationship Description Onset Age of this Age Resolved Age Notes LastModified by Organization Details LastModified Time Mother Asthma [email or web address] Not available 12:37:20 Mother Heart disease [email or web address] Not available 2020 12:41:22 Mother Cyst of ovary [email or web address] Not available 2023 14:48:18 Father Hypertensive disorder smcaley Not available 2020 12:41:56 Paternal Grandmother Diabetes mellitus [email or web address] Not available 2020 12:46:04 Sister Diabetes mellitus [email or web address] Not available 2020 12:46:13 Sister Hypertensive disorder smcaley Not available 2020 12:46:43 Maternal Aunt Carcinoma in situ of breast [email or web address] Not available 2023 14:48:18 Medical History Condition Response Allergies (Food, seasonal, environmental ) N Other N Breast Cancer N Drug/Latex Allergies/Reactions N Blood Transfusion N Lung Disease N Dermatologic Disorders N Defects or Inherited Disease N Breast Problem N Gestational Diabetes N Hematologic disorders N Anesthesia Complications N History of STI Y Deep Vein Thrombosis N Polycystic ovary syndrome N Anxiety Disorder Y Autoimmune disease N Arthritis N Polyps N Infertility N History of abnormal pap Y Acid Reflux (GERD) N Cancer N Varicosities N Stroke N Neurologic/Epilepsy [...] N Gynecological History Statement/Question Response Abnormal Pap Yes Date of Last Mammogram Flow Moderate Date of LMP 11/15/2023 Was last menstrual period normal Y STIs/STDs Yes Colposcopy 09/15/2022 Current Control Method Are cycles [...] SNOMED-CT Code Diagnosis ICD10 Code Diagnosis Note [id number] Ann Hunt [place] [address] [address] 05/02/2020 12:19:20 05/02/2020 17:29:12 screening 833254312 Z36.87 [id number] Maria Dolores Wright MD [place] [address] [address] 05/02/2020 12:19:20 05/02/2020 17:29:12 Urine test positive 368403706 Z32.01 test positive 400469635 Z32.01 Maternal t obacco use in 3225320333 75470 O99.331 with uncertain dates 691863456 Z34.01 Venereal d isease screening 349662884 Z11.3 Screening for malignant neoplasm of cervix 934966254 Z12.4 [id number] Maria Dolores Wright MD [place] [address] [address] 05/29/2020 12:08:03 05/29/2020 14:50:02 Routine care 408804710 Z34.90 Atypical s quamous cells of undetermined significance on cervical Papanicolaou smear 246319540 R87.610 Maternal t obacco use in 1246452932 26724 O99.331 Mixed anxi ety and depressive disorder 610961157 F41.8 Asthma 578593882 J45.90 9 [id number] Heather Dwyer Elan [facility] [address] [address] 06/27/2020 16:25:00 06/27/2020 17:45:45 Routine care 936029969 Z34.92 [id number] [facility] [address] [address] 06/27/2020 16:24:45 06/28/2020 08:36:17 [id number] Lukas Aaron [place] [address] [address] 07/10/2020 15:40:31 07/11/2020 08:46:41 [id number] [facility] [address] [address] 08/02/2020 14:48:23 08/02/2020 16:38:04 Routine care 626581051 Z34.92 [id number] [facility] [address] [address] 08/02/2020 14:47:58 08/02/2020 15:43:34 screening 005056748 Z36.3 [id number] [facility] [address] [address] 08/07/2020 14:38:22 08/07/2020 23:42:21 Vaginitis 24926631 N76.0 Discussed use of mild soap like dove or ivory, cotton underwear w/out dye, hypoallerg enic detergent, wipe from front to back, avoid tub baths, keep perineum clean and dry, d/c use of baby wipes. Encouraged daily intake of yogurt or womens health probiotic. Internal and external affirm collected. 74853 [facility] [address] [address] 08/31/2020 14:06:19 08/31/2020 14:51:43 Low lying placenta 444046443 O44.40 Z3A.23 74759 Maria Dolores Wright MD [place] [address] [address] 08/31/2020 14:06:36 08/31/2020 15:29:24 Low lying placenta 572156769 O44.40 Z3A.23 Routine an tenatal care 607389812 Z34.90 [id number] Heather Ansari [facility] [address] [address] 09/26/2020 17:21:59 09/26/2020 22:24:19 Urinary symptoms 022960835 R39.9 Pain in ro und ligament in 8445736950 6213493 O26.899 58044 [facility] [address] [address] 10/05/2020 12:30:40 10/05/2020 13:16:00 Low lying placenta 677495701 O44.40 Z3A.28 [id number] Maria Dolores Wright MD [place] [address],[place] [address] 10/05/2020 15:56:25 10/05/2020 16:49:08 Routine care 929514878 Z34.90 11177 Maria Dolores Wright MD [place] [address] [address] 10/19/2020 14:57:33 10/19/2020 16:26:16 Routine care 777578196 Z34.90 18554 Jose Guadalupe Murphy MD [place] [address] [address] 11/01/2020 15:48:57 11/01/2020 16:27:57 Routine care 178833361 Z34.83 Uterine si ze for dates discrepancy 938427654 O26.849 05194 Ann Hunt [place] [address],[place] [address] 11/05/2020 10:18:46 11/05/2020 10:52:03 Uterine size for dates discrepancy 761247300 O26.843 Z3A.32 [id number] MD Papa Black [address],[place] [address] 11/12/2020 11:21:38 11/12/2020 14:41:13 Routine care 089607475 Z34.90 [id number] Maria Dolores Wright MD [place] [address],[place] [address] 11/26/2020 15:34:13 11/27/2020 15:21:02 Routine care 644357763 Z34.90 Uterine si ze for dates discrepancy 468827813 O26.843 Z3A.32 61367 Ann Hunt [place] [address] [address] 12/03/2020 11:55:14 12/03/2020 12:37:07 Uterine size for dates discrepancy 685710723 O26.843 Z3A.36 [id number] Maria Dolores Wright MD [place] [address] [address] 12/03/2020 11:55:41 12/03/2020 12:51:12 Routine care 313938807 Z34.[address] reptococcus carrier 9464956954 103 Z22.330 68955 Maria Dolores Wright MD [place] [address] [address] 12/10/2020 11:53:19 12/10/2020 12:12:37 Routine care 666260063 Z34.90 [id number] Maria Dolores Wright MD [place] [address] [address] 12/17/2020 11:53:27 12/17/2020 12:49:15 Routine care 508704351 Z34.[address] reptococcus carrier 4784286804 103 Z22.330 [id number] MD Papa Black [address] [address] 12/24/2020 11:49:31 12/24/2020 13:18:33 Group B Streptococcus carrier 3205243550 103 Z22.330 Routine an tenatal care 964162278 Z34.90 04602 Maria Dolores Wright MD [place] [address] [address] 01/22/2021 12:36:44 01/22/2021 13:13:29 care 143972878 Z39.2 Contracept ion care management 740171058 Z30.9 [id number] Clara Auguste [place] [address] [address] 01/23/2022 15:16:53 01/23/2022 15:44:58 [id number] Madalyn Santa [place] [address] [address] 01/23/2022 15:17:58 01/24/2022 16:59:29 test positive 551068361 Z32.01 Risk factors addressed: Tobacco Cessation, Safe [...] annual well woman examinatio n and address [facility] . [id number] [facility] [address] [address] 01/28/2022 11:06:10 01/28/2022 12:36:22 Threatened miscarriage 24797668 O20.0 Z3A.08 [id number] Maria Dolores Wright MD [place] [address] [address] 03/19/2022 15:12:30 03/22/2022 20:53:03 [id number] Maria Dolores Wright MD [place] [address] [address] 03/19/2022 16:23:32 03/19/2022 17:09:38 Screening procedure 00837652 Z13.9 Atypical s quamous cells on cervical Papanicolaou smear cannot exclude high grade squamous intraepithelial lesion 086809662 R87.611 [id number] Maria Dolores Wright MD [place] [address],[place] [address] 08/18/2022 17:10:03 08/18/2022 18:10:15 Atypical squamous cells on cervical Papanicolaou smear cannot exclude high grade squamous intraepithelial lesion 417231273 R87.611 [id number] Maria Dolores Wright MD [place] [address],[place] [address] 09/15/2022 14:51:50 09/16/2022 11:17:09 Screening procedure 97480972 Z13.9 High grade squamous intraepithelial lesion on cervical Papanicolaou smear 4015885438 9107 R87.613 [id number] Maria Dolores Wright MD [place] [address] [address] 10/06/2022 16:22:48 10/07/2022 09:50:54 Cervical intraepithelial neoplasia grade 2 036259081 N87.1 Preoperative state 67944 002 Z78.9 [id number] Maria Dolores Wright MD [place] [address] [address] 10/13/2022 09:11:00 10/14/2022 10:44:06 Cervical intraepithelial neoplasia grade 2 498820504 N87.1 [id number] Maria Dolores Wright MD [place] [address],[place] [address] 11/10/2022 17:08:02 11/11/2022 11:12:24 Cervical intraepithelial neoplasia grade 2 575304748 N87.1 History of loop electrosurgical excision procedure 9236985043 9102 Z98.890 [id number] LEONARDO Centeno [place] [address],[place] [address] 02/10/2023 14:40:21 02/10/2023 15:21:43 History of loop electrosurgical excision procedure 5828016999 9102 Z98.890 repeat pap updated todaysafe sexual practices discussed and encouraged will update pt with results when available and notify pt of follow-up instructio ns Time spent in visit is a total of 25 mins with at least 50% of visit consisting of counseling and review of plan of care. History of abnormal cervical Papanicolaou smear 337835014 Z87.42 Screening for malignant neoplasm of cervix 616250238 Z12.4 [id number] LEONARDO Centeno [place] [address],[place] [address] 05/21/2023 17:01:24 05/22/2023 09:28:55 Breast tenderness 56203657 N64.4 we agreed to update bilateral breast u/s - order givenlabs ordereddis cussed recent pap result and encouraged to schedule colposcopy Time spent in visit is a total of 18 mins with at least 50% of visit consisting of counseling and review of plan of care. Discharge from nipple 54 028189 N64.52 History of abnormal cervical Papanicolaou smear 642544316 Z87.42 [id number] URIAH MORALES MD [place] [address],[place] [address] 07/06/2023 15:33:48 07/07/2023 07:39:52 Low grade squamous intraepithelial lesion on cervical Papanicolaou smear 4333353223 9105 R87.612 - colposcopy completed today, patient tolerated well- follow up on results as available [id number] URIAH MORALES MD [place] [address],[place] [address] 07/15/2023 16:49:14 07/16/2023 10:57:38 Infertile 9196480 N97.9 - Differenti al diagnosis of cause of infertilit y includes: structural , anovulator y, tubal- We discussed the potential causes of infertilit y and rationale behind testing.- The patient is asked to complete the following diagnostic work up to include:-- FSH, estradiol, TSH, A1C, Vitamin D, PRL, LH, 17OHP, AMH-- Pending SIS results, HSG which is to be scheduled on CD 6-10-- Transvagin al ultrasound with SIS for endometria l cavity assessment - If other workup negative, will pursue complete semen analysis for her partner- Following the return of these test results she is asked to return to the office for further discussion of reproducti ve planning and treatment options Cervical intraepithelial neoplasia grade 2 814589840 N87.1 - 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, completely excised however SCARLET-1 extending to ectocervic al margins- Colposcopy 06/2023 with CIN2- given patient desires future pregnancie s, per ASCCP guidelines , ok for active surveillan ce while attempting - recommend LEEP if dysplasia worsens or when childbeari ng is completed History of chlamydial infection 339153607 Z86.19 [id number] [facility] [address] [address] 08/03/2023 11:49:30 08/03/2023 13:34:08 Female infertility 4016471 N97.9 [id number] [facility] [address],[place] [address] 08/03/2023 11:49:47 08/03/2023 13:33:53 [id number] URIAH MORALES MD [place] [address],[place] [address] 08/03/2023 11:50:00 08/03/2023 14:22:29 Trying to conceive 034448875 Z31.9 Uterine leiomyoma 479651 05 D25.9 - SIS demonstrat es uterine fibroid impinging on uterine cavity; implicatio ns to fertility discussed with patient- recommend [facility] D&C with myomectomy ; r/b/a discussed with patient- patient agrees to proceed with procedure- will try to schedule HSG with [facility] due to hx of chlamydial infection to r/o tubal factor History of chlamydial infection 461916149 Z86.19 [id number] URIAH MORALES MD [place] [address],[place] [address] 10/27/2023 16:19:16 10/27/2023 17:08:41 Postoperative visit 994967050 Z48.89 - s/p hysterosco py, polypectom y and HSG on 10/05- benign pathology, HSG demonstrat es bilaterall y patent fallopian tubes- pain possibly 2/2 positionin g during surgery, patient reports it is improving Secondary infertility 29 2146912 N97.9 - workup unremarkab le aside from [...] to schedule visit to discuss ovulation induction [id number] Ann Hunt [place] [address] [address] 01/11/2024 14:23:24 01/11/2024 15:01:59 [id number] URIAH MORALES MD [place] [address] [address] 01/18/2024 16:32:42 01/18/2024 17:11:32 Nausea and vomiting 70889278 R11.2 test positive 736874208 Z32.01 1. Exam today within normal limits.2. [...] given today. 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, completely excised however SCARLET-1 extending to ectocervic al margins- Colposcopy 06/2023 with CIN2- given patient desires future pregnancie s, per ASCCP guidelines , ok for active surveillan ce while attempting - recommend LEEP if dysplasia worsens or when childbeari ng is completed- will repeat pap at new OB visit Palpitations 28577675 R0 0.2 - previously on metoprolol , d/c'd with - workup including echo negative from cardiology - having more palpitatio ns during since d/c of metoprolol - ok to restart, discussed safety [facility] [id number] [facility] [address] [address] 02/15/2024 14:48:12 02/15/2024 15:22:34 screening 367738898 Z36.82 Z3A.13 [id number] URIAH MORALES MD [place] [address],[place] [address] 02/15/2024 14:48:37 02/15/2024 16:01:34 Routine care 762111574 Z34.91 Nausea and vomiting 1693 2000 R11.2 Cervical intraepithelial neoplasia grade 2 668938711 N87.1 - 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, completely excised however SCARLET-1 extending to ectocervic al margins- Colposcopy 06/2023 with CIN2- repeat pap obtained today Bipolar disorder 7567001 4 F31.9 - continue buspar and latuda [id number] URIAH MORALES MD [place] [address],[place] [address] 03/15/2024 11:25:37 03/15/2024 12:32:24 Nausea and vomiting 81666871 R11.2 Cervical intraepithelial neoplasia grade 2 737043215 N87.1 - 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, completely excised however SCARLET-1 extending to ectocervic al margins- Colposcopy 06/2023 with CIN2- repeat pap wnl 01/2024, repeat Bipolar disorder 7099086 4 F31.9 - continue buspar and latuda Gestation period, 17 weeks 88415551 Z3A.17 [id number] [facility] [address],[place] [address] 04/11/2024 15:53:44 04/11/2024 17:18:55 screening for malformation 260862512 Z36.3 Z3A.21 [id number] URIAH MORALES MD [place] [address],[place] [address] 04/11/2024 15:58:43 04/11/2024 17:33:03 Cervical intraepithelial neoplasia grade 2 656299545 N87.1 - 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, completely excised however SCARLET-1 extending to ectocervic al margins- Colposcopy 06/2023 with CIN2- repeat pap wnl 01/2024, repeat History of loop electrosurgical excision procedure 6629537240 9102 Z98.890 - CL wnl / Bipolar disorder 1692601 4 F31.9 - continue buspar and latuda Gestation period, 21 weeks 12306967 Z3A.21 - continue PNV [id number] [facility] [address],[place] [address] 05/09/2024 11:01:31 05/09/2024 11:46:03 screening 778891587 Z36.2 Z3A.25 [id number] URIAH MORALES MD [place] [address],[place] [address] 05/09/2024 11:04:07 05/09/2024 12:58:38 History of loop electrosurgical excision procedure 8107302067 9102 Z98.890 - CL wnl 04/11 Bipolar disorder 5416154 4 F31.9 - continue buspar and latuda Gestation period, 25 weeks 63187437 Z3A.25 - continue pNV [id number] URIAH MORALES MD [place] [address],[place] [address] 05/30/2024 11:38:25 05/30/2024 12:20:54 Bipolar disorder 74182814 F31.9 - continue buspar and latuda Gestation period, 28 weeks 41951739 Z3A.28 - continue PNV- travel precaution s discussed [id number] URIAH MORALES MD [place] [address],[place] [address] 06/14/2024 12:40:57 06/14/2024 13:28:51 Bipolar disorder 11986724 F31.9 - continue buspar and latuda Gestation period, 30 weeks 99941595 Z3A.30 - continue PNV [id number] [facility] [address],[place] [address] 07/01/2024 13:54:05 07/01/2024 14:41:21 Medical examination for suspected condition 863890962 Z03.74 Z3A.32 [id number] URIAH MORALES MD [place] [address],[place] [address] 07/01/2024 13:54:53 07/01/2024 15:02:22 Bipolar disorder 95024604 F31.9 - continue latuda- meeting with psychiatri st prior to delivery- plan for 1 week PP mood check Gestation period, 32 weeks 5039167 Z3A.32 - continue PNV- discussed preadmissi on URIAH MORALES MD [place] [address],[place] [address] 07/15/2024 09:57:43 07/15/2024 10:37:41 Nausea and vomiting 12838563 R11.2 Bipolar disorder 5333736 4 F31.9 - continue latuda- meeting with psychiatri st prior to delivery- plan for 1 week PP mood check Gestation period, 34 weeks 79183199 Z3A.34 - continue PNV [id number] URIAH MORALES MD [place] [address],[place] [address] 07/27/2024 13:33:27 07/27/2024 14:37:19 Bipolar disorder 49935474 F31.9 - continue latuda- meeting with psychiatri st prior to delivery- plan for 1 week PP mood check Gestation period, 36 weeks 30276410 Z3A.36 - GBS collected- rtc 1 week [id number] [facility] [address],[place] [address] 08/02/2024 09:35:06 08/02/2024 10:27:41 Gestation period, 37 weeks 14365094 Z3A.37 continue vitamin Health Concerns Section Related Observation LastModified by Organization Detai ls LastModified Time None Recorded Concern Status LastModified by Organization Details LastModified Time None Recorded Advance Directives Directive None Recorded Payers Encounter Date Sequence Insurance Name Policy Number Policy Davis Covered Member ID Davis Member ID Guarantor Name 07/01/2024 1 [facility] ON OR AFTER 10/25/20 (MEDICAID REPLACEMENT - HMO) Michelle Marrero [id number] Michelle Marrero 07/01/2024 1 [facility] ON OR AFTER 10/25/20 (MEDICAID REPLACEMENT - HMO) Michelle Elida [id number] Michelle Elida 07/15/2024 1 [facility] ON OR AFTER 10/25/20 (MEDICAID REPLACEMENT - HMO) Michelle Elida [id number] Michelle Elida 07/27/2024 1 [facility] ON OR AFTER 10/25/20 (MEDICAID REPLACEMENT - HMO) Michelle Elida [id number] Michelle Elida 08/02/2024 1 [facility] ON OR AFTER 10/25/20 (MEDICAID REPLACEMENT - HMO) Michellera LoveElida [id number] Michelle Jonesa OBGyn Episode Ob Episode Information Episode Created Date Number of Fetuses Patient Bloodtype Patient rh Status Prepregnancy Weight lbs Domestic Partner Domestic Partner Phone Father Name Project Internship Status 05/02/19 1 CLOSED Fetus Data First Name Last [...] Domestic Partner Domestic Partner Phone Father Name Project Internship Status 05/29/19 21 1 O Negative 133 CLOSED Fetus Data First Name Last Name Admitted to NICU Weight (g) Sex Living Outcome Pediatric Complications Fetus ID Race Codes Race Delivery Type Jazmin 3260.19 25 F true Full Term Meconium 7632 Vaginal Delivery Problems Problem Notes Wright pt Problem Name Start Date End Date Resolution Snomed Code Not e Group B Streptococcus carrier 12/03/2020 [id number] Rubella non-immune 957049553 M MR PP Low lying placenta 08/02/2020 10/05/2020 SELFRESOLVED 113318 007 resolved 10/05/20 Asthma 05/29/2020 830626087 albuterol prn Mixed anxiety and depressive disorder 05/29/2020 944131962 stable o ff meds for years Atypical squamous cells of undetermined significance on cervical Papanicolaou smear 05/29/2020 343123987 HPV pos. repeat pap post Maternal tobacco use in 05/29/2020 SELFRESOLVED 792161487275715 quit Chlamydial infection TREATMENT 614035486 Dr Huerta office tx pt Rocephin & [...] Date Ultra Sound Latest Days Gestation 0 [id number] 05/29/2020 12/26/19 21 0 Pre- Flowsheet Flowsheet Date 05/29/2020 Noguera Score Blood Edema Fundus Height Fundus Units Glucose Ketones Leukocytes Nitrite Labor Signs Protein Cervic Dilation Cervic Effacement Cervic Station neg none trace Type Weight in lbs Pre/Post Dialysis Refused Weight 131.959444527468 BP Diastolic BP Location Tested BP Systolic [...] weeks for first ob appointment1. Urine test hmcljgrsW67.01: Encounter for test, result positivePREGNANCY TEST, URINE - Specimen source: Urine2. test wgjscmmdY95.01: Encounter for test, result positive3. Maternal tobacco use in nnuewcipvF51.331: Smoking (tobacco) complicating , first trimester4. with uncertain qocuqO86.01: Encounter for supervision of normal first , first trimester5. Venereal disease onqobfjlnG48.3: Encounter for screening for infections with a [...] Weight in lbs Pre/Post Dialysis Refused Weight 128.478966718789 BP Diastolic BP Location Tested BP Systolic [...] Weight in lbs Pre/Post Dialysis Refused Weight 131.824496178317 BP Diastolic BP Location Tested BP Systolic [...] Weight in lbs Pre/Post Dialysis Refused Weight 131.569036701245 BP Diastolic BP Location Tested BP Systolic [...] Weight in lbs Pre/Post Dialysis Refused Weight 134.620232809893 BP Diastolic BP Location Tested BP Systolic [...] Weight in lbs Pre/Post Dialysis Refused Weight 141.048545592335 BP Diastolic BP Location Tested BP Systolic [...] Weight in lbs Pre/Post Dialysis Refused Weight 142.197391291294 BP Diastolic BP Location Tested BP Systolic [...] Weight in lbs Pre/Post Dialysis Refused Weight 145.0832201446 BP Diastolic BP Location Tested BP Systolic [...] Weight in lbs Pre/Post Dialysis Refused Weight 143.791658574686 BP Diastolic BP Location Tested BP Systolic [...] Weight in lbs Pre/Post Dialysis Refused Weight 143.790952218424 BP Diastolic BP Location Tested BP Systolic [...] Weight in lbs Pre/Post Dialysis Refused Weight 148.496129520681 BP Diastolic BP Location Tested BP Systolic BP Type 75 115 Fetus Heart Rate Present A 140 Fetus Movement A Yes Comments Doing well. Had CT in Apr, r etest today. Growth next week for S<D. [...] Weight in lbs Pre/Post Dialysis Refused Weight 147.966700594975 BP Diastolic BP Location Tested BP Systolic [...] Weight in lbs Pre/Post Dialysis Refused Weight 149.549411325244 BP Diastolic BP Location Tested BP Systolic [...] Weight in lbs Pre/Post Dialysis Refused Weight 149.851969518507 BP Diastolic BP Location Tested BP Systolic [...] Weight in lbs Pre/Post Dialysis Refused Weight 152.991890306717 BP Diastolic BP Location Tested BP Systolic [...] Estim ated Date of Delivery false Thalassemia (Vietnamese, Welsh, Mediterranean, Or Background): MCV < 80 false Neural Tube Defect (Meningomyelocele, Spina Bifi da, Or Anencephaly) false Congenital Heart Defect false Down Syndrome false Nish-Sachs (eg, Amish, Cajun, Estonian-Namibian) f alse Felisha Disease false Sickle Cell Disease Or Trait () false Hemophilia Or Other Blood Disorders false Muscular Dystrophy false Cystic Fibrosis false Cyrus's Chorea false Intellectual Disability/Autism false If Yes, [...] Domestic Partner Domestic Partner Phone Father Name Project Internship Status 02/15/20 24 1 O Negative Miranda Toussaint an OPEN Fetus Data First Name Last Name Admitted to NICU Weight (g) Sex Living Outcome Pediatric Complications Fetus ID Race Codes Race Delivery Type [id number] Problems Problem Notes 32wk growth us Problem Name Start Date End Date Resolution Snomed Code Not e Bipolar disorder 30937108 lat uda, mood stable, meeting with psychiatrist [...] Date Ultra Sound Latest Days Gestation 0 [id number] 03/15/2024 08/22/19 25 0 Pre- Flowsheet Flowsheet [...] Weight in lbs Pre/Post Dialysis Refused Weight 140.676768273814 BP Diastolic BP Location Tested BP Systolic BP Type 72 L arm 108 sitting Fetus Heart Rate Present A 150 Fetus Movement Comments Patient presents to [facility] care. complicated by hx of SCARLET- 2. [...] Type Weight in lbs Pre/Post Dialysis Refused 137.727030027849 BP Diastolic BP Location Tested BP Systolic [...] Type Weight in lbs Pre/Post Dialysis Refused 139.643966212612 BP Diastolic BP Location Tested BP Systolic [...] Type Weight in lbs Pre/Post Dialysis Refused 146.387045473631 BP Diastolic BP Location Tested BP Systolic BP Type 72 L arm 108 sitting Fetus Heart Rate Present A 141 Fetus Movement A Yes Comments Patient c/o of acid reflux a nd some nausea. Along with lower pains and pressure. Discussed belly band and pelvic floor PT. Good movement. Discussed GCT, labs and Rhogam at [facility], labs given. Anatomy complete and normal, EFW 25%, will plan for 32 week growth US. RTC 3-4 weeks. Flowsheet Date 05/30/2024 Noguera Score Blood Edema Fundus Height Fundus Units Glucose Ketones Leukocytes Nitrite Labor Signs Protein Cervic Dilation Cervic Effacement Cervic Station neg trace Type Weight in lbs Pre/Post Dialysis Refused Weight 150.492181651012 BP Diastolic BP Location Tested BP Systolic BP Type 69 L arm 107 sitting Fetus Heart Rate Present A 150 Fetus Movement A Yes Comments Patient c/o Isabella Jacobs, s welling in feet. Good movement. No bleeding. Passed GCT, no anemia on labs. Received Tdap. Discussed repeat growth US at 32 weeks. Traveling to [place] at beginning of June, travel precautions discussed. RTC 2 weeks. Flowsheet Date 06/14/2024 Noguera Score Blood Edema Fundus Height Fundus Units Glucose Ketones Leukocytes Nitrite Labor Signs Protein Cervic Dilation Cervic Effacement Cervic Station Type Weight in lbs Pre/Post Dialysis Refused 152.710197535529 BP Diastolic BP Location Tested BP Systolic [...] Weight in lbs Pre/Post Dialysis Refused Weight 155.883088098533 BP Diastolic BP Location Tested BP Systolic [...] Weight in lbs Pre/Post Dialysis Refused Weight 159.676132550042 BP Diastolic BP Location Tested BP Systolic BP Type 74 L arm 112 sitting Fetus Heart Rate Present A 145 Fetus Movement A Yes Comments Patient c/o slight nausea, B raxton jacobs, back and pelvic pain. Good movement. Considering EIL 08/15 or 08/16. No LOF or bleeding. Having some nausea, will refill zofran. Discussed GBS for next visit. RTC 2 weeks. Flowsheet Date 07/27/2024 Noguera Score Blood Edema Fundus Height Fundus Units Glucose Ketones Leukocytes Nitrite Labor Signs Protein Cervic Dilation Cervic Effacement Cervic Station neg trace 1cm 50% -3 Type Weight in lbs Pre/Post Dialysis Refused 159.196298394391 BP Diastolic BP Location Tested BP Systolic BP Type 76 L arm 120 sitting Fetus Heart Rate Present A 155 Fetus Movement A Yes Comments Good movement. No blee ding. Irregular contractions. GBS collected today. EIL scheduled 08/15. RTC 1 week. Flowsheet Date 08/02/2024 Noguera Score Blood Edema Fundus Height Fundus Units Glucose Ketones Leukocytes Nitrite Labor Signs Protein Cervic Dilation Cervic Effacement Cervic Station neg trace 2cm 70% -2 Type Weight in lbs Pre/Post Dialysis Refused Weight 160.593599043751 BP Diastolic BP Location Tested BP Systolic BP Type 82 116 Fetus Heart Rate Present Fetus Movement A Yes Comments Patient states that has rash on leg that is itchy, contractions, pressure, discharge, swelling and nausea. rash resolving with otc cream, +FM, will reschedule IOL for 08/17, precautions and education Menstrual History Last Menstrual Date Menses Monthly [...]
--- OUTSIDE RECORDS SUMMARY | 2024-08-04 04:05 | XMS_ITS | Clinical Summary ---
Author Organization [facility] Address [address] [place] [address] Care Team Providers Care Field Artillery Cannoneer Name Role Phone Selena Huerta MD Primary Care Provider [phone] Source Comments [facility],non-owned Affiliates and Associated Physician Practices is amultiple site organization consisting of ambulatory clinics and hospital sitesin [place], [place], [place] and [place]. This disclosure is being madepursuant to the Care Everywhere program and may not contain all information available regarding this patient. Last updated [email or web address] Allergies No known active allergies Medications * [...] Comments Blood Pressure 112/78 03/02/2014 9:19 AM IRON AND STEEL WORK SUPERVISOR Pulse 88 02/13/2014 12:00 AM CDT Temperature 36.4 C (97.6 F) 06/17/2013 3:36 PM IRON AND STEEL WORK SUPERVISOR Respiratory Rate 22 06/17/2013 3:36 PM IRON AND STEEL WORK SUPERVISOR Oxygen Saturation - - Inhaled Oxygen Concentration - - Weight 52.4 kg (115 lb 9.6 oz) 05/12/2014 9:34 A M IRON AND STEEL WORK SUPERVISOR Height 159 cm (5' 2.6 ) 05/12/2014 9:34 AM IRON AND STEEL WORK SUPERVISOR Body Mass Index 20.74 05/12/2014 9:34 AM IRON AND STEEL WORK SUPERVISOR Plan of Treatment Health Maintenance Due Date Last Done Comments PAP SMEAR 1997 HIV SCREENING 2012 HEPATITIS C SCREENING 04/22/2015 DTAP/TDAP/TD VACCINES (1 - Tdap) 2016 HEPATITIS B VACCINE (1 of 3 - 19+ 3-dose series) 2016 COVID-19 VACCINE ( - 2023-2 5 season) 2023 DEPRESSION SCREENING 04/27/2024 INFLUENZA VACCINE (Season Ended) 2024 ZOSTER VACCINE (1 of 2) 2047 HIB [...] age to complete this topic Care Teams Field Artillery Cannoneer Relationship Specialty Start Date End Date Selena Huerta MD [address] [place] [address] [place] [address] PCP - General Family Medicine 06/17/13
--- OUTSIDE RECORDS SUMMARY | 2024-08-04 04:05 | XMS_ITS | Clinical Summary ---
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
--- OUTSIDE RECORDS SUMMARY | 2024-08-04 04:05 | XMS_ITS | Data Portability ---
Author Organization [place] - [facility] [employer], Main Office Address [address] [place] [address] Assessment No assessment recorded. Plan of Treatment [...] unit/g-0. 1 % topical cream 2023 024 [email or web address] [facility] [place], [address], 11/19/2023 17:27:54 escitalop fei 5 mg tablet 2022 023 [email or web address] 77 [facility] [address] [place], [address], 11/19/2023 11:25:44 Patient TargetsNo targets recorded. Patient InstructionsNo instructions recorded. Reason for Referral None Reported. Results Created Date Observation Date Name Description Value Unit Range Abnormal Flag Note LastModifiedBy Organization Detail LastModifiedTime 10/16/19 22 10/19/2021 RPR SCREE N RPR non-re active nonrea ctive Not Available [facility] (Lab) [address] [place], [address], 10/19/2021 09:25:53 10/16/19 22 10/16/2021 HIV COMBO : HIV 1/2 AB,P2 4 AG HIV combo assay non-re active nonrea ctive The HIV combo test scree ns for HIV-1 , HIV-2 , HIV p24 Ag, and HIV group O. Any react heath scree n resul t will be sent for PCR confi rmato ry testi ng. Not Available [facility] (Lab) [facility] [facility] [address], [place], [address], 10/16/2021 22:21:39 10/16/19 22 10/16/2021 HIV COMBO : HIV 1/2 AB,P2 4 AG S/C 0.13 0.00-0 .99 Not Available [facility] (Lab) [address] [facility] [address], [place], [address], 10/16/2021 22:21:39 10/16/19 22 10/16/2021 TRICH OMONA S VAGIN EDITA DNA, PCR trichomonas vaginalis DNA not detect ed Not Available [facility] (Lab) [address] [place], [address], 10/16/2021 01:00:36 10/16/19 22 10/15/2021 CT/NG (CHLA MYDIA /NEIS SERIA ) DNA chlamydia trachomatis DNA not detect ed Not Available [facility] (Lab) [address] [place], [address], 10/16/2021 00:59:52 10/16/19 22 10/15/2021 CT/NG (CHLA MYDIA /NEIS SERIA ) DNA neisseria gonorrhea DNA not detect ed Not Available [facility] (Lab) [address] [place], [address], 10/16/2021 00:59:52 10/16/19 22 10/15/2021 HEPAT ITIS C/HCV ANTIB CLIFF hepatitis C antibody non-re active non-re active Not Available [facility] (Lab) [address] [place], [address], 10/15/2021 21:22:35 10/16/19 22 10/15/2021 HEPAT ITIS C/HCV ANTIB CLIFF S/C 0.01 0.00-0 .99 Not Available [facility] ([facility]) [address] [place], [address], 10/15/2021 21:22:35 01/15/20 22 01/14/2022 US, obste tric No observ ation record ed. [id number], [address], 06/25/2022 08:49:43 01/27/20 22 01/26/2022 US, obste tric No observ ation record ed. [id number] [address], [place], [address], 06/25/2022 08:49:43 03/01/20 22 03/01/2022 US, obste tric No observ ation record ed. [id number] [facility], [place], [address], 06/25/2022 08:49:43 05/31/19 24 05/31/2023 XR, chest No observ ation record ed. [email or web address] [address] [address], [place], [address], 06/04/2023 15:05:58 06/04/19 24 06/03/2023 US, moises tdanay eral No observ ation record ed. [address], [address], 06/04/2023 15:06:22 06/15/19 24 06/15/2023 imagi ng/di agnos chanda resul t No observ ation record ed. [facility] [facility] [address], [place], [address], 06/26/2023 14:11:52 06/18/19 24 06/17/2023 , echoc ardio gram No observ ation record ed. [email or web address] [facility] [address], [place], [address], 06/26/2023 14:10:46 06/29/19 24 06/20/2023 home sleep study No observ ation record ed. [email or web address] [facility] [address], [place], [address], 09/06/2023 13:47:04 10/06/19 24 10/06/2023 imagi ng inter preta tion No observ ation record ed. [email or web address] [facility] [address], [place], [address], 10/14/2023 17:43:06 Result Notes None recorded. Problems Name Problem SNOMED Code Status Onset Date Resolution Date Notes Provider Name and Address Organization Details Recorded Time Irritable bowel syndrome 29288362 Active 2016 Not Available [facility] 3 08:46:13 Tobacco user 423125410 Active Not Available [facility] 3 08:46:13 Pain in throat 249241959 Active Not Available [facility] 3 08:46:13 Abdominal pain 53414745 Active Not Available [facility] 3 08:46:13 Headache 57459742 Active Not Available [facility] 3 08:46:13 Abnormal weight loss 249194490 Active Not Available [facility] 3 08:46:13 Insect bite - wound 400264695 Active Not Available [facility] 3 08:46:13 Low back pain 914540072 Active Not Available [facility] 3 08:46:13 Proteinuria 00285279 Active Not Available [facility] 3 08:46:14 Pain in pelvis 68264408 Active Not Available [facility] 3 08:46:14 Vaginitis 37403657 Active Not Available [facility] 3 08:46:14 Vaginal ulcer 82979159 Active Not Available [facility] 3 08:46:14 Exercise-héctor isidoro asthma 08137796 Active Not Available [facility] 3 08:46:14 Iron deficiency 15306119 Active Not Available [facility] 3 08:46:14 Depressive disorder 37558500 Active Not Available [facility] 3 08:46:14 Fever 543198369 Active Not Available [facility] 3 08:46:14 Sensory disturbance in limb 030926976 Active Not Available [facility] 3 08:46:14 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 Not Available [facility] 3 08:46:14 Anxiety 13234920 Active Not Available [facility] 3 08:46:14 Dysuria 44704581 Active Not Available [facility] 3 08:46:14 Otitis media 29001528 Active Not Available [facility] 3 08:46:14 Urinary tract infectious disease 46229547 Active Not Available [facility] 3 08:46:14 Disturbance of attention 03463376 Active Not Available [facility] 3 08:46:15 Fatigue 67660775 Active Not Available [facility] 3 08:46:15 Conjunctiviti s 1979251 Active Not Available [facility] 3 08:46:15 Mixed anxiety and depressive disorder 155303379 Active 2022 MARY Iniguez [address], [address] [address], [place], [address] , [facility] [employer] [facility] [email or web address] 3 13:56:27 Palpitations 94825254 Active 2023 Selena Huerta MD [address], [place], [address] , [employer] [facility] [employer] [facility] 4 18:11:52 Tinea corporis 96575631 Active 2023 LEYDA Page [address], [address], [place], [address] , [facility] [employer] [facility] [employer] [facility] 4 11:36:16 Eczema 66438433 Active 2023 LEYDA Page [address], [place], [address] , [place] [facility] 15:03:27 Problem Notes None recorded. Procedures Surgical History None recorded. Imaging Results Imaging Date Name Status LastModified by Organization Details LastModified Time 01/14/2022 US, obstetric completed [id number], [address], 06/25/2022 08:49:43 03/01/2022 US, obstetric completed [id number] [facility], [place], [address], 06/25/2022 08:49:43 01/26/2022 US, obstetric completed [id number], [address], 06/25/2022 08:49:43 05/31/2023 XR, chest completed [address], [address], 06/04/2023 15:05:58 06/03/2023 US, breast, bilateral completed [address], [address], 06/04/2023 15:06:22 06/15/2023 imaging/diagnostic result completed [facility] [facility] [address], [place], [address], 06/26/2023 14:11:52 06/17/2023 US, echocardiogram completed [email or web address] [facility] [address], [place], [address], 06/26/2023 14:10:46 06/20/2023 home sleep study completed [email or web address] [facility] [address], [place], [address], 09/06/2023 13:47:04 10/06/2023 imaging interpretation completed [address], [place], [address], 10/14/2023 17:43:06 Procedure Notes None recorded. Medical Equipment None Reported. Allergies Allergen ID Allergen Name Allergen Category Reaction Reaction Severity Criticality Documentation Date Start Date Code Code System Note Provider Name and Address Organization Details Recorded Time bupropion Not available Not available Not available Not available 06/25/2022 20151 RxNorm rash Not Available [facility] 08:49:34 Medications Name Sig Start Date Stop [...] % 98 % 78 /min 96.4 [degF] 52331.2 7 g 122 mm[Hg] 68 mm[Hg] Not Available [facility] 3 08:43:34 Date Recorded Body height Body mass index (BMI) Body weight Body temperature Heart rate Oxygen saturation Oxygen saturation in Arterial blood by Pulse oximetry Systolic blood pressure Diastolic blood pressure Provider Name and Address Organization Details Last Updated DateTime 3 154.94 cm 23.2 kg/m2 12345.8 6 g 98.2 [degF] 83 /min 97 % 97 % 116 mm[Hg] 80 mm[Hg] Sadie Frazier MA [employer] 3 14:41:54 Date Recorded Body weight Body temperature Heart rate Oxygen saturation Oxygen saturation in Arterial blood by Pulse oximetry Systolic blood pressure Diastolic blood pressure Provider Name and Address Organization Details Last Updated DateTime 4 91266.3 4 g 97.7 [degF] 105 /min 98 % 98 % 118 mm[Hg] 70 mm[Hg] Arnaud Sandoval RN [employer] 4 11:24:49 Social History Question Answer Notes LastModified by Organizat ion Details LastModified Time Tobacco Smoking Status Former Smoker Sadie Frazier MA [facility], [employer] 06/27/2022 14:42:55 What Is Your Level Of Alcohol Consumption? Occasional [email or web address] Information not available 06/27/2022 What Is Your Level Of Caffeine Consumption? Moderate [email or web address] Information not available 06/27/2022 In The 14 Days Before Symptom Onset, Have You Had Close Contact With A Laboratory-confir med COVID-19 While That Case Was Ill? No [id number] Information not available 06/25/2022 In The 14 Days Before Symptom Onset, Have You Had Close Contact With A Person Who Is Under Investigation For COVID-19 While That Person Was Ill? No [id number] Information not available 06/25/2022 What Type Of Diet Are You Following? REGULAR [id number] Information not available 06/25/2022 Have You Ever Been Counseled For Unhealthy Alcohol Use? No [email or web address] Information not available 06/27/2022 Do You Use Any Illicit Or Recreational Drugs? No [email or web address] Information not available 06/27/2022 Has Tobacco Cessation Counseling Been Provided? No Information not available 06/27/2022 Do You Have Any Dietary Restrictions? No [id number] Information not available 06/25/2022 Sex: Unknown Functional Status Question Answer Note LastModified by Organizat ion Details LastModified Time What is your exercise level? Moderate [id number] Information not available 06/25/2022 Mental Status [...] SNOMED-CT Code Diagnosis ICD10 Code Diagnosis Note [id number] [facility] [address] [place] [address] 10/15/2021 00:00:00 10/16/2021 10:00:51 [id number] [facility] Primary Care [address] [place] [address] 12/18/2021 00:00:00 12/18/2021 09:18:58 [id number] GINA Miller [facility] Primary Care [address] [place] [address] 06/27/2022 14:34:02 06/27/2022 15:06:16 Anxiety 42716497 F41.9 Increasing recently. States it has been [...] trial of lexapro.F/ u in 3-4 weeks. [id number] Jessica Jennings, MARY-Jo Ann [facility] [address] [facility] [address] [place] [address] 11/19/2023 11:16:28 11/19/2023 11:36:42 Tinea corporis 11574457 B35.4 rash on abdomen and armpits for one monthrash is itchy Adult heal th examination 338794457 Z00.00 Patient is doing well overall and has no complaints Discussed with patient yearly eye and dental examsPatie nt refuses bloodwork and vaccines Anxiety 31319519 F41.9 OPAL-7 ()Pat ient stopped taking all medication s and does not wish to start medication sDenies SI/HI Depressive disorder 3548 9007 F32.A OPAL-7 ()Pat ient stopped taking all medication s and does not wish to start medication sDenies SI/HI [id number] Debby Bustillo [facility] [address] [address] 01/21/2024 14:16:24 01/21/2024 16:03:10 [id number] Debby Bustillo [facility] [address] [address] 02/25/2024 14:18:38 02/25/2024 14:54:18 [id number] Debby Bustillo [facility] [address] [address] 03/23/2024 15:21:11 03/23/2024 15:57:39 [id number] Debby Bustillo [facility] [address] [address] 04/13/2024 17:11:15 04/13/2024 19:31:47 [id number] Debby Bustillo [facility] [address] [place] [address] [address] 05/25/2024 17:23:56 05/25/2024 17:56:16 [id number] [facility] [address] [place] [address] 07/28/2024 17:24:09 07/28/2024 18:44:12 Health Concerns Section Related Observation LastModified by Organization Detai ls LastModified Time None Recorded Concern Status LastModified by Organization Details LastModified Time None Recorded Advance Directives Directive None Recorded Payers Encounter Date Sequence Insurance Name Policy Number Policy Davis Covered Member ID Davis Member ID Guarantor Name 06/27/2022 1 [facility] ON OR AFTER 10/25/20 (MEDICAID REPLACEMENT - HMO) Michelle Marrero [id number] Michelle Marrero 11/19/2023 1 [facility] ON OR AFTER 10/25/20 (MEDICAID REPLACEMENT - HMO) Michelle Marrero [id number] Michelle Marrero Notes Date Note Type Note [...] GINA Miller [address], [place], [address], [facility] 06/27/2022 15:22:06 11/19/2023 text/html Patient is a [...] that. Patient denies any recent contact with ter[place]. no labsWWE-sees GYNflu-declinescovid -declinestdap-UTD 2021 Jessica Jennings, MARY-C [address] [facility] [address], [place], [address], [place] [facility] 11/19/2023 11:47:13 OBGyn Episode No OBEpisode recorded.
--- OUTSIDE RECORDS SUMMARY | 2024-08-04 04:05 | XMS_ITS | CONTINUITY OF CARE DOCUMENT ---
Author Name ashley ramirez Address Unknown Organization [facility] Address [address] [facility] [address] [place] [address] Phone [phone] Care Team Providers Care Batch Plant Operator Name Role Phone Hunter MATHEW, Alistair Alba Unavailable [phone] JAZMIN CONTEH MD Unavailable [phone] JAZMIN CONTEH MD Unavailable PROBLEMS Condition Status Date Provider Notes Cardiology examination completed 9 - Jacky Ahsivakumarzaanders Asthma active Alistair Harrison MD (Hist ory of) Palpitations active Alsitair Harrison MD Tobacco abuse active Alistair Harrison MD Mitral regurgitation, mild active Jacky Luong Sinus tachycardia active Jacky Ahangy Syncope active Jacky Milleri ENCOUNTERS Date Type Provider Location Encounter Diag nosis - In-person encounter Office Visit Camila Amaya MD [place] [facility] Cardiology examinationMitral regurgitation, mildSinus tachycardiaSyncope - In-person encounter Office Visit Alistair Harrison MD [facility] [place] [facility] AsthmaPalpitationsTobacco abuse VITAL SIGNS Date Observation [...] Mass Index (Ratio) 26.07 kg/m2 Asim as [place] blood pressure, diastolic 75 mm[Hg] Li nkLogic [...] Payer name Policy type / Coverage type [place] red libertarian [place] MEDICAID (2) Medicaid [id number] ADVANCE DIRECTIVES Name Date DISCUSSED - NO [...] EKG Camila Amaya MD comp leted EKG Alistari Harrison MD compl eted
[2024-08-04 04:25] LABS: Basophils Percent Auto 0.2 % (0.2-1.2); Eosinophils Absolute Auto 0.1 K/mm3 (0-0.3); Eosinophils Percent Auto 1.4 % (0-4.4); Hematocrit 34.1 % (37.0-47.0); Hemoglobin 11.1 g/dL (12.0-15.0); Immature Granulocyte Absolute 0.05 K/mm3 (0.00-0.031); Immature Granulocyte Percent A 0.6 % (0-0.5); Lymphocytes Absolute Auto 2.04 K/mm3 (0.9-3.2); Lymphocytes Percent Auto 24.1 % (18.3-44.2); Mean Corpuscular HGB Conc 32.6 g/dl (32-36); Mean Corpuscular Hemoglobin 27.5 pg (26-34); Mean Corpuscular Volume 84.4 fl (80-100); Mean Platelet Volume 10.3 fl (7.4-10.4); Monocytes Absolute Auto 0.4 K/mm3 (0.1-0.6); Monocytes Percent Auto 5.1 % (2.6-8.5); Neutrophils Absolute Auto 5.8 K/mm3 (1.3-6.7); Neutrophils Percent Auto 68.6 % (45.5-73.1); Platelet Count Result 167 k/mm3 (150-375); Red Blood Count 4.04 M/mm3 (4.2-5.4); Red Cell Distribution Width 14.2 % (11.5-14.5); White Blood Count 8.5 K/mm3 (4.5-10.0)
--- NOTE | 2024-08-04 04:27 | LDADM ---
This patient, Michelle Marrero, was admitted to Labor/Delivery/Recovery 106 on 08/04/24 at 01:54. Plans for labor, pain management and were discussed with patient. Patient/family oriented to hospital policies and general routines including ID bracelet, bed and alarms, visiting hours, pain management, procedures, bathroom and other care routines, personal items, smoking policy, room service/diet and guest tray routines, security routines, and visiting hours. Patient/Family are encouraged to report perceived risks to care and to ask questions if they do not understand what they are told or what they should do. See OBIX for further documentation.
--- NOTE | 2024-08-04 04:54 | WPDANESEPP ---
Anes - Eval Pre Procedure Procedure: Labor Epidural Date/Time: 08/04/24 04:54 Surgeon: Jeffrey Preop Diagnosis: Labor Pain Pre Op Diagnosis: Contractions Patient Data Age: 29 Gender: F Height: 1.55 m Weight: 72.72 kg Last Vital Signs Pulse 80 08/04/24 04:51 BP 123/71 08/04/24 04:51 O2 Del Method Room Air 08/04/24 04:27 Allergies Allergy/AdvReac Type Severity Reaction Status Date / Time No Known Allergies Allergy Verified 08/04/24 04:32 Home Medications ?Medication ?Instructions ?Recorded ?Confirmed ?Type cyanocobalamin (B12)-cobamamide cira sublingual 07/21/24 History 5,000 mcg-100 mcg sublingual lozenge (B12) docosahexaenoic acid 200 mg mg PO 07/21/24 History capsule ( DHA) lurasidone 20 mg tablet 60 mg PO QPM PRN bipolar 07/21/24 07/21/24 History Laboratory Tests 08/04/24 04:19 WBC 8.5 K/mm3 (4.5-10.0) RBC 4.04 L M/mm3 (4.2-5.4) Hgb 11.1 L g/dL (12.0-15.0) Hct 34.1 L % (37.0-47.0) MCV 84.4 fl (80-100) MCH 27.5 pg (26-34) MCHC 32.6 g/dl (32-36) RDW 14.2 % (11.5-14.5) Plt Count 167 k/mm3 (150-375) MPV 10.3 fl (7.4-10.4) Immature Gran % (Auto) 0.6 H % (0-0.5) Neut % (Auto) 68.6 % (45.5-73.1) Lymph % (Auto) 24.1 % (18.3-44.2) [place] % (Auto) 5.1 % (2.6-8.5) Eos % (Auto) 1.4 % (0-4.4) Baso % (Auto) 0.2 % (0.2-1.2) Lymph # (Auto) 2.04 K/mm3 (0.9-3.2) [place] # (Auto) 0.4 K/mm3 (0.1-0.6) Eos # (Auto) 0.1 K/mm3 (0-0.3) Baso # (Auto) 0.0 K/mm3 (0.0-0.1) Abs Immat Gran (auto) 0.05 H K/mm3 (0.00-0.031) Absolute Neuts (auto) 5.8 K/mm3 (1.3-6.7) Absolute Nucleated RBC 0.000 K/mm3 (0.0-0.012) Nucleated RBC % 0.0 % (0.0-0.2) HIV 1&2 Ab/P24 Ag 4thGn Pending : gestational age (, SHARRI 08/21/24) HCG: positive Patient hx anesthesia problems: none Family hx anesthesia problems: none Results Review: All pre-operative results and documents have been reviewed as part of the pre-operative evaluation. [facility] Past Medical History Medical History IUP (intrauterine ), incidental Asthma Healthy female adult Family History Family History Mother Hypertension Family history of chronic obstructive pulmonary disease Alcoholism Asthma Depression Heart disease Sibling Hypertension Asthma Diabetes mellitus Depression Grandparent Family history of coronary artery disease Diabetes mellitus Father Alcoholism Hypertension Cerebrovascular accident Social History Social History Years smoked: 10 Smoking status: Current every day smoker Second hand tobacco smoke exposure: Yes Alcohol intake: current Substance use: never Substance use type: does not use Do You Feel Safe in your Home?: Yes Lack of Transportation: No Lack of Food: Never True Current Housing: I Have Housing Concerned About Future Housing: No Difficulty Paying Gas/Electric Bills: No Difficulty Paying for Meds: No Currently Unemployed: No Education: High School Diploma/GED Difficulty w/ Childcare or Family Care: No Living arrangements: alone Gender identity (if verbalized by the patient): Female Spiritual care concerns: No Exam Day of Procedure 08/04/24 04:54 Patient weight: normal Heart: regular rate and rhythm Lungs: normal air movement Airway: Mallampati scale class II Neurological: alert and oriented
[2024-08-04 05:06] LABS: Syphilis IgG/IgM Antibody Negative (Negative)
[2024-08-04 05:19] LABS: HIV 1/2 Ab P24 Ag Result Negative (Negative)
--- NOTE | 2024-08-04 07:36 | WPDOBADMIT ---
Obstetrics - Admit Note Admission Note: record reviewed. No pertinent additions to the history and/or any subsequent changes in the physical findings that are not consistent with the expected course of the were found. Additions to the history and/or subsequent changes in the physical findings follow. Admit in labor, SVE 4.5/60/-2 AROM moderate fluid, anticipate vaginal delivery
[2024-08-04] MEDS: OXYTOCIN 30 UNITS/NS 500 ML 30 UNITS/500 ML BAG IV CONT (10:33)
--- NOTE | 2024-08-04 14:49 | PM.OBPRVD ---
OB - Vaginal Delivery Note Procedure Delivery date: 08/04/24 Induction method: None Delivery augmentation: Rupture of Membranes and Pitocin Delivery monitor: External FHT and External Uterine Route of delivery: Episiotomy description: None Laceration Description: None Specimen: No Quantitative Blood Loss (ml): 150 Anesthesia type: Epidural Disposition: Floor Complications: No immediate complications Baby Date of : 08/04/24 Time of : 14:42 Gestational Age by Date: 37 gender: Male presentation: vertex position: Left Occiput Anterior Placenta delivery description: Spontaneous Cord Vessel Description: 3 Vessels score one minute: 8 score five minutes: 9
[2024-08-04] MEDS: OXYTOCIN 30 UNITS/NS 500 ML 30 UNITS/500 ML BAG 125 UNITS IV CONT (15:18)
[2024-08-04] MEDS: IBUPROFEN 600 MG TABLET PO (17:26)
[2024-08-04] MEDS: BENZOCAINE 20% AER SPR (*SP) 56 GM CAN 1 SPRAY TOPICAL (17:27)
[2024-08-04] MEDS: WITCH HAZEL 40 PADS 1 PAD TOPICAL (17:27)
[2024-08-05] MEDS: IBUPROFEN 600 MG TABLET PO (04:18)
[2024-08-05] MEDS: ACETAMINOPHEN 325 MG TABLET 650 MG PO (04:19)
[2024-08-05 04:20] VITALS: BP 102/57; PULSE 80; RESP 16; TEMP 36.4; O2SAT 98
[2024-08-05 04:46] LABS: Hematocrit 29.5 % (37.0-47.0); Hemoglobin 9.3 g/dL (12.0-15.0)
[2024-08-05 07:40] VITALS: BP 118/67; PULSE 94; RESP 18; TEMP 37; O2SAT 98
--- NOTE | 2024-08-05 07:52 | P.PNOB_ITS ---
OB - PN: Subj Subjective Date/time seen: 08/05/24 07:52 Interval history: pp day 1 desires d/c home OB - PN: Obj Data Labs 08/05/24 04:23 Labs: Laboratory Results - last 24 hr 08/05/24 04:23 Hgb 9.3 L Hct 29.5 L Blood Type O Negative Antibody Screen Negative Screen Negative Baby's Blood Type A pos Baby's AMY Positive Doses of RhIg Required 1 OB - PN A/P Plan day: 1 Plan: routine care and discharge home Time Spent With Patient Time: Total time spent is greater than 50% in coordination of care (as documented) at patient's floor/unit and/or counseling patient: Review of Systems 2 Review of Systems: All systems reviewed & are unremarkable except as noted in HPI and below Exam 2 Const: General: cooperative, healthy appearing and comfortable Chest: Chest palpation & inspection: normal inspection of the chest Resp: Effort & Inspection: normal respiratory effort Cardio: Rate: regular rate Rhythm: regular rhythm GI: Inspection: normal to inspection Skin: General skin exam: normal color Neuro: General: patient oriented x3 Extrem: General: normal to inspection Psych: Appearance: grossly normal
--- NOTE | 2024-08-05 07:54 | P.DS_ITS ---
DS: Admitting Diagnosis Discharge Date 08/05/24 Admitting Diagnosis labor DS: Discharge Diagnosis Discharge Diagnosis (1) Vaginal delivery: Code(s): O80 - Encounter for full-term uncomplicated delivery Status: Acute OB - DS: Summary OB Procedures : None OB Procedures Intrapartum: Spontaneous Vag Delivery OB Procedures: : None Peripartum Data Laceration Description: None Episiotomy description: None Time Spent with Patient Time attestation: Total time spent providing and/or coordinating discharge services: DS: Data Data Completed and Pending Labs on day of discharge: Labs from last 24 hours 08/05/24 04:23 Hgb 9.3 L Hct 29.5 L Blood Type O Negative Antibody Screen Negative Screen Negative Baby's Blood Type A pos Baby's AMY Positive Doses of RhIg Required 1 Discharge Plan Discharge Attending physician on discharge: Jose Guadalupe Murphy Consulting providers: Heather Ansari Discharging Clinician: Heather Ansari Patient Disposition: Home Activity: pelvic rest Diet: regular Patient Instructions: Antibiotic Form Patient Language: Romanian Stand Alone Forms: General Discharge Information Follow-up/Referrals: Heather Ansari, CRICKET[employer] [Certified Nurse Tape Sewing Machine Operator] - 4 Weeks Discharge Medications: Continued lurasidone 20 mg tablet 60 mg PO QPM PRN (Reason: bipolar) DHA 200 mg capsule PO B12 5,000-100 mcg lozenge sublingual Date of admission: 08/04/24 01:54 Primary Care Provider: UNKNOWN,DOCTOR Admitting Provider: Jose Guadalupe Murphy Attending physician on admission: Jose Guadalupe Murphy Condition: Stable
--- NOTE | 2024-08-05 08:07 | WPDANLDPN2 ---
Anes-Prog Note L&D Date/Time: 08/05/24 08:07 Comfortable throughout: labor and delivery Neuraxial method: epidural Epidural/Spinal procedure site: clean & non-tender Neuro status: Neuro function grossly intact. Cardiovascular status: normal Respiratory status: normal Airway patency: baseline Mental status: baseline Post-Op hydration status: normal Vital Signs: Last Vital Signs Temp 36.4 C L 08/05/24 04:20 Pulse 80 08/05/24 04:20 Resp 16 08/05/24 04:20 BP 102/57 L 08/05/24 04:20 Pulse Ox 98 08/05/24 04:20 O2 Del Method Room Air 08/04/24 04:27 Pain score (VAS): 2 Post-procedural complaints: none Patient feedback: Patient satisfied with anesthetic care.
[2024-08-05] MEDS: RHO(D) IMMUNE GLOBULIN 300 MCG/2 ML SYRINGE IM (08:21)
[2024-08-05 11:35] VITALS: BP 107/69; PULSE 84; RESP 14; TEMP 36.8; O2SAT 100
--- NOTE | 2024-08-05 12:30 | PC.NURSE ---
1230 Consulted with mother concerning needs, per mother she had breastfed baby a few times and most recently attempted but baby would not latch. Per mother she plans on mostly using her breast pump and then bottle feeding. RN educated mother that if baby does not go to breast with a feeding then she needed to use her breast pump to protect her milk supply. Mother requested for her nipples to be measured to make sure she she used the right size flange, both breasts measured 22mm. Mother is feeding appropriately for growth of and understands stimulating infant to eat if needed. Infant has had appropriate feedings in the last 24 hours meets the outcomes for weight, output, and jaundice at this time. Reinforced understanding of milk production, transition of milk, signs of adequate intake, transition of stool, prevention/relief of engorgement, plugged ducts, mastitis, responsive watching for feeding cues, the different methods of stimulating infant to breastfeed 1-3 hours after the start of the last feeding, community resources, and when to call a provider using the resource of the feeding sheet along with the mom and baby guide. Mother voiced understanding of the information shared, is confident to continue effectively and/or bottle feeding her infant at home, when to call for assistance, denies any additional assistance or education at this time. Reported to the Primary RN.
[2024-08-06 15:02] VITALS: BP 108/68; PULSE 78; RESP 18; TEMP 36.9; O2SAT 100
== END 2024-08-05 17:38 | disposition home or self-care (01) | DRG 560 ==
LOC: ANHLDR 06:15 → ANHOB2 19:35
PROVIDERS: Advanced Practice Midwife; Admitting Provider Obstetrics & Gynecology; Visit Provider Obstetrics & Gynecology
DX: O80 Encounter for full-term uncomplicated delivery (principal); Z3A.37 37 weeks gestation of pregnancy; Z37.0 Single live birth
CPT/HCPCS: 36415; 85014; 85018; 85025; 85461; 86593; 86703; 86850; 86900; 86901; 90384; A9270; G0432; J2590; J2790; J2795; J7120

== ENCOUNTER 2024-08-15 14:20 | Emergency (ER) | payer OTHER, SELFPAY ==
--- NOTE | ~2024-08-15 | CT_ITS ---
CT brain wo con Ordering provider: Lora Bhatti APRN History: 29 years Female with . vision changes, headache . Comparison: None. Technique: CT of the head without contrast. Radiation reduction technique utilized. The dose-length p roduct was 605.33 mGy-cm. FINDINGS: BRAIN PARENCHYMA AND CSF SPACES: No midline shift, mass effect or hemorrhage. The brain parenchyma a nd CSF spaces are otherwise normal. VISUALIZED PARANASAL SINUSES: Well aerated. MASTOIDS: Well aerated. BONES: The bones appear intact. SOFT TISSUES: Visualized nasopharynx is normal. Superficial soft tissues are normal. IMPRESSION: No acute intracranial findings. Reviewed, dictated and finalized at location A.
--- NOTE | ~2024-08-15 | US_ITS ---
US pelvic complete Ordering provider: Lora Bhatti APRN History: . concern for retained products of conception . Comparison: None. Technique: Transabdominal and endovaginal ultrasound of the pelvis (Doppler ultrasound interrogation techniques used as needed for this exam.) FINDINGS: CERVIX: Normal. UTERUS: Measures 10.5x 6x 9.1 cm in length which is within normal limits and is anteverted. No myome trial masses. ENDOMETRIUM: Complex avascular structure is noted in the endometrium suggestive of retained products. Hematoma is also possible. CUL DE SAC: No free fluid. RIGHT OVARY: Normal in size measuring 3.6x 2.3x 2.4 cm. Normal echotexture. Doppler vascular flow pre sent. LEFT OVARY: Normal in size measuring 2.5x 1.4x 3.2 cm. Normal echotexture. Doppler vascular flow pres ent. ADNEXA: Normal. No mass. IMPRESSION: Thickened products in the endometrial cavity. Clinical evaluation advised. Otherwise, normal pelvic u ltrasound. Reviewed, dictated and finalized at location A. IMPRESSION: Thickened products in the endometrial cavity. Clinical evaluation advised. Othe rwise, normal pelvic ultrasound.
[2024-08-15 14:22] VITALS: BP 121/83; PULSE 74; RESP 18; TEMP 36.6; O2SAT 100
--- NOTE | 2024-08-15 15:33 | ED_ITS ---
HPI - General Adult General Chief complaint: Unspecified <Lora Bhatti APRN - Last Filed: 08/15/24 15:37> Stated complaint: 2 wks post partem-headaches/SHOB/visual changes <Lora Bhatti APRN - Last Filed: 08/15/24 15:37> Time Seen by Provider: 08/15/24 15:20 <Lora Bhatti APRN - Last Filed: 08/15/24 15:37> Focused HPI: Patient is a 29-year-old female who presents to the ER with complaints of back pain, shortness of breath, vision changes, headache, and abdominal pain that all started yesterday. She reports she delivered a baby vaginally on August 04, 2024. Patient reports yesterday around 2 years 3:00 p.m. she started experiencing a headache and vision changes. She reports she has a history of migraines so earlier today she took Tylenol and vitamin B6. Patient reports earlier this morning she had significant abdominal pain. Her last bowel movement was yesterday and it was normal for her. Patient denies any lower extremity edema, urinary symptoms, chest pain. She reports the most distressing of the symptoms right now is her vision changes. Patient reports she did not have any complications after her and has no other relevant medical history. GENERAL: Well-appearing, well-nourished, and in no acute distress. HEAD: Normocephalic, atraumatic. CHEST: Clear to auscultation. ?No respiratory distress. HEART: Regular rate and rhythm.? NEURO: ?Alert and oriented x3. Patient screened in triage and initial orders placed.? ?Additional care and disposition to be based upon?diagnostic testing and treatment. <Lora Bhatti APRN - Last Filed: 08/15/24 15:37> History of Present Illness HPI narrative: Agree with the HPI above. <Rivas Noland MD - Last Filed: 08/15/24 21:35> Related Data Home medications: Home Medications ?Medication ?Instructions ?Recorded ?Confirmed ?Last Taken ?Type cyanocobalamin (B12)-cobamamide cira sublingual 07/21/24 08/03/24 History 5,000 mcg-100 mcg sublingual lozenge (B12) docosahexaenoic acid 200 mg mg PO 07/21/24 08/03/24 History capsule ( DHA) lurasidone 20 mg tablet 60 mg PO QPM PRN bipolar 07/21/24 07/21/24 07/20/24 History <Lora Bhatti APRN - Last Filed: 08/15/24 15:37> Allergies/adverse reactions: Allergies Allergy/AdvReac Type Severity Reaction Status Date / Time No Known Allergies Allergy Verified 08/15/24 14:22 <Lora Bhatti APRN - Last Filed: 08/15/24 15:37> Review of Systems 2 Review of Systems: As reviewed above in HPI <Rivas Noland MD - Last Filed: 08/15/24 21:35> [facility] Past Medical History Medical History: Medical History IUP (intrauterine ), incidental Asthma Healthy female adult <Lora Bhatti APRN - Last Filed: 08/15/24 15:37> Family History Family History: Family History Mother Hypertension Family history of chronic obstructive pulmonary disease Alcoholism Asthma Depression Heart disease Sibling Hypertension Asthma Diabetes mellitus Depression Grandparent Family history of coronary artery disease Diabetes mellitus Father Alcoholism Hypertension Cerebrovascular accident <Lora Bhatti APRN - Last Filed: 08/15/24 15:37> Social History Social History: Social History Years smoked: 10 Smoking status: Current every day smoker Second hand tobacco smoke exposure: Yes Alcohol intake: current Substance use: never Substance use type: does not use Do You Feel Safe in your Home?: Yes Lack of Transportation: No Lack of Food: Never True Current Housing: I Have Housing Concerned About Future Housing: No Difficulty Paying Gas/Electric Bills: No Difficulty Paying for Meds: No Currently Unemployed: No Education: High School Diploma/GED Difficulty w/ Childcare or Family Care: No Living arrangements: alone Gender identity (if verbalized by the patient): Female Spiritual care concerns: No <Lora Bhatti, LOUIE - Last Filed: 08/15/24 15:37> Exam 2 Narrative: GENERAL: [Well-appearing, well-nourished, and in no acute distress.] HEAD: [Normocephalic, atraumatic.] EYES: [PERRLA and EOMI.] ENT: Nares clear, no rhinorrhea or epistaxis. Mucous membranes moist. NECK: Supple. CHEST: [Clear to auscultation. No respiratory distress.] HEART: [Regular rate and rhythm]. No murmur heard. [Normal peripheral pulses.] ABDOMEN: [Soft, nondistended], [nontender], [No rigidity or guarding] EXTREMITIES: Normal range of motion. [No edema.] SKIN: Warm, dry, no rash. NEURO: [No focal deficits]. Alert and oriented [x3.] PSYCH: [Normal mood and affect.] <Rivas Noland MD - Last Filed: 08/15/24 21:35> Course Vital Signs Vital signs: Vital Signs Temperature 36.6 C 08/15/24 14:22 Pulse Rate 74 08/15/24 14:22 Respiratory Rate 18 08/15/24 14:22 Blood Pressure 121/83 08/15/24 14:22 Pulse Oximetry 100 08/15/24 14:22 Oxygen Delivery Room Air 08/15/24 14:22 Temperature 36.6 C 08/15/24 14:22 Pulse Rate 74 08/15/24 14:22 Respiratory Rate 18 08/15/24 14:22 Blood Pressure 121/83 08/15/24 14:22 Pulse Oximetry 100 08/15/24 14:22 Oxygen Delivery Room Air 08/15/24 14:22 <Lora Bhatti, STORE CUSTODIAN - Last Filed: 08/15/24 15:37> Vital Signs Temperature 36.6 C 08/15/24 14:22 Pulse Rate 74 08/15/24 14:22 Respiratory Rate 18 08/15/24 14:22 Blood Pressure 121/83 08/15/24 14:22 Pulse Oximetry 100 08/15/24 14:22 Oxygen Delivery Room Air 08/15/24 14:22 Temperature 36.6 C 08/15/24 14:22 Pulse Rate 74 08/15/24 14:22 Respiratory Rate 18 08/15/24 14:22 Blood Pressure 121/83 08/15/24 14:22 Pulse Oximetry 100 08/15/24 14:22 Oxygen Delivery Room Air 08/15/24 14:22 <Rivas Noland MD - Last Filed: 08/15/24 21:35> Medical Decision Making MDM Narrative Medical decision making narrative: 29-year-old female approximate 11 days . She had no complications during her , no history of hypertension, diabetes, preeclampsia. Normal spontaneous vaginal delivery. Patient states that she has had some intermittent abdominal pain and still passing a little bit of vaginal blood but decreased in intensity and no longer having blood clot passage. Endorses a headache with some blurry vision today. Had an epidural during her induction without complication. States she has a history of chronic migraines and normally gets visual aura so this is not new for her. She was concerned about the headache and vision changes in proximity to her . She has normal vital signs in triage, no tachycardia, tachypnea, no leg swelling, unremarkable physical examination, unremarkable neurological assessment. Differential diagnosis includes dural puncture headache, migraine headache, intracranial hemorrhage or mass, tension headache. Given her lack of clinical exam findings consistent with preeclampsia we have a low suspicion for this especially with her normal vital signs. Laboratory studies were obtained and CT of the head and ultrasound of the abdomen pelvis was ordered by triage provider. Laboratory studies showed no leukocytosis or anemia. Normal platelet count. Mildly elevated D-dimer but no signs of a DVT and meet years criteria to safely exclude PE. Electrolytes within normal limits, normal renal and hepatic function panel. Pelvic ultrasound shows some thickened endometrial cavity products otherwise normal pelvic ultrasound. CT of the head unremarkable. I did order patient medications for her headache with Compazine, Decadron, diphenhydramine and fluid bolus while patient's workup was still underway. She wanted to leave against medical advice at this time and not complete her workup. Risks of leaving without completion of workup was discussed with the patient and she signed AMA paperwork. <Rivas Noland MD - Last Filed: 08/15/24 21:35> Medical Records Medical records reviewed: Yes I reviewed the external patient's medical records. <Rivas Noland MD - Last Filed: 08/15/24 21:35> Vital Signs Vital Signs: Vital Signs Temperature 36.6 C 08/15/24 14:22 Pulse Rate 74 08/15/24 14:22 Respiratory Rate 18 08/15/24 14:22 Blood Pressure 121/83 08/15/24 14:22 Pulse Oximetry 100 08/15/24 14:22 Oxygen Delivery Room Air 08/15/24 14:22 Temperature 36.6 C 08/15/24 14:22 Pulse Rate 74 08/15/24 14:22 Respiratory Rate 18 08/15/24 14:22 Blood Pressure 121/83 08/15/24 14:22 Pulse Oximetry 100 08/15/24 14:22 Oxygen Delivery Room Air 08/15/24 14:22 <Lora Bhatti, STORE CUSTODIAN - Last Filed: 08/15/24 15:37> Vital Signs Temperature 36.6 C 08/15/24 14:22 Pulse Rate 74 08/15/24 14:22 Respiratory Rate 18 08/15/24 14:22 Blood Pressure 121/83 08/15/24 14:22 Pulse Oximetry 100 08/15/24 14:22 Oxygen Delivery Room Air 08/15/24 14:22 Temperature 36.6 C 08/15/24 14:22 Pulse Rate 74 08/15/24 14:22 Respiratory Rate 18 08/15/24 14:22 Blood Pressure 121/83 08/15/24 14:22 Pulse Oximetry 100 08/15/24 14:22 Oxygen Delivery Room Air 08/15/24 14:22 <Rivas Noland MD - Last Filed: 08/15/24 21:35> Lab Data Lab results reviewed: Yes I reviewed the patient's lab results. <Rivas Noland MD - Last Filed: 08/15/24 21:35> Result diagrams: 08/15/24 17:08 08/15/24 17:08 <Lora Bhatti STORE CUSTODIAN - Last Filed: 08/15/24 15:37> Labs: Lab Results 08/15/24 08/15/24 08/15/24 Range/Units 17:02 17:04 17:08 WBC 7.9 (4.5-10.0) K/mm3 RBC 4.73 (4.2-5.4) M/mm3 Hgb 12.4 D (12.0-15.0) g/dL Hct 40.2 (37.0-47.0) % MCV 85.0 (80-100) fl MCH 26.2 (26-34) pg MCHC 30.8 L (32-36) g/dl RDW 13.2 (11.5-14.5) % Plt Count 244 (150-375) k/mm3 MPV 9.6 (7.4-10.4) fl Immature Gran % (Auto) 0.1 (0-0.5) % Neut % (Auto) 61.9 (45.5-73.1) % Lymph % (Auto) 31.8 (18.3-44.2) % Baxter % (Auto) 2.9 (2.6-8.5) % Eos % (Auto) 2.8 (0-4.4) % Baso % (Auto) 0.5 (0.2-1.2) % Lymph # (Auto) 2.51 (0.9-3.2) K/mm3 Baxter # (Auto) 0.2 (0.1-0.6) K/mm3 Eos # (Auto) 0.2 (0-0.3) K/mm3 Baso # (Auto) 0.0 (0.0-0.1) K/mm3 Abs Immat Gran (auto) 0.01 (0.00-0.031) K/mm3 Absolute Neuts (auto) 4.9 (1.3-6.7) K/mm3 Absolute Nucleated RBC 0.000 (0.0-0.012) K/mm3 Nucleated RBC % 0.0 (0.0-0.2) % PT 13.9 (11.1-14.7) Seconds INR 1.0 APTT 32.7 (22.3-36.8) Seconds D-Dimer 0.84 H (<0.48) ug/mL Sodium 139 (137-145) mmol/L Potassium 4.1 (3.4-5.0) mmol/L Chloride 102 (98-107) mmol/L Carbon Dioxide 26 (22-30) mmol/L Anion Gap 11 (4-12) mmol/L BUN 16 (7-17) mg/dL Creatinine 0.61 L (0.7-1.0) mg/dL Estim Creat Clear Calc 103 ml/min Estimated GFR > 60 (59 - ) Glucose 78 (65-110) mg/dL Calcium 9.0 (8.4-10.2) mg/dL Magnesium 1.9 (1.6-2.3) mg/dL Total Bilirubin 0.3 (0.2-1.3) mg/dL AST 26 (14-36) U/L ALT 15 (6-35) U/L Alkaline Phosphatase 142 H (38-126) U/L Total Protein 8.0 (6.3-8.2) g/dL Albumin 4.2 (3.5-5.1) g/dL Urine Color Yellow (Yellow) Urine Appearance Clear (Clear) Urine pH 5.5 (5.0-9.0) Ur Specific Alexander 1.016 (1.001-1.035) Urine Protein Negative (Negative) mg/dL Urine Glucose (UA) Negative (Negative) mg/dL Urine Ketones Negative (Negative) mg/dL Ur Blood (Man) 3+ H (Negative) Urine Nitrate Negative (Negative) Urine Bilirubin Negative (Negative) Urine Urobilinogen 0.2 (<2.0) mg/dL Leukocyte Esterase Rfl 2+ H (Negative) VANDA/UL Urine RBC 51-100 H (0-2) /hpf Urine WBC 21-50 H (0-3) /hpf Ur Squamous Epith Cells None seen (Few) /hpf Urine Bacteria Trace /hpf Urine Casts 0-2 Blood Type O Negative Antibody Screen Positive Antibody Identification Passive Due to RH Imm Glob Antigen Identification Cancelled AMY, IgG Interpret Not Performed AMY, Poly Interpret Neg AMY, Complement Interp Not Performed <Lora Bhatti, STORE CUSTODIAN - Last Filed: 08/15/24 15:37> Lab Results 08/15/24 08/15/24 08/15/24 Range/Units 17:02 17:04 17:08 WBC 7.9 (4.5-10.0) K/mm3 RBC 4.73 (4.2-5.4) M/mm3 Hgb 12.4 D (12.0-15.0) g/dL Hct 40.2 (37.0-47.0) % MCV 85.0 (80-100) fl MCH 26.2 (26-34) pg MCHC 30.8 L (32-36) g/dl RDW 13.2 (11.5-14.5) % Plt Count 244 (150-375) k/mm3 MPV 9.6 (7.4-10.4) fl Immature Gran % (Auto) 0.1 (0-0.5) % Neut % (Auto) 61.9 (45.5-73.1) % Lymph % (Auto) 31.8 (18.3-44.2) % Baxter % (Auto) 2.9 (2.6-8.5) % Eos % (Auto) 2.8 (0-4.4) % Baso % (Auto) 0.5 (0.2-1.2) % Lymph # (Auto) 2.51 (0.9-3.2) K/mm3 Baxter # (Auto) 0.2 (0.1-0.6) K/mm3 Eos # (Auto) 0.2 (0-0.3) K/mm3 Baso # (Auto) 0.0 (0.0-0.1) K/mm3 Abs Immat Gran (auto) 0.01 (0.00-0.031) K/mm3 Absolute Neuts (auto) 4.9 (1.3-6.7) K/mm3 Absolute Nucleated RBC 0.000 (0.0-0.012) K/mm3 Nucleated RBC % 0.0 (0.0-0.2) % PT 13.9 (11.1-14.7) Seconds INR 1.0 APTT 32.7 (22.3-36.8) Seconds D-Dimer 0.84 H (<0.48) ug/mL Sodium 139 (137-145) mmol/L Potassium 4.1 (3.4-5.0) mmol/L Chloride 102 (98-107) mmol/L Carbon Dioxide 26 (22-30) mmol/L Anion Gap 11 (4-12) mmol/L BUN 16 (7-17) mg/dL Creatinine 0.61 L (0.7-1.0) mg/dL Estim Creat Clear Calc 103 ml/min Estimated GFR > 60 (59 - ) Glucose 78 (65-110) mg/dL Calcium 9.0 (8.4-10.2) mg/dL Magnesium 1.9 (1.6-2.3) mg/dL Total Bilirubin 0.3 (0.2-1.3) mg/dL AST 26 (14-36) U/L ALT 15 (6-35) U/L Alkaline Phosphatase 142 H (38-126) U/L Total Protein 8.0 (6.3-8.2) g/dL Albumin 4.2 (3.5-5.1) g/dL Urine Color Yellow (Yellow) Urine Appearance Clear (Clear) Urine pH 5.5 (5.0-9.0) Ur Specific Alexander 1.016 (1.001-1.035) Urine Protein Negative (Negative) mg/dL Urine Glucose (UA) Negative (Negative) mg/dL Urine Ketones Negative (Negative) mg/dL Ur Blood (Man) 3+ H (Negative) Urine Nitrate Negative (Negative) Urine Bilirubin Negative (Negative) Urine Urobilinogen 0.2 (<2.0) mg/dL Leukocyte Esterase Rfl 2+ H (Negative) VANDA/UL Urine RBC 51-100 H (0-2) /hpf Urine WBC 21-50 H (0-3) /hpf Ur Squamous Epith Cells None seen (Few) /hpf Urine Bacteria Trace /hpf Urine Casts 0-2 Blood Type O Negative Antibody Screen Positive Antibody Identification Passive Due to RH Imm Glob Antigen Identification Cancelled AMY, IgG Interpret Not Performed AMY, Poly Interpret Neg AMY, Complement Interp Not Performed <Rivas Noland MD - Last Filed: 08/15/24 21:35> Imaging Data Attestation: I personally reviewed and interpreted this imaging study as follows: < Rivas Noland MD - Last Filed: 08/15/24 21:35> My impression: Impressions Head CT 08/15/24 16:02 IMPRESSION: No acute intracranial findings. Pelvis Ultrasound 08/15/24 16:16 IMPRESSION: Thickened products in the endometrial cavity. Clinical evaluation advised. Otherwise, normal pelvic ultrasound. <Rivas Noland MD - Last Filed: 08/15/24 21:35> Discharge Plan Discharge Clinical Impression: Headache, headache <Lora Bhatti APRN - Last Filed: 08/15/24 15:37> Patient Disposition: Left Against Medical Advice <Lora Bhatti APRN - Last Filed: 08/15/24 15:37> Condition: Stable <Lora Bhatti APRN - Last Filed: 08/15/24 15:37> Patient Language: Azeri <Lora Bhatti APRN - Last Filed: 08/15/24 15:37> Prescriptions: No Action lurasidone 20 mg tablet 60 mg PO QPM PRN (Reason: bipolar) DHA 200 mg capsule PO B12 5,000-100 mcg lozenge sublingual <Lora Bhatti APRN - Last Filed: 08/15/24 15:37> Follow-up/Referrals: UNKNOWN,DOCTOR [Primary Care Provider] - <Lora Bhatti APRN - Last Filed: 08/15/24 15:37>
--- OUTSIDE RECORDS SUMMARY | 2024-08-15 16:16 | XMS_ITS | Data Portability ---
Author Organization [facility] [place] Address [address] [address] [place] [address] Assessment Encounter Date Assessment Date Assessment LastModified by Organization Details LastModified Time 07/01/2024 07/01/2024 Patient is ___weeks . Discussed plan. [email or web address] Not available 07/01/2024 14:45:30 08/02/2024 08/02/2024 Patient is _37__weeks . Discussed plan. [email or web address] Not available 08/02/2024 10:26:39 Plan of Treatment Reminders Order Date Submit Date Provider Last Modified By Organization Details Last Modified Time Details Appointments POST 2024 11:15A M Heather Ansari CNM Not available Not available Not available Lab None recorded. Referral None recorded. Procedures None recorded. Surgeries None recorded. Imaging US, obstetric , follow-up 2024 025 [email or web address] [place] [facility] [address], [place], [address], 07/01/2024 17:52:58 Medication Orders ondansetr on 8 mg disintegr ating tablet 2024 025 [facility] [address], [address] [facility], [place], [address], 07/15/2024 10:36:09 Patient TargetsNo targets recorded. Patient InstructionsNo instructions recorded. Reason for Referral None Reported. Results Created Date Observation Date Name Description Value Unit Range Abnormal Flag Note LastModifiedBy Organization Detail LastModifiedTime 07/02/19 25 07/01/2024 US, obste tric, follo w-up No observ ation record ed. [facility] [address], [place], [address], 07/01/2024 17:36:23 07/02/19 25 07/01/2024 US, obste tric, follo w-up No observ ation record ed. [email or web address] [address], [place], [address], 07/04/2024 23:22:37 07/25/19 25 07/24/2024 non-s tress test No observ ation record ed. Not Available 2024 13:44:54 Result Notes None recorded. Problems Name Problem SNOMED Code Status Onset Date Resolution Date Notes Provider Name and Address Organization Details Recorded Time Pregnanc y 31782989 Completed 202001/10/2021 Linda zuniga, [facility] 4 14:54:08 Asthma 910654796 Completed 2020 albutero l prn Kathy kaur [facility] 15:54:45 Mixed anxiety and depressi ve disorder 847638898 Completed 2020 stable off meds for years Kathy zuniga [facility] 15:54:45 Atypical squamous cells of undeterm ined signific ance on cervical Papanico laou smear 224143123 Completed 2020 HPV pos. repeat pap post Kathy zuniga [facility] 15:54:45 Maternal tobacco use in pregnanc y 3439752087 96697 Completed 2020 quit Kathy zuniga [facility] 15:54:45 Asthma 469165622 Completed 202009/26/2020 alberic burnettn Zohra Gill [facility] 18:16:31 Mixed anxiety and depressi ve disorder 016098667 Completed 202009/26/2020 stable off meds for years Zohra Gill [facility] 18:16:45 Maternal tobacco use in pregnanc y 2757109023 12572 Completed 202009/26/2020 trying to quit Zohra Jairo [facility] 18:16:34 Atypical squamous cells of undeterm ined signific ance on cervical Papanico laou smear 693337871 Completed 202009/26/2020 HPV pos. repeat pap post Zohra Gill [facility] 18:16:29 Rubella non-immu ne 405015286 Completed MMR PP Kathy kaur [facility] 15:54:45 Chlamydi al infectio n 714491538 Completed [address] Huerta office tx pt Rocephin & Zpack / has f/u appt - DARIN 11/26 negative Kathy kaur [facility] 15:54:45 Low lying placenta 919221668 Completed 202010/05/2020 [facility]05[facility] 15:54:45 Group B Streptoc occus carrier 2878466855 103 Completed 2020 Kathy zuniga [facility] 15:54:45 Cervical intraepi thelial neoplasi a grade 2 103820614 Active 2022 Maria Dolores Wright MD [address], [place], [address], [facility] 3 09:52:39 History of loop electros urgical excision procedur e 8090743418 9102 Active 2022 Maria Dolores Wright MD [address], [place], [address], [facility] 3 09:52:41 Pregnanc y 32674436 Active 2023 Linda zuniga, [facility] 4 14:54:08 Bipolar disorder 89717253 Active uvaldo, mood stable, meeting with fer toussaint in July prior to delivery URIAH MORALES MD [address], [place], [address], [facility] 5 15:00:52 Problem Notes None recorded. Procedures Surgical History Date Name Laterality Status Provider Name and Address Organization Details Recorded Time 08/03/19 24 SIS completed URIAH MORALES MD [address], [place], [address], [facility] 08/03/2023 14:15:49 07/06/19 24 Colposcopy completed URIAH MOARLES MD [address], [place], [address], [facility] 07/06/2023 22:19:43 07/06/19 24 Colposcopy completed Zohra Gill [facility] 08/02/2024 09:59:33 07/06/19 24 Hysteroscopy completed Zohra Gill [facility] 08/02/2024 10:00:17 02/11/20 23 Date of Last Pap Smear completed Zohra Gill [facility] 02/10/2023 14:57:55 10/14/19 23 LEEP completed Maria Dolores Wright MD [address], [place], [address], [facility] 10/13/2022 10:35:40 10/14/19 23 LEEP completed Leanna Ware [facility] 10/13/2022 15:07:02 09/16/19 23 Colposcopy completed Maria Dolores Wright MD [address], [place], [address], [facility] 09/16/2022 09:59:59 09/16/19 23 Colposcopy completed Zohra Gill [facility] 02/10/2023 10:52:12 09/16/19 23 Colposcopy completed Zohra Gill [facility] 02/10/2023 10:53:53 03/19/20 Colposcopy completed Maria Dolores Wright MD [address], [place], [address], [facility] 03/19/2022 16:57:57 03/09/20 22 Colposcopy completed Zohra Gill [facility] 02/10/2023 15:06:08 04/27/19 12 termination of completed Zohra Gill [facility] 01/23/2022 15:56:15 Imaging Results Imaging Date Name Status LastModified by Organiz ation Details LastModified Time 07/01/2024 US, obstetric, follow-up completed [email or web address] Elam [address], [place], [address], 07/01/2024 17:36:23 07/01/2024 US, obstetric, follow-up completed [email or web address] [address], [place], [address], 07/04/2024 23:22:37 07/24/2024 non-stress test completed [email or web address] Information not available 07/25/2024 13:44:54 Procedure Notes [...] Updated DateTime 07/01/2024 154.94 cm 29.3 kg/m2 19396.82 g 129 mm[Hg] 72 mm[Hg] Linda Saavedra [facility] 14:46:05 Date Recorded Body height Body mass index (BMI) Body weight Systolic blood pressure Diastolic blood pressure Provider Name and Address Organization Details Last Updated DateTime 07/15/2024 154.94 cm 30 kg/m2 31889.19 g 112 mm[Hg] 74 mm[Hg] Linda Saavedra [facility] 5 10:07:35 Date Recorded Body weight Body mass index (BMI) Body height Systolic blood pressure Diastolic blood pressure Provider Name and Address Organization Details Last Updated DateTime 07/27/2024 46041.18 683 g 30 kg/m2 154.94 cm 120 mm[Hg] 76 mm[Hg] NENITA Thacker [facility] 5 14:13:28 Date Recorded Body height Body mass index (BMI) Body weight Systolic blood pressure Diastolic blood pressure Provider Name and Address Organization Details Last Updated DateTime 08/02/2024 154.94 cm 30.2 kg/m2 76841.78 g 116 mm[Hg] 82 mm[Hg] Zohra Gill [facility] 5 09:54:32 Social History Question Answer Notes LastModified by Organizat ion Details LastModified Time Tobacco Smoking Status Current Every Day Smoker Samia zuniga, [facility] 05/02/2020 12:29:55 What Is Your Level Of Alcohol Consumption? None [email or web address] Information not available 02/15/2024 If You Are , What Was Your Level Of Alcohol Consumption Prior To ? Occasional [email or web address] Information not available 05/29/2020 Are You Blind Or Do You Have Difficulty Seeing? No [email or web address] Information not available 06/27/2020 What Is Your Level Of Caffeine Consumption? Occasional [email or web address] Information not available 06/27/2020 How Much Tobacco Do You Chew? None [email or web address] Information not available 02/15/2024 In The 14 Days Before Symptom Onset, Have You Had Close Contact With A Laboratory-confir med COVID-19 While That Case Was Ill? No [email or web address] Information not available 06/27/2020 In The 14 Days Before Symptom Onset, Have You Had Close Contact With A Person Who Is Under Investigation For COVID-19 While That Person Was Ill? No [email or web address] Information not available 06/27/2020 Have You Been To An Area Known To Be High Risk For COVID-19? No [email or web address] Information not available 06/27/2020 Are You Currently Employed? Yes [email or web address] Information not available 07/15/2024 Are You Deaf Or Do You Have Serious Difficulty Hearing? No Information not available 06/27/2020 What Type Of Diet Are You Following? REGULAR [email or web address] Information not available 06/27/2020 What Is The Highest Grade Or Level Of School You Have Completed Or The Highest Degree You Have Received? 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 Yes Information not available 02/15/2024 Have You Ever Been Counseled For Unhealthy Alcohol Use? No [email or web address] Information not available 05/29/2020 Do You Use Protection During Sex? No [email or web address] Information not available 02/15/2024 Do You Use Your Seat Belt Or Car Seat Routinely? Yes Information not available 06/27/2020 Are You Sexually Active? Yes [email or web address] Information not available 07/15/2024 Do You Have Smoke And Carbon Monoxide Detectors In Your Home? Yes [email or web address] Information not available 06/27/2020 How Much Tobacco Do You Smoke? No Information not available 02/15/2024 Do You Feel Stressed (tense, Restless, Nervous, Or Anxious, Or Unable To Sleep At Night)? [id number] [email or web address] Information not available 02/15/2024 Do You Use Any Illicit Or Recreational Drugs? No [email or web address] Information not available 05/29/2020 Do You Use Sunscreen Routinely? No [email or web address] Information not available 02/15/2024 Has Tobacco Cessation Counseling Been Provided? No Information not available 05/29/2020 Have You Used IV Drugs? No [email or web address] Information not available 02/15/2024 Do You Or Have You Ever Used Any Other Forms Of Tobacco Or Nicotine? No [email or web address] Information not available 05/29/2020 Sex: Unknown Functional Status Question Answer Note LastModified by Organizat ion Details LastModified Time Do you have difficulty walking or climbing stairs? No Information not available 01/23/2022 Are you able to walk? YESWOREST [email or web address] Information not available 06/27/2020 Are you able to care for yourself? Yes [email or web address] Information not available 01/23/2022 Do you have difficulty dressing or bathing? No [email or web address] Information not available 01/23/2022 What is your exercise level? Occasional [email or web address] Information not available 05/29/2020 Mental Status None recorded. Family History Relationship Description Onset Age of this Age Resolved Age Notes LastModified by Organization Details LastModified Time Mother Asthma [email or web address] Not available 12:37:20 Mother Heart disease [email or web address] Not available 2020 12:41:22 Mother Cyst of ovary Not available 2023 14:48:18 Father Hypertensive disorder [email or web address] Not available 2020 12:41:56 Paternal Grandmother Diabetes mellitus [email or web address] Not available 2020 12:46:04 Sister Diabetes mellitus [email or web address] Not available 2020 12:46:13 Sister Hypertensive disorder smcaley Not available 2020 12:46:43 Maternal Aunt Carcinoma in situ of breast [email or web address] Not available 2023 14:48:18 Medical History Condition Response Allergies (Food, seasonal, environmental ) N Other N Drug/Latex Allergies/Reactions N Breast Cancer N Blood Transfusion N Lung Disease N [...] SNOMED-CT Code Diagnosis ICD10 Code Diagnosis Note [id number] Ann Hunt [place] [address] [address] 05/02/2020 12:19:20 05/02/2020 17:29:12 screening 035265854 Z36.87 [id number] Maria Dolores Wright MD [place] [address] [address] 05/02/2020 12:19:20 05/02/2020 17:29:12 Urine test positive 771232996 Z32.01 test positive 224799477 Z32.01 Maternal t obacco use in 4061695409 24634 O99.331 with uncertain dates 833126676 Z34.01 Venereal d isease screening 188731143 Z11.3 Screening for malignant neoplasm of cervix 787658564 Z12.4 43125 Maria Dolores Wright MD [place] [address] [address] 05/29/2020 12:08:03 05/29/2020 14:50:02 Routine care 752946570 Z34.90 Atypical s quamous cells of undetermined significance on cervical Papanicolaou smear 398819120 R87.610 Maternal t obacco use in 1004244934 27518 O99.331 Mixed anxi ety and depressive disorder 722038290 F41.8 Asthma 984043045 J45.90 9 [id number] Heather Ansari CNM [place] [address],[place] [address] 06/27/2020 16:25:00 06/27/2020 17:45:45 Routine care 313807656 Z34.[id number] [facility] [address],[place] [address] 06/27/2020 16:24:45 06/28/2020 08:36:17 11494 Lukas Aaron [place] [address],[place] [address] 07/10/2020 15:40:31 07/11/2020 08:46:41 [id number] [address] [address] 08/02/2020 14:48:23 08/02/2020 16:38:04 Routine care 916969902 Z34.[id number] [facility] [address],[place] [address] 08/02/2020 14:47:58 08/02/2020 15:43:34 screening 047196629 Z36.3 [facility] [address] [address] 08/07/2020 14:38:22 08/07/2020 23:42:21 Vaginitis 18065146 N76.0 Discussed use of mild soap like dove or ivory, cotton underwear w/out dye, hypoallerg enic detergent, wipe from front to back, avoid tub baths, keep perineum clean and dry, d/c use of baby wipes. Encouraged daily intake of yogurt or womens health probiotic. Internal and external affirm collected. 72685 [facility] [address],[place] [address] 08/31/2020 14:06:19 08/31/2020 14:51:43 Low lying placenta 818915735 O44.40 Z3A.23 56166 Maria Dolores Wright MD [place] [address],[place] [address] 08/31/2020 14:06:36 08/31/2020 15:29:24 Low lying placenta 915992328 O44.40 Z3A.23 Routine an tenatal care 118385677 Z34.90 [id number] Heather AbhayPa Ansari [facility] [address],[place] [address] 09/26/2020 17:21:59 09/26/2020 22:24:19 Urinary symptoms 124012205 R39.9 Pain in ro und ligament in 8386921991 5425458 O26.899 80268 [facility] [address],[place] [address] 10/05/2020 12:30:40 10/05/2020 13:16:00 Low lying placenta 444441756 O44.40 Z3A.28 [id number] Maria Dolores Wright MD [place] [address],[place] [address] 10/05/2020 15:56:25 10/05/2020 16:49:08 Routine care 616317761 Z34.90 [id number] Maria Dolores Wright MD [place] [address],[place] [address] 10/19/2020 14:57:33 10/19/2020 16:26:16 Routine care 607013868 Z34.90 26237 Jose Guadalupe Murphy MD [place] [address],[place] [address] 11/01/2020 15:48:57 11/01/2020 16:27:57 Routine care 803214770 Z34.83 Uterine si ze for dates discrepancy 575934149 O26.849 18135 Ann Hunt [place] [address],[place] [address] 11/05/2020 10:18:46 11/05/2020 10:52:03 Uterine size for dates discrepancy 245080638 O26.843 Z3A.32 90409 Maria Dolores Wright MD [place] [address],[place] [address] 11/12/2020 11:21:38 11/12/2020 14:41:13 Routine care 800165450 Z34.90 48230 Maria Dolores Wright MD [place] [address],[place] [address] 11/26/2020 15:34:13 11/27/2020 15:21:02 Routine care 243658817 Z34.90 Uterine si ze for dates discrepancy 749470569 O26.843 Z3A.32 93017 Ann Hunt [place] [address],[place] [address] 12/03/2020 11:55:14 12/03/2020 12:37:07 Uterine size for dates discrepancy 895776269 O26.843 Z3A.36 98493 Maria Dolores Wright MD [place] [address],[place] [address] 12/03/2020 11:55:41 12/03/2020 12:51:12 Routine care 786296241 Z34.[address] reptococcus carrier 8946806955 103 Z22.330 00443 Maria Dolores Wright MD [place] [address],[place] [address] 12/10/2020 11:53:19 12/10/2020 12:12:37 Routine care 946229562 Z34.90 [id number] Maria Dolores Wright MD [place] [address],[place] [address] 12/17/2020 11:53:27 12/17/2020 12:49:15 Routine care 947624781 Z34.[address] reptococcus carrier 9818576193 103 Z22.330 [id number] MD Papa Black [address],[place] [address] 12/24/2020 11:49:31 12/24/2020 13:18:33 Group B Streptococcus carrier 1627878405 103 Z22.330 Routine an tenatal care 584242159 Z34.90 [id number] MD Massiel [place] [address],[place] [address] 01/22/2021 12:36:44 01/22/2021 13:13:29 care 663075811 Z39.2 Contracept ion care management 707676410 Z30.9 [id number] Clara Auguste [place] [address],[place] [address] 01/23/2022 15:16:53 01/23/2022 15:44:58 [id number] Madalyn Santa [place] [address],[place] [address] 01/23/2022 15:17:58 01/24/2022 16:59:29 test positive 581418295 Z32.01 Risk factors addressed: Tobacco Cessation, Safe [...] annual well woman examinatio n and [facility] [id number] Ann Hunt [place] [address],[place] [address] 01/28/2022 11:06:10 01/28/2022 12:36:22 Threatened miscarriage 64389654 O20.0 Z3A.08 116166 Maria Dolores Wright MD [place] [address],[place] [address] 03/19/2022 15:12:30 03/22/2022 20:53:03 [id number] Maria Dolores Wright MD [place] [address],[place] [address] 03/19/2022 16:23:32 03/19/2022 17:09:38 Screening procedure 82959366 Z13.9 Atypical s quamous cells on cervical Papanicolaou smear cannot exclude high grade squamous intraepithelial lesion 902994264 R87.611 [id number] Maria Dolores Wright MD [place] [address],[place] [address] 08/18/2022 17:10:03 08/18/2022 18:10:15 Atypical squamous cells on cervical Papanicolaou smear cannot exclude high grade squamous intraepithelial lesion 815599480 R87.611 [id number] Maria Dolores Wright MD [place] [address],[place] [address] 09/15/2022 14:51:50 09/16/2022 11:17:09 Screening procedure 36341696 Z13.9 High grade squamous intraepithelial lesion on cervical Papanicolaou smear 8803766502 9107 R87.613 [id number] Maria Dolores Wright MD [place] [address],[place] [address] 10/06/2022 16:22:48 10/07/2022 09:50:54 Cervical intraepithelial neoplasia grade 2 651779205 N87.1 Preoperative state 56666 002 Z78.9 [id number] Maria Dolores Wright MD [place] [address],[place] [address] 10/13/2022 09:11:00 10/14/2022 10:44:06 Cervical intraepithelial neoplasia grade 2 036091334 N87.1 [id number] Maria Dolores Wright MD [place] [address],[place] [address] 11/10/2022 17:08:02 11/11/2022 11:12:24 Cervical intraepithelial neoplasia grade 2 153643290 N87.1 History of loop electrosurgical excision procedure 5646437845 9102 Z98.890 [id number] LEONARDO Centeno [place] [address],[place] [address] 02/10/2023 14:40:21 02/10/2023 15:21:43 History of loop electrosurgical excision procedure 5148445555 9102 Z98.890 repeat pap updated todaysafe sexual practices discussed and encouraged will update pt with results when available and notify pt of follow-up instructio johnathan Time spent in visit is a total of 25 mins with at least 50% of visit consisting of counseling and review of plan of care. History of abnormal cervical Papanicolaou smear 255699356 Z87.42 Screening for malignant neoplasm of cervix 716494171 Z12.4 499165 Morelia LEONARDO Godinez [place] [address],[place] [address] 05/21/2023 17:01:24 05/22/2023 09:28:55 Breast tenderness 27296019 N64.4 we agreed to update bilateral breast u/s - order givenlabs ordereddis cussed recent pap result and encouraged to schedule colposcopy Time spent in visit is a total of 18 mins with at least 50% of visit consisting of counseling and review of plan of care. Discharge from nipple 54 048803 N64.52 History of abnormal cervical Papanicolaou smear 254017000 Z87.42 [id number] URIAH MORALES MD [place] [address],[place] [address] 07/06/2023 15:33:48 07/07/2023 07:39:52 Low grade squamous intraepithelial lesion on cervical Papanicolaou smear 9324279259 9105 R87.612 - colposcopy completed today, patient tolerated well- follow up on results as available [id number] URIAH MORALES MD [place] [address],[place] [address] 07/15/2023 16:49:14 07/16/2023 10:57:38 Infertile 7439108 N97.9 - Differenti al diagnosis of cause of infertilit y includes: structural , anovulator y, tubal- We discussed the potential causes of infertilit y and rationale behind testing.- The patient is asked to complete the following diagnostic work up to include:-- FSH, estradiol, TSH, A1C, Vitamin D, PRL, LH, 17OHP, AMH-- Pending SIS results, HSG which is to be scheduled on CD 6--- Transvagin al ultrasound with SIS for endometria l cavity assessment - If other workup negative, will pursue complete semen analysis for her partner- Following the return of these test results she is asked to return to the office for further discussion of reproducti ve planning and treatment options Cervical intraepithelial neoplasia grade 2 151090751 N87.1 - 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 [address],[place] [address] 08/03/2023 11:49:30 08/03/2023 13:34:08 Female infertility 3593801 N97.[id number] [facility] [address],[place] [address] 08/03/2023 11:49:47 08/03/2023 13:33:53 [id number] URIAH MORALES MD [place] [address],[place] [address] 08/03/2023 11:50:00 08/03/2023 14:22:29 Trying to conceive 955071753 Z31.9 Uterine leiomyoma 598428 05 D25.9 - SIS demonstrat es uterine fibroid impinging on uterine cavity; implicatio ns to fertility discussed with patient- recommend [facility] D[facility] with myomectomy ; r/b/a discussed with patient- patient agrees to proceed with procedure- will try to schedule HSG with [facility] due to hx of chlamydial infection to r/o tubal factor History of chlamydial infection 134617209 Z86.19 [id number] URIAH MORALES MD [place] [address],[place] [address] 10/27/2023 16:19:16 10/27/2023 17:08:41 Postoperative visit 893063943 Z48.89 - s/p hysterosco py, polypectom y and HSG on 10/05- benign pathology, HSG demonstrat es bilaterall y patent fallopian tubes- pain possibly 2/2 positionin g during surgery, patient reports it is improving Secondary infertility 29 4620556 N97.9 - workup unremarkab le aside from [...] to schedule visit to discuss ovulation induction [id number] Ann Hunt [place] [address] [address] 01/11/2024 14:23:24 01/11/2024 15:01:59 [id number] URIAH MORALES MD [place] [address] [address] 01/18/2024 16:32:42 01/18/2024 17:11:32 Nausea and vomiting 77875029 R11.2 test positive 748205123 Z32.01 1. Exam today within normal limits.2. [...] given today. 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, completely excised however SCARLET-1 extending to ectocervic al margins- Colposcopy 06/2023 with CIN2- given patient desires future pregnancie s, per ASCCP guidelines , ok for active surveillan ce while attempting - recommend LEEP if dysplasia worsens or when childbeari ng is completed- will repeat pap at new OB visit Palpitations 68708295 R0 0.2 - previously on metoprolol , d/c'd with - workup including echo negative from cardiology - having more palpitatio ns during since d/c of metoprolol - ok to restart, discussed safety in [id number] Clarisa Smith [facility] [address] [address] 02/15/2024 14:48:12 02/15/2024 15:22:34 screening 210903178 Z36.82 Z3A.13 [id number] URIAH MORALES MD [facility] [address],[place] [address] 02/15/2024 14:48:37 02/15/2024 16:01:34 Routine care 705574932 Z34.91 Nausea and vomiting 1693 2000 R11.2 Cervical intraepithelial neoplasia grade 2 706140098 N87.1 - 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, completely excised however SCARLET-1 extending to ectocervic al margins- Colposcopy 06/2023 with CIN2- repeat pap obtained today Bipolar disorder 1459034 4 F31.9 - continue buspar and latuda [id number] URIAH MORALES MD [facility] [address],[place] [address] 03/15/2024 11:25:37 03/15/2024 12:32:24 Nausea and vomiting 21089794 R11.2 Cervical intraepithelial neoplasia grade 2 097303483 N87.1 - 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, completely excised however SCARLET-1 extending to ectocervic al margins- Colposcopy 06/2023 with CIN2- repeat pap wnl 01/2024, repeat Bipolar disorder 5519380 4 F31.9 - continue buspar and latuda Gestation period, 17 weeks 53369848 Z3A.17 [id number] Ann [facility] [address],[place] [address] 04/11/2024 15:53:44 04/11/2024 17:18:55 screening for malformation 636323918 Z36.3 Z3A.21 [id number] URIAH MORALES MD [facility] [address],[place] [address] 04/11/2024 15:58:43 04/11/2024 17:33:03 Cervical intraepithelial neoplasia grade 2 713702641 N87.1 - 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, completely excised however SCARLET-1 extending to ectocervic al margins- Colposcopy 06/2023 with CIN2- repeat pap wnl 01/2024, repeat History of loop electrosurgical excision procedure 0840989522 9102 Z98.890 - CL wnl 04/11 Bipolar disorder 4830909 4 F31.9 - continue buspar and latuda Gestation period, 21 weeks 59059088 Z3A.21 - continue PNV [id number] [facility] [address],[place] [address] 05/09/2024 11:01:31 05/09/2024 11:46:03 screening 147944773 Z36.2 Z3A.25 [id number] URIAH MORALES MD [facility] [address],[place] [address] 05/09/2024 11:04:07 05/09/2024 12:58:38 History of loop electrosurgical excision procedure 1223337452 9102 Z98.890 - CL wnl 04/11 Bipolar disorder 1161301 4 F31.9 - continue buspar and latuda Gestation period, 25 weeks 28356494 Z3A.25 - continue pNV 398742 URIAH MORALES MD [facility] [address],[place] [address] 05/30/2024 11:38:25 05/30/2024 12:20:54 Bipolar disorder 02987908 F31.9 - continue buspar and latuda Gestation period, 28 weeks 32891395 Z3A.28 - continue PNV- travel precaution s discussed [id number] URIAH MORALES MD [facility] [address],[place] [address] 06/14/2024 12:40:57 06/14/2024 13:28:51 Bipolar disorder 87134299 F31.9 - continue buspar and latuda Gestation period, 30 weeks 41041122 Z3A.30 - continue PNV [id number] Clarisa [facility] [address],[place] [address] 07/01/2024 13:54:05 07/01/2024 14:41:21 Medical examination for suspected condition 460225342 Z03.74 Z3A.32 [id number] URIAH MORALES MD [facility] [address] [address] 07/01/2024 13:54:53 07/01/2024 15:02:22 Bipolar disorder 68725090 F31.9 - continue latuda- meeting with psychiatri st prior to delivery- plan for 1 week PP mood check Gestation period, 32 weeks 3150287 Z3A.32 - continue PNV- discussed preadmissi on [id number] URIAH MORALES MD [facility] [address],[place] [address] 07/15/2024 09:57:43 07/15/2024 10:37:41 Nausea and vomiting 18439597 R11.2 Bipolar disorder 9354636 4 F31.9 - continue latuda- meeting with psychiatri st prior to delivery- plan for 1 week PP mood check Gestation period, 34 weeks 21147406 Z3A.34 - continue PNV [id number] URIAH MORALES MD [facility] [address],[place] [address] 07/27/2024 13:33:27 07/27/2024 14:37:19 Bipolar disorder 70955120 F31.9 - continue latuda- meeting with psychiatri st prior to delivery- plan for 1 week PP mood check Gestation period, 36 weeks 91957030 Z3A.36 - GBS collected- rtc 1 [id number] [facility] [address],[facility] [place] [address] 08/02/2024 09:35:06 08/02/2024 10:27:41 Gestation period, 37 weeks 77372933 Z3A.37 continue vitamin Health Concerns Section Related Observation LastModified by Organization Detai ls LastModified Time None Recorded Concern Status LastModified by Organization Details LastModified Time None Recorded Advance Directives Directive None Recorded Payers Encounter Date Sequence Insurance Name Policy Number Policy Davis Covered Member ID Davis Member ID Guarantor Name 07/01/2024 1 [employer] ON OR AFTER 10/25/20 (MEDICAID REPLACEMENT - HMO) Michelle Marrero [id number] Michelle Marrero 07/01/2024 1 [employer] ON OR AFTER 10/25/20 (MEDICAID REPLACEMENT - HMO) Michelle Marrero [id number] Michelle Elida 07/15/2024 1 [employer] ON OR AFTER 10/25/20 (MEDICAID REPLACEMENT - HMO) Michelle Elida [id number] Michelle Elida 07/27/2024 1 [employer] ON OR AFTER 10/25/20 (MEDICAID REPLACEMENT - HMO) Michelle Elida [id number] Michelle Elida 08/02/2024 1 [employer] ON OR AFTER 10/25/20 (MEDICAID REPLACEMENT - HMO) Michelle Elida [id number] Michelle Elida OBGyn Episode Ob Episode Information Episode Created Date Number of Fetuses Patient Bloodtype Patient rh Status Prepregnancy Weight lbs Domestic Partner Domestic Partner Phone Father Name Dice Table Operator Status 05/02/19 1 CLOSED Fetus Data First Name Last Name Admitted to NICU Weight (g) Sex Living Outcome Pediatric Complications Fetus ID Race Codes Race Delivery Type , Induced 6822 Gaurav Calculation Initial Gaurav Date Initial Exam [...] Domestic Partner Domestic Partner Phone Father Name Dice Table Operator Status 05/29/19 21 1 O Negative 133 CLOSED Fetus Data First Name Last Name Admitted to NICU Weight (g) Sex Living Outcome Pediatric Complications Fetus ID Race Codes Race Delivery Type Jazmin 3260.19 25 F true Full Term Meconium 7632 Vaginal Delivery Problems Problem Notes Wright pt Problem Name Start Date End Date Resolution Snomed Code Not e Group B Streptococcus carrier 12/03/2020 8384062305844 Rubella non-immune 495764562 M MR PP Low lying placenta 08/02/2020 10/05/2020 SELFRESOLVED 248656 007 resolved 10/05/20 Asthma 05/29/2020 155857990 albuterol prn Mixed anxiety and depressive disorder 05/29/2020 208721986 stable o ff meds for years Atypical squamous cells of undetermined significance on cervical Papanicolaou smear 05/29/2020 758668849 HPV pos. repeat pap post Maternal tobacco use in 05/29/2020 SELFRESOLVED [id number] quit Chlamydial infection TREATMENT 012003772 Dr Huerta office tx pt Rocephin & [...] Date Ultra Sound Latest Days Gestation 0 [id number] 05/29/2020 12/26/19 21 0 Pre- Flowsheet Flowsheet Date 05/29/2020 Noguera Score Blood Edema Fundus Height Fundus Units Glucose Ketones Leukocytes Nitrite Labor Signs Protein Cervic Dilation Cervic Effacement Cervic Station neg none trace Type Weight in lbs Pre/Post Dialysis Refused Weight 131.374868137194 BP Diastolic BP Location Tested BP Systolic [...] weeks for first ob appointment1. Urine test tyozboqaF47.01: Encounter for test, result positivePREGNANCY TEST, URINE - Specimen source: Urine2. test ptldhdliV82.01: Encounter for test, result positive3. Maternal tobacco use in qmumzmjvjP01.331: Smoking (tobacco) complicating , first trimester4. with uncertain lpfpaE32.01: Encounter for supervision of normal first , first trimester5. Venereal disease oejteqatgB09.3: Encounter for screening for infections with a [...] Weight in lbs Pre/Post Dialysis Refused Weight 128.676037558252 BP Diastolic BP Location Tested BP Systolic [...] Weight in lbs Pre/Post Dialysis Refused Weight 131.913452387319 BP Diastolic BP Location Tested BP Systolic [...] Weight in lbs Pre/Post Dialysis Refused Weight 131.917615481965 BP Diastolic BP Location Tested BP Systolic [...] Weight in lbs Pre/Post Dialysis Refused Weight 134.847651945501 BP Diastolic BP Location Tested BP Systolic [...] Weight in lbs Pre/Post Dialysis Refused Weight 141.432562183802 BP Diastolic BP Location Tested BP Systolic [...] Weight in lbs Pre/Post Dialysis Refused Weight 142.934862424891 BP Diastolic BP Location Tested BP Systolic [...] Weight in lbs Pre/Post Dialysis Refused Weight 145.6023596883 BP Diastolic BP Location Tested BP Systolic [...] Weight in lbs Pre/Post Dialysis Refused Weight 143.612746944851 BP Diastolic BP Location Tested BP Systolic [...] Weight in lbs Pre/Post Dialysis Refused Weight 143.235302498505 BP Diastolic BP Location Tested BP Systolic [...] Weight in lbs Pre/Post Dialysis Refused Weight 148.804299041436 BP Diastolic BP Location Tested BP Systolic [...] Weight in lbs Pre/Post Dialysis Refused Weight 147.036146281374 BP Diastolic BP Location Tested BP Systolic [...] Weight in lbs Pre/Post Dialysis Refused Weight 149.638553432933 BP Diastolic BP Location Tested BP Systolic [...] Weight in lbs Pre/Post Dialysis Refused Weight 149.087401431546 BP Diastolic BP Location Tested BP Systolic [...] Weight in lbs Pre/Post Dialysis Refused Weight 152.432343004241 BP Diastolic BP Location Tested BP Systolic [...] Estim ated Date of Delivery false Thalassemia (Ethiopian, Albanian, Mediterranean, Or Background): MCV < 80 false Neural Tube Defect (Meningomyelocele, Spina Bifi da, Or Anencephaly) false Congenital Heart Defect false Down Syndrome false Nish-Sachs (eg, Judaism, Cajun, [place]-Graff) f alse Felisha Disease false Sickle Cell Disease Or Trait () false Hemophilia Or Other Blood Disorders false Muscular Dystrophy false Cystic Fibrosis false Kingsbury's Chorea false Intellectual Disability/Autism false If Yes, [...] Comments 1 Induce d Regional-Ep idural 40 Maria Dolores Franco MD Gbs+ EBL 550 ccs Discharge Information Feeding Method Contraceptive Method Maternal HG B and HCT Levels Ob Episode Information Episode Created Date Number of Fetuses Patient Bloodtype Patient rh Status Prepregnancy Weight lbs Domestic Partner Domestic Partner Phone Father Name Dice Table Operator Status 02/15/20 24 1 O Negative Miranda Toussaint an OPEN Fetus Data First Name Last Name Admitted to NICU Weight (g) Sex Living Outcome Pediatric Complications Fetus ID Race Codes Race Delivery Type 64013 Problems Problem Notes 32wk growth us Problem Name Start Date End Date Resolution Snomed Code Not e Bipolar disorder 37885573 lat uda, mood stable, meeting with psychiatrist [...] Date Ultra Sound Latest Days Gestation 0 [id number] 03/15/2024 08/22/19 25 0 Pre- Flowsheet Flowsheet [...] Weight in lbs Pre/Post Dialysis Refused Weight 140.655890500279 BP Diastolic BP Location Tested BP Systolic BP Type 72 L arm 108 sitting Fetus Heart Rate Present A 150 Fetus Movement Comments [facility]. complicated by hx of SCARLET- [...] Type Weight in lbs Pre/Post Dialysis Refused 137.089825406404 BP Diastolic BP Location Tested BP Systolic [...] Type Weight in lbs Pre/Post Dialysis Refused 139.593001288258 BP Diastolic BP Location Tested BP Systolic [...] Type Weight in lbs Pre/Post Dialysis Refused 146.277446219027 BP Diastolic BP Location Tested BP Systolic BP Type 72 L arm 108 sitting Fetus Heart Rate Present A 141 Fetus Movement A Yes Comments Patient c/o of acid reflux a nd some nausea. Along with lower pains and pressure. Discussed belly band and pelvic floor PT. Good movement. Discussed GCT, labs and Rhogam at [place], labs given. Anatomy complete and normal, EFW 25%, will plan for 32 week growth US. RTC 3-4 weeks. Flowsheet Date 05/30/2024 Noguera Score Blood Edema Fundus Height Fundus Units Glucose Ketones Leukocytes Nitrite Labor Signs Protein Cervic Dilation Cervic Effacement Cervic Station neg trace Type Weight in lbs Pre/Post Dialysis Refused Weight 150.099511109524 BP Diastolic BP Location Tested BP Systolic BP Type 69 L arm 107 sitting Fetus Heart Rate Present A 150 Fetus Movement A Yes Comments Patient c/o [place] Jacobs, s welling in feet. Good movement. No bleeding. Passed GCT, no anemia on labs. Received Tdap. Discussed repeat growth US at 32 weeks. Traveling to [place] at beginning of June, travel precautions discussed. RTC 2 weeks. Flowsheet Date 06/14/2024 Noguera Score Blood Edema Fundus Height Fundus Units Glucose Ketones Leukocytes Nitrite Labor Signs Protein Cervic Dilation Cervic Effacement Cervic Station Type Weight in lbs Pre/Post Dialysis Refused 152.685520210735 BP Diastolic BP Location Tested BP Systolic BP Type 80 L arm 117 sitting Fetus Heart Rate Present A 1140 Fetus Movement A Yes Comments Good movement. Was see n in triage for contractions, was fingertip dilated. Having increased pelvic pressure. No bleeding or LOF. Not planning on going to [place] with due to contractions. Repeat growth US [...] Weight in lbs Pre/Post Dialysis Refused Weight 155.985896463918 BP Diastolic BP Location Tested BP Systolic [...] Weight in lbs Pre/Post Dialysis Refused Weight 159.623244244848 BP Diastolic BP Location Tested BP Systolic [...] Type Weight in lbs Pre/Post Dialysis Refused 159.917038637352 BP Diastolic BP Location Tested BP Systolic [...] Weight in lbs Pre/Post Dialysis Refused Weight 160.105219084511 BP Diastolic BP Location Tested BP Systolic [...]
--- OUTSIDE RECORDS SUMMARY | 2024-08-15 16:16 | XMS_ITS | Clinical Summary ---
Author Organization [employer] Address [address] [place] [address] Care Team Providers Care Director Global Strategic Publisher Sales Name Role Phone Selena Huerta MD Primary Care Provider [phone] Source Comments [facility] [employer],non-owned Affiliates and Associated Physician Practices is amultiple site organization consisting of ambulatory clinics and hospital sitesin [place], [place], [place] and [place]. This disclosure is being madepursuant to the Care Everywhere program and may not contain all information available regarding this patient. Last updated 18.[employer] Allergies No known active allergies Medications * This document contains information received from the source organization and may not represent a complete record from that organization. * Be aware that medications may not be up to date on this document. Alwaysverify current medications with the patient. albuterol HFA (PROVENTIL;VENT RINKU;PROAIR) 108 (90 BASE) MCG/ACT inhalerIndicati ons:Asthma Inhale 2 Puffs by mouth every 6 [...] by mouth once daily. 527 g 5 5 Active Active Problems Problem Noted Date Diagnosed [...] drink = 0.6 oz pur e alcohol) Comments Unknown Sex and Gender Information Value Date Recorded Sex Assigned at Not on file Legal Sex Female 9:00 AM SHUTTLE FIXER Gender Identity Not on file Sexual Orientation Not on file Last Filed Vital Signs Vital Sign Reading Time Taken Comments Blood Pressure 112/78 03/02/2014 9:19 AM SHUTTLE FIXER Pulse 88 02/13/2014 12:00 AM CDT Temperature 36.4 C (97.6 F) 06/17/2013 3:36 PM SHUTTLE FIXER Respiratory Rate 22 06/17/2013 3:36 PM SHUTTLE FIXER Oxygen Saturation - - Inhaled Oxygen Concentration - - Weight 52.4 kg (115 lb 9.6 oz) 05/12/2014 9:34 A M SHUTTLE FIXER Height 159 cm (5' 2.6 ) 05/12/2014 9:34 AM SHUTTLE FIXER Body Mass Index 20.74 05/12/2014 9:34 AM SHUTTLE FIXER Plan of Treatment Health Maintenance Due Date Last Done Comments PAP SMEAR 1997 HIV SCREENING 2012 HEPATITIS C SCREENING 04/22/2015 DTAP/TDAP/TD VACCINES (1 - Tdap) 2016 HEPATITIS B VACCINE (1 of 3 - 19+ 3-dose series) 2016 COVID-19 VACCINE (1 - 2023-2 5 season) 2023 DEPRESSION SCREENING [...] patient's age to complete this topic Insurance [employer] * Guarantor: TERESA MARRERO Account Type Relation to Patient Date of Phone Billing Address Personal/Family [address] [place] [id number] [facility] SELF PAY NO INSURANCE Member Subscriber Plan / Payer (Ef fective for All Dates) Name:Teresa Marrero Member ID:Not on file Relation to Subscriber:Not on file Name:TERESA MARRERO Subscriber ID:Not on file Address: [address] [place] [address] Payer ID:Not on file Group ID:Not on file Type:Self Pay Address: [place], [place] * Guarantor: TERESA MARRERO Account Type Relation to Patient Date of Phone Billing Address Personal/Family [address] [place], [place] [facility] SELF PAY NO INSURANCE Member Subscriber Plan / Payer (Ef fective for All Dates) Name:Teresa Marrero Member ID:Not on file Relation to Subscriber:Not on file Name:TERESA MARRERO Subscriber ID:Not on file Address: [address] [place] [address] Payer ID:Not on file Group ID:Not on file Type:Self Pay Address: [place], [place] * Guarantor: TERESA MARRERO Account Type Relation to Patient Date of Phone Billing Address Personal/Family [address] [place] [address] [facility] SELF PAY NO INSURANCE Member Subscriber Plan / Payer (Ef fective for All Dates) Name:Teresa Marrero Member ID:Not on file Relation to Subscriber:Not on file Name:TERESA MARRERO Subscriber ID:Not on file Address: [address] [place] [address] Payer ID:Not on file Group ID:Not on file Type:Self Pay Address: [place], [place] Care Teams Director Global Strategic Publisher Sales Relationship Specialty Start Date End Date Selena Huerta MD [address] [place] [address] [place] [address] PCP - General Family Medicine 06/17/13
--- OUTSIDE RECORDS SUMMARY | 2024-08-15 16:16 | XMS_ITS | CONTINUITY OF CARE DOCUMENT ---
Author Name ashley ramirez Address Unknown Organization [facility] Address [address] [facility] [address] [place] [address] Phone [phone] Care Team Providers Care Community Organization Director Name Role Phone Hunter MATHEW, Alistair Alba Unavailable [phone] JAZMIN CONTEH MD Unavailable JAZMIN CONTEH MD Unavailable PROBLEMS Condition Status Date Provider Notes Cardiology examination completed 9 - Jacky Luong Asthma active Alistair Harrison MD (Hist ory of) Palpitations active Alistair Harrison MD Tobacco abuse active Alistair Harrison MD Syncope active Jacky Luong Sinus tachycardia active Jacky Luong Mitral regurgitation, mild active Jacky Luong ENCOUNTERS Date Type Provider Location Encounter Diag nosis - In-person encounter Office Visit Camila Amaya MD [facility] Cardiology examinationMitral regurgitation, mildSinus tachycardiaSyncope - In-person encounter Office Visit Alistair Harrison MD [facility] AsthmaPalpitationsTobacco abuse VITAL SIGNS Date Observation [...] Mass Index (Ratio) 26.07 kg/m2 Asim as [place] blood pressure, diastolic 75 mm[Hg] Li nkLogic [...] Payer name Policy type / Coverage type [place] red constitution party ID [place] MEDICAID (2) Medicaid [id number] ADVANCE DIRECTIVES Name Date DISCUSSED - NO [...]
--- OUTSIDE RECORDS SUMMARY | 2024-08-15 16:16 | XMS_ITS | Clinical Summary ---
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
[2024-08-15 17:15] LABS: Basophils Percent Auto 0.5 % (0.2-1.2); Eosinophils Absolute Auto 0.2 K/mm3 (0-0.3); Eosinophils Percent Auto 2.8 % (0-4.4); Hematocrit 40.2 % (37.0-47.0); Hemoglobin 12.4 g/dL (12.0-15.0); Immature Granulocyte Absolute 0.01 K/mm3 (0.00-0.031); Immature Granulocyte Percent A 0.1 % (0-0.5); Lymphocytes Absolute Auto 2.51 K/mm3 (0.9-3.2); Lymphocytes Percent Auto 31.8 % (18.3-44.2); Mean Corpuscular HGB Conc 30.8 g/dl (32-36); Mean Corpuscular Hemoglobin 26.2 pg (26-34); Mean Platelet Volume 9.6 fl (7.4-10.4); Monocytes Absolute Auto 0.2 K/mm3 (0.1-0.6); Monocytes Percent Auto 2.9 % (2.6-8.5); Neutrophils Absolute Auto 4.9 K/mm3 (1.3-6.7); Neutrophils Percent Auto 61.9 % (45.5-73.1); Platelet Count Result 244 k/mm3 (150-375); Red Blood Count 4.73 M/mm3 (4.2-5.4); Red Cell Distribution Width 13.2 % (11.5-14.5); White Blood Count 7.9 K/mm3 (4.5-10.0)
[2024-08-15 17:23] LABS: Alanine Aminotransferase 15 U/L (6-35); Albumin Level 4.2 g/dL (3.5-5.1); Alkaline Phosphatase 142 U/L (38-126); Anion Gap 11 mmol/L (4-12); Aspartate Amino Transferase 26 U/L (14-36); Bilirubin,Total 0.3 mg/dL (0.2-1.3); Blood Urea Nitrogen 16 mg/dL (7-17); Carbon Dioxide 26 mmol/L (22-30); Chloride 102 mmol/L (98-107); Estimated CRCL calculation 103 ml/min; Estimated Glomerular Filt Rate > 60; Glucose 78 mg/dL (65-110); Potassium 4.1 mmol/L (3.4-5.0); Sodium 139 mmol/L (137-145)
[2024-08-15 17:29] LABS: Prothrombin Time 13.9 Seconds (11.1-14.7)
[2024-08-15 17:30] LABS: Partial Thromboplastin Time 32.7 Seconds (22.3-36.8)
[2024-08-15 17:33] LABS: D Dimer 0.84 ug/mL (<0.48)
[2024-08-15 17:51] LABS: Add Urine Microscopic? YES; Appearance Urine Clear (Clear); Bilirubin Urine Negative (Negative); Blood Urine 3+ (Negative); Color Urine Yellow (Yellow); Glucose Urine UA Negative (Negative); Ketones Urine Negative (Negative); Leukocyte Esterase Ur 2+ LEU/UL (Negative); Nitrate Urine Negative (Negative); Non Pathogenic Casts 0-2; Protein Urine Negative (Negative); RBC Urine 51-100 /hpf (0-2); Specific Grav Ur 1.016 (1.001-1.035); Squamous Epithelial Cell Urine None Seen /hpf (Few); Urobilinogen Urine 0.2 mg/dL (<2.0); WBC Urine 21-50 /hpf (0-3); pH Urine 5.5 (5.0-9.0)
[2024-08-15 18:02] LABS: Bacteria Urine Trace /hpf
--- OUTSIDE RECORDS SUMMARY | 2024-08-15 18:17 | XMS_ITS | Clinical Summary ---
Author Organization [email or web address] Address [address] [facility] [place] [address] Care Team Providers Care Au Pair Name Role Phone Selena Huerta MD Primary Care Provider [phone] Source Comments [facility] [employer],non-owned Affiliates and Associated Physician Practices is amultiple site organization consisting of ambulatory clinics and hospital sitesin [place], [place], [place] and [place]. This disclosure is being madepursuant to the Care Everywhere program and may not contain all information available regarding this patient. Last updated 18.[employer] Allergies No known active allergies Medications * [...] on file Legal Sex Female 9:00 AM DROP WIRER Gender Identity Not on file Sexual Orientation Not on file Last Filed Vital Signs Vital Sign Reading Time Taken Comments Blood Pressure 112/78 03/02/2014 9:19 AM DROP WIRER Pulse 88 02/13/2014 12:00 AM CDT Temperature 36.4 C (97.6 F) 06/17/2013 3:36 PM DROP WIRER Respiratory Rate 22 06/17/2013 3:36 PM DROP WIRER Oxygen Saturation - - Inhaled Oxygen Concentration - - Weight 52.4 kg (115 lb 9.6 oz) 05/12/2014 9:34 A M DROP WIRER Height 159 cm (5' 2.6 ) 05/12/2014 9:34 AM DROP WIRER Body Mass Index 20.74 05/12/2014 9:34 AM DROP WIRER Plan of Treatment Health Maintenance Due Date [...] patient's age to complete this topic Insurance [employer] [employer] * Guarantor: TERESA MARRERO Account Type Relation to Patient Date of Phone Billing Address Personal/Family [address] [place] [address] [facility] SELF PAY NO INSURANCE Member Subscriber Plan / Payer (Ef fective for All Dates) Name:Teresa Marrero Member ID:Not on file Relation to Subscriber:Not on file Name:TERESA MARRERO Subscriber ID:Not on file Address: [address] [place] [address] Payer ID:Not on file Group ID:Not on file Type:Self Pay Address: [place], [place] * Guarantor: TERESA MARRERO Account Type Relation to Patient Date of Phone Billing Address Personal/Family [address] [place], [place] [facility] SELF PAY NO INSURANCE Member Subscriber Plan / Payer (Ef fective for All Dates) Name:Teresa Marrero Member ID:Not on file Relation to Subscriber:Not on file Name:TERESA MARRERO Subscriber ID:Not on file Address: [address] [place] [address] Payer ID:Not on file Group ID:Not on file Type:Self Pay Address: [place], [place] * Guarantor: TERESA MARRERO Account Type Relation to Patient Date of Phone Billing Address Personal/Family [address] [place] [address] [facility] SELF PAY NO INSURANCE Member Subscriber Plan / Payer (Ef fective for All Dates) Name:Teresa Marrero Member ID:Not on file Relation to Subscriber:Not on file Name:TERESA MARRERO Subscriber ID:Not on file Address: [address] [place] [address] Payer ID:Not on file Group ID:Not on file Type:Self Pay Address: [place], [place] Care Teams Au Pair Relationship Specialty Start Date End Date Selena Huerta MD [address] [place] [address] [place] [address] PCP - General Family Medicine 06/17/13
--- OUTSIDE RECORDS SUMMARY | 2024-08-15 18:17 | XMS_ITS | Clinical Summary ---
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
--- OUTSIDE RECORDS SUMMARY | 2024-08-15 18:17 | XMS_ITS | Data Portability ---
Author Organization [place] [facility] [employer], Main Office Address [address] [place] [address] Assessment No assessment recorded. Plan of Treatment [...] unit/g-0. 1 % topical cream 2023 024 [email or web address] [facility] [place], [address], 11/19/2023 17:27:54 escitalop fei 5 mg tablet 2022 023 77 [facility], [address] [place], [address], 11/19/2023 11:25:44 Patient TargetsNo targets recorded. Patient InstructionsNo instructions recorded. Reason for Referral None Reported. Results Created Date Observation Date Name Description Value Unit Range Abnormal Flag Note LastModifiedBy Organization Detail LastModifiedTime 10/16/19 22 10/19/2021 RPR SCREE N RPR non-re active nonrea ctive Not Available [facility] (Lab) [address] [place], [address], 10/19/2021 09:25:53 10/16/19 22 10/16/2021 HIV COMBO : HIV 1/2 AB,P2 4 AG HIV combo assay non-re active nonrea ctive The HIV combo test scree ns for HIV-1 , HIV-2 , HIV p24 Ag, and HIV group O. Any react heath scree n resul t will be sent for PCR confi rmato ry testi ng. Not Available [facility] (Lab) [facility] [address], [place], [address], 10/16/2021 22:21:39 10/16/19 22 10/16/2021 HIV COMBO : HIV 1/2 AB,P2 4 AG S/C 0.13 0.00-0 .99 Not Available [facility] (Lab) [address] [facility] [address], [place], [address], 10/16/2021 22:21:39 10/16/19 22 10/16/2021 TRICH OMONA S VAGIN EDITA DNA, PCR trichomonas vaginalis DNA not detect ed Not Available [facility] (Lab) [address] [place], [address], 10/16/2021 01:00:36 10/16/19 22 10/15/2021 CT/NG (CHLA MYDIA /NEIS SERIA ) DNA chlamydia trachomatis DNA not detect ed Not Available [facility] (Lab) [address] [place], [address], 10/16/2021 00:59:52 10/16/19 22 10/15/2021 CT/NG (CHLA MYDIA /NEIS SERIA ) DNA neisseria gonorrhea DNA not detect ed Not Available [facility] (Lab) [address] [place], [address], 10/16/2021 00:59:52 10/16/19 22 10/15/2021 HEPAT ITIS C/HCV ANTIB CLIFF hepatitis C antibody non-re active non-re active Not Available [facility] (Lab) [address] [place], [address], 10/15/2021 21:22:35 10/16/19 22 10/15/2021 HEPAT ITIS C/HCV ANTIB CLIFF S/C 0.01 0.00-0 .99 Not Available [facility] ([facility]) [address] [place], [address], 10/15/2021 21:22:35 01/15/20 22 01/14/2022 US, obste tric No observ ation record ed. [id number], [address], 06/25/2022 08:49:43 01/27/20 22 01/26/2022 US, obste tric No observ ation record ed. [id number] [address], [place], [address], 06/25/2022 08:49:43 03/01/20 22 03/01/2022 US, obste tric No observ ation record ed. [id number] [address] [facility] [place], [address], 06/25/2022 08:49:43 05/31/19 24 05/31/2023 XR, chest No observ ation record ed. [email or web address] [address], [place], [address], 06/04/2023 15:05:58 06/04/19 24 06/03/2023 US, moises tdanay eral No observ ation record ed. [email or web address] [address], [address], 06/04/2023 15:06:22 06/15/19 24 06/15/2023 imagi ng/di agnos chanda resul t No observ ation record ed. [facility] [address], [place], [address], 06/26/2023 14:11:52 06/18/19 24 06/17/2023 , echoc ardio gram No observ ation record ed. [email or web address] [facility] [address], [place], [address], 06/26/2023 14:10:46 06/29/19 24 06/20/2023 home sleep study No observ ation record ed. [email or web address] [facility] [address], [place], [address], 09/06/2023 13:47:04 10/06/19 24 10/06/2023 imagi ng inter preta tion No observ ation record ed. [facility] [address], [place], [address], 10/14/2023 17:43:06 Result Notes None recorded. Problems Name Problem SNOMED Code Status Onset Date Resolution Date Notes Provider Name and Address Organization Details Recorded Time Irritable bowel syndrome 75699164 Active 2016 Not Available [facility] 3 08:46:13 Tobacco user 233670465 Active Not Available [facility] 3 08:46:13 Pain in throat 121543478 Active Not Available [facility] 3 08:46:13 Abdominal pain 05931615 Active Not Available [facility] 3 08:46:13 Headache 14470867 Active Not Available [facility] 3 08:46:13 Abnormal weight loss 306471845 Active Not Available [facility] 3 08:46:13 Insect bite - wound 082196509 Active Not Available [facility] 3 08:46:13 Low back pain 178650187 Active Not Available [facility] 3 08:46:13 Proteinuria 16658695 Active Not Available [facility] 3 08:46:14 Pain in pelvis 99866731 Active Not Available [facility] 3 08:46:14 Vaginitis 98382622 Active Not Available [facility] 3 08:46:14 Vaginal ulcer 92492457 Active Not Available [facility] 3 08:46:14 Exercise-héctor isidoro asthma 23628442 Active Not Available [facility] 3 08:46:14 Iron deficiency 40309825 Active Not Available [facility] 3 08:46:14 Depressive disorder 83707445 Active Not Available [facility] 3 08:46:14 Fever 708269763 Active Not Available [facility] 3 08:46:14 Sensory disturbance in limb 620091766 Active Not Available [facility] 3 08:46:14 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 Not Available [facility] 3 08:46:14 Anxiety 07078348 Active Not Available [facility] 3 08:46:14 Dysuria 32740116 Active Not Available [facility] 3 08:46:14 Otitis media 29300858 Active Not Available [facility] 3 08:46:14 Urinary tract infectious disease 06101752 Active Not Available [facility] 3 08:46:14 Disturbance of attention 45639803 Active Not Available [facility] 3 08:46:15 Fatigue 49035253 Active Not Available [facility] 3 08:46:15 Conjunctiviti s 4093480 Active Not Available [facility] 3 08:46:15 Mixed anxiety and depressive disorder 130835784 Active 2022 MARY Iniguez [address], [address] [address], [place], [address] , [facility] [employer] [facility] [employer] 3 13:56:27 Palpitations 39484024 Active 2023 Selena Huerta MD [address], [place], [address] , [facility] [employer] [facility] 4 18:11:52 Tinea corporis 34422142 Active 2023 LEYDA Page [address], [address], [place], [address] , [facility] [employer] [facility] [employer] [facility] 4 11:36:16 Eczema 84990035 Active 2023 LEYDA Page [address], [place], [address] , [place] [facility] 15:03:27 Problem Notes None recorded. Procedures Surgical History None recorded. Imaging Results Imaging Date Name Status LastModified by Organization Details LastModified Time 01/14/2022 US, obstetric completed [id number], [address], 06/25/2022 08:49:43 03/01/2022 US, obstetric completed [id number] [address] [facility] [place], [address], 06/25/2022 08:49:43 01/26/2022 US, obstetric completed [id number], [address], 06/25/2022 08:49:43 05/31/2023 XR, chest completed [address], [address], 06/04/2023 15:05:58 06/03/2023 US, breast, bilateral completed [address], [address], 06/04/2023 15:06:22 06/15/2023 imaging/diagnostic result completed [facility] [address], [place], [address], 06/26/2023 14:11:52 06/17/2023 US, echocardiogram completed llalor [facility] [address], [place], [address], 06/26/2023 14:10:46 06/20/2023 home sleep study completed [email or web address] [facility] [address], [place], [address], 09/06/2023 13:47:04 10/06/2023 imaging interpretation completed [address], [place], [address], 10/14/2023 17:43:06 Procedure Notes None recorded. Medical Equipment None Reported. Allergies Allergen ID Allergen Name Allergen Category Reaction Reaction Severity Criticality Documentation Date Start Date Code Code System Note Provider Name and Address Organization Details Recorded Time bupropion Not available Not available Not available Not available 06/25/2022 56569 RxNorm rash Not Available [facility] 08:49[facility]34 Medications Name Sig Start [...] No t Available lurasidone 60 mg tablet TAKE 1 [...] % 98 % 78 /min 96.4 [degF] 86510.2 7 g 122 mm[Hg] 68 mm[Hg] Not Available [facility] 3 08:43:34 Date Recorded Body height Body mass index (BMI) Body weight Body temperature Heart rate Oxygen saturation Oxygen saturation in Arterial blood by Pulse oximetry Systolic blood pressure Diastolic blood pressure Provider Name and Address Organization Details Last Updated DateTime 3 154.94 cm 23.2 kg/m2 38762.8 6 g 98.2 [degF] 83 /min 97 % 97 % 116 mm[Hg] 80 mm[Hg] Sadie Frazier MA [employer] 3 14:41:54 Date Recorded Body weight Body temperature Heart rate Oxygen saturation Oxygen saturation in Arterial blood by Pulse oximetry Systolic blood pressure Diastolic blood pressure Provider Name and Address Organization Details Last Updated DateTime 4 54396.3 4 g 97.7 [degF] 105 /min 98 % 98 % 118 mm[Hg] 70 mm[Hg] Arnaud Sandoval RN [facility] 4 11:24:49 Social History Question Answer Notes LastModified by Organizat ion Details LastModified Time Tobacco Smoking Status Former Smoker Sadie Frazier MA [facility], [facility] 06/27/2022 14:42:55 What Is Your Level Of Alcohol Consumption? Occasional [email or web address] Information not available 06/27/2022 What Is Your Level Of Caffeine Consumption? Moderate [email or web address] Information not available 06/27/2022 In The 14 Days Before Symptom Onset, Have You Had Close Contact With A Laboratory-confir med COVID-19 While That Case Was Ill? No [id number] Information not available 06/25/2022 In The 14 Days Before Symptom Onset, Have You Had Close Contact With A Person Who Is Under Investigation For COVID-19 While That Person Was Ill? No [id number] Information not available 06/25/2022 What Type Of Diet Are You Following? REGULAR [id number] Information not available 06/25/2022 Have You Ever Been Counseled For Unhealthy Alcohol Use? No [email or web address] Information not available 06/27/2022 Do You Use Any Illicit Or Recreational Drugs? No [email or web address] Information not available 06/27/2022 Has Tobacco Cessation Counseling Been Provided? No [email or web address] Information not available 06/27/2022 Do You Have Any Dietary Restrictions? No [id number] Information not available 06/25/2022 Sex: Unknown Functional Status Question Answer Note LastModified by Organizat ion Details LastModified Time What is your exercise level? Moderate [id number] Information not available 06/25/2022 Mental Status [...] SNOMED-CT Code Diagnosis ICD10 Code Diagnosis Note [id number] [facility] [address] [place] [address] 10/15/2021 00:00:00 10/16/2021 10:00:51 [id number] [facility] Primary Care [address] [place] [address] 12/18/2021 00:00:00 12/18/2021 09:18:58 [id number] GINA Miller [facility] Primary Care [address] [place] [address] 06/27/2022 14:34:02 06/27/2022 15:06:16 Anxiety 69955991 F41.9 Increasing recently. States it has been [...] trial of lexapro.F/ u in 3-4 weeks. [id number] Jessica Jennings, MARY-Jo Ann [facility] Primary Care [address] [facility] [address] [place] [address] 11/19/2023 11:16:28 11/19/2023 11:36:42 Tinea corporis 12441776 B35.4 rash on abdomen and armpits for one monthrash is itchy Adult heal th examination 474782251 Z00.00 Patient is doing well overall and has no complaints Discussed with patient yearly eye and dental examsPatie nt refuses bloodwork and vaccines Anxiety 39084486 F41.9 OPAL-7 ()Pat ient stopped taking all medication s and does not wish to start medication sDenies SI/HI Depressive disorder 3548 9007 F32.A OPAL-7 ()Pat ient stopped taking all medication s and does not wish to start medication sDenies SI/HI [id number] [facility] [address] [address] 01/21/2024 14:16:24 01/21/2024 16:03:10 [id number] Debby Bustillo [facility] [address] [address] 02/25/2024 14:18:38 02/25/2024 14:54:18 [id number] [facility] [address] [facility] [address] 03/23/2024 15:21:11 03/23/2024 15:57:39 [id number] [facility] [address] [facility] [address] 04/13/2024 17:11:15 04/13/2024 19:31:47 [id number] [facility] [address] [place] [address] 05/25/2024 17:23:56 05/25/2024 17:56:16 [id number] [facility] [address] [place] [address] 07/28/2024 17:24:09 07/28/2024 18:44:12 Health Concerns Section Related Observation LastModified by Organization Detai ls LastModified Time None Recorded Concern Status LastModified by Organization Details LastModified Time None Recorded Advance Directives Directive None Recorded Payers Encounter Date Sequence Insurance Name Policy Number Policy Davis Covered Member ID Davis Member ID Guarantor Name 06/27/2022 1 [facility] ON OR AFTER 10/25/20 (MEDICAID REPLACEMENT - HMO) Michelle Marrero [id number] Michelle Marrero 11/19/2023 1 [facility] - DOS ON OR AFTER 20 (MEDICAID REPLACEMENT - HMO) Michelle Marrero [id number] Michelle Marrero Notes Date Note Type Note [...] GINA Miller [address], [place], [address], [facility] 06/27/2022 15:22:06 11/19/2023 text/html Patient is a [...] that. Patient denies any recent contact with teran/ho-chunk/river water. no labsWWE-sees GYNflu-declinescovid -declinestdap-UTD 2021 MARY Page-C [address] [facility] [address], [place], [address], [place] [facility] [employer] [facility] 11/19/2023 11:47:13 OBGyn Episode No OBEpisode recorded.
--- OUTSIDE RECORDS SUMMARY | 2024-08-15 18:17 | XMS_ITS | CONTINUITY OF CARE DOCUMENT ---
Author Name ashley ramirez Address Unknown Organization [facility] Address [address] [place] [address] Phone [phone] Care Team Providers Care Stonehand Name Role Phone Hunter MATHEW, Alistair Alba Unavailable JAZMIN CONTEH MD Unavailable [phone] JAZMIN CONTEH MD Unavailable PROBLEMS Condition Status [...] In-person encounter Office Visit Camila Amaya MD [facility] Cardiology examinationMitral regurgitation, mildSinus tachycardiaSyncope - In-person encounter Office Visit Alistair [place] MD [facility] AsthmaPalpitationsTobacco abuse VITAL SIGNS Date Observation [...] Mass Index (Ratio) 26.07 kg/m2 Asim as Lawrence blood pressure, diastolic 75 mm[Hg] Li nkLogic [...] Payer name Policy type / Coverage type [place] red libertarian [place] MEDICAID (2) Medicaid [id number] ADVANCE DIRECTIVES Name Date DISCUSSED - NO [...]
--- NOTE | 2024-08-15 18:45 | PC.NURSE ---
called lab to add on Mg
[2024-08-15 18:55] LABS: Magnesium 1.9 mg/dL (1.6-2.3)
== END 2024-08-16 06:36 | disposition left against medical advice (07) ==
PROVIDERS: Registered Nurse; Emergency Provider Student in an Organized Health Care Education/Training Program
DX: O89.4 Spinal and epidural anesthesia-induced headache during the puerperium (principal); J45.909 Unspecified asthma, uncomplicated; F17.210 Nicotine dependence, cigarettes, uncomplicated
CPT/HCPCS: 36415; 70450; 76856; 80053; 81001; 83735; 85025; 85380; 85610; 85730; 86850; 86880; 86900; 86901; 86902; 87086; 96361; 96374; 96375; 99284

== ENCOUNTER 2024-11-13 22:33 | Emergency (ER) | payer OTHER, SELFPAY ==
--- NOTE | ~2024-11-13 | XR_ITS ---
EXAMINATION: XR chest 2V 11/13/2024 23:20 INDICATION: Chest pain and shortness of breath PROCEDURE: 2 view chest COMPARISON: 05/31/2023 FINDINGS: The lungs are clear. The cardiomediastinal silhouette is within normal limits. There are no pleural effusions. There is no pneumothorax suspected. IMPRESSION: 1: NO ACUTE CARDIOPULMONARY DISEASE. Reviewed, dictated and finalized at location A.
--- NOTE | 2024-11-13 22:34 | ECG_ITS ---
Test Date: 2024-11-13 22:45:15 Measurements Intervals [place] Rate: 86 P: 51 DE: 170 QRS: 75 QRSD: 84 T: 58 QT: 379 QTc: 456 Interpretive Statements SINUS RHYTHM No previous ECG available for comparison Electronically Signed On 11-14-2024 10:54:49 CDT by Rodney Hardin M.D.
[2024-11-13 22:35] VITALS: BP 119/85; PULSE 87; RESP 16; TEMP 36.6; O2SAT 99
--- OUTSIDE RECORDS SUMMARY | 2024-11-13 22:35 | XMS_ITS | Data Portability ---
Author Organization [facility] Address [address] [place] [address] [place] [address] Assessment Encounter Date Assessment Date Assessment LastModified by Organization Details LastModified Time 08/02/2024 08/02/2024 Patient is _37__weeks . Discussed plan. Not available 08/02/2024 10:26:39 Plan of Treatment Reminders Order Date Submit Date Provider Last Modified By Organization Details Last Modified Time Details Appointments [facility] 2024 01:00P Edgardo MORALES MD Not available Not available Not available Lab None recorded. Referral None recorded. Procedures None recorded. Surgeries None recorded. Imaging US, obstetric , follow-up [email or web address] [place], [place] [id number] [address], [address], [place], [address], 07/01/2024 17:52:58 Medication Orders ondansetr on 8 mg disintegr ating tablet 2024 025 [facility], [address] [facility], [place], [address], 09/14/2024 12:35:51 Patient TargetsNo targets recorded. Patient InstructionsNo instructions recorded. Reason for Referral None Reported. Results Created Date Observation Date Name Description Value Unit Range Abnormal Flag Note LastModifiedBy Organization Detail LastModifiedTime 07/02/1907/01/2024 US, obste tric, follo w-up No observ ation record ed. [facility] [address], [place], [address], 07/01/2024 17:36:23 07/02/19 25 07/01/2024 US, obste tric, follo w-up No observ ation record ed. [email or web address], [place], [address], 07/04/2024 23:22:37 07/25/19 25 07/24/2024 non-s tress test No observ ation record ed. [email or web address] Not Available 2024 13:44:54 Result Notes None recorded. Problems Name Problem SNOMED Code Status Onset Date Resolution Date Notes Provider Name and Address Organization Details Recorded Time Rubella non-immu ne [id number] Completed MMR PP Kathy zuniga, [facility] 15:54:45 Chlamydi al infectio n [id number] Completed Dr Huerta office tx pt Rocephin & Lorelei / has f/u appt - DARIN 11/26 negative Kathy zuniga, [facility] 15:54:45 Bipolar disorder 27581199 Completed uvaldo, mood stable, meeting with fer toussaint in July prior to delivery URIAH MORALES MD [address], [place], [address], [facility] 5 15:00:52 Pregnanc y 81925836 Completed 202001/10/2021 Zohra Gill null, [facility] 5 22:03:00 Asthma 413188695 Completed 2020 albutero l prn Kathy zuniga, [facility] 15:54:45 Mixed anxiety and depressi ve disorder 389730474 Completed 2020 stable off meds for years Kathy Bohnenstieh l [facility] 1 15:54:45 Atypical squamous cells of undeterm ined signific ance on cervical Papanico laou smear 900436652 Completed 2020 HPV pos. repeat pap post Kathy kaur [facility] 1 15:54:45 Maternal tobacco use in pregnanc y 8194743169 77008 Completed 2020 quit Kathy kaur [facility] 1 15:54:45 Asthma 981605105 Completed 202009/26/2020 irasema burnettn Zohra Gill [facility] 18:16:31 Mixed anxiety and depressi ve disorder 883836237 Completed 202009/26/2020 stable off meds for years Zohra Gill [facility] 5 12:32:25 Maternal tobacco use in pregnanc y 7583496684 50590 Completed 202009/26/2020 trying to quit Zohra Jairo [facility] 18:16:34 Atypical squamous cells of undeterm ined signific ance on cervical Papanico laou smear 568368470 Completed 202009/26/2020 HPV pos. repeat pap post Zohra Gill [facility] 18:16:29 Low lying placenta 321228339 Completed 202010/05/2020 resolved 10/05/20 Kathy Koromajimjohnathangayesofía kaur [facility] 15:54:45 Group B Streptoc occus carrier 3025027886 103 Completed 2020 Kathy kaur [facility] 1 15:54:45 Cervical intraepi thelial neoplasi a grade 2 460707724 Active 2022 Maria Dolores Wright MD [address], [place], [address], [facility] 3 09:52:39 History of loop electros urgical excision procedur e 6387823408 9102 Active 2022 Maria Dolores Wright MD [address], [place], [address], [facility] 3 09:52:41 Pregnanc y 17601249 Completed 202308/22/2024 Zohra zuniga, [facility] 5 22:03:00 Mixed anxiety and depressi ve disorder 636625051 Active 2024 stable off meds for years Zohra zuniga, [facility] 5 12:32:25 Problem Notes None recorded. Procedures Surgical History Date Name Laterality Status Provider Name and Address Organization Details Recorded Time 02/15/20 24 Date of Last Pap Smear completed Zohra Gill [facility] 09/14/2024 10:52:35 08/03/19 24 SIS completed URIAH MORALES MD [address], [place], [address], [facility] 08/03/2023 14:15:49 07/06/19 24 Colposcopy completed URIAH MORAELS MD [address], [place], [address], [facility] 07/06/2023 22:19:43 07/06/19 24 Colposcopy completed Zohra Gill [facility] 08/02/2024 09:59:33 07/06/19 24 Hysteroscopy completed Zohra Gill [facility] 08/02/2024 10:00:17 10/14/19 23 LEEP completed Maria Dolores Wright MD [address], [place], [address], [facility] 10/13/2022 10:35:40 10/14/19 23 LEEP completed Leanna Ware [facility] 10/13/2022 15:07:02 09/16/19 23 Colposcopy completed Maria Dolores Wright MD [address], [place], [address], [facility] 09/16/2022 09:59:59 09/16/19 Colposcopy completed Zohra Gill [facility] 02/10/2023 10:52:12 09/16/19 Colposcopy completed Zohra Gill [facility] 02/10/2023 10:53:53 03/19/20 Colposcopy completed Maria Dolores Wright MD [address], [place], [address], [facility] 03/19/2022 16:57:57 03/09/20 Colposcopy completed Zohra Gill [facility] 02/10/2023 15:06:08 04/27/19 12 termination of completed Zohra Gill [facility] 01/23/2022 15:56:15 Imaging Results None recorded. Procedure Notes None recorded. Medical Equipment None [...] MOUTH EVERY 6 TO 8 HOURS NEEDED 09/14 completed Not Available Not Available Not Available alprazolam 0.5 mg tablet TAKE 1 TABLET 2 HOURS BEFORE THE PROCEDURE 10/27 completed Not Available Not Available Not Available amoxicillin 875 mg tablet 01/23 completed Not Available Not Available Not Available lorazepam 0.5 mg tablet TAKE 1 TABLET BY MOUTH TWICE DAILY NEEDED active Not Available Not Available No t Available dicyclomine 20 mg tablet 01/23 completed [...] completed Not Available Not Available Not Available sertraline 50 mg tablet TAKE 1 TABLET BY MOUTH ONCE DAILY 09/14 completed Not Available Not Available Not Available [...] completed Not Available Not Available Not Available 09/14 completed Not Available Not Available Not Available [...] Body mass index (BMI) Body weight Systolic And Diastolic Provider Name and Address Organization Details Last Updated DateTime 07/01/2024 154.94 cm 29.3 kg/m2 36300.82 g 129/72 mm[Hg] [facility] 07/01/2024 14:46:05 Date Recorded Body height Body mass index (BMI) Body weight Systolic And Diastolic Provider Name and Address Organization Details Last Updated DateTime 07/15/2024 154.94 cm 30 kg/m2 59130.19 g 112/74 mm[Hg] [facility] 07/15/2024 10:07:35 Date Recorded Body weight Body mass index (BMI) Body height Systolic And Diastolic Provider Name and Address Organization Details Last Updated DateTime 07/27/2024 58421.186 83 g 30 kg/m2 154.94 cm 120/76 mm[Hg] NENITA Thacker [facility] 07/27/2024 14:13:28 Date Recorded Body height Body mass index (BMI) Body weight Systolic And Diastolic Provider Name and Address Organization Details Last Updated DateTime 08/02/2024 154.94 cm 30.2 kg/m2 38796.78 g 116/82 mm[Hg] Zohra Gill [facility] 08/02/2024 09:54:32 Date Recorded Body height Body mass index (BMI) Body weight Systolic And Diastolic Provider Name and Address Organization Details Last Updated DateTime 09/14/2024 154.94 cm 28 kg/m2 12235.67 g 118/79 mm[Hg] Zohra Gill [facility] 09/14/2024 12:31:58 Social History Question Answer Notes LastModified by Organizat ion Details LastModified Time Tobacco Smoking Status Current Every Day Sm[facility] 05/02/2020 12:29:55 If You Are , What Was Your Level Of Alcohol Consumption Prior To ? Occasional [email or web address] Information not available 05/29/2020 Are You Blind Or Do You Have Difficulty Seeing? No [email or web address] Information not available 06/27/2020 What Is Your Level Of Caffeine Consumption? Occasional [email or web address] Information not available 06/27/2020 How Much Tobacco Do You Chew? None Information not available 02/15/2024 In The 14 Days Before Symptom Onset, Have You Had Close Contact With A Laboratory-confir med COVID-19 While That Case Was Ill? No Information not available 06/27/2020 In The 14 Days Before Symptom Onset, Have You Had Close Contact With A Person Who Is Under Investigation For COVID-19 While That Person Was Ill? No [email or web address] Information not available 06/27/2020 Have You Been To An Area Known To Be High Risk For COVID-19? No [email or web address] Information not available 06/27/2020 Are You Deaf Or Do You Have Serious Difficulty Hearing? No [email or web address] Information not available 06/27/2020 What Type Of Diet Are You Following? REGULAR [email or web address] Information not available 06/27/2020 What Is The Highest Grade Or Level Of School You Have Completed Or The Highest Degree You Have Received? [id number] Information not available 02/15/2024 Are There Any Guns Present In Your Home? Yes [email or web address] Information not available 02/15/2024 Have You Ever Been Counseled For Unhealthy Alcohol Use? No [email or web address] Information not available 05/29/2020 Do You Use Protection During Sex? No Information not available 02/15/2024 Do You Use Your Seat Belt Or Car Seat Routinely? Yes [email or web address] Information not available 06/27/2020 Are You Sexually Active? Yes Information not available 07/15/2024 Do You Have Smoke And Carbon Monoxide Detectors In Your Home? Yes [email or web address] Information not available 06/27/2020 How Much Tobacco Do You Smoke? No [email or web address] Information not available 02/15/2024 Do You Use Sunscreen Routinely? No [email or web address] Information not available 02/15/2024 Has Tobacco Cessation Counseling Been Provided? No [email or web address] Information not available 05/29/2020 Have You Used IV Drugs? No [email or web address] Information not available 02/15/2024 Do You Have Difficulty Walking Or Climbing Stairs? No [email or web address] Information not available 01/23/2022 Sex: Unknown Functional Status Question Answer Note LastModified by Organizat ion Details LastModified Time Do you use any illicit or recreational drugs? No [email or web address] Information not available 05/29/2020 Do you or have you ever used any other forms of tobacco or nicotine? No [email or web address] Information not available 05/29/2020 What is your level of alcohol consumption? None [email or web address] Information not available 02/15/2024 Are you currently employed? Yes [email or web address] Information not available 07/15/2024 Are you able to walk? YESWOREST [email or web address] Information not available 06/27/2020 Are you able to care for yourself? 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 No [email or web address] Information not available 01/23/2022 What is your exercise level? Occasional [email or web address] Information not available 05/29/2020 Mental Status Question Answer Note LastModified by Organization D etails LastModified Time Do you feel stressed (tense, restless, nervous, or anxious, or unable to sleep at night)? [id number] [email or web address] Information not available 02/15/2024 Family History Relationship Description Onset Age of this Age Resolved Age Notes LastModified by Organization Details LastModified Time Mother Asthma [email or web address] Not available 12:37:20 Mother Heart disease [email or web address] Not available 2020 12:41:22 Mother Cyst of ovary [email or web address] Not available 2023 14:48:18 Father Hypertensive disorder [email or web address] Not available 2020 12:41:56 Paternal Grandmother Diabetes mellitus [email or web address] Not available 2020 12:46:04 Sister Diabetes mellitus [email or web address] Not available 2020 12:46:13 Sister Hypertensive disorder smcaley Not available 2020 12:46:43 Maternal Aunt Carcinoma in situ of breast [email or web address] Not available 2023 14:48:18 Medical History Condition [...] STIs/STDs Yes Colposcopy 09/15/2022 Current Control Method None Are cycles usually normal Y Sexually Active? Y None Date of DEXA bone scan Age of first menstrual cycle 15 Date of Last Pap Smear 02/15/2024 Sexual Problems? N Desired Control Method None LMP Definite 05/02/2020 Obstetrics History GPAL:G 3 P 2 0 1 2 Type Value Full Term 2 Induced 1 Living 2 Total 3 Past Encounters Encounter ID Performer Location Encounter Start Date Encounter Closed Date Diagnosis/Indication Diagnosis SNOMED-CT Code Diagnosis ICD10 Code Diagnosis Note [id number] Maria Dolores Wright MD [facility] [address],[facility] [place] [address] 05/02/2020 12:19:20 05/02/2020 17:29:12 screening 283072762 Z36.87 [id number] Maria Dolores Wright MD [facility] [address],[facility] [place] [address] 05/02/2020 12:19:20 05/02/2020 17:29:12 Urine test positive 871371500 Z32.01 test positive 799230586 Z32.01 Maternal t obacco use in 0182749449 56688 O99.331 with uncertain dates 406487817 Z34.01 Venereal d isease screening 664685978 Z11.3 Screening for malignant neoplasm of cervix 927362283 Z12.4 [id number] Maria Dolores Wright MD [facility] [address] [address] 05/29/2020 12:08:03 05/29/2020 14:50:02 Routine care 788001801 Z34.90 Atypical s quamous cells of undetermined significance on cervical Papanicolaou smear 948705242 R87.610 Maternal t obacco use in 4285683214 03252 O99.331 Mixed anxi ety and depressive disorder 680675929 F41.8 Asthma 024062990 J45.[id number] [facility] [address],[place] [address] 06/27/2020 16:25:00 06/27/2020 17:45:45 Routine care 322649161 Z34.92 [id number] Jose Guadalupe Murphy MD [facility] [address],[place] [address] 06/27/2020 16:24:45 06/28/2020 08:36:17 [id number] Jose Guadalupe Murphy MD [facility] [address],[place] [address] 07/10/2020 15:40:31 07/11/2020 08:46:[id number] [facility] [address],[place] [address] 08/02/2020 14:48:23 08/02/2020 16:38:04 Routine care 945711158 Z34.92 [id number] Jose Guadalupe Murphy MD [facility] [address],[place] [address] 08/02/2020 14:47:58 08/02/2020 15:43:34 screening 027014490 Z36.[id number] [facility] [facility] [address],[place] [address] 08/07/2020 14:38:22 08/07/2020 23:42:21 Vaginitis 15331809 N76.0 Discussed use of mild soap like dove or ivory, cotton underwear w/out dye, hypoallerg enic detergent, wipe from front to back, avoid tub baths, keep perineum clean and dry, d/c use of baby wipes. Encouraged daily intake of yogurt or womens health probiotic. Internal and external affirm collected. [id number] MD Papa Black [address],[place] [address] 08/31/2020 14:06:19 08/31/2020 14:51:43 Low lying placenta 497493068 O44.40 Z3A.23 [id number] Maria Dolores Wright MD [facility] [address],[place] [address] 08/31/2020 14:06:36 08/31/2020 15:29:24 Low lying placenta 747771920 O44.40 Z3A.23 Routine an tenatal care 998444333 Z34.90 [id number] Heather AbhayPa Ansari [facility] [address],[place] [address] 09/26/2020 17:21:59 09/26/2020 22:24:19 Urinary symptoms 913747380 R39.9 Pain in ro und ligament in 4159803210 8789114 O26.899 [id number] Maria Dolores Wright MD [facility] [address],[place] [address] 10/05/2020 12:30:40 10/05/2020 13:16:00 Low lying placenta 047459857 O44.40 Z3A.28 [id number] Maria Dolores Wright MD [facility] [address],[place] [address] 10/05/2020 15:56:25 10/05/2020 16:49:08 Routine care 912413928 Z34.90 [id number] Maria Dolores Wright MD [facility] [address],[place] [address] 10/19/2020 14:57:33 10/19/2020 16:26:16 Routine care 328494293 Z34.90 [id number] Jose Guadalupe Murphy MD [facility] [address],[place] [address] 11/01/2020 15:48:57 11/01/2020 16:27:57 Routine care 188257220 Z34.83 Uterine si ze for dates discrepancy 651284802 O26.849 [id number] Maria Dolores Wright MD [facility] [address],[place] [address] 11/05/2020 10:18:46 11/05/2020 10:52:03 Uterine size for dates discrepancy 704890464 O26.843 Z3A.32 [id number] Maria Dolores Wright MD [facility] [address],[place] [address] 11/12/2020 11:21:38 11/12/2020 14:41:13 Routine care 816384376 Z34.90 [id number] MD Papa Black [address],[place] [address] 11/26/2020 15:34:13 11/27/2020 15:21:02 Routine care 970135081 Z34.90 Uterine si ze for dates discrepancy 234256096 O26.843 Z3A.32 [id number] MD Papa Black [address],[place] [address] 12/03/2020 11:55:14 12/03/2020 12:37:07 Uterine size for dates discrepancy 770821022 O26.843 Z3A.36 [id number] MD Papa Black [address],[place] [address] 12/03/2020 11:55:41 12/03/2020 12:51:12 Routine care 840315901 Z34.[address] reptococcus carrier 3891901218 103 Z22.330 [id number] MD Papa Black [address],[place] [address] 12/10/2020 11:53:19 12/10/2020 12:12:37 Routine care 796392986 Z34.90 [id number] MD Papa Black [address],[place] [address] 12/17/2020 11:53:27 12/17/2020 12:49:15 Routine care 166829481 Z34.[address] reptococcus carrier 1646788988 103 Z22.330 [id number] MD Papa Black [address],[place] [address] 12/24/2020 11:49:31 12/24/2020 13:18:33 Group B Streptococcus carrier 2835896112 103 Z22.330 Routine an tenatal care 036293873 Z34.90 [id number] MD Papa Black [address],[place] [address] 01/22/2021 12:36:44 01/22/2021 13:13:29 care 780355065 Z39.2 Contracept ion care management 318150410 Z30.9 [id number] Maria Dolores Wright MD [facility] [address],[place] [address] 01/23/2022 15:16:53 01/23/2022 15:44:58 [id number] Madalyn [facility] [address],[place] [address] 01/23/2022 15:17:58 01/24/2022 16:59:29 test positive 861251517 Z32.01 Risk factors addressed: Tobacco Cessation, Safe [...] annual well woman examinatio n and address [facility] . [id number] Maria Dolores Wright MD [facility] [address],[place] [address] 01/28/2022 11:06:10 01/28/2022 12:36:22 Threatened miscarriage 08175942 O20.0 Z3A.08 [id number] Maria Dolores Wright MD [facility] [address],[place] [address] 03/19/2022 15:12:30 03/22/2022 20:53:03 [id number] Maria Dolores Wright MD [facility] [address],[place] [address] 03/19/2022 16:23:32 03/19/2022 17:09:38 Screening procedure 87455986 Z13.9 Atypical s quamous cells on cervical Papanicolaou smear cannot exclude high grade squamous intraepithelial lesion 787402277 R87.611 [id number] Maria Dolores Wright MD [facility] [address],[place] [address] 08/18/2022 17:10:03 08/18/2022 18:10:15 Atypical squamous cells on cervical Papanicolaou smear cannot exclude high grade squamous intraepithelial lesion 870590294 R87.611 [id number] MD Papa Black [address],[place] [address] 09/15/2022 14:51:50 09/16/2022 11:17:09 Screening procedure 47523841 Z13.9 High grade squamous intraepithelial lesion on cervical Papanicolaou smear 1458580721 9107 R87.613 [id number] Maria Dolores Wright MD [facility] [address],[place] [address] 10/06/2022 16:22:48 10/07/2022 09:50:54 Cervical intraepithelial neoplasia grade 2 230654201 N87.1 Preoperative state 96487 002 Z78.9 [id number] Maria Dolores Wright MD [facility] [address],[place] [address] 10/13/2022 09:11:00 10/14/2022 10:44:06 Cervical intraepithelial neoplasia grade 2 222421170 N87.1 [id number] Maria Dolores Wright MD [facility] [address],[place] [address] 11/10/2022 17:08:02 11/11/2022 11:12:24 Cervical intraepithelial neoplasia grade 2 085519542 N87.1 History of loop electrosurgical excision procedure 5444360469 9102 Z98.890 [id number] LEONARDO Centeno [facility] [address],[place] [address] 02/10/2023 14:40:21 02/10/2023 15:21:43 History of loop electrosurgical excision procedure 6155662421 9102 Z98.890 repeat pap updated todaysafe sexual practices discussed and encouraged will update pt with results when available and notify pt of follow-up instructio johnathan Time spent in visit is a total of 25 mins with at least 50% of visit consisting of counseling and review of plan of care. History of abnormal cervical Papanicolaou smear 022829072 Z87.42 Screening for malignant neoplasm of cervix 214381238 Z12.4 [id number] Morelia GodinezLEONARDO [facility] [address],[place] [address] 05/21/2023 17:01:24 05/22/2023 09:28:55 Tenderness of breast 95255475 N64.4 we agreed to update bilateral breast u/s - order givenlabs ordereddis cussed recent pap result and encouraged to schedule colposcopy Time spent in visit is a total of 18 mins with at least 50% of visit consisting of counseling and review of plan of care. Discharge from nipple 54 529798 N64.52 History of abnormal cervical Papanicolaou smear 560275998 Z87.42 [id number] URIAH MORALES MD [facility] [address],[place] [address] 07/06/2023 15:33:48 07/07/2023 07:39:52 Low grade squamous intraepithelial lesion on cervical Papanicolaou smear 1102775671 9105 R87.612 - colposcopy completed today, patient tolerated well- follow up on results as available [id number] URIAH MORALES MD [facility] [address],[place] [address] 07/15/2023 16:49:14 07/16/2023 10:57:38 Infertile 9708154 N97.9 - Differenti al diagnosis of cause [...] treatment options Cervical intraepithelial neoplasia grade 2 695706836 N87.1 - 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, completely excised however SCARLET-1 extending to ectocervic al margins- Colposcopy 06/2023 with CIN2- given patient desires future pregnancie s, per ASCCP guidelines , ok for active surveillan ce while attempting - recommend LEEP if dysplasia worsens or when childbeari ng is completed History of chlamydial infection 178329399 Z86.19 [id number] Jose Guadalupe Murphy MD [facility] [address],[place] [address] 08/03/2023 11:49:30 08/03/2023 13:34:08 Female infertility 5808994 N97.9 [id number] Jose Guadalupe Murphy MD [facility] [address],[place] [address] 08/03/2023 11:49:47 08/03/2023 13:33:53 [id number] URIAH MORALES MD [facility] [address],[place] [address] 08/03/2023 11:50:00 08/03/2023 14:22:29 Trying to conceive 805133259 Z31.9 Uterine leiomyoma 225238 05 D25.9 - SIS demonstrat es uterine fibroid impinging on uterine cavity; implicatio ns to fertility discussed with patient- recommend [facility] D&C with myomectomy ; r/b/a discussed with patient- patient agrees to proceed with procedure- will try to schedule HSG with [facility] due to hx of chlamydial infection to r/o tubal factor History of chlamydial infection 950809459 Z86.19 [id number] URIAH MORALES MD [facility] [address] [address],[place] [address] 10/27/2023 16:19:16 10/27/2023 17:08:41 Postoperative visit [id number] Z48.89 - s/p hysterosco py, polypectom y and HSG on 10/05- benign pathology, HSG demonstrat es bilaterall y patent fallopian tubes- pain possibly 2/2 positionin g during surgery, patient reports it is improving Secondary infertility 29 [id number] N97.9 - workup unremarkab le aside from [...] to schedule visit to discuss ovulation induction [id number] Jose Guadalupe Murphy MD [facility] [address],[place] [address] 01/11/2024 14:23:24 01/11/2024 15:01:59 [id number] URIAH MORALES MD [facility] [address] [address] 01/18/2024 16:32:42 01/18/2024 17:11:32 Nausea and vomiting 50335131 R11.2 test positive 924111187 Z32.01 1. Exam today within normal limits.2. [...] given today. 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, completely excised however SCARLET-1 extending to ectocervic al margins- Colposcopy 06/2023 with CIN2- given patient desires future pregnancie s, per ASCCP guidelines , ok for active surveillan ce while attempting - recommend LEEP if dysplasia worsens or when childbeari ng is completed- will repeat pap at new OB visit Palpitations 11867818 R0 0.2 - previously on metoprolol , d/c'd with - workup including echo negative from cardiology - having more palpitatio ns during since d/c of metoprolol - ok to restart, discussed safety in [id number] Jose Guadalupe Murphy MD [facility] [address],[place] [address] 02/15/2024 14:48:12 02/15/2024 15:22:34 screening 788193273 Z36.82 Z3A.13 [id number] URIAH MORALES MD [facility] [address],[place] [address] 02/15/2024 14:48:37 02/15/2024 16:01:34 Routine care 618474861 Z34.91 Nausea and vomiting 1693 2000 R11.2 Cervical intraepithelial neoplasia grade 2 301773109 N87.1 - 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, completely excised however SCARLET-1 extending to ectocervic al margins- Colposcopy 06/2023 with CIN2- repeat pap obtained today Bipolar disorder 6076703 4 F31.9 - continue buspar and latuda [id number] URIAH MORALES MD [facility] [address],[place] [address] 03/15/2024 11:25:37 03/15/2024 12:32:24 Nausea and vomiting 85790013 R11.2 Cervical intraepithelial neoplasia grade 2 376243388 N87.1 - 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, completely excised however SCARLET-1 extending to ectocervic al margins- Colposcopy 06/2023 with CIN2- repeat pap wnl 01/2024, repeat Bipolar disorder 8838696 4 F31.9 - continue buspar and latuda Gestation period, 17 weeks 50257793 Z3A.17 [id number] Jose Guadalupe Murphy MD [facility] [address],[place] [address] 04/11/2024 15:53:44 04/11/2024 17:18:55 screening for malformation 857402707 Z36.3 Z3A.21 [id number] URIAH MORALES MD [facility] [address],[place] [address] 04/11/2024 15:58:43 04/11/2024 17:33:03 Cervical intraepithelial neoplasia grade 2 022088805 N87.1 - 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, completely excised however SCARLET-1 extending to ectocervic al margins- Colposcopy 06/2023 with CIN2- repeat pap wnl 01/2024, repeat History of loop electrosurgical excision procedure 1900339128 9102 Z98.890 - CL wnl 04/11 Bipolar disorder 5033511 4 F31.9 - continue buspar and latuda Gestation period, 21 weeks 57270417 Z3A.21 - continue PNV [id number] Jose Guadalupe Murphy MD [facility] [address],[place] [address] 05/09/2024 11:01:31 05/09/2024 11:46:03 screening 909955695 Z36.2 Z3A.25 [id number] URIAH MORALES MD [facility] [address],[place] [address] 05/09/2024 11:04:07 05/09/2024 12:58:38 History of loop electrosurgical excision procedure 1191924069 9102 Z98.890 - CL wnl 04/11 Bipolar disorder 8834641 4 F31.9 - continue buspar and latuda Gestation period, 25 weeks 80154112 Z3A.25 - continue pNV [id number] URIAH MORALES MD [facility] [address],[place] [address] 05/30/2024 11:38:25 05/30/2024 12:20:54 Bipolar disorder 22318631 F31.9 - continue buspar and latuda Gestation period, 28 weeks 13033671 Z3A.28 - continue PNV- travel precaution s discussed [id number] URIAH MORALES MD [facility] [address],[place] [address] 06/14/2024 12:40:57 06/14/2024 13:28:51 Bipolar disorder 97734691 F31.9 - continue buspar and latuda Gestation period, 30 weeks 31230786 Z3A.30 - continue PNV [id number] Jose Guadalupe Murphy MD [facility] [address],[place] [address] 07/01/2024 13:54:05 07/01/2024 14:41:21 Medical examination for suspected condition 705158697 Z03.74 Z3A.32 [id number] URIAH MORALES MD [facility] [address],[place] [address] 07/01/2024 13:54:53 07/01/2024 15:02:22 Bipolar disorder 02610030 F31.9 - continue latuda- meeting with psychiatri st prior to delivery- plan for 1 week PP mood check Gestation period, 32 weeks 9318181 Z3A.32 - continue PNV- discussed preadmissi on URIAH MORALES MD [facility] [address],[place] [address] 07/15/2024 09:57:43 07/15/2024 10:37:41 Nausea and vomiting 44612861 R11.2 Bipolar disorder 8775866 4 F31.9 - continue latuda- meeting with psychiatri st prior to delivery- plan for 1 week PP mood check Gestation period, 34 weeks 51214722 Z3A.34 - continue PNV [id number] URIAH MORALES MD [facility] [address],[place] [address] 07/27/2024 13:33:27 07/27/2024 14:37:19 Bipolar disorder 90035491 F31.9 - continue latuda- meeting with psychiatri st prior to delivery- plan for 1 week PP mood check Gestation period, 36 weeks 90621247 Z3A.36 - GBS collected- rtc [id number] [address],[place] [address] 08/02/2024 09:35:06 08/02/2024 10:27:41 Gestation period, 37 weeks 80748863 Z3A.37 continue vitamin [id number] eHather Ansari CNM [facility] [address],[place] [address] 09/14/2024 12:04:18 09/14/2024 13:44:00 care status 587286064 Z39.2 f/u wwe in [address] morales Health Concerns Section Related Observation LastModified by Organization Detai ls LastModified Time None Recorded Concern Status LastModified by Organization Details LastModified Time None Recorded Advance Directives Directive None Recorded Payers Insurance Date Sequence Insurance Name Policy Number Policy Davis Covered Member ID Dvais Member ID Guarantor Name 04/11/2024 1 *SELF PAY* Ci moncho Elida 04/11/2024 1 [facility] ON OR AFTER 10/25/20 (MEDICAID REPLACEMENT - HMO) Michelle Elida [id number] Michelle Elida 09/11/2024 1 [facility] ON OR AFTER 10/25/20 (MEDICAID REPLACEMENT - HMO) Michelle Elida [id number] Michelle Elida 01/11/2024 1 [facility] PRIOR TO 10/25/2020 (MEDICAID REPLACEMENT - HMO) Michelle Elida [id number] Michelle Elida 04/11/2024 1 [facility] ON OR AFTER 10/25/20 (MEDICAID REPLACEMENT - HMO) Michelle Elida [id number] Michelle Elida 05/09/2024 1 [place] [employer] Michelle Elida [id number] Michelle Elida Notes Date Note Type Note Provider Name and Address Organization Details Recorded Time 09/14/2024 text/html VisitReported bypatient.Quality:N Context:complicatio ns of : none; complications of labor: none; complications: none; feeding choice: bottle; resumed menstrual bleeding no Associated Symptoms:no abnormal bleeding; no vaginal discharge; no pelvic pain; laceration well healed; no constipation; no fecal incontinence; no dysuria; no urinary incontinence; no fever; normal mood Contraception Plan:declines contraceptionNotes: doing well Zohra Gill [facility] 09/14/2024 20:18:47 OBGyn Episode Ob Episode Information Episode Created Date Number of Fetuses Patient Bloodtype Patient rh Status Prepregnancy Weight lbs Domestic Partner Domestic Partner Phone Father Name Metal Fabricator Helper Status 05/02/19 21 1 CLOSED Fetus Data [...] Domestic Partner Domestic Partner Phone Father Name Metal Fabricator Helper Status 05/29/19 21 1 O Negative 133 CLOSED Fetus Data First Name Last Name Admitted to NICU Weight (g) Sex Living Outcome Pediatric Complications Fetus ID Race Codes Race Delivery Type Jazmin 3260.19 25 F true Full Term Meconium 7632 Vaginal Delivery Problems Problem Notes Kyle pt Problem Name Start Date End Date Resolution Snomed Code Not e Group B Streptococcus carrier 12/03/2020 [id number] Rubella non-immune 171946198 M MR PP Low lying placenta 08/02/2020 10/05/2020 SELFRESOLVED 324458 007 resolved 10/05/20 Asthma 05/29/2020 054596562 albuterol prn Mixed anxiety and depressive disorder 05/29/2020 547373969 stable o ff meds for years Atypical squamous cells of undetermined significance on cervical Papanicolaou smear 05/29/2020 949212149 HPV pos. repeat pap post Maternal tobacco use in 05/29/2020 SELFRESOLVED 702228844712609 quit Chlamydial infection TREATMENT 890387147 Dr [facility] office [place] pt Rocephin & [...] Date Ultra Sound Latest Days Gestation 0 [id number] 05/29/2020 12/26/19 21 0 Pre-cait Flowsheet Flowsheet Date 05/29/2020 Noguera Score Blood Edema Fundus Height Fundus Units Glucose Ketones Leukocytes Nitrite Labor Signs Protein Cervic Dilation Cervic Effacement Cervic Station neg none trace Type Weight in lbs Pre/Post Dialysis Refused Weight 131.152979357696 BP Diastolic BP Location Tested BP Systolic [...] weeks for first ob appointment1. Urine test fzaomnklC96.01: Encounter for test, result positivePREGNANCY TEST, URINE - Specimen source: Urine2. test uuegvfxjE69.01: Encounter for test, result positive3. Maternal tobacco use in sigoairajH76.331: Smoking (tobacco) complicating , first trimester4. with uncertain hhuncP37.01: Encounter for supervision of normal first , first trimester5. Venereal disease ulutjxopxN28.3: Encounter for screening for infections with a [...] Weight in lbs Pre/Post Dialysis Refused Weight 128.916068068543 BP Diastolic BP Location Tested BP Systolic [...] Weight in lbs Pre/Post Dialysis Refused Weight 131.659835648314 BP Diastolic BP Location Tested BP Systolic [...] Weight in lbs Pre/Post Dialysis Refused Weight 131.629393524618 BP Diastolic BP Location Tested BP Systolic [...] Weight in lbs Pre/Post Dialysis Refused Weight 134.363975676601 BP Diastolic BP Location Tested BP Systolic [...] Weight in lbs Pre/Post Dialysis Refused Weight 141.797587676377 BP Diastolic BP Location Tested BP Systolic [...] Weight in lbs Pre/Post Dialysis Refused Weight 142.356278624451 BP Diastolic BP Location Tested BP Systolic [...] Weight in lbs Pre/Post Dialysis Refused Weight 145.5245342412 BP Diastolic BP Location Tested BP Systolic [...] Weight in lbs Pre/Post Dialysis Refused Weight 143.310161790392 BP Diastolic BP Location Tested BP Systolic [...] Weight in lbs Pre/Post Dialysis Refused Weight 143.419495818054 BP Diastolic BP Location Tested BP Systolic [...] Weight in lbs Pre/Post Dialysis Refused Weight 148.284416861533 BP Diastolic BP Location Tested BP Systolic [...] Weight in lbs Pre/Post Dialysis Refused Weight 147.790308750238 BP Diastolic BP Location Tested BP Systolic [...] Weight in lbs Pre/Post Dialysis Refused Weight 149.818719497662 BP Diastolic BP Location Tested BP Systolic [...] Weight in lbs Pre/Post Dialysis Refused Weight 149.663385278159 BP Diastolic BP Location Tested BP Systolic [...] Weight in lbs Pre/Post Dialysis Refused Weight 152.196414622877 BP Diastolic BP Location Tested BP Systolic [...] Estim ated Date of Delivery false Thalassemia (Mongolian, Romanian, Mediterranean, Or Background): MCV < 80 false Neural Tube Defect (Meningomyelocele, Spina Bifi da, Or Anencephaly) false Congenital Heart Defect false Down Syndrome false Nish-Sachs (eg, Advent, Cajun, Bermudian-Beninese) f alse Felisha Disease false Sickle Cell Disease Or Trait () false Hemophilia Or Other Blood Disorders false Muscular Dystrophy false Cystic Fibrosis false [place]'s Chorea false Intellectual Disability/Autism false If Yes, [...] Domestic Partner Domestic Partner Phone Father Name Metal Fabricator Helper Status 02/15/20 24 1 O Negative Miranda Toussaint an CLOSED Fetus Data First Name Last Name Admitted to NICU Weight (g) Sex Living Outcome Pediatric Complications Fetus ID Race Codes Race Delivery Type 3401.94 M true Full Term 22355 Vaginal Delivery Problems Problem Notes 32wk growth us Problem Name Start Date End Date Resolution Snomed Code Not e Bipolar disorder 74462092 lat uda, mood stable, meeting with psychiatrist [...] Date Ultra Sound Latest Days Gestation 0 [id number] 03/15/2024 08/22/19 25 0 Pre-cait Flowsheet Flowsheet [...] Weight in lbs Pre/Post Dialysis Refused Weight 140.668910543449 BP Diastolic BP Location Tested BP Systolic BP Type 72 L arm 108 sitting Fetus Heart Rate Present A 150 Fetus Movement Comments Patient presents to [facility] care. complicated by hx of SCARLET- [...] Type Weight in lbs Pre/Post Dialysis Refused 137.334529300783 BP Diastolic BP Location Tested BP Systolic [...] Type Weight in lbs Pre/Post Dialysis Refused 139.475177052331 BP Diastolic BP Location Tested BP Systolic [...] Type Weight in lbs Pre/Post Dialysis Refused 146.318237555467 BP Diastolic BP Location Tested BP Systolic BP Type 72 L arm 108 sitting Fetus Heart Rate Present A 141 Fetus Movement A Yes Comments Patient c/o of acid reflux a nd some nausea. Along with lower pains and pressure. Discussed belly band and pelvic floor PT. Good movement. Discussed GCT, labs and Rhogam at [place], labs given. Anatomy complete and normal, EFW 25%, will plan for 32 week growth US. RTC 3-4 weeks. Flowsheet Date 05/30/2024 Noguera Score Blood Edema Fundus Height Fundus Units Glucose Ketones Leukocytes Nitrite Labor Signs Protein Cervic Dilation Cervic Effacement Cervic Station neg trace Type Weight in lbs Pre/Post Dialysis Refused Weight 150.358505349175 BP Diastolic BP Location Tested BP Systolic BP Type 69 L arm 107 sitting Fetus Heart Rate Present A 150 Fetus Movement A Yes Comments Patient c/o Ravalli Jacobs, s welling in feet. Good movement. No bleeding. Passed GCT, no anemia on labs. Received Tdap. Discussed repeat growth US at 32 weeks. Traveling to [place] at beginning of June, travel precautions discussed. RTC 2 weeks. Flowsheet Date 06/14/2024 Noguera Score Blood Edema Fundus Height Fundus Units Glucose Ketones Leukocytes Nitrite Labor Signs Protein Cervic Dilation Cervic Effacement Cervic Station Type Weight in lbs Pre/Post Dialysis Refused 152.513526069743 BP Diastolic BP Location Tested BP Systolic BP Type 80 L arm 117 sitting Fetus Heart Rate Present A 1140 Fetus Movement A Yes Comments Good movement. Was see n in triage for contractions, was fingertip dilated. Having increased pelvic pressure. No bleeding or LOF. Not planning on going to [place] with due to contractions. Repeat growth US [...] Weight in lbs Pre/Post Dialysis Refused Weight 155.674932054332 BP Diastolic BP Location Tested BP Systolic [...] Weight in lbs Pre/Post Dialysis Refused Weight 159.421058718806 BP Diastolic BP Location Tested BP Systolic [...] Type Weight in lbs Pre/Post Dialysis Refused 159.565136345996 BP Diastolic BP Location Tested BP Systolic [...] Weight in lbs Pre/Post Dialysis Refused Weight 160.848378710417 BP Diastolic BP Location Tested BP Systolic [...] Post Complications Tubal Sterilization Discharge Date Comments mina 37.4 10.49 Heather Ansari CNM Discharge Information Feeding Method Contraceptive Method Maternal HG B and HCT Levels
--- OUTSIDE RECORDS SUMMARY | 2024-11-13 22:35 | XMS_ITS | Data Portability ---
Author Organization [place] - [facility] iCurrent, Main Office Address [address] [place] [address] Assessment No assessment recorded. Plan of Treatment Reminders Order Date Submit Date Provider Last Modified By Organization Details Last Modified Time Details Appointments Follow Up 15 2024 02:15P Edgardo Bustillo PMHNP Not available Not available Not available Lab None recorded. Referral None recorded. Procedures None recorded. Surgeries None recorded. Imaging None recorded. Medication Orders nystatin- triamcino lone 100,000 unit/g-0. 1 % topical cream 2023 024 [id number] [facility] [place], [address], 11/19/2023 17:27:54 escitalop fei 5 mg tablet 2022 023 [email or web address] 77 [facility] [address] [place], [address], 11/19/2023 11:25:44 Patient TargetsNo targets recorded. Patient InstructionsNo instructions recorded. Reason for Referral None Reported. Results Created Date Observation Date Name Description Value Unit Range Abnormal Flag Note LastModifiedBy Organization Detail LastModifiedTime 10/16/19 22 10/19/2021 RPR SCREE N RPR non-re active nonrea ctive Not Available [facility] (Lab) [address] [place], [address], 10/19/2021 09:25:53 10/16/19 22 10/16/2021 HIV COMBO : HIV 1/2 AB,P2 4 AG HIV combo assay non-re active nonrea ctive The HIV combo test scree ns for HIV-1 , HIV-2 , HIV p24 Ag, and HIV group O. Any react heath scree n resul t will be sent for PCR confi rmato ry testi ng. Not Available [facility] (Lab) [address] [place] [address] [address], [place], [address], 10/16/2021 22:21:39 10/16/19 22 10/16/2021 HIV COMBO : HIV 1/2 AB,P2 4 AG S/C 0.13 0.00-0 .99 Not Available [facility] (Lab) [address] [facility] [address], [place], [address], 10/16/2021 22:21:39 10/16/19 22 10/16/2021 TRICH OMONA S VAGIN EDITA DNA, PCR trichomonas vaginalis DNA not detect ed Not Available [facility] (Lab) [address] [place], [address], 10/16/2021 01:00:36 10/16/19 22 10/15/2021 CT/NG (CHLA MYDIA /NEIS SERIA ) DNA chlamydia trachomatis DNA not detect ed Not Available [facility] (Lab) [address] [place], [address], 10/16/2021 00:59:52 10/16/19 22 10/15/2021 CT/NG (CHLA MYDIA /NEIS SERIA ) DNA neisseria gonorrhea DNA not detect ed Not Available [facility] (Lab) [address] [place], [address], 10/16/2021 00:59:52 10/16/19 22 10/15/2021 HEPAT ITIS C/HCV ANTIB CLIFF hepatitis C antibody non-re active non-re active Not Available [facility] (Lab) [address] [place], [address], 10/15/2021 21:22:35 10/16/19 22 10/15/2021 HEPAT ITIS C/HCV ANTIB CLIFF S/C 0.01 0.00-0 .99 Not Available [facility] ([facility]) [address] [place], [address], 10/15/2021 21:22:35 01/15/20 22 01/14/2022 [place], obste tric No observ ation record ed. [id number], [address], 06/25/2022 08:49:43 01/27/20 22 01/26/2022 [place], obste tric No observ ation record ed. [id number] [address], [place], [address], 06/25/2022 08:49:43 03/01/20 22 03/01/2022 [place], obste tric No observ ation record ed. [id number] [facility], [place], [address], 06/25/2022 08:49:43 05/31/19 24 05/31/2023 XR, chest No observ ation record ed. [address] [address], [place], [address], 06/04/2023 15:05:58 06/04/19 24 06/03/2023 [place], moises tdanay eral No observ ation record ed. [email or web address] [address], [address], 06/04/2023 15:06:22 06/15/19 24 06/15/2023 imagi ng/costa hernandez t No observ ation record ed. [facility] [address], [place], [address], 06/26/2023 14:11:52 06/18/19 24 06/17/2023 , [facility] ardio gram No observ ation record ed. [email or web address] [facility] [address], [place], [address], 06/26/2023 14:10:46 06/29/19 24 06/20/2023 home sleep study No observ ation record ed. [email or web address] [facility] [address], [place], [address], 09/06/2023 13:47:04 10/06/19 24 10/06/2023 imagi ng inter preta tion No observ ation record ed. [email or web address] [facility] [address], [place], [address], 10/14/2023 17:43:06 Result Notes None recorded. Problems Name Problem SNOMED Code Status Onset Date Resolution Date Notes Provider Name and Address Organization Details Recorded Time Tobacco user 382127579 Active Not Available [facility] 3 08:46:13 Pain in throat 164376379 Active Not Available [facility] 3 08:46:13 Abdominal pain 12203554 Active Not Available [facility] 3 08:46:13 Headache 26526775 Active Not Available [facility] 3 08:46:13 Abnormal weight loss 899108677 Active Not Available [facility] 3 08:46:13 Insect bite - wound 842827645 Active Not Available [facility] 3 08:46:13 Low back pain 692775566 Active Not Available [facility] 3 08:46:13 Proteinuria 18034044 Active Not Available [facility] 3 08:46:14 Pain in pelvis 84247398 Active Not Available [facility] 3 08:46:14 Vaginitis 06103250 Active Not Available [facility] 3 08:46:14 Vaginal ulcer 10328022 Active Not Available [facility] 3 08:46:14 Exercise-héctor isidoro asthma 37762601 Active Not Available [facility] 3 08:46:14 Iron deficiency 70966157 Active Not Available [facility] 3 08:46:14 Depressive disorder 89472163 Active Not Available [facility] 3 08:46:14 Fever 142436186 Active Not Available [facility] 3 08:46:14 Sensory disturbance in limb 671206890 Active Not Available [facility] 3 08:46:14 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 Not Available [facility] 3 08:46:14 Anxiety 87539258 Active Not Available [facility] 3 08:46:14 Dysuria 36357029 Active Not Available [facility] 3 08:46:14 Otitis media 97420193 Active Not Available [facility] 3 08:46:14 Urinary tract infectious disease 47695025 Active Not Available [facility] 3 08:46:14 Disturbance of attention 68815847 Active Not Available [facility] 3 08:46:15 Fatigue 59220397 Active Not Available [facility] 3 08:46:15 Conjunctiviti s 6425335 Active Not Available [facility] 3 08:46:15 Irritable bowel syndrome 85428787 Active 2016 Not Available [facility] 3 08:46:13 Mixed anxiety and depressive disorder 164427653 Active 2022 MARY Iniguez [address], [address] [address], [place], [address] , [employer] [facility] [employer] [facility] 3 13:56:27 Palpitations 82606373 Active 2023 Selena Huerta MD [address], [facility] [address], [place], [address] , [employer] [facility] [employer] [facility] 4 18:11:52 Tinea corporis 93727316 Active 2023 LEYDA Page [address], [facility] [address], [place], [address] , [facility] [employer] [facility] [employer] [facility] 4 11:36:16 Eczema 95879029 Active 2023 LEYDA [address], [address], [place], [address] , [place] - [facility] 4 15:03:27 Problem Notes None recorded. Medical Equipment None Reported. Allergies Allergen ID Allergen Name Allergen Category Reaction Reaction Severity Criticality Documentation Date Start Date Code Code System Note Provider Name and Address Organization Details Recorded Time bupropion Not available Not available Not available Not available 06/25/2022 50297 RxNorm rash Not Available [facility] 3 08:49:34 Medications Name Sig Start Date Stop [...] No t Available dicyclomine 20 mg tablet 11/18 completed [...] Available Not Available No t Available dicyclomine 10 mg capsule Take 1 [...] completed Not Available Not Available Not Available aripiprazol e 5 mg tablet TAKE 1 TABLET BY MOUTH ONCE DAILY active Not Available Not Available No t Available bupropion HCl XL 300 mg 24 [...] Available Not Available No t Available lurasidone 80 mg tablet TAKE 1 TABLET BY MOUTH [...] in Arterial blood by Pulse oximetry Systolic And Diastolic Provider Name and Address Organization Details Last Updated DateTime 3 154.94 cm 23.2 kg/m2 47937.8 6 g 98.2 [degF] 83 /min 97 % 97 % 116/80 mm[Hg] Sadie Frazier MA [place] [employer] [facility]Current 3 14:41:54 Date Recorded Body weight Body temperature Heart rate Oxygen saturation Oxygen saturation in Arterial blood by Pulse oximetry Systolic And Diastolic Provider Name and Address Organization Details Last Updated DateTime 4 64005.3 4 g 97.7 [degF] 105 /min 98 % 98 % 118/70 mm[Hg] Arnaud Sandoval RN [place] [employer] [facility]Current 4 11:24:49 Date Recorded Oxygen saturation Oxygen saturation in Arterial blood by Pulse oximetry Heart rate Body temperature Body weight Systolic And Diastolic Provider Name and Address Organization Details Last Updated DateTime 2 98 % 98 % 78 /min 96.4 [degF] 24735.2 7 g 122/68 mm[Hg] Not Available [facility] 3 08:43:34 Social History Question Answer Notes LastModified by Organizat ion Details LastModified Time Tobacco Smoking Status Former Smoker JOURDAN Antony, [employer] 06/27/2022 14:42:55 What Is Your Level Of Caffeine Consumption? Moderate [email or web address] Information not available 06/27/2022 In The 14 Days Before Symptom Onset, Have You Had Close Contact With A Laboratory-confirm ed COVID-19 While That Case Was Ill? No [id number] Information not available 06/25/2022 In The 14 Days Before Symptom Onset, Have You Had Close Contact With A Person Who Is Under Investigation For COVID-19 While That Person Was Ill? No [id number] Information not available 06/25/2022 What Type Of Diet Are You Following? REGULAR [id number] Information not available 06/25/2022 Have You Ever Been Counseled For Unhealthy Alcohol Use? No [email or web address] Information not available 06/27/2022 Has Tobacco Cessation Counseling Been Provided? No Information not available 06/27/2022 Do You Have Any Dietary Restrictions? No [id number] Information not available 06/25/2022 Sex: Unknown Functional Status Question Answer Note LastModified by Organizat ion Details LastModified Time Do you use any illicit or recreational drugs? No [email or web address] Information not available 06/27/2022 What is your level of alcohol consumption? Occasional Information not available 06/27/2022 What is your exercise level? Moderate [id number] Information not available 06/25/2022 Mental Status None [...] SNOMED-CT Code Diagnosis ICD10 Code Diagnosis Note [id number] Selena Huerta MD [facility] Primary Care [facility] [address] [facility] [address] [facility] [place] [address] 10/15/2021 00:00:00 10/16/2021 10:00:51 [id number] GINA Miller [facility] [place] [address] [place] [address] 12/18/2021 00:00:00 12/18/2021 09:18:58 [id number] GINA Miller [facility] [address] [facility] [address] [place] [address] 06/27/2022 14:34:02 06/27/2022 15:06:16 Anxiety 14633937 F41.9 Increasing recently. States it has been [...] trial of lexapro.F/ u in 3-4 weeks. [id number] Jessica Jennings, H[employer] [facility] Care [facility] [address] [facility] [address] [place] [address] 11/19/2023 11:16:28 11/19/2023 11:36:42 Tinea corporis 53308562 B35.4 rash on abdomen and armpits for one monthrash is itchy Adult heal th examination 641274454 Z00.00 Patient is doing well overall and has no complaints Discussed with patient yearly eye and dental examsPatie nt refuses bloodwork and vaccines Anxiety 06617253 F41.9 OPAL-7 ()Pat ient stopped taking all medication s and does not wish to start medication sDenies SI/HI Depressive disorder 3548 9007 F32.A OPAL-7 ()Pat ient stopped taking all medication s and does not wish to start medication sDenies SI/HI [id number] Debby Bustillo [facility] [address] [address] 01/21/2024 14:16:24 01/21/2024 16:03:10 [id number] Debby Bustillo [facility] [address] [address] 02/25/2024 14:18:38 02/25/2024 14:54:18 [id number] Debby Bustillo [facility] [address] [address] 03/23/2024 15:21:11 03/23/2024 15:57:39 [id number] Debby Bustillo [facility] [address] [place] [address] 04/13/2024 17:11:15 04/13/2024 19:31:47 [id number] Debby Bustillo, PMHNP [facility] [address] [address] 05/25/2024 17:23:56 05/25/2024 17:56:16 [id number] Debby Bustillo, PMHNP [facility] [address] [address] 07/28/2024 17:24:09 07/28/2024 18:44:12 [id number] Debby Bustillo, PMHNP [facility] [address] [address] 08/24/2024 17:29:53 08/24/2024 17:56:31 [id number] Debby Bustillo, PMHNP [facility] [address] [address] 09/21/2024 16:26:42 09/21/2024 16:46:40 [id number] Debby Bustillo, PMHNP [facility] [address] [address] 10/26/2024 14:51:18 10/26/2024 16:19:56 [id number] Debby Bustillo, PMHNP [facility] [address] [address] 11/03/2024 16:28:28 11/03/2024 17:17:43 Health Concerns Section Related Observation LastModified by Organization Detai ls LastModified Time None Recorded Concern Status LastModified by Organization Details LastModified Time None Recorded Advance Directives Directive None Recorded Payers Insurance Date Sequence Insurance Name Policy Number Policy Davis Covered Member ID Davis Member ID Guarantor Name 03/23/2024 1 [facility] ON OR AFTER 10/25/20 (MEDICAID REPLACEMENT - HMO) Michelle Marrero [id number] Michelle Marrero 07/28/2024 1 [place]MENT [place] Michelle Marrero [id number] Michelle Marrero 11/02/2024 1 [facility] - DOS ON OR AFTER 20 (MEDICAID REPLACEMENT - HMO) Michelle Marrero [id number] Michelle Marrero Notes Date Note Type Note [...] more overwhelmed/anxious. GINA Miller [address], [address], [place], [address], [employer] 06/27/2022 15:22:06 11/19/2023 text/html Patient is a [...] that. Patient denies any recent contact with [place]. no labsWWE-sees GYNflu-declinescovid -declinestdap-UTD 2021 [address], [address], [place], [address], [employer] 11/19/2023 11:47:13 OBGyn Episode No OBEpisode recorded.
--- OUTSIDE RECORDS SUMMARY | 2024-11-13 22:35 | XMS_ITS | Clinical Summary ---
Author Organization [facility] Address [address] [place] [address] Care Team Providers Care Conservation Assistant Name Role Phone Selena Huerta MD Primary Care Provider [phone] Source Comments [facility],non-owned Affiliates and Associated Physician Practices is amultiple site organization consisting of ambulatory clinics and hospital sitesin [place], [place], [place] and [place]. This disclosure is being madepursuant to the Care Everywhere program and may not contain all information available regarding this patient. Last updated 18.[employer] Allergies No known active allergies Medications [...] on file Legal Sex Female 9:00 AM EAR NOSE THROAT PHYSICIAN Gender Identity Not on file Sexual Orientation Not on file Last Filed Vital Signs Vital Sign Reading Time Taken Comments Blood Pressure 112/78 03/02/2014 9:19 AM EAR NOSE THROAT PHYSICIAN Pulse 88 02/13/2014 12:00 AM CDT Temperature 36.4 C (97.6 F) 06/17/2013 3:36 PM EAR NOSE THROAT PHYSICIAN Respiratory Rate 22 06/17/2013 3:36 PM EAR NOSE THROAT PHYSICIAN Oxygen Saturation - - Inhaled Oxygen Concentration - - Weight 52.4 kg (115 lb 9.6 oz) 05/12/2014 9:34 A M EAR NOSE THROAT PHYSICIAN Height 159 cm (5' 2.6) 05/12/2014 9:34 AM EAR NOSE THROAT PHYSICIAN Body Mass Index 20.74 05/12/2014 9:34 AM EAR NOSE THROAT PHYSICIAN Plan of Treatment Health Maintenance Due Date Last Done Comments HIV SCREENING 2012 HEPATITIS C SCREENING 04/22/2015 DTAP/TDAP/TD VACCINES (1 - Tdap) 2016 HEPATITIS B VACCINE (1 of 3 - 19+ 3-dose series) 2016 PAP SMEAR 2018 COVID-19 VACCINE ( - 2023-2 5 season) 2023 HPV VACCINE (1 - 3-dose SCDM series) 2024 DEPRESSION SCREENING 04/27/2024 INFLUENZA VACCINE (#1) 2024 ZOSTER VACCINE (1 of 2) 2047 [...] patient's age to complete this topic Insurance [employer] * Guarantor: TERESA MARRERO Account Type Relation to Patient Date of Phone Billing Address Personal/Family [address] [place] [address] [facility] SELF PAY NO INSURANCE Member Subscriber Plan / Payer (Ef fective for All Dates) Name:Teresa Marrero Member ID:Not on file Relation to Subscriber:Not on file Name:TERESA MARRERO Subscriber ID:Not on file Address: [address] [place] [address] Payer ID:Not on file Group ID:Not on file Type:Self Pay Address: [place], [place] * Guarantor: TERESA MARRERO Account Type Relation to Patient Date of Phone Billing Address Personal/Family [address] [place], [place] [facility] SELF PAY NO INSURANCE Member Subscriber Plan / Payer (Ef fective for All Dates) Name:Teresa Marrero Member ID:Not on file Relation to Subscriber:Not on file Name:TERESA MARRERO Subscriber ID:Not on file Address: [address] [place] [address] Payer ID:Not on file Group ID:Not on file Type:Self Pay Address: [place], [place] * Guarantor: TERESA MARRERO Account Type Relation to Patient Date of Phone Billing Address Personal/Family [address] [place] [address] [facility] SELF PAY NO INSURANCE Member Subscriber Plan / Payer (Ef fective for All Dates) Name:Teresa Marrero Member ID:Not on file Relation to Subscriber:Not on file Name:TERESA MARRERO Subscriber ID:Not on file Address: [address] [place], [place] Payer ID:Not on file Group ID:Not on file Type:Self Pay Address: [facility] [place] Care Teams Conservation Assistant Relationship Specialty Start Date End Date Selena Huerta MD [address] [place] [address] [place] [id number] PCP - General Family Medicine 06/17/13
--- OUTSIDE RECORDS SUMMARY | 2024-11-13 22:35 | XMS_ITS | Clinical Summary ---
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
--- OUTSIDE RECORDS SUMMARY | 2024-11-13 22:35 | XMS_ITS ---
Author Organization Unknown Plan of Treatment Description Planned Activity Planned Timing [facility] is a provider organization who partners directly with Health Plans and provides integrated primary care, behavioral health, and public health social worker for an attributed population Letter encounter to patientTelephone encounter Oct 20, 2024Jul 2024 Patient Care team information Name Category Status Period Participants - - Proposed period not known -
[2024-11-13 22:58] LABS: Hematocrit 37.2 % (37.0-47.0); Hemoglobin 12.1 g/dL (12.0-15.0); Immature Granulocyte Percent A 0.3 % (0-0.5); Lymphocytes Absolute Auto 2.96 K/mm3 (0.9-3.2); Mean Corpuscular HGB Conc 32.5 g/dl (32-36); Mean Corpuscular Hemoglobin 27.8 pg (26-34); Mean Corpuscular Volume 85.5 fl (80-100); Nucleated Red Blood Cells Absolute Auto 0.000 K/mm3 (0.0-0.012); Nucleated Red Blood Cells Perc 0.0 % (0.0-0.2); Platelet Count Result 267 k/mm3 (150-375); Red Blood Count 4.35 M/mm3 (4.2-5.4); White Blood Count 5.9 K/mm3 (4.5-10.0)
[2024-11-13 23:10] LABS: Alanine Aminotransferase 21 U/L (6-35); Albumin Level 4.3 g/dL (3.5-5.1); Alkaline Phosphatase 69 U/L (38-126); Anion Gap 13 mmol/L (4-12); Aspartate Amino Transferase 39 U/L (14-36); Bilirubin,Total 0.2 mg/dL (0.2-1.3); Blood Urea Nitrogen 11 mg/dL (7-17); Calcium 8.8 mg/dL (8.4-10.2); Carbon Dioxide 18 mmol/L (22-30); Chloride 108 mmol/L (98-107); Estimated Glomerular Filt Rate > 60; Glucose 99 mg/dL (65-110); Lipase 173 U/L (23-300); Potassium 3.8 mmol/L (3.4-5.0); Sodium 139 mmol/L (137-145); Total Protein 7.9 g/dL (6.3-8.2)
[2024-11-13 23:13] LABS: INR 0.9; Prothrombin Time 12.5 Seconds (11.1-14.7)
[2024-11-13 23:14] LABS: Partial Thromboplastin Time 33.0 Seconds (22.3-36.8)
[2024-11-13 23:22] LABS: Troponin I < 0.012 ng/mL (0.000-0.034)
--- OUTSIDE RECORDS SUMMARY | 2024-11-14 00:39 | XMS_ITS | Clinical Summary ---
Author Organization [facility] Address [address] [place] [address] Care Team Providers Care Analyst Business Analysis Name Role Phone Selena Huerta MD Primary Care Provider [phone] Allergies No known active allergies Medications acetaminophen [...] on file Legal Sex Female 11:21 PM TWISTER DOFFER Gender Identity Not on file Sexual Orientation [...] to complete this topic Insurance Care Teams Analyst Business Analysis Relationship Specialty Start Date End Date Selena Huerta MD [address] [place] [address] [place] [address] PCP - General FAMILY PRACTICE 12/27/18
--- OUTSIDE RECORDS SUMMARY | 2024-11-14 00:39 | XMS_ITS | Clinical Summary ---
Author Organization [facility] Address [address] [place] [address] Care Team Providers Care Truck Driver Instructor Name Role Phone Selena Huerta MD Primary Care Provider [phone] Source Comments [facility],non-owned Affiliates and Associated Physician Practices is amultiple site organization consisting of ambulatory clinics and hospital sitesin [place], [place], [place] and [place]. This disclosure is being madepursuant to the Care Everywhere program and may not contain all information available regarding this patient. Last updated 18.H?REL Allergies No known active allergies Medications * [...] on file Legal Sex Female 9:00 AM TERRA COTTA SETTER Gender Identity Not on file Sexual Orientation Not on file Last Filed Vital Signs Vital Sign Reading Time Taken Comments Blood Pressure 112/78 03/02/2014 9:19 AM TERRA COTTA SETTER Pulse 88 02/13/2014 12:00 AM CDT Temperature 36.4 C (97.6 F) 06/17/2013 3:36 PM TERRA COTTA SETTER Respiratory Rate 22 06/17/2013 3:36 PM TERRA COTTA SETTER Oxygen Saturation - - Inhaled Oxygen Concentration - - Weight 52.4 kg (115 lb 9.6 oz) 05/12/2014 9:34 A M TERRA COTTA SETTER Height 159 cm (5' 2.6) 05/12/2014 9:34 AM TERRA COTTA SETTER Body Mass Index 20.74 05/12/2014 9:34 AM TERRA COTTA SETTER Plan of Treatment Health Maintenance Due Date [...] patient's age to complete this topic Insurance [email or web address] * Guarantor: TERESA MARRERO Account Type Relation to Patient Date of Phone Billing Address Personal/Family [address] [place] [phone] [facility] SELF PAY NO INSURANCE Member Subscriber Plan / Payer (Ef fective for All Dates) Name:Teresa Marrero Member ID:Not on file Relation to Subscriber:Not on file Name:TERESA MARRERO Subscriber ID:Not on file Address: [address] [place] [address] Payer ID:Not on file Group ID:Not on file Type:Self Pay Address: [place], [place] * Guarantor: TERESA MARRERO Account Type Relation to Patient Date of Phone Billing Address Personal/Family [address] [place], [place] [facility] SELF PAY NO INSURANCE Member Subscriber Plan / Payer (Ef fective for All Dates) Name:Teresa Marrero Member ID:Not on file Relation to Subscriber:Not on file Name:TERESA MARRERO Subscriber ID:Not on file Address: [address] [place] [address] Payer ID:Not on file Group ID:Not on file Type:Self Pay Address: [place], [place] * Guarantor: TERESA MARRERO Account Type Relation to Patient Date of Phone Billing Address Personal/Family [address] [place] [address] [facility] SELF PAY NO INSURANCE Member Subscriber Plan / Payer (Ef fective for All Dates) Name:Teresa Marrero Member ID:Not on file Relation to Subscriber:Not on file Name:TERESA MARRERO Subscriber ID:Not on file Address: [address] [place], [place] Payer ID:Not on file Group ID:Not on file Type:Self Pay Address: [facility], [place] Care Teams Truck Driver Instructor Relationship Specialty Start Date End Date Selena Huerta MD [address] [place] [address] [place] [id number] PCP - General Family Medicine 06/17/13
--- OUTSIDE RECORDS SUMMARY | 2024-11-14 00:39 | XMS_ITS ---
Author Organization Unknown Plan of Treatment Description Planned Activity Planned Timing [facility] is a provider organization who partners directly with Health Plans and provides integrated primary care, behavioral health, and social media executive for an attributed population Letter encounter to patientTelephone encounter Oct 20, 2024Jul 2024 Patient Care team information Name Category Status Period Participants - - Proposed period not known -
[2024-11-14 00:40] VITALS: BP 106/63; PULSE 87; RESP 18; TEMP 36.3; O2SAT 100
[2024-11-14 02:08] VITALS: BP 120/70; PULSE 83; RESP 18; TEMP 36.6; O2SAT 100
--- NOTE | 2024-11-14 02:32 | ED.CHESTPAIN ---
HPI - Chest Pain General Chief Complaint: Chest Pain Stated Complaint: CP Time Seen by Provider: 11/14/24 00:18 History of Present Illness HPI narrative: 29-year-old otherwise healthy female with history of anxiety. Patient is 3 months with a spontaneous vaginal delivery without any complications during . She presents to the emergency depart with 4/10 chest tightness and pain going towards her left shoulder and to the left upper extremity. Rittman like she was sleeping on her arm when this pain started. No history of cardiac disease or any history of pulmonary embolism/DVT. No leg swelling. No family history of cardiac disease or DVTs. She endorses some pleuritic component to her chest discomfort but no pain with specific manipulations or movements of the shoulder or trunk. States that she took Ativan at home to help with her pain and anxiety. Denies any traumatic injuries or falls. She has had several family members all in the emergency department this evening for various similar complaints and thinks it could be viral or pneumonia. Patient denies any cough or fever. Related Data Home Medications ?Medication ?Instructions ?Recorded ?Confirmed ?Last Taken ?Type cyanocobalamin (B12)-cobamamide cira sublingual 07/21/24 08/03/24 History 5,000 mcg-100 mcg sublingual lozenge (B12) docosahexaenoic acid 200 mg mg PO 07/21/24 08/03/24 History capsule ( DHA) lurasidone 20 mg tablet 60 mg PO QPM PRN bipolar 07/21/24 07/21/24 07/20/24 History Allergies Allergy/AdvReac Type Severity Reaction Status Date / Time No Known Allergies Allergy Verified 08/15/24 14:22 Review of Systems Review of Systems: As [facility] Past Medical History Medical History IUP (intrauterine ), incidental Asthma Healthy female adult Family History Family History Mother Hypertension Family history of chronic obstructive pulmonary disease Alcoholism Asthma Depression Heart disease Sibling Hypertension Asthma Diabetes mellitus Depression Grandparent Family history of coronary artery disease Diabetes mellitus Father Alcoholism Hypertension Cerebrovascular accident Social History Social History Years smoked: 10 Smoking status: Current every day smoker Second hand tobacco smoke exposure: Yes Alcohol intake: current Substance use: never Substance use type: does not use Do You Feel Safe in your Home?: Yes Lack of Transportation: No Lack of Food: Never True Current Housing: I Have Housing Concerned About Future Housing: No Difficulty Paying Gas/Electric Bills: No Difficulty Paying for Meds: No Currently Unemployed: No Education: High School Diploma/GED Difficulty w/ Childcare or Family Care: No Living arrangements: alone Gender identity (if verbalized by the patient): Female Spiritual care concerns: No Exam Narrative: GENERAL: [Well-appearing, well-nourished, and in no acute distress.] HEAD: [Normocephalic, atraumatic.] EYES: [PERRLA and EOMI.] ENT: Nares clear, no rhinorrhea or epistaxis. Mucous membranes moist. NECK: Supple. CHEST: [Clear to auscultation. No respiratory distress.] HEART: [Regular rate and rhythm]. No murmur heard. [Normal peripheral pulses.] ABDOMEN: [Soft, nondistended], [nontender], [No rigidity or guarding] EXTREMITIES: Normal range of motion. [No edema.] SKIN: Warm, dry, no rash. NEURO: [No focal deficits]. Alert and oriented [x3.] PSYCH: [Normal mood and affect.] Course Vital Signs Vital signs: Vital Signs Temperature 36.6 C 11/13/24 22:35 Pulse Rate 87 11/13/24 22:35 Respiratory Rate 16 11/13/24 22:35 Blood Pressure 119/85 11/13/24 22:35 Pulse Oximetry 99 11/13/24 22:35 Oxygen Delivery Room Air 11/13/24 22:35 Temperature 36.8 C 11/14/24 04:24 Pulse Rate 71 11/14/24 04:24 Respiratory Rate 18 11/14/24 04:24 Blood Pressure 114/78 11/14/24 04:24 Pulse Oximetry 99 11/14/24 04:24 Oxygen Delivery Room Air 11/14/24 00:41 MDM - Chest Pain MDM Narrative Medical decision making narrative: 29-year-old otherwise healthy female with history of anxiety. Patient is 3 months with a spontaneous vaginal delivery without any complications during . She presents to the emergency depart with 4/10 chest tightness and pain going towards her left shoulder and to the left upper extremity. Rittman like she was sleeping on her arm when this pain started. No history of cardiac disease or any history of pulmonary embolism/DVT. No leg swelling. No family history of cardiac disease or DVTs. She endorses some pleuritic component to her chest discomfort but no pain with specific manipulations or movements of the shoulder or trunk. States that she took Ativan at home to help with her pain and anxiety. Denies any traumatic injuries or falls. She has had several family members all in the emergency department this evening for various similar complaints and thinks it could be viral or pneumonia. Patient denies any cough or fever. Patient is not in any acute distress, strong symmetric pulses, no signs of leg swelling or DVT on examination. No cough throughout the encounter. Clear breath sounds throughout. No labored breathing and normal vital signs without any tachycardia, fever, hypoxia tachypnea. Differential remains broad but does include musculoskeletal chest pain, ACS, anxiety, pneumonia, pneumothorax, bronchitis, less likely thromboembolic disease such as PE. Patient is low risk but she is with higher propensity for blood clot formation. D-dimer was ordered as well as serial troponin, EKG, chest x-ray, CBC, CMP and lipase. Patient provide analgesia medications with Toradol and re-evaluated. Patient felt markedly improved after Toradol. Her laboratory studies are reassuring with delta troponins being negative, EKG nonischemic, chest x-ray without any findings, CBC and CMP without any findings. D-dimer negative. Patient discharged home with prescription Toradol and follow-up instructions with her PCP. Medical Records Data Attestation: I reviewed the patient's medical records. Lab Data Attestation: I reviewed the patient's lab results. 11/13/24 22:50 11/13/24 22:50 Labs: Lab Results 11/13/24 11/14/24 11/14/24 Range/Units 22:50 01:51 01:57 WBC 5.9 (4.5-10.0) K/mm3 RBC 4.35 (4.2-5.4) M/mm3 Hgb 12.1 (12.0-15.0) g/dL Hct 37.2 (37.0-47.0) % MCV 85.5 (80-100) fl MCH 27.8 (26-34) pg MCHC 32.5 (32-36) g/dl RDW 14.9 H (11.5-14.5) % Plt Count 267 (150-375) k/mm3 MPV 9.5 (7.4-10.4) fl Immature Gran % (Auto) 0.3 (0-0.5) % Neut % (Auto) 42.2 L (45.5-73.1) % Lymph % (Auto) 50.6 H (18.3-44.2) % [place] % (Auto) 4.8 (2.6-8.5) % Eos % (Auto) 1.2 (0-4.4) % Baso % (Auto) 0.9 (0.2-1.2) % Lymph # (Auto) 2.96 (0.9-3.2) K/mm3 [place] # (Auto) 0.3 (0.1-0.6) K/mm3 Eos # (Auto) 0.1 (0-0.3) K/mm3 Baso # (Auto) 0.1 (0.0-0.1) K/mm3 Abs Immat Gran (auto) 0.02 (0.00-0.031) K/mm3 Absolute Neuts (auto) 2.5 (1.3-6.7) K/mm3 Absolute Nucleated RBC 0.000 (0.0-0.012) K/mm3 Nucleated RBC % 0.0 (0.0-0.2) % PT 12.5 (11.1-14.7) Seconds INR 0.9 APTT 33.0 (22.3-36.8) Seconds D-Dimer 0.35 (<0.48) ug/mL Sodium 139 (137-145) mmol/L Potassium 3.8 (3.4-5.0) mmol/L Chloride 108 H (98-107) mmol/L Carbon Dioxide 18 L (22-30) mmol/L Anion Gap 13 H (4-12) mmol/L BUN 11 D (7-17) mg/dL Creatinine 0.72 (0.7-1.0) mg/dL Estim Creat Clear Calc Not Reportable Estimated GFR > 60 (59 - ) Glucose 99 (65-110) mg/dL Calcium 8.8 (8.4-10.2) mg/dL Total Bilirubin 0.2 (0.2-1.3) mg/dL AST 39 H (14-36) U/L ALT 21 (6-35) U/L Alkaline Phosphatase 69 (38-126) U/L Troponin I < 0.012 < 0.012 (0.000-0.034) ng/mL Total Protein 7.9 (6.3-8.2) g/dL Albumin 4.3 (3.5-5.1) g/dL Lipase 173 (23-300) U/L Influenza A (RT-PCR) Negative (Negative) Influenza B (RT-PCR) Negative (Negative) RSV (RT-PCR) Negative (Negative) SARS-CoV-2 RNA (RT-PCR) Negative (Negative) Imaging Data Attestation: I personally reviewed and interpreted this imaging study as follows: Discharge Plan Discharge Clinical Impression: Left-sided chest wall pain Patient Disposition: Home Condition: Stable Instructions: Antibiotic Form, Chest Wall Pain (ED) Additional Instructions: Your laboratory studies, imaging and EKG are all normal. No signs of any cardiac issues or blood clot issues. Follow-up with regular doctor. We will prescribe you high-dose anti-inflammatories for pain and symptom control. Return with any emergent concerns. Patient Language: Mongolian Prescriptions: New ketorolac 10 mg tablet 10 mg PO Q8H PRN (Reason: pain) 5 Days Qty: 20 0RF Rx Instructions: maximum total duration of 5 days from all oral, intranasal, or parenteral formulations No Action lurasidone 20 mg tablet 60 mg PO QPM PRN (Reason: bipolar) DHA 200 mg capsule PO B12 5,000-100 mcg lozenge sublingual Follow-up/Referrals: PHYSICIAN,VP PUBLISHER DEVELOPMENT [Primary Care Provider] - Time of Disposition: 04:16
[2024-11-14 02:38] LABS: Troponin I < 0.012 ng/mL (0.000-0.034)
[2024-11-14 02:39] LABS: Influenza A QL RT-PCR Negative (Negative); Influenza B QL RT-PCR Negative (Negative); RSV RNA, RT-PCR Negative (Negative); SARS-CoV-2 RNA PCR Negative (Negative)
[2024-11-14] MEDS: KETOROLAC 15 MG/ML VIAL (*BKC) IV PUSH (02:41)
[2024-11-14 04:24] VITALS: BP 114/78; PULSE 71; RESP 18; TEMP 36.8; O2SAT 99
== END 2024-11-14 04:25 | disposition home or self-care (01) ==
PROVIDERS: Emergency Provider Student in an Organized Health Care Education/Training Program
DX: R07.89 Other chest pain (principal); Z20.822 Contact with and (suspected) exposure to COVID-19; J45.909 Unspecified asthma, uncomplicated; F41.9 Anxiety disorder, unspecified; F17.200 Nicotine dependence, unspecified, uncomplicated
CPT/HCPCS: 36415; 71046; 80053; 83690; 84484; 85025; 85380; 85610; 85730; 87637; 93005; 96374; 99284; J1885

== ENCOUNTER 2025-02-14 10:57 | Outpatient (CLI) | payer OTHER, SELFPAY ==
[2025-02-14 11:22] LABS: Hematocrit 38.4 % (37.0-47.0); Hemoglobin 12.3 g/dL (12.0-15.0); Immature Granulocyte Percent A 0.5 % (0-0.5); Lymphocytes Absolute Auto 2.11 K/mm3 (0.9-3.2); Mean Corpuscular HGB Conc 32.0 g/dl (32-36); Mean Corpuscular Hemoglobin 27.5 pg (26-34); Mean Corpuscular Volume 85.7 fl (80-100); Nucleated Red Blood Cells Absolute Auto 0.000 K/mm3 (0.0-0.012); Nucleated Red Blood Cells Perc 0.0 % (0.0-0.2); Platelet Count Result 211 k/mm3 (150-375); Red Blood Count 4.48 M/mm3 (4.2-5.4); White Blood Count 6.6 K/mm3 (4.5-10.0)
[2025-02-14 11:47] LABS: Alanine Aminotransferase 13 U/L (6-35); Albumin Level 4.5 g/dL (3.5-5.1); Alkaline Phosphatase 83 U/L (38-126); Anion Gap 10 mmol/L (4-12); Aspartate Amino Transferase 27 U/L (14-36); Bilirubin,Total 0.4 mg/dL (0.2-1.3); Blood Urea Nitrogen 14 mg/dL (7-17); Calcium 8.9 mg/dL (8.4-10.2); Carbon Dioxide 24 mmol/L (22-30); Chloride 102 mmol/L (98-107); Cholesterol 297 mg/dL (0-200); Estimated Glomerular Filt Rate > 60; Glucose 95 mg/dL (65-110); HDL Direct 48 mg/dL; Potassium 4.4 mmol/L (3.4-5.0); Sodium 136 mmol/L (137-145); Total Protein 8.5 g/dL (6.3-8.2); Triglycerides 289 mg/dL (<150)
[2025-02-14 12:02] LABS: Hemoglobin A1C 4.8 % (<5.7)
[2025-02-14 12:29] LABS: Thyroid Stimulating Hormone Reflex 0.802 uIU/mL (0.465-4.68)
== END 2025-02-14 10:58 | disposition home or self-care (01) ==
LOC: ANHLAB 10:59
PROVIDERS: Visit Provider Nurse Practitioner Family
DX: Z00.00 Encounter for general adult medical examination without abnormal findings (principal); Z13.1 Encounter for screening for diabetes mellitus; Z13.29 Encounter for screening for other suspected endocrine disorder; Z13.6 Encounter for screening for cardiovascular disorders
CPT/HCPCS: 36415; 80053; 80061; 83036; 84443; 85025